=== PATIENT | male | born 1935 | race Caucasian/White ===

== ENCOUNTER 2018-04-08 07:33 | Observation (INO) ==
[2018-04-08 08:18] LABS: Baso % (Auto) 0.3 % (0.0-2.0); Eos # (Auto) 0.1 th/mm3 (0.0-0.4); Eos % (Auto) 0.7 % (0.0-4.0); Hematocrit 44.4 % (39.0-51.0); Hemoglobin 14.9 gm/dL (13.0-17.0); Lymph # (Auto) 1.3 th/mm3 (1.0-4.8); Lymph % (Auto) 8.3 % (9.0-44.0); Mean Corpuscular HGB Conc 33.5 % (32.0-36.0); Mean Corpuscular Hemoglobin 31.7 pg (27.0-34.0); Mean Corpuscular Volume 94.6 fL (80.0-100.0); Mean Platelet Volume 10.4 fL (7.0-11.0); Mono # (Auto) 0.8 th/mm3 (0.0-0.9); Mono % (Auto) 5.3 % (0.0-8.0); Neut # (Auto) 13.5 th/mm3 (1.8-7.7); Neut % (Auto) 85.4 % (16.0-70.0); Platelet Count 218 th/mm3 (150-450); Red Blood Count 4.69 mil/mm3 (4.50-5.90); Red Cell Distribution Width 14.3 % (11.6-17.2); White Blood Count 15.8 th/mm3 (4.0-11.0)
--- NOTE | 2018-04-08 08:34 | ED ---
HPI General Chief complaint: Nausea/Vomiting/Diarrhea Stated complaint: Medical Time Seen by Provider: 04/08/18 07:36 History of Present Illness HPI narrative: 82 male history of hyperlipidemia, hypertension, Alzheimer's disease, depression, BPH was brought via [facility] from SNF for evaluation of shaking of both arms. Symptoms started yesterday, according to the correction note it says it happens "every month". He has no complaints and denies any chest pain or shortness of breath. During the interview patient keeps saying that the blankets covering him makes him uncomfortable and that people keeps "walking by"and not doing anything for him. Called daughter (DEJAH) ) who says that pt was SOB at the NH. Pt didn't have SOB with [facility] or here at the ER. She also mentions that shakings are normal for him and they sometimes get worse randomly. Side Note: My interview with the patient may be affected by the patient clinical condition. Patient has baseline Alzheimer dementia and cannot give consistent history. I do not know if there is concern for altered mental status and I cannot determine the patient's baseline cognitive functions due to lack of documents from the SNF. Related Data Home Medications Medication Instructions Recorded Confirmed atorvastatin 20 mg PO DAILY 04/08/18 04/08/18 donepezil 10 mg PO BID 04/08/18 04/08/18 loperamide [Anti-Diarrheal 2 mg PO TID 04/08/18 04/08/18 (loperamide)] lorazepam 0.5 mg PO BID 04/08/18 04/08/18 montelukast 10 mg PO QPM 04/08/18 04/08/18 polyethylene glycol 3350 17 g PO DAILY PRN 04/08/18 04/08/18 potassium chloride 20 meq PO DAILY 04/08/18 04/08/18 quetiapine 25 mg PO BID 04/08/18 04/08/18 quinapril 20 mg PO BID 04/08/18 04/08/18 sertraline 100 mg PO DAILY 04/08/18 04/08/18 tamsulosin 0.4 mg PO DAILY 04/08/18 04/08/18 Previous Rx's Medication Instructions Recorded amlodipine [Norvasc] 10 mg PO DAILY #30 tab 04/13/18 furosemide 20 mg PO DAILY #30 tab 04/13/18 Allergies Allergy/AdvReac Type Severity Reaction Status Date / Time No Known Allergies Allergy Verified 04/08/18 07:43 Review of Systems ROS: all other systems reviewed are negative [facility] Social History Social History Smoking Status: Unknown if ever smoked How Often Do You Have a Drink Containing Alcohol: Unable to Obtain Recent Travel in [facility] within the Last 8 Weeks: No Recent Out of Country Travel within the Last 8 Weeks: No Immunization History Tetanus Immunization: Unsure Exam Narrative Exam Narrative: GENERAL: Alert but not oriented to time or place. SKIN: Focused skin assessment warm/dry. HEAD: Atraumatic. Normocephalic. EYES: Pupils equal and round. No scleral icterus. No injection or drainage. ENT: No nasal bleeding or discharge. Mucous membranes pink and moist. NECK: Trachea midline. No JVD. CARDIOVASCULAR: Regular rate and rhythm. No murmur appreciated. RESPIRATORY: No accessory muscle use. Clear to auscultation. Breath sounds equal bilaterally. GASTROINTESTINAL: large scrotal mass, tender, erythematous, non reducible, Abdomen soft, non-tender, nondistended. Hepatic and splenic margins not palpable. MUSCULOSKELETAL: No obvious deformities. No clubbing. No cyanosis. No edema. NEUROLOGICAL: Awake and alert. No obvious cranial nerve deficits. Motor grossly within normal limits. Normal speech. PSYCHIATRIC: Appropriate mood and affect; insight and judgment normal. Course Initial Documented Vital Signs Temperature 97.8 F 04/08/18 07:36 Pulse Rate 66 04/08/18 07:36 Respiratory Rate 18 04/08/18 07:36 Blood Pressure 189/90 H 04/08/18 07:36 Pulse Oximetry 100 04/08/18 07:36 Last Documented Vital Signs Temperature 98.1 F 04/13/18 16:00 Pulse Rate 65 04/13/18 16:00 Respiratory Rate 17 04/13/18 16:00 Blood Pressure 130/70 04/13/18 16:00 Pulse Oximetry 95 04/13/18 16:00 Medical Decision Making [facility] Narrative Medical decision making narrative: 82 male here from group home facility for evaluation of shaking, questionable shortness of breath, poor history due to clinical condition, history of hypertension. Physical exam remarkable for scrotal mass that is erythematous tender. Labs concerning for leukocytosis with left shift, hypokalemia, TAMMY, head CT shows possible tiny SAH which is unclear new vs old ( daughter doesn't know anything about it), chest CT shows Left lower lobe 1.3 cm focal irregular nodular density, abdomen CT shows inguinal hernia. I spoke with daughter and she says it's been there for >5 years, I don't anticipate that patient is surgical candidate. EKG shows sinus bradycardia with a heart rate of 56 right bundle branch block with questionable nonconducted P waves randomly and irregularly irregular rhythm concerning for possible second-degree heart block, Medical Screen Exam Complete: Yes Emergency Medical Condition: Yes Lab Data Result diagrams: 04/12/18 07:53 04/12/18 07:53 Lab Results 04/08/18 04/08/18 04/08/18 Range/Units 07:41 08:00 08:00 WBC 15.8 H (4.0-11.0) th/mm3 RBC 4.69 (4.50-5.90) mil/mm3 Hgb 14.9 (13.0-17.0) gm/dL Hct 44.4 (39.0-51.0) % MCV 94.6 (80.0-100.0) fL MCH 31.7 (27.0-34.0) pg MCHC 33.5 (32.0-36.0) % RDW 14.3 (11.6-17.2) % Plt Count 218 (150-450) th/mm3 MPV 10.4 (7.0-11.0) fL Neut % (Auto) 85.4 H (16.0-70.0) % Lymph % (Auto) 8.3 L (9.0-44.0) % Banner % (Auto) 5.3 (0.0-8.0) % Eos % (Auto) 0.7 (0.0-4.0) % Baso % (Auto) 0.3 (0.0-2.0) % Neut # (Auto) 13.5 H (1.8-7.7) th/mm3 Lymph # (Auto) 1.3 (1.0-4.8) th/mm3 Banner # (Auto) 0.8 (0.0-0.9) th/mm3 Eos # (Auto) 0.1 (0.0-0.4) th/mm3 Baso # (Auto) 0.0 (0.0-0.2) th/mm3 WBC Differential . Differential Comment Auto diff final PT (9.8-11.6) sec INR Ratio APTT (24.3-30.1) sec Sodium 138 (136-145) meq/L Potassium 2.9 L* (3.5-5.1) meq/L Chloride 99 (98-107) meq/L Carbon Dioxide 22.4 (21.0-32.0) meq/L Anion Gap 17 H (5-15) meq/L BUN 30 H (7-18) mg/dL Creatinine 1.53 H (0.60-1.30) mg/dL Estimated GFR 44 L (>89) mL/min POC Glucose 217 H (68-110) mg/dl Random Glucose 217 H (74-106) mg/dL Hemoglobin A1c (4.3-6.0) % Calcium 9.7 (8.5-10.1) mg/dL Magnesium 1.9 (1.5-2.5) mg/dL Total Bilirubin 0.5 (0.2-1.0) mg/dL AST 18 (15-37) U/L ALT 24 (12-78) U/L Alkaline Phosphatase 125 H (45-117) U/L Ammonia (11-32) mcmol/L B-Natriuretic Peptide (0-100) pg/mL Total Protein 7.9 (6.4-8.2) g/dL Albumin 3.9 (3.4-5.0) g/dL TSH 1.590 (0.358-3.740) uIU/mL Urine Color (Yellw/Straw) Urine Clarity (Clear) Urine pH (5.0-8.5) Ur Specific Ovid (1.002-1.035) Urine Protein (Neg-Trace) mg/dL Urine Glucose (UA) (Negative) mg/dL Urine Ketones (Negative) mg/dL Urine Occult Blood (Negative) Urine Nitrate (Negative) Urine Bilirubin (Negative) Urine Urobilinogen (Less than 2) mg/dL Ur Leukocyte Esterase (Negative) Urine RBC (0-3) /hpf Urine WBC (0-5) /hpf Urine Bacteria (None) /hpf Hyaline Casts (0-3) /lpf Micro UA Comment Ur Microscopic Review Urine Culture Comments 04/08/18 04/08/18 04/08/18 Range/Units 08:00 10:03 10:05 WBC (4.0-11.0) th/mm3 RBC (4.50-5.90) mil/mm3 Hgb (13.0-17.0) gm/dL Hct (39.0-51.0) % MCV (80.0-100.0) fL MCH (27.0-34.0) pg MCHC (32.0-36.0) % RDW (11.6-17.2) % Plt Count (150-450) th/mm3 MPV (7.0-11.0) fL Neut % (Auto) (16.0-70.0) % Lymph % (Auto) (9.0-44.0) % Banner % (Auto) (0.0-8.0) % Eos % (Auto) (0.0-4.0) % Baso % (Auto) (0.0-2.0) % Neut # (Auto) (1.8-7.7) th/mm3 Lymph # (Auto) (1.0-4.8) th/mm3 Banner # (Auto) (0.0-0.9) th/mm3 Eos # (Auto) (0.0-0.4) th/mm3 Baso # (Auto) (0.0-0.2) th/mm3 WBC Differential Differential Comment PT (9.8-11.6) sec INR Ratio APTT (24.3-30.1) sec Sodium (136-145) meq/L Potassium (3.5-5.1) meq/L Chloride (98-107) meq/L Carbon Dioxide (21.0-32.0) meq/L Anion Gap (5-15) meq/L BUN (7-18) mg/dL Creatinine (0.60-1.30) mg/dL Estimated GFR (>89) mL/min POC Glucose (68-110) mg/dl Random Glucose (74-106) mg/dL Hemoglobin A1c (4.3-6.0) % Calcium (8.5-10.1) mg/dL Magnesium (1.5-2.5) mg/dL Total Bilirubin (0.2-1.0) mg/dL AST (15-37) U/L ALT (12-78) U/L Alkaline Phosphatase (45-117) U/L Ammonia 13 (11-32) mcmol/L B-Natriuretic Peptide 48 (0-100) pg/mL Total Protein (6.4-8.2) g/dL Albumin (3.4-5.0) g/dL TSH (0.358-3.740) uIU/mL Urine Color Yellow (Yellw/Straw) Urine Clarity Clear (Clear) Urine pH 7.0 (5.0-8.5) Ur Specific Ovid 1.014 (1.002-1.035) Urine Protein Negative (Neg-Trace) mg/dL Urine Glucose (UA) 50 (Negative) mg/dL Urine Ketones Trace H (Negative) mg/dL Urine Occult Blood Negative (Negative) Urine Nitrate Negative (Negative) Urine Bilirubin Negative (Negative) Urine Urobilinogen Less than 2 (Less than 2) mg/dL Ur Leukocyte Esterase Negative (Negative) Urine RBC 3 (0-3) /hpf Urine WBC 2 (0-5) /hpf Urine Bacteria Rare H (None) /hpf Hyaline Casts 1 (0-3) /lpf Micro UA Comment Culture not ind Ur Microscopic Review Not Reportable Urine Culture Comments Culture not ind 04/09/18 04/09/18 04/09/18 Range/Units 08:31 08:31 08:31 WBC 19.0 H (4.0-11.0) th/mm3 RBC 4.19 L (4.50-5.90) mil/mm3 Hgb 13.6 (13.0-17.0) gm/dL Hct 38.9 L (39.0-51.0) % MCV 92.8 (80.0-100.0) fL MCH 32.6 (27.0-34.0) pg MCHC 35.1 (32.0-36.0) % RDW 14.2 (11.6-17.2) % Plt Count 189 (150-450) th/mm3 MPV 10.3 (7.0-11.0) fL Neut % (Auto) (16.0-70.0) % Lymph % (Auto) (9.0-44.0) % Banner % (Auto) (0.0-8.0) % Eos % (Auto) (0.0-4.0) % Baso % (Auto) (0.0-2.0) % Neut # (Auto) (1.8-7.7) th/mm3 Lymph # (Auto) (1.0-4.8) th/mm3 Banner # (Auto) (0.0-0.9) th/mm3 Eos # (Auto) (0.0-0.4) th/mm3 Baso # (Auto) (0.0-0.2) th/mm3 WBC Differential Differential Comment PT (9.8-11.6) sec INR Ratio APTT (24.3-30.1) sec Sodium 145 (136-145) meq/L Potassium 3.7 D (3.5-5.1) meq/L Chloride 111 H D (98-107) meq/L Carbon Dioxide 25.6 (21.0-32.0) meq/L Anion Gap 8 (5-15) meq/L BUN 26 H (7-18) mg/dL Creatinine 1.09 (0.60-1.30) mg/dL Estimated GFR 65 L (>89) mL/min POC Glucose (68-110) mg/dl Random Glucose 102 D (74-106) mg/dL Hemoglobin A1c 5.4 (4.3-6.0) % Calcium 8.8 D (8.5-10.1) mg/dL Magnesium (1.5-2.5) mg/dL Total Bilirubin (0.2-1.0) mg/dL AST (15-37) U/L ALT (12-78) U/L Alkaline Phosphatase (45-117) U/L Ammonia (11-32) mcmol/L B-Natriuretic Peptide (0-100) pg/mL Total Protein (6.4-8.2) g/dL Albumin (3.4-5.0) g/dL TSH (0.358-3.740) uIU/mL Urine Color (Yellw/Straw) Urine Clarity (Clear) Urine pH (5.0-8.5) Ur Specific Ovid (1.002-1.035) Urine Protein (Neg-Trace) mg/dL Urine Glucose (UA) (Negative) mg/dL Urine Ketones (Negative) mg/dL Urine Occult Blood (Negative) Urine Nitrate (Negative) Urine Bilirubin (Negative) Urine Urobilinogen (Less than 2) mg/dL Ur Leukocyte Esterase (Negative) Urine RBC (0-3) /hpf Urine WBC (0-5) /hpf Urine Bacteria (None) /hpf Hyaline Casts (0-3) /lpf Micro UA Comment Ur Microscopic Review Urine Culture Comments 04/09/18 04/09/18 04/09/18 Range/Units 12:05 16:59 20:09 WBC (4.0-11.0) th/mm3 RBC (4.50-5.90) mil/mm3 Hgb (13.0-17.0) gm/dL Hct (39.0-51.0) % MCV (80.0-100.0) fL MCH (27.0-34.0) pg MCHC (32.0-36.0) % RDW (11.6-17.2) % Plt Count (150-450) th/mm3 MPV (7.0-11.0) fL Neut % (Auto) (16.0-70.0) % Lymph % (Auto) (9.0-44.0) % Banner % (Auto) (0.0-8.0) % Eos % (Auto) (0.0-4.0) % Baso % (Auto) (0.0-2.0) % Neut # (Auto) (1.8-7.7) th/mm3 Lymph # (Auto) (1.0-4.8) th/mm3 Banner # (Auto) (0.0-0.9) th/mm3 Eos # (Auto) (0.0-0.4) th/mm3 Baso # (Auto) (0.0-0.2) th/mm3 WBC Differential Differential Comment PT (9.8-11.6) sec INR Ratio APTT (24.3-30.1) sec Sodium (136-145) meq/L Potassium (3.5-5.1) meq/L Chloride (98-107) meq/L Carbon Dioxide (21.0-32.0) meq/L Anion Gap (5-15) meq/L BUN (7-18) mg/dL Creatinine (0.60-1.30) mg/dL Estimated GFR (>89) mL/min POC Glucose 145 H 118 H 120 H (68-110) mg/dl Random Glucose (74-106) mg/dL Hemoglobin A1c (4.3-6.0) % Calcium (8.5-10.1) mg/dL Magnesium (1.5-2.5) mg/dL Total Bilirubin (0.2-1.0) mg/dL AST (15-37) U/L ALT (12-78) U/L Alkaline Phosphatase (45-117) U/L Ammonia (11-32) mcmol/L B-Natriuretic Peptide (0-100) pg/mL Total Protein (6.4-8.2) g/dL Albumin (3.4-5.0) g/dL TSH (0.358-3.740) uIU/mL Urine Color (Yellw/Straw) Urine Clarity (Clear) Urine pH (5.0-8.5) Ur Specific Ovid (1.002-1.035) Urine Protein (Neg-Trace) mg/dL Urine Glucose (UA) (Negative) mg/dL Urine Ketones (Negative) mg/dL Urine Occult Blood (Negative) Urine Nitrate (Negative) Urine Bilirubin (Negative) Urine Urobilinogen (Less than 2) mg/dL Ur Leukocyte Esterase (Negative) Urine RBC (0-3) /hpf Urine WBC (0-5) /hpf Urine Bacteria (None) /hpf Hyaline Casts (0-3) /lpf Micro UA Comment Ur Microscopic Review Urine Culture Comments 04/10/18 04/10/18 04/10/18 Range/Units 02:37 07:26 10:13 WBC 21.1 H (4.0-11.0) th/mm3 RBC 3.79 L (4.50-5.90) mil/mm3 Hgb 12.1 L (13.0-17.0) gm/dL Hct 35.9 L (39.0-51.0) % MCV 94.7 (80.0-100.0) fL MCH 31.8 (27.0-34.0) pg MCHC 33.6 (32.0-36.0) % RDW 14.3 (11.6-17.2) % Plt Count 167 (150-450) th/mm3 MPV 10.3 (7.0-11.0) fL Neut % (Auto) 84.8 H (16.0-70.0) % Lymph % (Auto) 5.6 L (9.0-44.0) % Banner % (Auto) 8.7 H (0.0-8.0) % Eos % (Auto) 0.8 (0.0-4.0) % Baso % (Auto) 0.1 (0.0-2.0) % Neut # (Auto) 17.9 H (1.8-7.7) th/mm3 Lymph # (Auto) 1.2 (1.0-4.8) th/mm3 Banner # (Auto) 1.8 H (0.0-0.9) th/mm3 Eos # (Auto) 0.2 (0.0-0.4) th/mm3 Baso # (Auto) 0.0 (0.0-0.2) th/mm3 WBC Differential . Differential Comment Auto diff final PT (9.8-11.6) sec INR Ratio APTT (24.3-30.1) sec Sodium (136-145) meq/L Potassium (3.5-5.1) meq/L Chloride (98-107) meq/L Carbon Dioxide (21.0-32.0) meq/L Anion Gap (5-15) meq/L BUN (7-18) mg/dL Creatinine (0.60-1.30) mg/dL Estimated GFR (>89) mL/min POC Glucose 113 H 113 H (68-110) mg/dl Random Glucose (74-106) mg/dL Hemoglobin A1c (4.3-6.0) % Calcium (8.5-10.1) mg/dL Magnesium (1.5-2.5) mg/dL Total Bilirubin (0.2-1.0) mg/dL AST (15-37) U/L ALT (12-78) U/L Alkaline Phosphatase (45-117) U/L Ammonia (11-32) mcmol/L B-Natriuretic Peptide (0-100) pg/mL Total Protein (6.4-8.2) g/dL Albumin (3.4-5.0) g/dL TSH (0.358-3.740) uIU/mL Urine Color (Yellw/Straw) Urine Clarity (Clear) Urine pH (5.0-8.5) Ur Specific Ovid (1.002-1.035) Urine Protein (Neg-Trace) mg/dL Urine Glucose (UA) (Negative) mg/dL Urine Ketones (Negative) mg/dL Urine Occult Blood (Negative) Urine Nitrate (Negative) Urine Bilirubin (Negative) Urine Urobilinogen (Less than 2) mg/dL Ur Leukocyte Esterase (Negative) Urine RBC (0-3) /hpf Urine WBC (0-5) /hpf Urine Bacteria (None) /hpf Hyaline Casts (0-3) /lpf Micro UA Comment Ur Microscopic Review Urine Culture Comments 04/10/18 04/10/18 04/10/18 Range/Units 10:13 12:25 18:19 WBC (4.0-11.0) th/mm3 RBC (4.50-5.90) mil/mm3 Hgb (13.0-17.0) gm/dL Hct (39.0-51.0) % MCV (80.0-100.0) fL MCH (27.0-34.0) pg MCHC (32.0-36.0) % RDW (11.6-17.2) % Plt Count (150-450) th/mm3 MPV (7.0-11.0) fL Neut % (Auto) (16.0-70.0) % Lymph % (Auto) (9.0-44.0) % Banner % (Auto) (0.0-8.0) % Eos % (Auto) (0.0-4.0) % Baso % (Auto) (0.0-2.0) % Neut # (Auto) (1.8-7.7) th/mm3 Lymph # (Auto) (1.0-4.8) th/mm3 Banner # (Auto) (0.0-0.9) th/mm3 Eos # (Auto) (0.0-0.4) th/mm3 Baso # (Auto) (0.0-0.2) th/mm3 WBC Differential Differential Comment PT (9.8-11.6) sec INR Ratio APTT (24.3-30.1) sec Sodium 144 (136-145) meq/L Potassium 3.9 (3.5-5.1) meq/L Chloride 112 H (98-107) meq/L Carbon Dioxide 26.1 (21.0-32.0) meq/L Anion Gap 6 (5-15) meq/L BUN 15 (7-18) mg/dL Creatinine 0.88 (0.60-1.30) mg/dL Estimated GFR 83 L (>89) mL/min POC Glucose 111 H 95 (68-110) mg/dl Random Glucose 98 (74-106) mg/dL Hemoglobin A1c (4.3-6.0) % Calcium 9.0 (8.5-10.1) mg/dL Magnesium (1.5-2.5) mg/dL Total Bilirubin (0.2-1.0) mg/dL AST (15-37) U/L ALT (12-78) U/L Alkaline Phosphatase (45-117) U/L Ammonia (11-32) mcmol/L B-Natriuretic Peptide (0-100) pg/mL Total Protein (6.4-8.2) g/dL Albumin (3.4-5.0) g/dL TSH (0.358-3.740) uIU/mL Urine Color (Yellw/Straw) Urine Clarity (Clear) Urine pH (5.0-8.5) Ur Specific Ovid (1.002-1.035) Urine Protein (Neg-Trace) mg/dL Urine Glucose (UA) (Negative) mg/dL Urine Ketones (Negative) mg/dL Urine Occult Blood (Negative) Urine Nitrate (Negative) Urine Bilirubin (Negative) Urine Urobilinogen (Less than 2) mg/dL Ur Leukocyte Esterase (Negative) Urine RBC (0-3) /hpf Urine WBC (0-5) /hpf Urine Bacteria (None) /hpf Hyaline Casts (0-3) /lpf Micro UA Comment Ur Microscopic Review Urine Culture Comments 04/10/18 04/11/18 04/11/18 Range/Units 22:31 03:30 07:55 WBC (4.0-11.0) th/mm3 RBC (4.50-5.90) mil/mm3 Hgb (13.0-17.0) gm/dL Hct (39.0-51.0) % MCV (80.0-100.0) fL MCH (27.0-34.0) pg MCHC (32.0-36.0) % RDW (11.6-17.2) % Plt Count (150-450) th/mm3 MPV (7.0-11.0) fL Neut % (Auto) (16.0-70.0) % Lymph % (Auto) (9.0-44.0) % Banner % (Auto) (0.0-8.0) % Eos % (Auto) (0.0-4.0) % Baso % (Auto) (0.0-2.0) % Neut # (Auto) (1.8-7.7) th/mm3 Lymph # (Auto) (1.0-4.8) th/mm3 Banner # (Auto) (0.0-0.9) th/mm3 Eos # (Auto) (0.0-0.4) th/mm3 Baso # (Auto) (0.0-0.2) th/mm3 WBC Differential Differential Comment PT (9.8-11.6) sec INR Ratio APTT (24.3-30.1) sec Sodium (136-145) meq/L Potassium (3.5-5.1) meq/L Chloride (98-107) meq/L Carbon Dioxide (21.0-32.0) meq/L Anion Gap (5-15) meq/L BUN (7-18) mg/dL Creatinine (0.60-1.30) mg/dL Estimated GFR (>89) mL/min POC Glucose 81 81 111 H (68-110) mg/dl Random Glucose (74-106) mg/dL Hemoglobin A1c (4.3-6.0) % Calcium (8.5-10.1) mg/dL Magnesium (1.5-2.5) mg/dL Total Bilirubin (0.2-1.0) mg/dL AST (15-37) U/L ALT (12-78) U/L Alkaline Phosphatase (45-117) U/L Ammonia (11-32) mcmol/L B-Natriuretic Peptide (0-100) pg/mL Total Protein (6.4-8.2) g/dL Albumin (3.4-5.0) g/dL TSH (0.358-3.740) uIU/mL Urine Color (Yellw/Straw) Urine Clarity (Clear) Urine pH (5.0-8.5) Ur Specific Ovid (1.002-1.035) Urine Protein (Neg-Trace) mg/dL Urine Glucose (UA) (Negative) mg/dL Urine Ketones (Negative) mg/dL Urine Occult Blood (Negative) Urine Nitrate (Negative) Urine Bilirubin (Negative) Urine Urobilinogen (Less than 2) mg/dL Ur Leukocyte Esterase (Negative) Urine RBC (0-3) /hpf Urine WBC (0-5) /hpf Urine Bacteria (None) /hpf Hyaline Casts (0-3) /lpf Micro UA Comment Ur Microscopic Review Urine Culture Comments 04/11/18 04/11/18 04/11/18 Range/Units 12:05 12:56 12:56 WBC 16.0 H (4.0-11.0) th/mm3 RBC 3.58 L (4.50-5.90) mil/mm3 Hgb 11.2 L (13.0-17.0) gm/dL Hct 34.4 L (39.0-51.0) % MCV 96.1 (80.0-100.0) fL MCH 31.4 (27.0-34.0) pg MCHC 32.7 (32.0-36.0) % RDW 14.3 (11.6-17.2) % Plt Count 146 L (150-450) th/mm3 MPV 10.4 (7.0-11.0) fL Neut % (Auto) 77.0 H (16.0-70.0) % Lymph % (Auto) 9.0 (9.0-44.0) % Banner % (Auto) 8.7 H (0.0-8.0) % Eos % (Auto) 5.1 H (0.0-4.0) % Baso % (Auto) 0.2 (0.0-2.0) % Neut # (Auto) 12.3 H (1.8-7.7) th/mm3 Lymph # (Auto) 1.4 (1.0-4.8) th/mm3 Banner # (Auto) 1.4 H (0.0-0.9) th/mm3 Eos # (Auto) 0.8 H (0.0-0.4) th/mm3 Baso # (Auto) 0.0 (0.0-0.2) th/mm3 WBC Differential . Differential Comment Auto diff final PT (9.8-11.6) sec INR Ratio APTT (24.3-30.1) sec Sodium 141 (136-145) meq/L Potassium 4.2 (3.5-5.1) meq/L Chloride 111 H (98-107) meq/L Carbon Dioxide 24.4 (21.0-32.0) meq/L Anion Gap 6 (5-15) meq/L BUN 15 (7-18) mg/dL Creatinine 0.75 (0.60-1.30) mg/dL Estimated GFR Greater than 89 (>89) mL/min POC Glucose 107 (68-110) mg/dl Random Glucose 88 (74-106) mg/dL Hemoglobin A1c (4.3-6.0) % Calcium 8.6 (8.5-10.1) mg/dL Magnesium (1.5-2.5) mg/dL Total Bilirubin (0.2-1.0) mg/dL AST (15-37) U/L ALT (12-78) U/L Alkaline Phosphatase (45-117) U/L Ammonia (11-32) mcmol/L B-Natriuretic Peptide (0-100) pg/mL Total Protein (6.4-8.2) g/dL Albumin (3.4-5.0) g/dL TSH (0.358-3.740) uIU/mL Urine Color (Yellw/Straw) Urine Clarity (Clear) Urine pH (5.0-8.5) Ur Specific Ovid (1.002-1.035) Urine Protein (Neg-Trace) mg/dL Urine Glucose (UA) (Negative) mg/dL Urine Ketones (Negative) mg/dL Urine Occult Blood (Negative) Urine Nitrate (Negative) Urine Bilirubin (Negative) Urine Urobilinogen (Less than 2) mg/dL Ur Leukocyte Esterase (Negative) Urine RBC (0-3) /hpf Urine WBC (0-5) /hpf Urine Bacteria (None) /hpf Hyaline Casts (0-3) /lpf Micro UA Comment Ur Microscopic Review Urine Culture Comments 04/11/18 04/11/18 04/11/18 Range/Units 17:24 17:50 21:47 WBC (4.0-11.0) th/mm3 RBC (4.50-5.90) mil/mm3 Hgb (13.0-17.0) gm/dL Hct (39.0-51.0) % MCV (80.0-100.0) fL MCH (27.0-34.0) pg MCHC (32.0-36.0) % RDW (11.6-17.2) % Plt Count (150-450) th/mm3 MPV (7.0-11.0) fL Neut % (Auto) (16.0-70.0) % Lymph % (Auto) (9.0-44.0) % Banner % (Auto) (0.0-8.0) % Eos % (Auto) (0.0-4.0) % Baso % (Auto) (0.0-2.0) % Neut # (Auto) (1.8-7.7) th/mm3 Lymph # (Auto) (1.0-4.8) th/mm3 Banner # (Auto) (0.0-0.9) th/mm3 Eos # (Auto) (0.0-0.4) th/mm3 Baso # (Auto) (0.0-0.2) th/mm3 WBC Differential Differential Comment PT 10.7 (9.8-11.6) sec INR 1.1 Ratio APTT 26.1 (24.3-30.1) sec Sodium (136-145) meq/L Potassium (3.5-5.1) meq/L Chloride (98-107) meq/L Carbon Dioxide (21.0-32.0) meq/L Anion Gap (5-15) meq/L BUN (7-18) mg/dL Creatinine (0.60-1.30) mg/dL Estimated GFR (>89) mL/min POC Glucose 103 83 (68-110) mg/dl Random Glucose (74-106) mg/dL Hemoglobin A1c (4.3-6.0) % Calcium (8.5-10.1) mg/dL Magnesium (1.5-2.5) mg/dL Total Bilirubin (0.2-1.0) mg/dL AST (15-37) U/L ALT (12-78) U/L Alkaline Phosphatase (45-117) U/L Ammonia (11-32) mcmol/L B-Natriuretic Peptide (0-100) pg/mL Total Protein (6.4-8.2) g/dL Albumin (3.4-5.0) g/dL TSH (0.358-3.740) uIU/mL Urine Color (Yellw/Straw) Urine Clarity (Clear) Urine pH (5.0-8.5) Ur Specific Ovid (1.002-1.035) Urine Protein (Neg-Trace) mg/dL Urine Glucose (UA) (Negative) mg/dL Urine Ketones (Negative) mg/dL Urine Occult Blood (Negative) Urine Nitrate (Negative) Urine Bilirubin (Negative) Urine Urobilinogen (Less than 2) mg/dL Ur Leukocyte Esterase (Negative) Urine RBC (0-3) /hpf Urine WBC (0-5) /hpf Urine Bacteria (None) /hpf Hyaline Casts (0-3) /lpf Micro UA Comment Ur Microscopic Review Urine Culture Comments 04/12/18 04/12/18 04/12/18 Range/Units 04:19 07:45 07:53 WBC 12.5 H (4.0-11.0) th/mm3 RBC 3.62 L (4.50-5.90) mil/mm3 Hgb 11.5 L (13.0-17.0) gm/dL Hct 33.5 L (39.0-51.0) % MCV 92.5 D (80.0-100.0) fL MCH 31.8 (27.0-34.0) pg MCHC 34.4 (32.0-36.0) % RDW 14.0 (11.6-17.2) % Plt Count 180 (150-450) th/mm3 MPV 10.6 (7.0-11.0) fL Neut % (Auto) 72.5 H (16.0-70.0) % Lymph % (Auto) 11.3 (9.0-44.0) % Banner % (Auto) 9.4 H (0.0-8.0) % Eos % (Auto) 6.5 H (0.0-4.0) % Baso % (Auto) 0.3 (0.0-2.0) % Neut # (Auto) 9.0 H (1.8-7.7) th/mm3 Lymph # (Auto) 1.4 (1.0-4.8) th/mm3 Banner # (Auto) 1.2 H (0.0-0.9) th/mm3 Eos # (Auto) 0.8 H (0.0-0.4) th/mm3 Baso # (Auto) 0.0 (0.0-0.2) th/mm3 WBC Differential . Differential Comment Auto diff final PT (9.8-11.6) sec INR Ratio APTT (24.3-30.1) sec Sodium (136-145) meq/L Potassium (3.5-5.1) meq/L Chloride (98-107) meq/L Carbon Dioxide (21.0-32.0) meq/L Anion Gap (5-15) meq/L BUN (7-18) mg/dL Creatinine (0.60-1.30) mg/dL Estimated GFR (>89) mL/min POC Glucose 83 103 (68-110) mg/dl Random Glucose (74-106) mg/dL Hemoglobin A1c (4.3-6.0) % Calcium (8.5-10.1) mg/dL Magnesium (1.5-2.5) mg/dL Total Bilirubin (0.2-1.0) mg/dL AST (15-37) U/L ALT (12-78) U/L Alkaline Phosphatase (45-117) U/L Ammonia (11-32) mcmol/L B-Natriuretic Peptide (0-100) pg/mL Total Protein (6.4-8.2) g/dL Albumin (3.4-5.0) g/dL TSH (0.358-3.740) uIU/mL Urine Color (Yellw/Straw) Urine Clarity (Clear) Urine pH (5.0-8.5) Ur Specific Ovid (1.002-1.035) Urine Protein (Neg-Trace) mg/dL Urine Glucose (UA) (Negative) mg/dL Urine Ketones (Negative) mg/dL Urine Occult Blood (Negative) Urine Nitrate (Negative) Urine Bilirubin (Negative) Urine Urobilinogen (Less than 2) mg/dL Ur Leukocyte Esterase (Negative) Urine RBC (0-3) /hpf Urine WBC (0-5) /hpf Urine Bacteria (None) /hpf Hyaline Casts (0-3) /lpf Micro UA Comment Ur Microscopic Review Urine Culture Comments 04/12/18 04/12/18 04/13/18 Range/Units 07:53 20:23 02:54 WBC (4.0-11.0) th/mm3 RBC (4.50-5.90) mil/mm3 Hgb (13.0-17.0) gm/dL Hct (39.0-51.0) % MCV (80.0-100.0) fL MCH (27.0-34.0) pg MCHC (32.0-36.0) % RDW (11.6-17.2) % Plt Count (150-450) th/mm3 MPV (7.0-11.0) fL Neut % (Auto) (16.0-70.0) % Lymph % (Auto) (9.0-44.0) % Banner % (Auto) (0.0-8.0) % Eos % (Auto) (0.0-4.0) % Baso % (Auto) (0.0-2.0) % Neut # (Auto) (1.8-7.7) th/mm3 Lymph # (Auto) (1.0-4.8) th/mm3 Banner # (Auto) (0.0-0.9) th/mm3 Eos # (Auto) (0.0-0.4) th/mm3 Baso # (Auto) (0.0-0.2) th/mm3 WBC Differential Differential Comment PT (9.8-11.6) sec INR Ratio APTT (24.3-30.1) sec Sodium 141 (136-145) meq/L Potassium 3.9 (3.5-5.1) meq/L Chloride 110 H (98-107) meq/L Carbon Dioxide 23.8 (21.0-32.0) meq/L Anion Gap 7 (5-15) meq/L BUN 16 (7-18) mg/dL Creatinine 0.83 (0.60-1.30) mg/dL Estimated GFR 89 (>89) mL/min POC Glucose 102 90 (68-110) mg/dl Random Glucose 80 (74-106) mg/dL Hemoglobin A1c (4.3-6.0) % Calcium 8.6 (8.5-10.1) mg/dL Magnesium 1.7 (1.5-2.5) mg/dL Total Bilirubin (0.2-1.0) mg/dL AST (15-37) U/L ALT (12-78) U/L Alkaline Phosphatase (45-117) U/L Ammonia (11-32) mcmol/L B-Natriuretic Peptide (0-100) pg/mL Total Protein (6.4-8.2) g/dL Albumin (3.4-5.0) g/dL TSH (0.358-3.740) uIU/mL Urine Color (Yellw/Straw) Urine Clarity (Clear) Urine pH (5.0-8.5) Ur Specific Ovid (1.002-1.035) Urine Protein (Neg-Trace) mg/dL Urine Glucose (UA) (Negative) mg/dL Urine Ketones (Negative) mg/dL Urine Occult Blood (Negative) Urine Nitrate (Negative) Urine Bilirubin (Negative) Urine Urobilinogen (Less than 2) mg/dL Ur Leukocyte Esterase (Negative) Urine RBC (0-3) /hpf Urine WBC (0-5) /hpf Urine Bacteria (None) /hpf Hyaline Casts (0-3) /lpf Micro UA Comment Ur Microscopic Review Urine Culture Comments 04/13/18 Range/Units 07:44 WBC (4.0-11.0) th/mm3 RBC (4.50-5.90) mil/mm3 Hgb (13.0-17.0) gm/dL Hct (39.0-51.0) % MCV (80.0-100.0) fL MCH (27.0-34.0) pg MCHC (32.0-36.0) % RDW (11.6-17.2) % Plt Count (150-450) th/mm3 MPV (7.0-11.0) fL Neut % (Auto) (16.0-70.0) % Lymph % (Auto) (9.0-44.0) % Banner % (Auto) (0.0-8.0) % Eos % (Auto) (0.0-4.0) % Baso % (Auto) (0.0-2.0) % Neut # (Auto) (1.8-7.7) th/mm3 Lymph # (Auto) (1.0-4.8) th/mm3 Banner # (Auto) (0.0-0.9) th/mm3 Eos # (Auto) (0.0-0.4) th/mm3 Baso # (Auto) (0.0-0.2) th/mm3 WBC Differential Differential Comment PT (9.8-11.6) sec INR Ratio APTT (24.3-30.1) sec Sodium (136-145) meq/L Potassium (3.5-5.1) meq/L Chloride (98-107) meq/L Carbon Dioxide (21.0-32.0) meq/L Anion Gap (5-15) meq/L BUN (7-18) mg/dL Creatinine (0.60-1.30) mg/dL Estimated GFR (>89) mL/min POC Glucose 93 (68-110) mg/dl Random Glucose (74-106) mg/dL Hemoglobin A1c (4.3-6.0) % Calcium (8.5-10.1) mg/dL Magnesium (1.5-2.5) mg/dL Total Bilirubin (0.2-1.0) mg/dL AST (15-37) U/L ALT (12-78) U/L Alkaline Phosphatase (45-117) U/L Ammonia (11-32) mcmol/L B-Natriuretic Peptide (0-100) pg/mL Total Protein (6.4-8.2) g/dL Albumin (3.4-5.0) g/dL TSH (0.358-3.740) uIU/mL Urine Color (Yellw/Straw) Urine Clarity (Clear) Urine pH (5.0-8.5) Ur Specific Ovid (1.002-1.035) Urine Protein (Neg-Trace) mg/dL Urine Glucose (UA) (Negative) mg/dL Urine Ketones (Negative) mg/dL Urine Occult Blood (Negative) Urine Nitrate (Negative) Urine Bilirubin (Negative) Urine Urobilinogen (Less than 2) mg/dL Ur Leukocyte Esterase (Negative) Urine RBC (0-3) /hpf Urine WBC (0-5) /hpf Urine Bacteria (None) /hpf Hyaline Casts (0-3) /lpf Micro UA Comment Ur Microscopic Review Urine Culture Comments Imaging Data Radiologist's impression: Chest X-Ray 04/08/18 07:52 CONCLUSION: Patchy interstitial prominence of undetermined chronicity. Head CT 04/08/18 07:52 CONCLUSION: Possible tiny focus of subarachnoid blood in the high convexity left frontal region near the vertex (image 24). . Chest CT 04/08/18 09:03 CONCLUSION: 1. Moderate emphysema and atherosclerosis. 2. No evidence for pneumonia. 3. Left lower lobe 1.3 cm focal irregular nodular density. A primary bronchogenic neoplasm should be excluded. PET/CT would be helpful for further evaluation. Abdomen/Pelvis CT 04/08/18 10:04 CONCLUSION: 1. Of concern is a large right inguinal hernia containing mesenteric fat, multiple mildly distended small bowel loops which demonstrate wall thickening and moderate peritoneal fluid and a small bowel feces sign. The possibility of bowel compromise at this level should be entertained given these findings. 2. Small fat-containing left inguinal hernia. 3. Reticulosis without diverticulitis. 4. Atherosclerosis. 5. Irregular left lower lobe noncalcified pulmonary nodule. Chest X-Ray 04/10/18 00:00 CONCLUSION: 1. Senescent changes without acute abnormality or significant interval change. Discharge Plan Discharge Disposition Patient Disposition: 03 Discharge to SNF Discharge Condition Condition: Stable Discharge Order Discharge Orders: Discharge Order (Routine); Ordered 04/13/18 Ordered By: Whit Kent Discharge Details Anticipated Discharge Date: 04/13/18 Discharge Comment: D/c to [facility] with [facility]. Physicians Team ED Provider: Ole Nieves Primary Care Provider: Darling Hastings Attending Provider: Antonia Devries Other Providers: Karthikeyan Forbes ; Amador Jensen ; [facility] ; Darling Hastings ; [facility],[place] ; [facility] Status ED Status: Left Department Discharge Information Discharge Date/Time: 04/08/18 19:19
--- NOTE | 2018-04-08 08:40 | CT ---
EXAM DATE: 04/08/2018 8:04 AM EDT AGE/SEX: 82 years / Male INDICATIONS: Altered mental status. CLINICAL DATA: This is the patient's initial encounter. Patient reports that signs and symptoms have been present for 1 day and indicates a pain score of 0/10. MEDICAL/SURGICAL HISTORY: Hypertension. Alzheimer's disease. None. RADIATION DOSE: 37.61 CTDI (mGy) COMPARISON: . TECHNIQUE: CT of the head without contrast. Using automated exposure control and adjustment of the mA and/or kV according to patient size, radiation dose was kept as low as reasonably achievable to ob tain optimal diagnostic quality images. DICOM format image data is available electronically for revi ew and comparison. FINDINGS: There is a tiny focus of spontaneous density in the high convexity left frontal region near the verte x which may be minimal subarachnoid blood in this location. There is mild encephalomalacia in the rig ht temporal region and slight ex vacuo expansion of the right lateral ventricle. Mild patchy diminish ed attenuation in periventricular white matter appears chronic. There is no evidence of intracranial mass. There is nothing to otherwise suggest acute infarction. The extracranial structures are grossly benign in intact. CONCLUSION: Possible tiny focus of subarachnoid blood in the high convexity left frontal region near the vertex ( image 24). . Electronically signed by: Larry Bowie MD 04/08/2018 8:39 AM EDT
[2018-04-08 08:44] LABS: Alanine Aminotransferase 24 U/L (12-78); Albumin 3.9 g/dL (3.4-5.0); Alkaline Phosphatase 125 U/L (45-117); Anion Gap 17 meq/L (5-15); Aspartate Aminotransferase 18 U/L (15-37); Blood Urea Nitrogen 30 mg/dL (7-18); Calcium 9.7 mg/dL (8.5-10.1); Carbon Dioxide 22.4 meq/L (21.0-32.0); Chloride 99 meq/L (98-107); Glomerular Filtration Rate 44 mL/min (>89); Glucose,Random 217 mg/dL (74-106); Magnesium 1.9 mg/dL (1.5-2.5); Sodium 138 meq/L (136-145); Total Protein 7.9 g/dL (6.4-8.2)
[2018-04-08 08:48] LABS: Potassium 2.9 meq/L (3.5-5.1)
[2018-04-08] MEDS ORDERED: Potassium Chlor 20 mEq Premix 20 MEQ/100 ML PIGGYBACK IV.SIG STA (08:53)
--- NOTE | 2018-04-08 09:01 | XR ---
EXAM DATE: 04/08/2018 7:52 AM EDT AGE/SEX: 82 years / Male INDICATIONS: Chest pain and shortness of breath. CLINICAL DATA: This is the patient's initial encounter. Patient reports that signs and symptoms have been present for 1 day and indicates a pain score of 4/10. MEDICAL/SURGICAL HISTORY: Hypertension. None. COMPARISON: No prior exams available for comparison. FINDINGS: There is mild patchy interstitial infiltrate of undetermined chronicity. Slight asymmetric elevation of the right diaphragm. No significant effusion suspected. Cardiac contours are probably satisfactory for degree of rotation. CONCLUSION: Patchy interstitial prominence of undetermined chronicity. Electronically signed by: Larry Bowie MD 04/08/2018 8:59 AM EDT
--- NOTE | 2018-04-08 09:39 | CT ---
EXAM DATE: 04/08/2018 9:08 AM EDT AGE/SEX: 82 years / Male INDICATIONS: Nausea. Shaking. Chest pain for one month. CLINICAL DATA: This is the patient's initial encounter. Patient reports that signs and symptoms have been present for 1 month and indicates a pain score of 1/10. MEDICAL/SURGICAL HISTORY: Alzheimer's disease. Hypertension. None. RADIATION DOSE: 7.55 CTDI (mGy) COMPARISON: [facility] [place], CHEST 1V SINGLE AP, 04/08/2018. . TECHNIQUE: Multiple contiguous axial images were obtained through the chest without contrast. Image s were obtained in suspended respiration using multiple row detector helical technique. Using automa eboni exposure control and adjustment of the mA and/or kV according to patient size, radiation dose was kept as low as reasonably achievable to obtain optimal diagnostic quality images. DICOM format imag e data is available electronically for review and comparison. FINDINGS: There are moderate emphysematous changes identified. Mild subpleural interstitial fibrosis at the rig ht lung base. There is no evidence of pneumonia. Atherosclerotic calcification of the aorta and coron sandra arteries are identified. Trace pericardial fluid. There is gynecomastia identified. There is no a denopathy. There are degenerative changes of the spine seen. In the left lower lobe a 1.3 cm irregula r nodular focus is identified seen on axial image 43, and coronal image 59. CONCLUSION: 1. Moderate emphysema and atherosclerosis. 2. No evidence for pneumonia. 3. Left lower lobe 1.3 cm focal irregular nodular density. A primary bronchogenic neoplasm should be excluded. PET/CT would be helpful for further evaluation. Electronically signed by: Ignacio Godoy MD 04/08/2018 9:38 AM EDT
[2018-04-08 10:41] LABS: Bacteria,Urine Rare /hpf; Bilirubin,Urine Negative (Negative); Clarity,Urine Clear (Clear); Color,Urine Yellow (Yellw/Straw); Glucose,Urine (UA) 50 mg/dL (Negative); Hyaline Casts,Urine 1 /lpf (0-3); Leukocyte Esterase,Urine Negative (Negative); Nitrite,Urine Negative (Negative); Specific Gravity,Urine 1.014 (1.002-1.035)
--- NOTE | 2018-04-08 11:45 | CT ---
EXAM DATE: 04/08/2018 10:14 AM EDT AGE/SEX: 82 years / Male INDICATIONS: Nausea. Shaking. Chest pain for one month. CLINICAL DATA: This is the patient's initial encounter. Patient reports that signs and symptoms have been present for 1 month and indicates a pain score of 5/10. MEDICAL/SURGICAL HISTORY: Hypertension. Alzheimer's disease. None. RADIATION DOSE: 6.57 CTDI (mGy) [place]PAR[place] [facility] [place]08/[place]. . TECHNIQUE: Multiple contiguous axial images were obtained through the abdomen. Images were obtained using multiple row detector helical technique. Using automated exposure control and adjustment of the mA and/or kV according to patient size, radiation dose was kept as low as reasonably achievable to o btain optimal diagnostic quality images. DICOM format image data is available electronically for rev iew and comparison. FINDINGS: Emphysematous changes are noted. In the left lower lobe a noncalcified nodule measuring 5.2 mm on marilyn ge 12. There is an irregular focus measuring 1.3 cm and the left lower lobe on image 14. Coronary art carmen calcification and atherosclerotic calcification of the aorta is noted. Kidneys, adrenals, spleen, pancreas, liver and gallbladder are unremarkable. There is mild gaseous distention of the stomach. T he prostate is enlarged measuring 7.1 x 5.5 cm in transverse and AP dimension. A Ramos catheter is no eboni within the urinary bladder which is decompressed. There is moderate diverticulosis of the sigmoid colon without evidence of diverticulitis. There is a large right inguinal hernia containing fluid, s mall bowel loops which are moderately distended and demonstrates wall thickening and surrounding mese nteric edema. The hernia sac measures 12.4 x 11 cm on axial image 102. There is also a small fat-cont aining left inguinal hernia. There are degenerative changes of the spine seen and levoscoliosis. CONCLUSION: 1. Of concern is a large right inguinal hernia containing mesenteric fat, multiple mildly distended small bowel loops which demonstrate wall thickening and moderate peritoneal fluid and a small bowel f eces sign. The possibility of bowel compromise at this level should be entertained given these findin gs. 2. Small fat-containing left inguinal hernia. 3. Reticulosis without diverticulitis. 4. Atherosclerosis. 5. Irregular left lower lobe noncalcified pulmonary nodule. Electronically signed by: Ignacio Godoy MD 04/08/2018 11:44 AM EDT
[2018-04-08] MEDS ORDERED: Sod Chloride 0.9% Inj 1,000 ML IV.SIG ONE (13:21)
--- NOTE | 2018-04-08 15:29 | P.CONNS ---
History of Present Illness Primary Care Provider: Darling Hastings MD Chief Complaint: incidental finding History of Present Illness: 82yoM halfway resident with Alzheimers who was brought in today. He was noted to have an incidental small amount of tiny subarachnoid hemorrhage vs. artifact. No complaint of a fall or any headache. He is pleasant but disoriented. PMF - History History Provided By: Patient, Medical Record - Medical History Medical History: Medical History (Last Updated 04/08/18 @ 08:51 by Miriam Winchester) Alzheimers disease Enlarged prostate HTN (hypertension) Surgical history unknown - Tobacco History Smoking Status: Unknown if ever smoked - Alcohol History How Often Do You Have a Drink Containing Alcohol: Unable to Obtain - Travel History Recent Travel in the [place] Within the Last 8 Weeks: No Recent Travel Out of the Country Within the Last 8 Weeks: No - Immunization History Tetanus Immunization: Unsure Medications and Allergies Active Medications: Active Medications Potassium Chloride 30 meq/ (Sodium Chloride) 1,015 mls @ 84 mls/hr IV.CONT .Q12H5M MILY Allergies Allergy/AdvReac Type Severity Reaction Status Date / Time No Known Allergies Allergy Verified 04/08/18 07:43 Home Medications Medication Instructions Recorded Confirmed Type atorvastatin 20 mg PO DAILY 04/08/18 04/08/18 History donepezil 10 mg PO BID 04/08/18 04/08/18 History furosemide 40 mg PO DAILY 04/08/18 04/08/18 History hydrochlorothiazide 12.5 mg PO DAILY 04/08/18 04/08/18 History levocetirizine 5 mg PO BID 04/08/18 04/08/18 History loperamide [Anti-Diarrheal 2 mg PO TID 04/08/18 04/08/18 History (loperamide)] lorazepam 0.5 mg PO BID 04/08/18 04/08/18 History metoprolol succinate 50 mg PO DAILY 04/08/18 04/08/18 History montelukast 10 mg PO QPM 04/08/18 04/08/18 History polyethylene glycol 3350 17 g PO DAILY PRN 04/08/18 04/08/18 History potassium chloride 20 meq PO DAILY 04/08/18 04/08/18 History quetiapine 25 mg PO BID 04/08/18 04/08/18 History quinapril 20 mg PO BID 04/08/18 04/08/18 History sertraline 100 mg PO DAILY 04/08/18 04/08/18 History tamsulosin 0.4 mg PO DAILY 04/08/18 04/08/18 History Exam Vital signs: Vital Signs 04/08/18 07:36 04/08/18 10:08 04/08/18 11:10 Temperature 97.8 F 98.4 F Pulse Rate 66 69 76 Respiratory Rate 18 28 H 18 Blood Pressure 189/90 H 200/88 H 189/92 H Pulse Oximetry 100 100 100 04/08/18 12:44 04/08/18 14:17 Temperature 98.3 F Pulse Rate 76 91 H Respiratory Rate 17 16 Blood Pressure 191/86 H 191/93 H Pulse Oximetry 98 Intake & Output 04/07/18 04/08/18 04/08/18 18:59 06:59 18:59 Intake Total 200 / 200 Output Total 300 / 300 Balance -100 / -100 Weight 77.111 kg Intake: IV 200 / 200 KCl 20 mEq Premix Inj 20 meq In 100 / 100 100 ml @ 50 mls/hr IV.SIG ONCE STA Rx#:[id number] Rocephin Inj 1,000 MG In NS Inj 100 / 100 100 ML @ 200 mls/hr IV.SIG ONCE ONE Rx#:[id number] Output: Urine Amount (Catheter) 300 / 300 Indwelling Urethral Catheter 300 / 300 Narrative: A&O to name, hospital, not year CN II-XII intact Motor 5/5 UE/LE Results - Laboratory Findings CBC and BMP: 04/08/18 08:00 04/08/18 08:00 Abnormal lab findings: Abnormal Labs 04/08/18 04/08/18 04/08/18 07:41 08:00 08:00 WBC 15.8 H Neut % (Auto) 85.4 H Lymph % (Auto) 8.3 L Neut # (Auto) 13.5 H Potassium 2.9 L* Anion Gap 17 H BUN 30 H Creatinine 1.53 H Estimated GFR 44 L POC Glucose 217 H Random Glucose 217 H Alkaline Phosphatase 125 H Urine Ketones Urine Bacteria 04/08/18 10:03 WBC Neut % (Auto) Lymph % (Auto) Neut # (Auto) Potassium Anion Gap BUN Creatinine Estimated GFR POC Glucose Random Glucose Alkaline Phosphatase Urine Ketones Trace H Urine Bacteria Rare H Assessment and Plan - Plan 82yoM with incidentally discovered mild convexity SAH vs. artefact on hCT Plan: No further workup of this is necessary. He has no history of trauma and it is more likely this is artifact. If his mental status were to worsen, one could consider an MRI/MRV but at present this is all the workup necessary as this is likely artifact.
--- NOTE | 2018-04-08 16:21 | P.HP ---
History of Present Illness Service: [facility] Primary Care Physician: Darling Hastings MD Chief Complaint: Reported shaking History of Present Illness: Patient is an 82-year-old male based on notes that accompanied patient from the custodial likely with history of hypertension, hyperlipidemia, hypertension , dementia who was sent over here reportedly with shaking per transfer notes. At bedside patient is awake alert slightly irritable but cooperative. Per patient he is baseline up ambulating with a walker - More for "safety and mobility". He is aware that he is taking some water pills and he is actually irritated because it just flush all water out of me". ER report that he was noted to be shaking but this per custodial note happens "every month". Patient denies any fever chest pain shortness of breath nausea or vomiting. Patient denies any recent falls. NS stated he absent ambulate with a walker Per power of attorney law clerk -he was given furosemide because of the "swelling of the scrotum" - that on eval here turned out to be a large inguinal hernia AT ER- a johnson was placed On further discussion later when power of attorney law clerk Caroline -she states that one point that patient placed on MiraLAX Colace for bowel movement and he was having frequent bowel movements at that time and this was discontinued-and I very verify with her that now she is on antidiarrheal pills on his transfer notes medication list and patient Ms. Delarosa that this was all discontinued. ER physician called Called daughter (DEJAH) ) who says that pt was SOB at the [place]. Pt didn't have SOB with [facility] or here at the ER. She also mentions that shakings are normal for him and they sometimes get worse randomly. On review medications consist of furosemide 40 mg daily hydrochlorothiazide 12.5 mg Cetirizine 2.5 mg daily, lorazepam 0.5 mg twice a day, metoprolol 50 mg daily, montelukast 10 mg daily, potassium chloride 20 mEq daily, Seroquel 25 mg twice a day, omeprazole 20 mg twice a day,'s sertraline 100 mg daily, Flomax 0.4 mg twice a day, antidiarrheal pills 2 mg 3 times a day, atorvastatin 20 mg at bedtime, Caltrate plus vitamin D milligrams daily Donepezil 10 mg twice a day, Inpatient Certification: I certify that the inpatient services were ordered in accordance with Medicare regulations governing the order. This includes certification that hospital inpatient services are reasonable and necessary and in the case of services not specified as inpatient-only under 42 CFR 419.22(n), that they are appropriately provided as inpatient services in accordance to with the 2-midnight benchmark under 43 CFR 412.3(e) Estimated Total Length of Stay (Days): 2 Plans for Post Hospital Care: Not yet determined PMF - History History Provided By: Patient, Medical Record - Medical History Medical History: Medical History (Last Updated 04/08/18 @ 08:51 by Miriam Winchester) Alzheimers disease Enlarged prostate HTN (hypertension) Surgical history unknown - Tobacco History Smoking Status: Unknown if ever smoked - Alcohol History How Often Do You Have a Drink Containing Alcohol: Unable to Obtain - Travel History Recent Travel in the [place] Within the Last 8 Weeks: No Recent Travel Out of the Country Within the Last 8 Weeks: No - Immunization History Tetanus Immunization: Unsure Medications and Allergies Active Medications: Active Medications Potassium Chloride 30 meq/ (Sodium Chloride) 1,015 mls @ 84 mls/hr IV.CONT .Q12H5M MILY Allergies Allergy/AdvReac Type Severity Reaction Status Date / Time No Known Allergies Allergy Verified 04/08/18 07:43 Home Medications Medication Instructions Recorded Confirmed Type atorvastatin 20 mg PO DAILY 04/08/18 04/08/18 History donepezil 10 mg PO BID 04/08/18 04/08/18 History furosemide 40 mg PO DAILY 04/08/18 04/08/18 History hydrochlorothiazide 12.5 mg PO DAILY 04/08/18 04/08/18 History levocetirizine 5 mg PO BID 04/08/18 04/08/18 History loperamide [Anti-Diarrheal 2 mg PO TID 04/08/18 04/08/18 History (loperamide)] lorazepam 0.5 mg PO BID 04/08/18 04/08/18 History metoprolol succinate 50 mg PO DAILY 04/08/18 04/08/18 History montelukast 10 mg PO QPM 04/08/18 04/08/18 History polyethylene glycol 3350 17 g PO DAILY PRN 04/08/18 04/08/18 History potassium chloride 20 meq PO DAILY 04/08/18 04/08/18 History quetiapine 25 mg PO BID 04/08/18 04/08/18 History quinapril 20 mg PO BID 04/08/18 04/08/18 History sertraline 100 mg PO DAILY 04/08/18 04/08/18 History tamsulosin 0.4 mg PO DAILY 04/08/18 04/08/18 History Exam Vital signs: Vital Signs 04/08/18 07:36 04/08/18 10:08 04/08/18 11:10 Temperature 97.8 F 98.4 F Pulse Rate 66 69 76 Respiratory Rate 18 28 H 18 Blood Pressure 189/90 H 200/88 H 189/92 H Pulse Oximetry 100 100 100 04/08/18 12:44 04/08/18 14:17 Temperature 98.3 F Pulse Rate 76 91 H Respiratory Rate 17 16 Blood Pressure 191/86 H 191/93 H Pulse Oximetry 98 Intake & Output 04/07/18 04/08/18 04/08/18 18:59 06:59 18:59 Intake Total 200 / 200 Output Total 300 / 300 Balance -100 / -100 Weight 77.111 kg Intake: IV 200 / 200 KCl 20 mEq Premix Inj 20 meq In 100 / 100 100 ml @ 50 mls/hr IV.SIG ONCE STA Rx#:[id number] Rocephin Inj 1,000 MG In NS Inj 100 / 100 100 ML @ 200 mls/hr IV.SIG ONCE ONE Rx#:[id number] Output: Urine Amount (Catheter) 300 / 300 Indwelling Urethral Catheter 300 / 300 Narrative: Awake alert oriented to person and place speech clear and coherent patient cooperative but irritable states that she is he is being asked the same questions HEENT exam anicteric sclerae pink palpebral conjunctivae neck was supple no bruit no nuchal rigidity Chest lungs bilateral breath sounds equal no rales no wheezes Heart regular rhythm no murmur Abdomen is soft good bowel sounds no guarding no rigidity positive right inguinal hernia about pumpkin size nontender circumcised penis Extremities no edema good peripheral pulses Neurologic exam patient is awake alert speech clear oriented to person and place Cranial nerves intact Motor moves all extremities equally with no difficulty Gait testing deferred Grossly no sensory deficits Results - Labs CBC & Chem 7: 04/08/18 08:00 04/08/18 08:00 Labs: Laboratory Results - last 24 hr 04/08/18 04/08/1818 07:41 08:00 08:00 WBC 15.8 H RBC 4.69 Hgb 14.9 Hct 44.4 MCV 94.6 MCH 31.7 MCHC 33.5 RDW 14.3 Plt Count 218 MPV 10.4 Neut % (Auto) 85.4 H Lymph % (Auto) 8.3 L [place] % (Auto) 5.3 Eos % (Auto) 0.7 Baso % (Auto) 0.3 Neut # (Auto) 13.5 H Lymph # (Auto) 1.3 [place] # (Auto) 0.8 Eos # (Auto) 0.1 Baso # (Auto) 0.0 WBC Differential . Differential Comment Auto diff final Sodium 138 Potassium 2.9 L* Chloride 99 Carbon Dioxide 22.4 Anion Gap 17 H BUN 30 H Creatinine 1.53 H Estimated GFR 44 L POC Glucose 217 H Random Glucose 217 H Calcium 9.7 Magnesium 1.9 Total Bilirubin 0.5 AST 18 ALT 24 Alkaline Phosphatase 125 H Ammonia B-Natriuretic Peptide Total Protein 7.9 Albumin 3.9 TSH 1.590 Urine Color Urine Clarity Urine pH Ur Specific [place] Urine Protein Urine Glucose (UA) Urine Ketones Urine Occult Blood Urine Nitrate Urine Bilirubin Urine Urobilinogen Ur Leukocyte Esterase Urine RBC Urine WBC Urine Bacteria Hyaline Casts Micro UA Comment Ur Microscopic Review Urine Culture Comments 04/08/18 04/08/18 04/08/18 08:00 10:03 10:05 WBC RBC Hgb Hct MCV MCH MCHC RDW Plt Count MPV Neut % (Auto) Lymph % (Auto) [place] % (Auto) Eos % (Auto) Baso % (Auto) Neut # (Auto) Lymph # (Auto) [place] # (Auto) Eos # (Auto) Baso # (Auto) WBC Differential Differential Comment Sodium Potassium Chloride Carbon Dioxide Anion Gap BUN Creatinine Estimated GFR POC Glucose Random Glucose Calcium Magnesium Total Bilirubin AST ALT Alkaline Phosphatase Ammonia 13 B-Natriuretic Peptide 48 Total Protein Albumin TSH Urine Color Yellow Urine Clarity Clear Urine pH 7.0 Ur Specific [place] 1.014 Urine Protein Negative Urine Glucose (UA) 50 Urine Ketones Trace H Urine Occult Blood Negative Urine Nitrate Negative Urine Bilirubin Negative Urine Urobilinogen Less than 2 Ur Leukocyte Esterase Negative Urine RBC 3 Urine WBC 2 Urine Bacteria Rare H Hyaline Casts 1 Micro UA Comment Culture not ind Ur Microscopic Review Not Reportable Urine Culture Comments Culture not ind - Imaging Impressions Chest X-Ray 10/19/18 07:52 CONCLUSION: Patchy interstitial prominence of undetermined chronicity. Head CT 04/08/18 07:52 CONCLUSION: Possible tiny focus of subarachnoid blood in the high convexity left frontal region near the vertex (image 24). . Chest CT 04/08/18 09:03 CONCLUSION: 1. Moderate emphysema and atherosclerosis. 2. No evidence for pneumonia. 3. Left lower lobe 1.3 cm focal irregular nodular density. A primary bronchogenic neoplasm should be excluded. PET/CT would be helpful for further evaluation. Abdomen/Pelvis CT 04/08/18 10:04 CONCLUSION: 1. Of concern is a large right inguinal hernia containing mesenteric fat, multiple mildly distended small bowel loops which demonstrate wall thickening and moderate peritoneal fluid and a small bowel feces sign. The possibility of bowel compromise at this level should be entertained given these findings. 2. Small fat-containing left inguinal hernia. 3. Reticulosis without diverticulitis. 4. Atherosclerosis. 5. Irregular left lower lobe noncalcified pulmonary nodule. Caprini VTE Risk Assessment Caprini VTE Risk Assessment: Moderate/High Risk (score >= 2) VTE Pharmacological Exception Reason: Hemorrhage (There is a small subarachnoid bleed noted on head CT) Caprini Risk Assessment Model: Point Value = 1 Point Value = 2 Point Value = 3 Point Value = 5 Age 41-60 Minor surgery BMI > 25 kg/m2 Swollen legs Varicose veins or History of unexplained or recurrent spontaneous Oral contraceptives or hormone replacement Sepsis (< 1 month) Serious lung disease, including pneumonia (< 1 month) Abnormal pulmonary function Acute myocardial infarction Congestive heart failure (< 1 month) History of inflammatory bowel disease Medical patient at bed rest Age 61-74 Arthroscopic surgery Major open surgery (> 45 min) Laparoscopic surgery (> 45 min) Malignancy Confined to bed (> 72 hours) Immobilizing plaster cast Central venous access Age >= 75 History of VTE Family history of VTE Factor V Leiden Prothrombin [id number] Lupus anticoagulant Anticardiolipin antibodies Elevated serum homocysteine Heparin-induced thrombocytopenia Other congenital or acquired thrombophilia Stroke (< 1 month) Elective arthroplasty Hip, pelvis, or leg fracture Acute spinal cord injury (< 1 month) Prophylaxis Regimen: Total Risk Factor Score Risk Level Prophylaxis Regimen 0-1 Low Early ambulation 2 Moderate Order ONE of the following: *Sequential Compression Device (SCD) *Heparin 5000 units SQ BID 3-4 Higher Order ONE of the following medications: *Heparin 5000 units SQ TID *Enoxaparin/Lovenox 40 mg SQ daily (WT < 150 kg, CrCl > 30 mL/min) *Enoxaparin/Lovenox 30 mg SQ daily (WT < 150 kg, CrCl > 10-29 mL/min) *Enoxaparin/Lovenox 30 mg SQ BID (WT < 150 kg, CrCl > 30 mL/min) AND/OR *Sequential Compression Device (SCD) 5 or more Highest Order ONE of the following medications: *Heparin 5000 units SQ TID (Preferred with Epidurals) *Enoxaparin/Lovenox 40 mg SQ daily (WT < 150 kg, CrCl > 30 mL/min) *Enoxaparin/Lovenox 30 mg SQ daily (WT < 150 kg, CrCl > 10-29 mL/min) *Enoxaparin/Lovenox 30 mg SQ BID (WT < 150 kg, CrCl > 30 mL/min) AND *Sequential Compression Device (SCD) Assessment and Plan - Plan 82-year-old male presenting with questionable shaking shortness of breath however patient at bedside denies all of this Power of attorney law clerk states that he gets this occasionally but no changes in mental status. Questionable tremors Doubt seizures - We will monitor- may be from generalized weakness due to hypokalemia Hypokalemia. -Patient received 20 meqIV +40 meq p.o. -Recheck BMP in a.m. on review of medications patient is on furosemide 40 mg daily. we will DC (was prescribed this per POA for the scrotal swelling) Also on review of medications he is on antidiarrheal 2 mg 3 times a day- Will monitor bowel movements and see if this is contributing to hypokalemia. Acute kidney injury -will start patient on normal saline IV fluid hydration -As stated we will discontinue his furosemide and HCTZ. HOld his Quinapril for now - johnson was placed by ER- monitor - LUNA johnson in am- - will continue his flomax at home but it to once daily hs ? History of diarrhea- - on maintenance antidiarrheal 2 mg tid- discontinued - MOnitor for BMs Hypertension elevated systolic BP readings - restart Toprol 50 mg xl daily -No signs of heart failure. BNP normal. -In sinus rhythm. -Clonidine as needed for systolic blood pressure greater than 170. - DC home Lasix/HCTZ - Hold his home quinapril for now - restart if needed eventually - Right inguinal hernia on exam-no signs of obstruction. -Patient was seen by general surgery for evaluation. - start diet Subarachnoid hemorrhage small one on CT. -Patient was seen by neurosurgery this is deemed to be possible artifact. Patient denies any headache nausea vomiting. Will check neuro vital signs every shift. No neurologic deficits on exam Incidental lung nodule r/o malignancy - history of smoking in the apst - dr. Hastings consulted HYprglycemia- on labs - POA denies any history of DM- but states he has been doubling up on his sugar -with coffee - get A1C in am Teds and SCDs for DVT prophylaxis for now. Hold chemical prophylaxis due to ? small SAH on CT PT eval and treat in a.m.
[2018-04-08] MEDS: Potassium Chloride Inj 30 MEQ in Sod Chloride 0.9% Inj 1,000 ML IV.CONT SCH (16:40)
[2018-04-08] MEDS ORDERED: amLODIPine 5 MG Tablet PO SCH (17:15)
--- NOTE | 2018-04-08 18:38 | MB ---
cc: Karthikeyan Forbes MD DATE: 04/08/2018 REASON FOR CONSULTATION: Right inguinal hernia. FOOD TECHNICIAN: Dr. Ole Nieves. HISTORY OF PRESENT ILLNESS: The patient is an 82-year-old male who presents with a history of coming from a group home. The patient has multiple medical issues, pleasant dementia, and was reportedly shaking and irritable. The patient denies any history of trauma and no external signs of falling, but was noted to have shaking, which happens on a monthly basis. The patient was having some shortness of breath as well. The patient has a history of Alzheimer's dementia and is a poor historian. Some records we see via the patient and some through clinical documentation. The patient is noted to have a hernia and on further questioning, the patient notes he has had this hernia for over 5 years. He does state he has occasional nausea, denies any vomiting and does have intermittent constipation as well. The patient denies any scrotal pain, does complain of some urinary incontinence, and is currently not complaining of any groin pain at the moment. The patient had further workup including CT head with questionable subarachnoid hemorrhage. He had a CT abdomen and pelvis showing loops of small bowel containing in right inguinal hernia along with some fluid. PAST MEDICAL HISTORY: Alzheimer's disease, enlarged prostate, hypertension. PAST SURGICAL HISTORY: The patient is denying any previous surgical history. SOCIAL HISTORY: The patient denies smoking, ETOH or IVDA. ALLERGIES: NO KNOWN DRUG ALLERGIES. MEDICATIONS: See EMR. FAMILY HISTORY: Unable to obtain at this time. REVIEW OF SYSTEMS: GENERAL: No fevers or chills. HEENT: Denies eye pain, ear pain. NECK: No swelling or pain. LUNGS: Denies cough or wheeze. HEART: Denies palpitations or chest pain. ABDOMEN: Complains of nausea. Denies vomiting. GENITOURINARY: Hernia. Denies dysuria. ENDOCRINE: Denies polyuria or polydipsia. INTEGUMENT: Dry skin. Denies any rashes or lesions. PHYSICAL EXAMINATION: GENERAL: The patient is in no acute distress. VITAL SIGNS: Temperature 97.8, pulse 66, respiration 18, blood pressure 189/90, saturation 100%. HEENT: Pupils equal, round and reactive. NECK: Supple. Trachea midline. LUNGS: Bilateral expansion, clear. HEART: S1, S2. ABDOMEN: Soft, nontender, nondistended. Right groin: Large palpable inguinal hernia, reducible, nontender. EXTREMITIES: Warm and well perfused. NEUROLOGIC: Dementia, awake, alert. BACK: Nontender. PSYCHIATRIC: Dementia. No change in mood. LABORATORY AND DIAGNOSTIC DATA: WBC 15.8, hemoglobin 14.9, hematocrit 44.4, platelets 218. Sodium 138, potassium 2.9, chloride 99, CO2 of 22, BUN 30, creatinine 1.5, platelets 271. CT reviewed by myself. CT head: Questionable subarachnoid hemorrhage. CT abdomen and pelvis: Large inguinal hernia, mild fluid, questionable obstruction, does not appear to be obstruction on my exam. Fecalization of bowel, diverticulosis, irregular pulmonary nodule. ASSESSMENT AND PLAN: The patient is an 82-year-old male in consultation for right inguinal hernia. PLAN: After a full workup, the patient with the above-noted issues. At this point, the hernia was reduced at bedside. It is currently nontender. The patient with a very large palpable hernia defect. No evidence of abdominal pain or concern for obstruction at this time. Discussed with the patient that he could consider having a hernia repair as an outpatient electively. The patient can follow up in my office for further evaluation and recommendation. Discussed with the patient I would be available if the hernia did become obstructive. However, again I do not think this warrants immediate surgical intervention at this time. The patient can continue workup and medical treatment per current situation. MD ENZO Lockhart/vinh , 04:46 PM , 04:57 PM
--- NOTE | 2018-04-08 19:18 | MB ---
cc: Darling Hastings MD DATE: 04/08/2018 REASON FOR CONSULTATION: Left lower lobe lung mass. HISTORY OF PRESENT ILLNESS: Mr. Christie is an 82-year-old male with a history of dementia, hypertension, hyperlipidemia, congestive heart failure, admitted with persistent shaking. The patient is awake and alert; however, he does not relate an adequate history and is extremely forgetful, not recalling what he wishes to say. At the bedside is his [id number], who is his power of corporate attorney. PAST MEDICAL HISTORY: Alzheimer disease, hypertension, congestive heart failure, BPH. SOCIAL HISTORY: According to his [id number], he did smoke heavily in the past; however, has not smoked for several years now. He does not drink any alcohol. No TB. No industrial exposure. FAMILY HISTORY: Noncontributory. REVIEW OF SYSTEMS: A 12-point review of systems is as per HPI and past history, otherwise negative. PHYSICAL EXAMINATION: GENERAL: The patient is alert and appears in no acute distress. VITAL SIGNS: Temperature 98, pulse 76, respirations 18, blood pressure 150/70. HEENT: Unremarkable. Eyes without icterus. NECK: Without adenopathy or thyroid enlargement. Central trachea. CHEST: Without dullness to percussion. Clear to auscultation. HEART: PMI not appreciated. S1, S2 audible. No murmur. No rub. ABDOMEN: Lax. Audible bowel sounds. EXTREMITIES: No clubbing, cyanosis or edema. LABORATORY DATA: White count 15,000, hemoglobin 14, hematocrit 44, platelets 218,000. Sodium 138, potassium 2.9, BUN 30, creatinine 0.5. A CT scan of the chest done on 04/08/2018 with emphysematous change, no acute infiltrates and a 1.3 cm mass in the left lower lung, underlying malignancy suspected. IMPRESSION: 1. Left lower lobe lung mass, malignancy suspected. 2. Compensated congestive heart failure. 3. Hypertension. 4. Hyperlipidemia. 5. Alzheimer dementia. PLAN: The patient's lung mass is indeed suspect for underlying malignancy. The patient's overall condition and the fact that he has dementia makes it a difficult decision whether to pursue the mass and the question is if it is indeed proven malignancy, is the patient going to pursue further treatment. This has been discussed with him as best as I could as well as his power of corporate attorney. They will give it a day or so to think about it and get back with me if they wish to pursue a diagnosis further. I could not do a pulmonary function. The patient would not be able to do so. I do thank you for asking me to partake in Mr. Christie's care. MD JIMBO Guevara/marito , 05:25 PM , 05:34 PM
--- NOTE | 2018-04-08 20:55 | ECG ---
Date Performed: 04/08/2018 Time Performed: 09:13:08 PTAGE: 82 years EKG: SINUS BRADYCARDIA WITH SINUS ARRHYTHMIA MARKED LEFT AXIS DEVIATION RIGHT BUNDLE BRANCH BLOC K ABNORMAL ECG NO PREVIOUS TRACING DOCTOR: Bear Ballard Interpretating Date/Time 04/08/2018 20:54:14
[2018-04-08] MEDS: LORazepam 0.5 MG Tablet PO SCH (21:16)
[2018-04-09] MEDS: Potassium Chloride Inj 30 MEQ in Sod Chloride 0.9% Inj 1,000 ML IV.CONT SCH ×2 (03:00→15:00)
[2018-04-09] MEDS: LORazepam 0.5 MG Tablet PO SCH ×2 (08:48→20:12)
[2018-04-09 09:37] LABS: Hematocrit 38.9 % (39.0-51.0); Hemoglobin 13.6 gm/dL (13.0-17.0); Mean Corpuscular HGB Conc 35.1 % (32.0-36.0); Mean Corpuscular Hemoglobin 32.6 pg (27.0-34.0); Mean Corpuscular Volume 92.8 fL (80.0-100.0); Mean Platelet Volume 10.3 fL (7.0-11.0); Platelet Count 189 th/mm3 (150-450); Red Blood Count 4.19 mil/mm3 (4.50-5.90); Red Cell Distribution Width 14.2 % (11.6-17.2)
--- NOTE | 2018-04-09 09:37 | P.PNIM ---
Subjective Interval history: Follow-up generalized weakness, AK I, hypokalemia, hypertension, dementia, subarachnoid hemorrhage, right inguinal hernia, and incidental lung nodule. Patient seen and examined laying in bed, irritable when asked questions however answers appropriately. Patient AO x2. Patient denies any pain, chest pain, or shortness of breath, denies any headache or dizziness, denies any abdominal pain , nausea, vomiting. Patient stated he usually have diarrhea however no diarrhea today. Patient denies any incident of falling, or hitting her his head. Patient denies any fever or chills. Physical Exam Vital signs: Vital Signs 04/08/18 10:08 04/08/18 11:10 04/08/18 12:44 Temperature 98.4 F Pulse Rate 69 76 76 Respiratory Rate 28 H 18 17 Blood Pressure 200/88 H 189/92 H 191/86 H Pulse Oximetry 100 100 98 04/08/18 14:17 04/08/18 16:40 04/08/18 20:00 Temperature 98.3 F 98.8 F Pulse Rate 91 H 80 83 Respiratory Rate 16 15 18 Blood Pressure 191/93 H 148/70 H 124/72 Pulse Oximetry 98 95 04/08/18 21:15 04/09/18 00:00 04/09/18 04:00 Temperature 98.5 F 99.2 F Pulse Rate 85 71 93 H Respiratory Rate 19 16 Blood Pressure 138/68 124/65 Pulse Oximetry 95 94 L 04/09/18 08:00 04/09/18 08:41 Temperature 99.4 F Pulse Rate 89 Respiratory Rate 18 18 Blood Pressure 102/57 L Pulse Oximetry 95 Intake & Output 04/08/18 04/09/18 04/09/18 18:59 06:59 18:59 Intake Total 1200 / 1200 1300 / 1300 Output Total 550 / 550 500 / 500 Balance 650 / 650 800 / 800 Weight 77.111 kg 70.4 kg Intake: IV 1200 / 1200 1000 / 1000 KCl Inj 30 MEQ In NS Inj 1,000 1000 / 1000 ML @ 84 mls/hr IV.CONT .Q12H5M [facility] Rx#:[id number] KCl 20 mEq Premix Inj 20 meq In 100 / 100 100 ml @ 50 mls/hr IV.SIG ONCE STA Rx#:[id number] NS Inj 1,000 ML @ Wide Open IV. 1000 / 1000 SIG BOLUS ONE Rx#:[id number] Rocephin Inj 1,000 MG In NS Inj 100 / 100 100 ML @ 200 mls/hr IV.SIG ONCE ONE Rx#:[id number] Oral 300 / 300 Output: Urine Amount (Catheter) 550 / 550 500 / 500 Indwelling Urethral Catheter 550 / 550 500 / 500 Other: Date of Last Bowel Movement 04/08/18 # Incontinent Bowel Movements 1 Narrative: GENERAL: Well-developed, thin appearing elderly male, in no apparent distress SKIN: Warm and dry. HEAD: Atraumatic. Normocephalic. EYES: Pupils equal and round. No scleral icterus. No injection or drainage. ENT: No nasal bleeding or discharge. Mucous membranes pink and moist. NECK: Trachea midline. No JVD. CARDIOVASCULAR: Regular rate and rhythm. RESPIRATORY: No accessory muscle use. Clear to auscultation. Breath sounds equal bilaterally. GASTROINTESTINAL: Abdomen flat, soft, non-tender, nondistended. Hepatic and splenic margins not palpable. MUSCULOSKELETAL: Extremities without clubbing, cyanosis, or edema. No obvious deformities. NEUROLOGICAL: Awake and alert x2. No obvious cranial nerve deficits. generalized weakness, moving all 4 extremities. Normal speech. PSYCHIATRIC: Irritable mood and affect; insight and judgment unreliable. - Urinary Catheter Management Indwelling Urethral Catheter Cath placed during this visit: yes Reason for continuing: Hourly intake/output Insertion date: 04/08/18 Insertion time: 10:09 Results - Labs CBC & Chem 7: 04/08/18 08:00 04/08/18 08:00 Laboratory Results - last 24 hr 04/08/18 04/08/18 10:03 10:05 B-Natriuretic Peptide 48 Urine Color Yellow Urine Clarity Clear Urine pH 7.0 Ur Specific [place] 1.014 Urine Protein Negative Urine Glucose (UA) 50 Urine Ketones Trace H Urine Occult Blood Negative Urine Nitrate Negative Urine Bilirubin Negative Urine Urobilinogen Less than 2 Ur Leukocyte Esterase Negative Urine RBC 3 Urine WBC 2 Urine Bacteria Rare H Hyaline Casts 1 Micro UA Comment Culture not ind Ur Microscopic Review Not Reportable Urine Culture Comments Culture not ind - Imaging Impressions Chest X-Ray 04/08/18 07:52 CONCLUSION: Patchy interstitial prominence of undetermined chronicity. Chest CT 04/08/18 09:03 CONCLUSION: 1. Moderate emphysema and atherosclerosis. 2. No evidence for pneumonia. 3. Left lower lobe 1.3 cm focal irregular nodular density. A primary bronchogenic neoplasm should be excluded. PET/CT would be helpful for further evaluation. Abdomen/Pelvis CT 04/08/18 10:04 CONCLUSION: 1. Of concern is a large right inguinal hernia containing mesenteric fat, multiple mildly distended small bowel loops which demonstrate wall thickening and moderate peritoneal fluid and a small bowel feces sign. The possibility of bowel compromise at this level should be entertained given these findings. 2. Small fat-containing left inguinal hernia. 3. Reticulosis without diverticulitis. 4. Atherosclerosis. 5. Irregular left lower lobe noncalcified pulmonary nodule. Assessment and Plan - Assessment (1) Acute kidney injury Code(s): N17.9 - Acute kidney failure, unspecified Status: Acute (2) Hypokalemia Code(s): E87.6 - Hypokalemia Status: Acute (3) Hypertension Code(s): I10 - Essential (primary) hypertension Status: Acute (4) Right inguinal hernia Code(s): K40.90 - Unilateral inguinal hernia, without obstruction or gangrene, not specified as recurrent Status: Acute (5) Subarachnoid hemorrhage Code(s): I60.9 - Nontraumatic subarachnoid hemorrhage, unspecified Status: Acute (6) Lung nodule Code(s): R91.1 - Solitary pulmonary nodule Status: Acute - Plan 82-year-old male presenting with questionable shaking shortness of breath however patient at bedside denies all of this Power of associate attorney states that he gets this occasionally but no changes in mental status. Generalized weakness, acute on chronic /questionable tremors : Unlikely seizures -More likely from from generalized weakness due to hypokalemia -PT OT rehab per protocol -Monitor and replace electrolytes, BMP Acute kidney injury/hypokalemia/history of diarrhea Hypokalemia likely related to patient's history of diarrhea, no diarrhea today -will start patient on normal saline IV fluid hydration with normal saline with KCl 40 M EQ - discontinued furosemide and HCTZ. HOld his Quinapril for now - johnson in place, - DC johnson in am - continue flomax once daily hs -Replaced potassium -Monitor renal function Hypertension elevated BP on admission, improving -No signs of heart failure. BNP normal. -ECG: sinus rhythm. -continue Clonidine as needed for systolic blood pressure greater than 170. -Continue Toprol 50 mg xl daily - DC home Lasix/HCTZ - Hold his home quinapril for now - restart if needed eventually - Right inguinal hernia on exam-no signs of obstruction. -General surgery seen for evaluation: No evidence of abdominal pain or concern for obstruction at this time. Consider having a hernia repair as an outpatient electively. Follow up as an outpatient further evaluation and recommendation.Available if the hernia did become obstructive. -Reduced at bedside - start diet Subarachnoid hemorrhage small one on CT. -Patient was seen by neurosurgery this is deemed to be possible artifact. Patient denies any headache nausea vomiting. Patient denies any falling, or trauma on his Will check neuro vital signs every shift. No neurologic deficits on exam Incidental lung nodule r/o malignancy - history of smoking in the Past - Pulmonology consulted/Dr. Hastings: Noted patient's lung mass is indeed suspect for underlying malignancy. However given patient's condition and Dementia, it is difficult decision whether to pursue the mass and the question is if it is indeed proven malignancy, is the patient going to pursue further treatment. Awaiting decision from Pt and Power of associate attorney if they wish to pursue a diagnosis further. Patient unable to do pulmonary function. -Monitor respiratory status Hyperglycemia: on labs - POA denies any history of DM- but states he has been doubling up on his sugar -with coffee - check Hgb A1C -Check blood sugar before meals and at bedtime, - cover with insulin sliding scale if needed, DC if no coverage needed in 3 days DVT prophylaxis :teds and SCDs Hold chemical prophylaxis due to ? small SAH on CT Code Status: Full code Discussed Condition With: Patient and nurse Discharge Planning: Plan to discharge to nursing facility in 2-3 days when stable
[2018-04-09 10:10] LABS: Calcium 8.8 mg/dL (8.5-10.1); Carbon Dioxide 25.6 meq/L (21.0-32.0); Potassium 3.7 meq/L (3.5-5.1)
[2018-04-09] MEDS: Insulin NovoLOG Aspart Correctional Sugar Inj SQ SCH ×3 (12:45→20:12)
--- NOTE | 2018-04-09 13:39 | P.PN ---
Subjective Interval history: ALERT NAD APPETITE GOOD Physical Exam Vital signs: Vital Signs 04/08/18 14:17 04/08/18 16:40 04/08/18 20:00 Temperature 98.3 F 98.8 F Pulse Rate 91 H 80 83 Respiratory Rate 16 15 18 Blood Pressure 191/93 H 148/70 H 124/72 Pulse Oximetry 98 95 04/08/18 21:15 04/09/18 00:00 04/09/18 04:00 Temperature 98.5 F 99.2 F Pulse Rate 85 71 93 H Respiratory Rate 19 16 Blood Pressure 138/68 124/65 Pulse Oximetry 95 94 L 04/09/18 08:00 04/09/18 08:41 04/09/18 09:00 Temperature 99.4 F Pulse Rate 89 99 H Respiratory Rate 18 18 Blood Pressure 102/57 L Pulse Oximetry 95 04/09/18 12:00 Temperature 98.7 F Pulse Rate 76 Respiratory Rate 18 Blood Pressure 150/77 H Pulse Oximetry 94 L Intake & Output 04/08/18 04/09/18 04/09/18 18:59 06:59 18:59 Intake Total 1200 / 1200 1300 / 1300 Output Total 550 / 550 500 / 500 425 / 425 Balance 650 / 650 800 / 800 -425 / -425 Weight 77.111 kg 70.4 kg Intake: IV 1200 / 1200 1000 / 1000 KCl Inj 30 MEQ In NS Inj 1,000 1000 / 1000 ML @ 84 mls/hr IV.CONT .Q12H5M [facility] Rx#:[id number] KCl 20 mEq Premix Inj 20 meq In 100 / 100 100 ml @ 50 mls/hr IV.SIG ONCE STA Rx#:[id number] NS Inj 1,000 ML @ Wide Open IV. 1000 / 1000 SIG BOLUS ONE Rx#:[id number] Rocephin Inj 1,000 MG In NS Inj 100 / 100 100 ML @ 200 mls/hr IV.SIG ONCE ONE Rx#:[id number] Oral 300 / 300 Output: Urine 425 / 425 Urine Amount (Catheter) 550 / 550 500 / 500 Indwelling Urethral Catheter 550 / 550 500 / 500 Other: Date of Last Bowel Movement 04/08/18 # Incontinent Bowel Movements 1 Narrative: GENERAL: Well-developed, thin appearing elderly male, in no apparent distress SKIN: Warm and dry. HEAD: Atraumatic. Normocephalic. EYES: Pupils equal and round. No scleral icterus. No injection or drainage. ENT: No nasal bleeding or discharge. Mucous membranes pink and moist. NECK: Trachea midline. No JVD. CARDIOVASCULAR: Regular rate and rhythm. RESPIRATORY: No accessory muscle use. Clear to auscultation. Breath sounds equal bilaterally. GASTROINTESTINAL: Abdomen flat, soft, non-tender, nondistended. Hepatic and splenic margins not palpable. MUSCULOSKELETAL: Extremities without clubbing, cyanosis, or edema. No obvious deformities. NEUROLOGICAL: Awake and alert x2. No obvious cranial nerve deficits. generalized weakness, moving all 4 extremities. Normal speech. PSYCHIATRIC: Irritable mood and affect; insight and judgment unreliable. - Urinary Catheter Management Indwelling Urethral Catheter Cath placed during this visit: yes Reason for continuing: Hourly intake/output Insertion date: 04/08/18 Insertion time: 10:09 Results - Labs CBC & Chem 7: 04/09/18 08:31 04/09/18 08:31 Laboratory Results - last 24 hr 04/09/18 04/09/18 04/09/18 08:31 08:31 12:05 WBC 19.0 H RBC 4.19 L Hgb 13.6 Hct 38.9 L MCV 92.8 MCH 32.6 MCHC 35.1 RDW 14.2 Plt Count 189 MPV 10.3 Sodium 145 Potassium 3.7 D Chloride 111 H D Carbon Dioxide 25.6 Anion Gap 8 BUN 26 H Creatinine 1.09 Estimated GFR 65 L POC Glucose 145 H Random Glucose 102 D Calcium 8.8 D Assessment and Plan - Plan LLL LUNG MASS 1.3 CM MALIGNANCY SUSPECT HTN DEMENTIA PLAN NEEDLE LUNG 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
[2018-04-09 13:40] LABS: Hemoglobin A1c 5.4 % (4.3-6.0)
[2018-04-10] MEDS: Potassium Chloride Inj 30 MEQ in Sod Chloride 0.9% Inj 1,000 ML IV.CONT SCH ×2 (02:35→14:38)
[2018-04-10] MEDS: Insulin NovoLOG Aspart Correctional Sugar Inj SQ SCH ×5 (02:37→23:18)
[2018-04-10] MEDS: LORazepam 0.5 MG Tablet PO SCH ×2 (09:30→23:17)
--- NOTE | 2018-04-10 09:53 | P.PNIM ---
Subjective Interval history: Follow-up generalized weakness, AK I, hypokalemia, hypertension, dementia, subarachnoid hemorrhage, right inguinal hernia, and incidental lung nodule. Patient seen and examined, laying in bed, looks comfortable. Patient denies any headache, pain, chest pain or shortness of breath. Patient denies abdominal pain, nausea, vomiting, diarrhea or constipation. Patient was irritable when asked for questions however answers appropriately. Patient alert and oriented x2 with confusions. Patient denies any fever or chills. Physical Exam Vital signs: Vital Signs 04/09/18 12:00 04/09/18 16:00 04/09/18 16:31 Temperature 98.7 F 98.9 F Pulse Rate 78 73 73 Respiratory Rate 18 18 Blood Pressure 150/77 H 174/75 H Pulse Oximetry 94 L 95 04/09/18 20:00 04/10/18 00:00 04/10/18 04:00 Temperature 98.6 F 98 F 99.3 F Pulse Rate 77 76 77 Respiratory Rate 18 18 18 Blood Pressure 177/80 H 135/63 169/78 H Pulse Oximetry 93 L 94 L 93 L 04/10/18 08:00 Temperature 99.3 F Pulse Rate 66 Respiratory Rate 18 Blood Pressure 135/68 Pulse Oximetry 93 L Intake & Output 04/09/18 04/10/18 04/10/18 18:59 06:59 18:59 Intake Total 1515 / 1515 1015 / 1015 Output Total 850 / 850 900 / 900 300 / 300 Balance 665 / 665 115 / 115 -300 / -300 Weight 70.4 kg Intake: IV 1015 / 1015 1015 / 1015 KCl Inj 30 MEQ In NS Inj 1,000 1015 / 1015 1015 / 1015 ML @ 84 mls/hr IV.CONT .Q12H5M [facility] Rx#:[id number] Oral 500 / 500 Output: Urine 850 / 850 900 / 900 300 / 300 Other: Date of Last Bowel Movement 04/09/18 Narrative: GENERAL: Well-developed, thin appearing elderly male, in no apparent distress SKIN: Warm and dry. HEAD: Atraumatic. Normocephalic. EYES: Pupils equal and round. No scleral icterus. No injection or drainage. ENT: No nasal bleeding or discharge. Mucous membranes pink and moist. NECK: Trachea midline. No JVD. CARDIOVASCULAR: Regular rate and rhythm. RESPIRATORY: No accessory muscle use. Clear to auscultation. Breath sounds equal bilaterally. GASTROINTESTINAL: Abdomen flat, soft, non-tender, nondistended. Hepatic and splenic margins not palpable. MUSCULOSKELETAL: Extremities without clubbing, cyanosis, or edema. No obvious deformities. NEUROLOGICAL: Awake and alert x2. With some confusion. No obvious cranial nerve deficits. Generalized weakness, moving all 4 extremities. Normal speech. PSYCHIATRIC: Irritable mood and affect; insight and judgment unreliable. - Urinary Catheter Management Indwelling Urethral Catheter Cath placed during this visit: yes Reason for continuing: Hourly intake/output Insertion date: 04/08/18 Insertion time: 10:09 Results - Labs CBC & Chem 7: 04/10/18 10:13 04/10/18 10:13 Laboratory Results - last 24 hr 04/09/18 04/09/18 04/09/18 08:31 08:31 12:05 Sodium 145 Potassium 3.7 D Chloride 111 H D Carbon Dioxide 25.6 Anion Gap 8 BUN 26 H Creatinine 1.09 Estimated GFR 65 L POC Glucose 145 H Random Glucose 102 D Hemoglobin A1c 5.4 Calcium 8.8 D 04/09/18 04/09/18 04/10/18 16:59 20:09 02:37 Sodium Potassium Chloride Carbon Dioxide Anion Gap BUN Creatinine Estimated GFR POC Glucose 118 H 120 H 113 H Random Glucose Hemoglobin A1c Calcium 04/10/18 07:26 Sodium Potassium Chloride Carbon Dioxide Anion Gap BUN Creatinine Estimated GFR POC Glucose 113 H Random Glucose Hemoglobin A1c Calcium Assessment and Plan - Assessment (1) Acute kidney injury Code(s): N17.9 - Acute kidney failure, unspecified Status: Acute (2) Hypokalemia Code(s): E87.6 - Hypokalemia Status: Acute (3) Hypertension Code(s): I10 - Essential (primary) hypertension Status: Acute (4) Right inguinal hernia Code(s): K40.90 - Unilateral inguinal hernia, without obstruction or gangrene, not specified as recurrent Status: Acute (5) Subarachnoid hemorrhage Code(s): I60.9 - Nontraumatic subarachnoid hemorrhage, unspecified Status: Acute (6) Lung nodule Code(s): R91.1 - Solitary pulmonary nodule Status: Acute - Plan 82-year-old male presenting with questionable shaking shortness of breath however patient at bedside denies all of this Power of employee benefits attorney states that he gets this occasionally but no changes in mental status. Generalized weakness, acute on chronic /questionable tremors : Unlikely seizures -More likely from from generalized weakness due to hypokalemia -PT OT rehab per protocol -Monitor and replace electrolytes, BMP Acute kidney injury/hypokalemia/history of diarrhea Hypokalemia likely related to patient's history of diarrhea, no diarrhea today -will start patient on normal saline IV fluid hydration with normal saline with KCl 40 M EQ -discontinued furosemide and HCTZ. HOld his Quinapril for now -johnson in place, - DC johnson today, discussed with nursing, may reinsert in 6 hours if do not avoid -continue flomax once daily hs -Replaced potassium -Monitor renal function Hypertension elevated BP on admission, improving -No signs of heart failure. BNP normal. -ECG: sinus rhythm. -continue Clonidine as needed for systolic blood pressure greater than 170. -Continue Toprol 50 mg xl daily - DC home Lasix/HCTZ - Hold his home quinapril for now - restart if needed eventually -Continue metoprolol, monitor blood pressure Right inguinal hernia on exam-no signs of obstruction. -General surgery seen for evaluation: No evidence of abdominal pain or concern for obstruction at this time. Consider having a hernia repair as an outpatient electively. Follow up as an outpatient further evaluation and recommendation.Available if the hernia did become obstructive., Reduced at bedside - start diet Subarachnoid hemorrhage small one on CT. -Patient was seen by neurosurgery this is deemed to be possible artifact. Patient denies any headache nausea vomiting. Patient denies any falling, or trauma on his head -Neuro checks and vital signs every shift. No neurologic deficits on exam Incidental lung nodule r/o malignancy - history of smoking in the Past - Pulmonology consulted/Dr. Hastings: Noted patient's lung mass is indeed suspect for underlying malignancy. However given patient's condition and Dementia, it is difficult decision whether to pursue the mass and the question is if it is indeed proven malignancy, is the patient going to pursue further treatment. Awaiting decision from Pt and Power of employee benefits attorney if they wish to pursue a diagnosis further. Patient unable to do pulmonary function. -Monitor respiratory status Leukocytosis No fever, no chills -repeat cxray -check blood cultures x 2 -monitor VS Hyperglycemia: on labs - POA denies any history of DM- but states he has been doubling up on his sugar -with coffee - Hgb A1C 5.4% -Check blood sugar before meals and at bedtime, - cover with insulin sliding scale if needed, DC if no coverage needed in 3 days -Blood sugar improving, fairly stable. DVT prophylaxis:teds and SCDs Hold chemical prophylaxis due to ? small SAH on CT vs artifact Code Status: Full code Discussed Condition With: Patient, and nurse Discharge Planning: Plan to discharge to nursing facility in 2-3 days when stable
[2018-04-10 11:17] LABS: Baso % (Auto) 0.1 % (0.0-2.0); Eos # (Auto) 0.2 th/mm3 (0.0-0.4); Eos % (Auto) 0.8 % (0.0-4.0); Hematocrit 35.9 % (39.0-51.0); Hemoglobin 12.1 gm/dL (13.0-17.0); Lymph # (Auto) 1.2 th/mm3 (1.0-4.8); Lymph % (Auto) 5.6 % (9.0-44.0); Mean Corpuscular HGB Conc 33.6 % (32.0-36.0); Mean Corpuscular Hemoglobin 31.8 pg (27.0-34.0); Mean Corpuscular Volume 94.7 fL (80.0-100.0); Mean Platelet Volume 10.3 fL (7.0-11.0); Mono # (Auto) 1.8 th/mm3 (0.0-0.9); Mono % (Auto) 8.7 % (0.0-8.0); Neut # (Auto) 17.9 th/mm3 (1.8-7.7); Neut % (Auto) 84.8 % (16.0-70.0); Platelet Count 167 th/mm3 (150-450); Red Blood Count 3.79 mil/mm3 (4.50-5.90); Red Cell Distribution Width 14.3 % (11.6-17.2); White Blood Count 21.1 th/mm3 (4.0-11.0)
[2018-04-10 11:42] LABS: Carbon Dioxide 26.1 meq/L (21.0-32.0); Potassium 3.9 meq/L (3.5-5.1)
--- NOTE | 2018-04-10 16:08 | XR ---
EXAM DATE: 04/10/2018 12:00 AM EDT AGE/SEX: 82 years / Male INDICATIONS: Short of breath CLINICAL DATA: This is the patient's subsequent encounter. Patient reports that signs and symptoms h ave been present for 3 days and indicates a pain score of 0/10. MEDICAL/SURGICAL HISTORY: Hypertension. None. COMPARISON: [facility] – [place], CT CHEST W/O CONTRAST, 04/08/2018. . FINDINGS: Stable interstitial prominence. No significant new focal parenchymal abnormality. Left lung base nodu le is not well demonstrated. Cardiomegaly mediastinal contours are stable with tortuous thoracic aort a. Osseous structures are grossly intact. CONCLUSION: 1. Senescent changes without acute abnormality or significant interval change. Electronically signed by: Deon Murcia MD 04/10/2018 4:07 PM EDT
--- NOTE | 2018-04-10 16:14 | P.PN ---
Subjective Interval history: ALERT [employer] NSD Physical Exam Vital signs: Vital Signs 04/09/18 16:31 04/09/18 20:00 04/10/18 00:00 Temperature 98.6 F 98 F Pulse Rate 73 77 76 Respiratory Rate 18 18 Blood Pressure 177/80 H 135/63 Pulse Oximetry 93 L 94 L 04/10/18 04:00 04/10/18 08:00 04/10/18 09:00 Temperature 99.3 F 99.3 F Pulse Rate 77 66 66 Respiratory Rate 18 18 Blood Pressure 169/78 H 135/68 Pulse Oximetry 93 L 93 L 04/10/18 12:00 Temperature 98.2 F Pulse Rate 63 Respiratory Rate 20 Blood Pressure 150/67 H Pulse Oximetry 93 L Intake & Output 04/09/18 04/10/18 04/10/18 18:59 06:59 18:59 Intake Total 1515 / 1515 1015 / 1015 1015 / 1015 Output Total 850 / 850 900 / 900 300 / 300 Balance 665 / 665 115 / 115 715 / 715 Weight 70.4 kg Intake: IV 1015 / 1015 1015 / 1015 1015 / 1015 KCl Inj 30 MEQ In NS Inj 1,000 1015 / 1015 1015 / 1015 1015 / 1015 ML @ 84 mls/hr IV.CONT .Q12H5M [facility] Rx#:[id number] Oral 500 / 500 Output: Urine 850 / 850 900 / 900 300 / 300 Other: Date of Last Bowel Movement 04/09/18 Narrative: GENERAL: Well-developed, thin appearing elderly male, in no apparent distress SKIN: Warm and dry. HEAD: Atraumatic. Normocephalic. EYES: Pupils equal and round. No scleral icterus. No injection or drainage. ENT: No nasal bleeding or discharge. Mucous membranes pink and moist. NECK: Trachea midline. No JVD. CARDIOVASCULAR: Regular rate and rhythm. RESPIRATORY: No accessory muscle use. Clear to auscultation. Breath sounds equal bilaterally. GASTROINTESTINAL: Abdomen flat, soft, non-tender, nondistended. Hepatic and splenic margins not palpable. MUSCULOSKELETAL: Extremities without clubbing, cyanosis, or edema. No obvious deformities. NEUROLOGICAL: Awake and alert x2. With some confusion. No obvious cranial nerve deficits. Generalized weakness, moving all 4 extremities. Normal speech. PSYCHIATRIC: Irritable mood and affect; insight and judgment unreliable. - Urinary Catheter Management Indwelling Urethral Catheter Cath placed during this visit: yes Reason for continuing: Hourly intake/output Insertion date: 04/08/18 Insertion time: 10:09 Results - Labs CBC & Chem 7: 04/10/18 10:13 04/10/18 10:13 Laboratory Results - last 24 hr 04/09/18 04/09/18 04/10/18 16:59 20:09 02:37 WBC RBC Hgb Hct MCV MCH MCHC RDW Plt Count MPV Neut % (Auto) Lymph % (Auto) Ransom % (Auto) Eos % (Auto) Baso % (Auto) Neut # (Auto) Lymph # (Auto) Ransom # (Auto) Eos # (Auto) Baso # (Auto) WBC Differential Differential Comment Sodium Potassium Chloride Carbon Dioxide Anion Gap BUN Creatinine Estimated GFR POC Glucose 118 H 120 H 113 H Random Glucose Calcium 04/10/18 04/10/18 04/10/18 07:26 10:13 10:13 WBC 21.1 H RBC 3.79 L Hgb 12.1 L Hct 35.9 L MCV 94.7 MCH 31.8 MCHC 33.6 RDW 14.3 Plt Count 167 MPV 10.3 Neut % (Auto) 84.8 H Lymph % (Auto) 5.6 L Ransom % (Auto) 8.7 H Eos % (Auto) 0.8 Baso % (Auto) 0.1 Neut # (Auto) 17.9 H Lymph # (Auto) 1.2 Ransom # (Auto) 1.8 H Eos # (Auto) 0.2 Baso # (Auto) 0.0 WBC Differential . Differential Comment Auto diff final Sodium 144 Potassium 3.9 Chloride 112 H Carbon Dioxide 26.1 Anion Gap 6 BUN 15 Creatinine 0.88 Estimated GFR 83 L POC Glucose 113 H Random Glucose 98 Calcium 9.0 04/10/18 12:25 WBC RBC Hgb Hct MCV MCH MCHC RDW Plt Count MPV Neut % (Auto) Lymph % (Auto) Ransom % (Auto) Eos % (Auto) Baso % (Auto) Neut # (Auto) Lymph # (Auto) Ransom # (Auto) Eos # (Auto) Baso # (Auto) WBC Differential Differential Comment Sodium Potassium Chloride Carbon Dioxide Anion Gap BUN Creatinine Estimated GFR POC Glucose 111 H Random Glucose Calcium - Imaging Impressions Chest X-Ray 04/10/18 00:00 CONCLUSION: 1. Senescent changes without acute abnormality or significant interval change. Assessment and Plan - Plan LLL LUNG MASS 1.3 CM MALIGNANCY SUSPECT HTN DEMENTIA PLAN NEEDLE LUNG BX
[2018-04-11] MEDS ORDERED: Sodium Chloride 0.9% 2 ML Flush PRN IV.FLUSH (03:21)
[2018-04-11] MEDS: Potassium Chloride Inj 30 MEQ in Sod Chloride 0.9% Inj 1,000 ML IV.CONT SCH ×2 (03:32→15:13)
[2018-04-11] MEDS: Insulin NovoLOG Aspart Correctional Sugar Inj SQ SCH ×5 (03:32→21:49)
[2018-04-11] MEDS: Sodium Chloride 0.9% 2 ML Flush BID IV.FLUSH SCH ×2 (09:00→21:49)
[2018-04-11] MEDS: LORazepam 0.5 MG Tablet PO SCH ×2 (09:00→21:48)
--- NOTE | 2018-04-11 10:51 | P.PNIM ---
Subjective Interval history: Follow-up generalized weakness, AK I, hypokalemia, hypertension, dementia, subarachnoid hemorrhage, right inguinal hernia, and incidental lung nodule. Nurse reported patient had episode of bradycardia on telemetry, and atrial fibrillation with no history of atrial fibrillation. Nurse reported patient asymptomatic denies any palpitation, denies any chest pain, shortness of breath headache or dizziness with vital signs stable.. Patient seen and examined sitting in the bed, eating breakfast, without any complaints of pain, chest pain , or shortness of breath. Patient denies any headache or dizziness, abdominal pain, nausea, vomiting, diarrhea or constipation. Patient stated he is eating well, and slept good last night. Patient is alert and oriented x2, pleasant at this time, answers questions appropriately. Physical Exam Vital signs: Vital Signs 04/10/18 12:00 04/10/18 16:00 04/10/18 20:00 Temperature 98.2 F 98.4 F 99.0 F Pulse Rate 63 60 69 Respiratory Rate 20 20 18 Blood Pressure 150/67 H 156/73 H 159/83 H Pulse Oximetry 93 L 93 L 94 L 04/11/18 00:00 04/11/18 04:00 04/11/18 07:21 Temperature 98.7 F 98.3 F Pulse Rate 60 52 L Respiratory Rate 18 18 18 Blood Pressure 152/78 H 158/74 H Pulse Oximetry 95 94 L 04/11/18 09:00 Temperature Pulse Rate 58 L Respiratory Rate Blood Pressure Pulse Oximetry Intake & Output 04/10/18 04/11/18 04/11/18 18:59 06:59 18:59 Intake Total 1135 / 1135 1015 / 1015 Output Total 500 / 500 900 / 900 Balance 635 / 635 115 / 115 Intake: IV 1015 / 1015 1015 / 1015 KCl Inj 30 MEQ In NS Inj 1,000 1015 / 1015 1015 / 1015 ML @ 84 mls/hr IV.CONT .Q12H5M MILY Rx#:[id number] Oral 120 / 120 Output: Urine 500 / 500 900 / 900 Other: # Voids 1 Date of Last Bowel Movement 04/11/18 # Bowel Movements 0 2 Narrative: GENERAL: Well-developed, thin appearing elderly male, in no apparent distress SKIN: Warm and dry. HEAD: Atraumatic. Normocephalic. EYES: Pupils equal and round. No scleral icterus. No injection or drainage. ENT: No nasal bleeding or discharge. Mucous membranes pink and moist. NECK: Trachea midline. No JVD. CARDIOVASCULAR: Regular rate and rhythm. RESPIRATORY: No accessory muscle use. Clear to auscultation. Breath sounds equal bilaterally. GASTROINTESTINAL: Abdomen flat, soft, non-tender, nondistended. Hepatic and splenic margins not palpable. MUSCULOSKELETAL: Extremities without clubbing, cyanosis, or edema. No obvious deformities. NEUROLOGICAL: Awake and alert x2. With some confusion. No obvious cranial nerve deficits. Generalized weakness, moving all 4 extremities. Normal speech. PSYCHIATRIC: Irritable mood and affect; insight and judgment unreliable. - Urinary Catheter Management Indwelling Urethral Catheter Cath placed during this visit: yes Reason for continuing: Hourly intake/output Insertion date: 04/08/18 Insertion time: 10:09 Results - Labs CBC & Chem 7: 04/10/18 10:13 04/10/18 10:13 Laboratory Results - last 24 hr 04/10/18 04/10/18 04/10/18 10:13 10:13 12:25 WBC 21.1 H RBC 3.79 L Hgb 12.1 L Hct 35.9 L MCV 94.7 MCH 31.8 MCHC 33.6 RDW 14.3 Plt Count 167 MPV 10.3 Neut % (Auto) 84.8 H Lymph % (Auto) 5.6 L [place] % (Auto) 8.7 H Eos % (Auto) 0.8 Baso % (Auto) 0.1 Neut # (Auto) 17.9 H Lymph # (Auto) 1.2 [place] # (Auto) 1.8 H Eos # (Auto) 0.2 Baso # (Auto) 0.0 WBC Differential . Differential Comment Auto diff final Sodium 144 Potassium 3.9 Chloride 112 H Carbon Dioxide 26.1 Anion Gap 6 BUN 15 Creatinine 0.88 Estimated GFR 83 L POC Glucose 111 H Random Glucose 98 Calcium 9.0 04/10/18 04/10/18 04/11/18 18:19 22:31 03:30 WBC RBC Hgb Hct MCV MCH MCHC RDW Plt Count MPV Neut % (Auto) Lymph % (Auto) [place] % (Auto) Eos % (Auto) Baso % (Auto) Neut # (Auto) Lymph # (Auto) [place] # (Auto) Eos # (Auto) Baso # (Auto) WBC Differential Differential Comment Sodium Potassium Chloride Carbon Dioxide Anion Gap BUN Creatinine Estimated GFR POC Glucose 95 81 81 Random Glucose Calcium 04/11/18 07:55 WBC RBC Hgb Hct MCV MCH MCHC RDW Plt Count MPV Neut % (Auto) Lymph % (Auto) [place] % (Auto) Eos % (Auto) Baso % (Auto) Neut # (Auto) Lymph # (Auto) [place] # (Auto) Eos # (Auto) Baso # (Auto) WBC Differential Differential Comment Sodium Potassium Chloride Carbon Dioxide Anion Gap BUN Creatinine Estimated GFR POC Glucose 111 H Random Glucose Calcium - Imaging Impressions Chest X-Ray 04/10/18 00:00 CONCLUSION: 1. Senescent changes without acute abnormality or significant interval change. Assessment and Plan - Assessment (1) Acute kidney injury Code(s): N17.9 - Acute kidney failure, unspecified Status: Acute (2) Hypokalemia Code(s): E87.6 - Hypokalemia Status: Acute (3) Hypertension Code(s): I10 - Essential (primary) hypertension Status: Acute (4) Right inguinal hernia Code(s): K40.90 - Unilateral inguinal hernia, without obstruction or gangrene, not specified as recurrent Status: Acute (5) Subarachnoid hemorrhage Code(s): I60.9 - Nontraumatic subarachnoid hemorrhage, unspecified Status: Acute (6) Lung nodule Code(s): R91.1 - Solitary pulmonary nodule Status: Acute - Plan 82-year-old male presenting with questionable shaking shortness of breath however patient at bedside denies all of this Power of sports attorney states that he gets this occasionally but no changes in mental status. Generalized weakness, acute on chronic /questionable tremors : Unlikely seizures -More likely from from generalized weakness due to hypokalemia -PT OT rehab per protocol -Monitor and replace electrolytes, BMP Acute kidney injury/hypokalemia/history of diarrhea Hypokalemia likely related to patient's history of diarrhea, no diarrhea today -will start patient on normal saline IV fluid hydration with normal saline with KCl 40 M EQ -discontinued furosemide and HCTZ. HOld his Quinapril for now -johnson in place, - DC johnson today, discussed with nursing, may reinsert in 6 hours if do not avoid -continue flomax once daily hs -Replaced potassium -Monitor renal function Hypertension/bradycardia/irregular heartbeat elevated BP on admission, improving -No signs of heart failure. BNP normal. -ECG: sinus rhythm. -continue Clonidine as needed for systolic blood pressure greater than 170. -Discontinue Toprol 50 mg xl daily due to bradycardia episode, asymptomatic - DC home Lasix/HCTZ - Hold his home quinapril for now - restart if needed eventually -Continue metoprolol, monitor blood pressure -Start on Norvasc avoid RADHA due to AK I -Recheck 12-lead EKG to rule out atrial fibrillation Right inguinal hernia on exam-no signs of obstruction. -General surgery seen for evaluation: No evidence of abdominal pain or concern for obstruction at this time. Consider having a hernia repair as an outpatient electively. Follow up as an outpatient further evaluation and recommendation.Available if the hernia did become obstructive., Reduced at bedside - start diet Subarachnoid hemorrhage small one on CT. -Patient was seen by neurosurgery this is deemed to be possible artifact. Patient denies any headache nausea vomiting. Patient denies any falling, or trauma on his head -Neuro checks and vital signs every shift. No neurologic deficits on exam Incidental lung nodule r/o malignancy - history of smoking in the Past - Pulmonology consulted/Dr. Hastings: Noted patient's lung mass is indeed suspect for underlying malignancy. However given patient's condition and Dementia, it is difficult decision whether to pursue the mass and the question is if it is indeed proven malignancy, is the patient going to pursue further treatment. Awaiting decision from Pt and Power of sports attorney if they wish to pursue a diagnosis further. Patient unable to do pulmonary function. -Monitor respiratory status Leukocytosis Afebrile, no fever, no chills -Cxray: No significant interval change -Blood cultures no growth in 1 day -monitor VS, heart rate ranging from 52-99 Hyperglycemia: on labs - POA denies any history of DM- but states he has been doubling up on his sugar -with coffee - Hgb A1C 5.4% -Check blood sugar before meals and at bedtime, - cover with insulin sliding scale if needed, DC if no coverage needed in 3 days -Blood sugar improving, fairly stable. DVT prophylaxis:teds and SCDs Hold chemical prophylaxis due to ? small SAH on CT vs artifact Code status: Nurse discuss concern and patient's CODE STATUS, that the POA have specific request for no DNR but can do a CPR. Tried to call the person to Notify : ahsan Bertrand [phone] but no answer and the mailbox is full Code Status: Full code Discussed Condition With: Patient, nurse Discharge Planning: Plan to discharge to nursing facility in 2-3 days when stable
[2018-04-11 13:26] LABS: Baso % (Auto) 0.2 % (0.0-2.0); Eos # (Auto) 0.8 th/mm3 (0.0-0.4); Eos % (Auto) 5.1 % (0.0-4.0); Hematocrit 34.4 % (39.0-51.0); Hemoglobin 11.2 gm/dL (13.0-17.0); Lymph # (Auto) 1.4 th/mm3 (1.0-4.8); Mean Corpuscular HGB Conc 32.7 % (32.0-36.0); Mean Corpuscular Hemoglobin 31.4 pg (27.0-34.0); Mean Corpuscular Volume 96.1 fL (80.0-100.0); Mean Platelet Volume 10.4 fL (7.0-11.0); Mono # (Auto) 1.4 th/mm3 (0.0-0.9); Mono % (Auto) 8.7 % (0.0-8.0); Neut # (Auto) 12.3 th/mm3 (1.8-7.7); Platelet Count 146 th/mm3 (150-450); Red Blood Count 3.58 mil/mm3 (4.50-5.90); Red Cell Distribution Width 14.3 % (11.6-17.2)
[2018-04-11 13:42] LABS: Anion Gap 6 meq/L (5-15); Blood Urea Nitrogen 15 mg/dL (7-18); Calcium 8.6 mg/dL (8.5-10.1); Carbon Dioxide 24.4 meq/L (21.0-32.0); Chloride 111 meq/L (98-107); Glomerular Filtration Rate Greater Than 89 mL/min (>89); Glucose,Random 88 mg/dL (74-106); Potassium 4.2 meq/L (3.5-5.1); Sodium 141 meq/L (136-145)
--- NOTE | 2018-04-11 17:08 | P.PNNS ---
Subjective Interval history: sleeping, but arousable, confused. Physical Exam Vital signs: Vital Signs 04/10/18 20:00 04/11/18 00:00 04/11/18 04:00 Temperature 99.0 F 98.7 F 98.3 F Pulse Rate 69 60 52 L Respiratory Rate 18 18 18 Blood Pressure 159/83 H 152/78 H 158/74 H Pulse Oximetry 94 L 95 94 L 04/11/18 07:21 04/11/18 08:00 04/11/18 09:00 Temperature 98.7 F Pulse Rate 61 58 L Respiratory Rate 18 18 Blood Pressure 159/88 H Pulse Oximetry 93 L 04/11/18 12:00 04/11/18 13:23 04/11/18 16:00 Temperature 98.6 F 98.2 F Pulse Rate 52 L 48 L 57 L Respiratory Rate 20 18 Blood Pressure 155/70 H 167/72 H Pulse Oximetry 94 L 95 Intake & Output 04/10/18 04/11/18 04/11/18 18:59 06:59 18:59 Intake Total 1135 / 1135 1015 / 1015 1015 / 1015 Output Total 500 / 500 900 / 900 Balance 635 / 635 115 / 115 1015 / 1015 Intake: IV 1015 / 1015 1015 / 1015 1015 / 1015 KCl Inj 30 MEQ In NS Inj 1,000 1015 / 1015 1015 / 1015 1015 / 1015 ML @ 84 mls/hr IV.CONT .Q12H5M MILY Rx#:[id number] Oral 120 / 120 Output: Urine 500 / 500 900 / 900 Other: # Voids 1 Date of Last Bowel Movement 04/11/18 # Bowel Movements 0 2 Narrative: sleeping, opens eyes when awaken confused NAD pupils equal - Urinary Catheter Management Indwelling Urethral Catheter Cath placed during this visit: yes Reason for continuing: Hourly intake/output Insertion date: 04/08/18 Insertion time: 10:09 Assessment and Plan - Plan 82yoM with incidentally discovered mild convexity SAH vs. artifact on hCT Plan: No further workup of this is necessary. He has no history of trauma and it is more likely this is artifact. If his mental status were to worsen, one could consider an MRI/MRV but at present this is all the workup necessary as this is likely artifact.
--- NOTE | 2018-04-11 17:12 | P.PN ---
Subjective Interval history: LERT NAD Physical Exam Vital signs: Vital Signs 04/10/18 20:00 04/11/18 00:00 04/11/18 04:00 Temperature 99.0 F 98.7 F 98.3 F Pulse Rate 69 60 52 L Respiratory Rate 18 18 18 Blood Pressure 159/83 H 152/78 H 158/74 H Pulse Oximetry 94 L 95 94 L 04/11/18 07:21 04/11/18 08:00 04/11/18 09:00 Temperature 98.7 F Pulse Rate 61 58 L Respiratory Rate 18 18 Blood Pressure 159/88 H Pulse Oximetry 93 L 04/11/18 12:00 04/11/18 13:23 04/11/18 16:00 Temperature 98.6 F 98.2 F Pulse Rate 52 L 48 L 57 L Respiratory Rate 20 18 Blood Pressure 155/70 H 167/72 H Pulse Oximetry 94 L 95 Intake & Output 04/10/18 04/11/18 04/11/18 18:59 06:59 18:59 Intake Total 1135 / 1135 1015 / 1015 1015 / 1015 Output Total 500 / 500 900 / 900 Balance 635 / 635 115 / 115 1015 / 1015 Intake: IV 1015 / 1015 1015 / 1015 1015 / 1015 KCl Inj 30 MEQ In NS Inj 1,000 1015 / 1015 1015 / 1015 1015 / 1015 ML @ 84 mls/hr IV.CONT .Q12H5M MILY Rx#:[id number] Oral 120 / 120 Output: Urine 500 / 500 900 / 900 Other: # Voids 1 Date of Last Bowel Movement 04/11/18 # Bowel Movements 0 2 Narrative: sleeping, opens eyes when awaken confused NAD pupils equal - Urinary Catheter Management Indwelling Urethral Catheter Cath placed during this visit: yes Reason for continuing: Hourly intake/output Insertion date: 04/08/18 Insertion time: 10:09 Results - Labs CBC & Chem 7: 04/11/18 12:56 04/11/18 12:56 Laboratory Results - last 24 hr 04/10/18 04/10/18 04/11/18 18:19 22:31 03:30 WBC RBC Hgb Hct MCV MCH MCHC RDW Plt Count MPV Neut % (Auto) Lymph % (Auto) [place] % (Auto) Eos % (Auto) Baso % (Auto) Neut # (Auto) Lymph # (Auto) [place] # (Auto) Eos # (Auto) Baso # (Auto) WBC Differential Differential Comment Sodium Potassium Chloride Carbon Dioxide Anion Gap BUN Creatinine Estimated GFR POC Glucose 95 81 81 Random Glucose Calcium 04/11/18 04/11/18 04/11/18 07:55 12:05 12:56 WBC 16.0 H RBC 3.58 L Hgb 11.2 L Hct 34.4 L MCV 96.1 MCH 31.4 MCHC 32.7 RDW 14.3 Plt Count 146 L MPV 10.4 Neut % (Auto) 77.0 H Lymph % (Auto) 9.0 [place] % (Auto) 8.7 H Eos % (Auto) 5.1 H Baso % (Auto) 0.2 Neut # (Auto) 12.3 H Lymph # (Auto) 1.4 [place] # (Auto) 1.4 H Eos # (Auto) 0.8 H Baso # (Auto) 0.0 WBC Differential . Differential Comment Auto diff final Sodium Potassium Chloride Carbon Dioxide Anion Gap BUN Creatinine Estimated GFR POC Glucose 111 H 107 Random Glucose Calcium 04/11/18 12:56 WBC RBC Hgb Hct MCV MCH MCHC RDW Plt Count MPV Neut % (Auto) Lymph % (Auto) [place] % (Auto) Eos % (Auto) Baso % (Auto) Neut # (Auto) Lymph # (Auto) [place] # (Auto) Eos # (Auto) Baso # (Auto) WBC Differential Differential Comment Sodium 141 Potassium 4.2 Chloride 111 H Carbon Dioxide 24.4 Anion Gap 6 BUN 15 Creatinine 0.75 Estimated GFR Greater than 89 POC Glucose Random Glucose 88 Calcium 8.6 Microbiology 04/10/18 17:48 Blood - Peripheral Aerobic Blood Culture - Preliminary No growth in 1 day 04/10/18 17:48 Blood - Peripheral Anaerobic Blood Culture - Preliminary No growth in 1 day 04/10/18 17:43 Blood - Peripheral Aerobic Blood Culture - Preliminary No growth in 1 day 04/10/18 17:43 Blood - Peripheral Anaerobic Blood Culture - Preliminary No growth in 1 day Assessment and Plan - Plan LLL LUNG MASS 1.3 CM MALIGNANCY SUSPECT HTN DEMENTIA PLAN NEEDLE LUNG BX
--- NOTE | 2018-04-11 17:27 | P.CODE44 ---
Code 44 - Inpatient to Obs - Code 44 - Inpatient to Obs Statement: A clinical review of the case has been conducted by a member of the Utilization Review Committee. The findings indicate the patient meets criteria for observation status. The information and decision has been discussed with the attending physician Antonia Devries MD and physician provider Sedrick Hernandez MD.
[2018-04-11 19:13] LABS: Activated Partial Thrombo Time 26.1 sec (24.3-30.1); INR 1.1 Ratio; Prothrombin Time 10.7 sec (9.8-11.6)
[2018-04-12] MEDS: Potassium Chloride Inj 30 MEQ in Sod Chloride 0.9% Inj 1,000 ML IV.CONT SCH (04:17)
[2018-04-12] MEDS: Insulin NovoLOG Aspart Correctional Sugar Inj SQ SCH ×5 (04:20→20:23)
--- NOTE | 2018-04-12 08:13 | P.DCO ---
- Diagnosis (1) Generalized weakness Status: Acute (2) Acute kidney injury Status: Acute (3) Hypertension Status: Acute (4) Lung nodule Status: Acute (5) Right inguinal hernia Status: Acute (6) Subarachnoid hemorrhage Status: Acute - Physical Therapy Order: Evaluate and treat, Improve ambulation, Strength and gait training - Home Health Nursing Order: Medical education, Nursing assessment with vital signs - Case Management Consult Yes - Certification I have seen patient Chad Christie on 04/12/18. My clinical findings support the need for the requested home health care services because: Limited mobility due to disease progression, Deconditioned with increased weakness, Medication compliance is questionable, Limited ability to care for self I certify that my clinical findings support that this patient is homebound because: Unsteady gait/balance, Unsafe to leave home unassisted, Unable to use public transportation
[2018-04-12] MEDS: amLODIPine 10 MG Tablet PO SCH (08:25)
[2018-04-12] MEDS: Sodium Chloride 0.9% 2 ML Flush BID IV.FLUSH SCH ×2 (08:25→20:21)
[2018-04-12] MEDS: LORazepam 0.5 MG Tablet PO SCH ×2 (08:25→20:21)
[2018-04-12 08:31] LABS: Baso % (Auto) 0.3 % (0.0-2.0); Eos # (Auto) 0.8 th/mm3 (0.0-0.4); Eos % (Auto) 6.5 % (0.0-4.0); Hematocrit 33.5 % (39.0-51.0); Hemoglobin 11.5 gm/dL (13.0-17.0); Lymph # (Auto) 1.4 th/mm3 (1.0-4.8); Lymph % (Auto) 11.3 % (9.0-44.0); Mean Corpuscular HGB Conc 34.4 % (32.0-36.0); Mean Corpuscular Hemoglobin 31.8 pg (27.0-34.0); Mean Corpuscular Volume 92.5 fL (80.0-100.0); Mean Platelet Volume 10.6 fL (7.0-11.0); Mono # (Auto) 1.2 th/mm3 (0.0-0.9); Mono % (Auto) 9.4 % (0.0-8.0); Neut % (Auto) 72.5 % (16.0-70.0); Platelet Count 180 th/mm3 (150-450); Red Blood Count 3.62 mil/mm3 (4.50-5.90); White Blood Count 12.5 th/mm3 (4.0-11.0)
[2018-04-12 08:53] LABS: Calcium 8.6 mg/dL (8.5-10.1); Carbon Dioxide 23.8 meq/L (21.0-32.0); Magnesium 1.7 mg/dL (1.5-2.5); Potassium 3.9 meq/L (3.5-5.1)
--- NOTE | 2018-04-12 10:27 | P.PN ---
Subjective Interval history: Follow-up for generalized weakness, AK I, dementia, HTN, incisional finding of lung nodule. Patient is awoken from his sleep. Oriented to self and [place], but not the month/year. He denies any specific medical complaints, just tired from not getting much sleep last night. Discussed recommendations from pulmonology for lung biopsy, however patient again declines this. He has no new medical complaints at this time. Denies fevers or chills. Physical Exam Vital signs: Vital Signs 04/11/18 12:00 04/11/18 13:23 04/11/18 16:00 Temperature 98.6 F 98.2 F Pulse Rate 52 L 48 L 48 L Respiratory Rate 20 18 Blood Pressure 155/70 H 167/72 H Pulse Oximetry 94 L 95 04/11/18 20:00 04/12/18 00:00 04/12/18 04:00 Temperature 99.3 F 99.5 F 99.0 F Pulse Rate 51 L 60 51 L Respiratory Rate 18 18 18 Blood Pressure 149/69 H 163/70 H 153/69 H Pulse Oximetry 96 95 95 04/12/18 08:00 Temperature 98.8 F Pulse Rate 53 L Respiratory Rate 20 Blood Pressure 170/74 H Pulse Oximetry 94 L Intake & Output 04/11/18 04/12/18 04/12/18 18:59 06:59 18:59 Intake Total 1495 / 1495 1015 / 1015 Output Total 500 / 500 900 / 900 Balance 995 / 995 115 / 115 Weight 70.6 kg Intake: IV 1015 / 1015 1015 / 1015 KCl Inj 30 MEQ In NS Inj 1,000 1015 / 1015 1015 / 1015 ML @ 84 mls/hr IV.CONT .Q12H5M [facility] Rx#:[id number] Oral 480 / 480 Output: Urine 500 / 500 900 / 900 Other: Date of Last Bowel Movement 04/09/18 04/12/18 # Bowel Movements 2 Narrative: GENERAL: Well-nourished, well-developed pleasant elderly male patient in NAD. Drowsy. SKIN: Warm and dry. No rash. HEENT: Normocephalic. Atraumatic. Pupils equal and round. Mucous membranes pink and moist. CARDIOVASCULAR: Bradycardic, regular rhythm. No murmur appreciated. RESPIRATORY: No accessory muscle use. Clear to auscultation. Breath sounds equal bilaterally. GASTROINTESTINAL: Abdomen soft, non-tender, nondistended. Normoactive bowel sounds x4. MUSCULOSKELETAL: No obvious deformities. Extremities without clubbing, cyanosis , or edema. NEUROLOGICAL: Oriented to self/place, not month/year. No obvious cranial nerve deficits. Moving all extremities spontaneously. Normal speech. PSYCHIATRIC: Appropriate mood and affect; insight and judgment limited. - Urinary Catheter Management Indwelling Urethral Catheter Cath placed during this visit: yes Reason for continuing: Hourly intake/output Insertion date: 04/08/18 Insertion time: 10: Results - Labs CBC & Chem 7: 04/12/18 07:53 04/12/18 07:53 Laboratory Results - last 24 hr 04/11/18 04/11/18 04/11/18 12:05 12:56 12:56 WBC 16.0 H RBC 3.58 L Hgb 11.2 L Hct 34.4 L MCV 96.1 MCH 31.4 MCHC 32.7 RDW 14.3 Plt Count 146 L MPV 10.4 Neut % (Auto) 77.0 H Lymph % (Auto) 9.0 [place] % (Auto) 8.7 H Eos % (Auto) 5.1 H Baso % (Auto) 0.2 Neut # (Auto) 12.3 H Lymph # (Auto) 1.4 [place] # (Auto) 1.4 H Eos # (Auto) 0.8 H Baso # (Auto) 0.0 WBC Differential . Differential Comment Auto diff final PT INR APTT Sodium 141 Potassium 4.2 Chloride 111 H Carbon Dioxide 24.4 Anion Gap 6 BUN 15 Creatinine 0.75 Estimated GFR Greater than 89 POC Glucose 107 Random Glucose 88 Calcium 8.6 Magnesium 04/11/18 04/11/18 04/11/18 17:24 17:50 21:47 WBC RBC Hgb Hct MCV MCH MCHC RDW Plt Count MPV Neut % (Auto) Lymph % (Auto) [place] % (Auto) Eos % (Auto) Baso % (Auto) Neut # (Auto) Lymph # (Auto) [place] # (Auto) Eos # (Auto) Baso # (Auto) WBC Differential Differential Comment PT 10.7 INR 1.1 APTT 26.1 Sodium Potassium Chloride Carbon Dioxide Anion Gap BUN Creatinine Estimated GFR POC Glucose 103 83 Random Glucose Calcium Magnesium 10/04/12/18 04/12/18 04:19 07:45 07:53 WBC 12.5 H RBC 3.62 L Hgb 11.5 L Hct 33.5 L MCV 92.5 D MCH 31.8 MCHC 34.4 RDW 14.0 Plt Count 180 MPV 10.6 Neut % (Auto) 72.5 H Lymph % (Auto) 11.3 [place] % (Auto) 9.4 H Eos % (Auto) 6.5 H Baso % (Auto) 0.3 Neut # (Auto) 9.0 H Lymph # (Auto) 1.4 [place] # (Auto) 1.2 H Eos # (Auto) 0.8 H Baso # (Auto) 0.0 WBC Differential . Differential Comment Auto diff final PT INR APTT Sodium Potassium Chloride Carbon Dioxide Anion Gap BUN Creatinine Estimated GFR POC Glucose 83 103 Random Glucose Calcium Magnesium 04/12/18 07:53 WBC RBC Hgb Hct MCV MCH MCHC RDW Plt Count MPV Neut % (Auto) Lymph % (Auto) [place] % (Auto) Eos % (Auto) Baso % (Auto) Neut # (Auto) Lymph # (Auto) [place] # (Auto) Eos # (Auto) Baso # (Auto) WBC Differential Differential Comment PT INR APTT Sodium 141 Potassium 3.9 Chloride 110 H Carbon Dioxide 23.8 Anion Gap 7 BUN 16 Creatinine 0.83 Estimated GFR 89 POC Glucose Random Glucose 80 Calcium 8.6 Magnesium 1.7 Microbiology 04/10/18 17:48 Blood - Peripheral Aerobic Blood Culture - Preliminary No growth in 1 day 04/10/18 17:48 Blood - Peripheral Anaerobic Blood Culture - Preliminary No growth in 1 day 04/10/18 17:43 Blood - Peripheral Aerobic Blood Culture - Preliminary No growth in 1 day 04/10/18 17:43 Blood - Peripheral Anaerobic Blood Culture - Preliminary No growth in 1 day - Imaging Chest X-Ray 04/08/18 07:52 CONCLUSION: Patchy interstitial prominence of undetermined chronicity. Head CT 04/08/18 07:52 CONCLUSION: Possible tiny focus of subarachnoid blood in the high convexity left frontal region near the vertex (image 24). . Chest CT 04/08/18 09:03 CONCLUSION: 1. Moderate emphysema and atherosclerosis. 2. No evidence for pneumonia. 3. Left lower lobe 1.3 cm focal irregular nodular density. A primary bronchogenic neoplasm should be excluded. PET/CT would be helpful for further evaluation. Abdomen/Pelvis CT 04/08/18 10:04 CONCLUSION: 1. Of concern is a large right inguinal hernia containing mesenteric fat, multiple mildly distended small bowel loops which demonstrate wall thickening and moderate peritoneal fluid and a small bowel feces sign. The possibility of bowel compromise at this level should be entertained given these findings. 2. Small fat-containing left inguinal hernia. 3. Reticulosis without diverticulitis. 4. Atherosclerosis. 5. Irregular left lower lobe noncalcified pulmonary nodule. Chest X-Ray 04/10/18 00:00 CONCLUSION: 1. Senescent changes without acute abnormality or significant interval change. Assessment and Plan - Assessment (1) Generalized weakness Code(s): R53.1 - Weakness Status: Acute (2) Acute kidney injury Code(s): N17.9 - Acute kidney failure, unspecified Status: Acute (3) Hypertension Code(s): I10 - Essential (primary) hypertension Status: Acute (4) Lung nodule Code(s): R91.1 - Solitary pulmonary nodule Status: Acute (5) Right inguinal hernia Code(s): K40.90 - Unilateral inguinal hernia, without obstruction or gangrene, not specified as recurrent Status: Acute (6) Subarachnoid hemorrhage Code(s): I60.9 - Nontraumatic subarachnoid hemorrhage, unspecified Status: Acute - Plan 82-year-old male presenting with questionable shaking shortness of breath however patient at bedside denies all of this 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 Generalized weakness, acute on chronic /questionable tremors: Unlikely seizures -More likely from from generalized weakness due to hypokalemia -PT OT rehab per protocol -Monitor and replace electrolytes, BMP Acute kidney injury/hypokalemia/recent diarrhea Hypokalemia likely related to patient's history of diarrhea, no diarrhea today -will start patient on normal saline IV fluid hydration with normal saline with KCl 40 M EQ -discontinued furosemide and HCTZ. -johnson in place, - DC johnson, voiding spontaneously -continue flomax once daily hs -Replaced potassium -Monitor renal function, Cr 0.82, resolved Hypertension/bradycardia/irregular heartbeat elevated BP on admission, improving -No signs of heart failure. BNP normal. -ECG: sinus rhythm. -continue Clonidine as needed for systolic blood pressure greater than 170. -Discontinue Toprol 50 mg xl daily due to bradycardia episode, asymptomatic -DC home Lasix/HCTZ -Restart RADHA with resolution of TAMMY -Start on Norvasc -04/12 Patient still with bradycardia, will discontinue clonidine as likely contributing, continue only Norvasc and Lisinopril for BP control Right inguinal hernia on exam-no signs of obstruction. -General surgery seen for evaluation: No evidence of abdominal pain or concern for obstruction at this time. Consider having a hernia repair as an outpatient electively. Follow up as an outpatient further evaluation and recommendation.Available if the hernia did become obstructive. Reduced at bedside -Tolerating oral intake, stable Subarachnoid hemorrhage small one on CT. -Patient was seen by neurosurgery this is deemed to be likely artifact. -Patient denies any headache nausea vomiting. Patient denies any falling, or trauma on his head -Neuro checks and vital signs every shift. No neurologic deficits on exam Incidental lung nodule r/o malignancy - history of smoking in the Past - Pulmonology consulted/Dr. Hastings: Noted patient's lung mass is indeed suspect for underlying malignancy. However given patient's condition and Dementia, it is difficult decision whether to pursue the mass and the question is if it is indeed proven malignancy, is the patient going to pursue further treatment. -POA/patient have decided to no proceed with any biopsy/procedure at this time -Monitor respiratory status Leukocytosis: Afebrile, no fever, no chills -CXR: No significant interval change -Blood cultures with NGTD -monitor VS -Leukocytosis improving, decreased from 21K to 12.5K today Hyperglycemia: on labs - POA denies any history of DM- but states he has been doubling up on his sugar -with coffee - Hgb A1C 5.4% DVT prophylaxis:teds and SCDs Code status: POA has specific request, alternative code, no intubation, but can do chest compressions/defibrillation. Discharge Planning: The patient is still very weak/fatigue/drowsy with bradycardia and uncontrolled blood pressures. Adjusting medications today. Reconsult physical therapy. Possible discharge back to [facility] tomorrow 04/13 if improving.
--- NOTE | 2018-04-12 11:17 | P.PN ---
Subjective Interval history: ALERT NAD Physical Exam Vital signs: Vital Signs 04/11/18 12:00 04/11/18 13:23 04/11/18 16:00 Temperature 98.6 F 98.2 F Pulse Rate 52 L 48 L 48 L Respiratory Rate 20 18 Blood Pressure 155/70 H 167/72 H Pulse Oximetry 94 L 95 04/11/18 20:00 04/12/18 00:00 04/12/18 04:00 Temperature 99.3 F 99.5 F 99.0 F Pulse Rate 51 L 60 51 L Respiratory Rate 18 18 18 Blood Pressure 149/69 H 163/70 H 153/69 H Pulse Oximetry 96 95 95 04/12/18 08:00 04/12/18 09:00 Temperature 98.8 F Pulse Rate 53 L 51 L Respiratory Rate 20 Blood Pressure 170/74 H Pulse Oximetry 94 L Intake & Output 04/11/18 04/12/18 04/12/18 18:59 06:59 18:59 Intake Total 1495 / 1495 1015 / 1015 Output Total 500 / 500 900 / 900 Balance 995 / 995 115 / 115 Weight 70.6 kg Intake: IV 1015 / 1015 1015 / 1015 KCl Inj 30 MEQ In NS Inj 1,000 1015 / 1015 1015 / 1015 ML @ 84 mls/hr IV.CONT .Q12H5M [facility] Rx#:[id number] Oral 480 / 480 Output: Urine 500 / 500 900 / 900 Other: Date of Last Bowel Movement 04/09/18 04/12/18 # Bowel Movements 2 Narrative: sleeping, opens eyes when awaken confused NAD pupils equal - Constitutional no acute distress - Routine HEENT Exam Head: Present: normocephalic Eye: Present: EOMI, PERRL ENT: Present: mucous membranes moist - Routine Neck Exam Present: supple - Routine Cardiovascular Exam Present: RRR, S1, S2 - Routine Abdominal Exam Present: soft - Urinary Catheter Management Indwelling Urethral Catheter Cath placed during this visit: yes Reason for continuing: Hourly intake/output Insertion date: 04/08/18 Insertion time: 10:09 Results - Labs CBC & Chem 7: 04/12/18 07:53 04/12/18 07:53 Laboratory Results - last 24 hr 04/11/18 04/11/18 04/11/18 12:05 12:56 12:56 WBC 16.0 H RBC 3.58 L Hgb 11.2 L Hct 34.4 L MCV 96.1 MCH 31.4 MCHC 32.7 RDW 14.3 Plt Count 146 L MPV 10.4 Neut % (Auto) 77.0 H Lymph % (Auto) 9.0 [place] % (Auto) 8.7 H Eos % (Auto) 5.1 H Baso % (Auto) 0.2 Neut # (Auto) 12.3 H Lymph # (Auto) 1.4 [place] # (Auto) 1.4 H Eos # (Auto) 0.8 H Baso # (Auto) 0.0 WBC Differential . Differential Comment Auto diff final PT INR APTT Sodium 141 Potassium 4.2 Chloride 111 H Carbon Dioxide 24.4 Anion Gap 6 BUN 15 Creatinine 0.75 Estimated GFR Greater than 89 POC Glucose 107 Random Glucose 88 Calcium 8.6 Magnesium 04/11/18 04/11/18 04/11/18 17:24 17:50 21:47 WBC RBC Hgb Hct MCV MCH MCHC RDW Plt Count MPV Neut % (Auto) Lymph % (Auto) [place] % (Auto) Eos % (Auto) Baso % (Auto) Neut # (Auto) Lymph # (Auto) [place] # (Auto) Eos # (Auto) Baso # (Auto) WBC Differential Differential Comment PT 10.7 INR 1.1 APTT 26.1 Sodium Potassium Chloride Carbon Dioxide Anion Gap BUN Creatinine Estimated GFR POC Glucose 103 83 Random Glucose Calcium Magnesium 04/12/18 04/12/18 04/12/18 04:19 07:45 07:53 WBC 12.5 H RBC 3.62 L Hgb 11.5 L Hct 33.5 L MCV 92.5 D MCH 31.8 MCHC 34.4 RDW 14.0 Plt Count 180 MPV 10.6 Neut % (Auto) 72.5 H Lymph % (Auto) 11.3 [place] % (Auto) 9.4 H Eos % (Auto) 6.5 H Baso % (Auto) 0.3 Neut # (Auto) 9.0 H Lymph # (Auto) 1.4 [place] # (Auto) 1.2 H Eos # (Auto) 0.8 H Baso # (Auto) 0.0 WBC Differential . Differential Comment Auto diff final PT INR APTT Sodium Potassium Chloride Carbon Dioxide Anion Gap BUN Creatinine Estimated GFR POC Glucose 83 103 Random Glucose Calcium Magnesium 04/12/18 07:53 WBC RBC Hgb Hct MCV MCH MCHC RDW Plt Count MPV Neut % (Auto) Lymph % (Auto) [place] % (Auto) Eos % (Auto) Baso % (Auto) Neut # (Auto) Lymph # (Auto) [place] # (Auto) Eos # (Auto) Baso # (Auto) WBC Differential Differential Comment PT INR APTT Sodium 141 Potassium 3.9 Chloride 110 H Carbon Dioxide 23.8 Anion Gap 7 BUN 16 Creatinine 0.83 Estimated GFR 89 POC Glucose Random Glucose 80 Calcium 8.6 Magnesium 1.7 Microbiology 04/10/18 17:48 Blood - Peripheral Aerobic Blood Culture - Preliminary No growth in 2 days 04/10/18 17:48 Blood - Peripheral Anaerobic Blood Culture - Preliminary No growth in 2 days 04/10/18 17:43 Blood - Peripheral Aerobic Blood Culture - Preliminary No growth in 2 days 04/10/18 17:43 Blood - Peripheral Anaerobic Blood Culture - Preliminary No growth in 2 days Assessment and Plan - Plan LLL LUNG MASS 1.3 CM MALIGNANCY SUSPECT HTN DEMENTIA PLAN FOR NEEDLE LUNG BX
[2018-04-12] MEDS: Lisinopril 10 MG Tablet PO SCH (13:11)
[2018-04-12] MEDS: Mag Sulf 1 gm/100 ml Premix 100 ML IV.SIG SCH ×2 (13:11→16:26)
[2018-04-13] MEDS: Potassium Chloride Inj 30 MEQ in Sod Chloride 0.9% Inj 1,000 ML IV.CONT SCH ×3 (00:06→14:01)
[2018-04-13] MEDS: Insulin NovoLOG Aspart Correctional Sugar Inj SQ SCH ×3 (02:54→12:25)
[2018-04-13] MEDS: Lisinopril 10 MG Tablet PO SCH (08:29)
[2018-04-13] MEDS: LORazepam 0.5 MG Tablet PO SCH (08:29)
[2018-04-13] MEDS: amLODIPine 10 MG Tablet PO SCH (08:29)
[2018-04-13] MEDS: Sodium Chloride 0.9% 2 ML Flush BID IV.FLUSH SCH (08:31)
--- NOTE | 2018-04-13 08:32 | P.DS ---
Date of admission: 04/08/18 13:28 Primary care physician: Darling Hastings MD Anticipated date of discharge: 04/13/18 Brief History from admission: Patient is an 82-year-old male based on notes that accompanied patient from the detention likely with history of hypertension, hyperlipidemia, hypertension , dementia who was sent over here reportedly with shaking per transfer notes. At bedside patient is awake alert slightly irritable but cooperative. Per patient he is baseline up ambulating with a walker - More for "safety and mobility". He is aware that he is taking some water pills and he is actually irritated because it just flush all water out of me". ER report that he was noted to be shaking but this per detention note happens "every month". Patient denies any fever chest pain shortness of breath nausea or vomiting. Patient denies any recent falls. NS stated he absent ambulate with a walker Per power of senior attorney -he was given furosemide because of the "swelling of the scrotum" - that on eval here turned out to be a large inguinal hernia AT ER- a johnson was placed On further discussion later when power of senior attorney Caroline -she states that one point that patient placed on MiraLAX Colace for bowel movement and he was having frequent bowel movements at that time and this was discontinued-and I very verify with her that now she is on antidiarrheal pills on his transfer notes medication list and patient Ms. Delarosa that this was all discontinued. ER physician called Called daughter (DEJAH) ) who [facility] that [facility] Pt didn't have SOB with [facility] or here at the ER. She also mentions that shakings are normal for him and they sometimes get worse randomly. On review medications consist of furosemide 40 mg daily hydrochlorothiazide 12.5 mg Cetirizine 2.5 mg daily, lorazepam 0.5 mg twice a day, metoprolol 50 mg daily, montelukast 10 mg daily, potassium chloride 20 mEq daily, Seroquel 25 mg twice a day, omeprazole 20 mg twice a day,'s sertraline 100 mg daily, Flomax 0.4 mg twice a day, antidiarrheal pills 2 mg 3 times a day, atorvastatin 20 mg at bedtime, Caltrate plus vitamin D milligrams daily Donepezil 10 mg twice a day, Patient update on day of discharge: Patient reports overall feeling well today. He wants to go home, back to his [facility]. Bradycardia has improved. Patient denies any lightheadedness, dizziness , chest pain, palpitations, shortness of breath. He continues to decline lung biopsy. DS: Diagnosis - Discharge Diagnosis (1) Generalized weakness Status: Acute (2) Acute kidney injury Status: Acute (3) Hypertension Status: Acute (4) Lung nodule Status: Acute (5) Right inguinal hernia Status: Acute (6) Subarachnoid hemorrhage Status: Acute DS: Medications - Discharge Medications Prescriptions: amlodipine [Norvasc] 10 mg PO DAILY #30 tab furosemide 20 mg PO DAILY #30 tab DS: Summary Hospital Course: 82-year-old male presenting with questionable shaking shortness of breath however patient at bedside denies all of this Power of senior attorney states that he gets this occasionally but no changes in mental status. Generalized weakness, acute on chronic /questionable tremors: Unlikely seizures , more likely from from generalized weakness due to dehydration/hypokalemia. Improved with resolution of TAMMY/dehydration. PT recommending home health care at his [facility]; however [facility] did not accept the patient back to the facility, patient was discharge to SNF. Acute kidney injury/hypokalemia/recent diarrhea. Hypokalemia likely related to patient's recent diarrhea, no diarrhea since arrival to collect stool studies. Given IV fluid hydration with normal saline with KCl 40 M EQ. Discontinued furosemide and HCTZ. Continue flomax hs. Replaced potassium. Monitored renal function, Cr 0.82, resolved Hypertension/bradycardia: elevated BP on admission, improved. No signs of heart failure. BNP normal. ECG: sinus rhythm. Discontinued Toprol 50 mg xl daily due to bradycardia. DC home Lasix/HCTZ for now. Restarted RADHA with resolution of TAMMY. Started on Norvasc 10mg daily. 04/12 Patient still with bradycardia, discontinued clonidine as likely contributing, continue only Norvasc and Lisinopril for BP control. 04/13 HR improved to the 50s-60s, stable, increased lisinopril dosing to 10mg bid for better BP control. BP much improved, 130/70 with HR in the 60s-70s upon discharge. Right inguinal hernia on exam-no signs of obstruction. General surgery seen for evaluation: No evidence of abdominal pain or concern for obstruction at this time. Consider having a hernia repair as an outpatient electively. Follow up as an outpatient further evaluation and recommendation.Available if the hernia did become obstructive. Reduced at bedside. Tolerating oral intake, stable for outpatient f/up. Subarachnoid hemorrhage small one on CT. Patient was seen by neurosurgery this is deemed to be likely artifact. Patient denies any headache nausea vomiting. Patient denies any falling, or trauma on his head. Neuro checks and vital signs every shift. No neurologic deficits on exam. Stable. Incidental lung nodule r/o malignancy. History of tobacco use. Pulmonology consulted/Dr. Hastings: Noted patient's lung mass is indeed suspect for underlying malignancy. However given patient's condition and Dementia, it is difficult decision whether to pursue the mass and the question is if it is indeed proven malignancy, is the patient going to pursue further treatment. POA/patient have decided to no proceed with any biopsy/procedure at this time. Monitor respiratory status, stable for discharge. Leukocytosis: Afebrile, no fever, no chills. CXR: No significant interval change. Blood cultures with NGTD. Leukocytosis improved, decreased from 21K to 12.5K. Patient remained afebrile throughout admission. Hyperglycemia: on labs. POA denies any history of DM- but states he has been doubling up on his sugar -with coffee. Hgb A1C 5.4% Code status: POA has specific request, alternative code, no intubation, but can do chest compressions/defibrillation. - Time Spent with Patient Total time spent providing and/or coordinating discharge services: Greater than 30 minutes Exam Vital signs: Vital Signs 04/12/18 09:00 04/12/18 12:00 04/12/18 16:00 Temperature 98.2 F 98.5 F Pulse Rate 51 L 59 L 56 L Respiratory Rate 18 18 Blood Pressure 168/72 H 146/65 H Pulse Oximetry 96 96 04/12/18 20:00 04/13/18 00:00 04/13/18 04:00 Temperature 98.4 F 98.0 F 97.9 F Pulse Rate 57 L 56 L 49 L Respiratory Rate 18 18 18 Blood Pressure 143/67 H 143/67 H 154/77 H Pulse Oximetry 98 96 95 Intake & Output 04/12/18 04/13/18 04/13/18 18:59 06:59 18:59 Intake Total 1095 / 1095 Output Total 1000 / 1000 Balance 1095 / 1095 -1000 / -1000 Weight 71.7 kg Intake: IV 1095 / 1095 KCl Inj 30 MEQ In NS Inj 1,000 895 / 895 ML @ 84 mls/hr IV.CONT .Q12H5M MILY Rx#:[id number] Magnesium Sulfate 1 gm/D5W 100 200 / 200 ml Premix 100 ML @ 100 mls/hr IV.SIG Q1H MILY Rx#:[id number] Output: Urine 1000 / 1000 Other: # Voids 5 # Incontinent Voids 1 Date of Last Bowel Movement 04/12/18 04/12/18 04/13/18 # Incontinent Bowel Movements 1 Narrative: GENERAL: Well-nourished, well-developed pleasant elderly male patient in [facility]. SKIN: Warm and dry. No rash. HEENT: Normocephalic. Atraumatic. Pupils equal and round. Mucous membranes pink and moist. CARDIOVASCULAR: Mildly Bradycardic, regular rhythm. No murmur appreciated. RESPIRATORY: No accessory muscle use. Clear to auscultation. Breath sounds equal bilaterally. GASTROINTESTINAL: Abdomen soft, non-tender, nondistended. Normoactive bowel sounds x4. MUSCULOSKELETAL: No obvious deformities. Extremities without clubbing, cyanosis , or edema. NEUROLOGICAL: Oriented to self/place, not month/year. No obvious cranial nerve deficits. Moving all extremities spontaneously. Normal speech. PSYCHIATRIC: Appropriate mood and affect; insight and judgment limited. Results Procedures completed during hospitalization: None. Labs on day of discharge: Labs from last 24 hours 04/13/18 04/13/18 04/12/18 07:44 02:54 20:23 WBC RBC Hgb Hct MCV MCH MCHC RDW Plt Count MPV Neut % (Auto) Lymph % (Auto) Sheridan % (Auto) Eos % (Auto) Baso % (Auto) Neut # (Auto) Lymph # (Auto) Sheridan # (Auto) Eos # (Auto) Baso # (Auto) WBC Differential Differential Comment Sodium Potassium Chloride Carbon Dioxide Anion Gap BUN Creatinine Estimated GFR POC Glucose 93 90 102 Random Glucose Calcium Magnesium 04/12/18 04/12/18 07:53 07:53 WBC 12.5 H RBC 3.62 L Hgb 11.5 L Hct 33.5 L MCV 92.5 D MCH 31.8 MCHC 34.4 RDW 14.0 Plt Count 180 MPV 10.6 Neut % (Auto) 72.5 H Lymph % (Auto) 11.3 Sheridan % (Auto) 9.4 H Eos % (Auto) 6.5 H Baso % (Auto) 0.3 Neut # (Auto) 9.0 H Lymph # (Auto) 1.4 Sheridan # (Auto) 1.2 H Eos # (Auto) 0.8 H Baso # (Auto) 0.0 WBC Differential . Differential Comment Auto diff final Sodium 141 Potassium 3.9 Chloride 110 H Carbon Dioxide 23.8 Anion Gap 7 BUN 16 Creatinine 0.83 Estimated GFR 89 POC Glucose Random Glucose 80 Calcium 8.6 Magnesium 1.7 Preliminary micro results at discharge 04/10/18 17:48 Aerobic Blood Culture - Preliminary Blood - Peripheral No growth in 2 days Anaerobic Blood Culture - Preliminary No growth in 2 days 04/10/18 17:43 Aerobic Blood Culture - Preliminary Blood - Peripheral No growth in 2 days Anaerobic Blood Culture - Preliminary No growth in 2 days - Impressions ITS Impressions Head CT 04/08/18 07:52 CONCLUSION: Possible tiny focus of subarachnoid blood in the high convexity left frontal region near the vertex (image 24). . Chest CT 04/08/18 09:03 CONCLUSION: 1. Moderate emphysema and atherosclerosis. 2. No evidence for pneumonia. 3. Left lower lobe 1.3 cm focal irregular nodular density. A primary bronchogenic neoplasm should be excluded. PET/CT would be helpful for further evaluation. Abdomen/Pelvis CT 04/08/18 10:04 CONCLUSION: 1. Of concern is a large right inguinal hernia containing mesenteric fat, multiple mildly distended small bowel loops which demonstrate wall thickening and moderate peritoneal fluid and a small bowel feces sign. The possibility of bowel compromise at this level should be entertained given these findings. 2. Small fat-containing left inguinal hernia. 3. Reticulosis without diverticulitis. 4. Atherosclerosis. 5. Irregular left lower lobe noncalcified pulmonary nodule. Chest X-Ray 04/10/18 00:00 CONCLUSION: 1. Senescent changes without acute abnormality or significant interval change. Discharge Plan - Discharge Disposition Patient Disposition: 03 Discharge to SNF - Discharge Condition Condition: Stable - Discharge Order Discharge Orders: Discharge Order (Routine); Ordered 04/13/18 Ordered By: Whit Kent - Discharge Details Anticipated Discharge Date: 04/13/18 Discharge Comment: D/c to [facility]. - Physicians Team Primary Care Provider: Darling Hastings Attending Provider: Antonia Devries Other Providers: Karthikeyan Forbes MD ; Amador Jensen MD ; [facility] ; Darling Hastings MD ; [facility] ; [facility]
--- NOTE | 2018-04-13 15:56 | P.PN ---
Subjective Interval history: ALERT NAD Physical Exam Vital signs: Vital Signs 04/12/18 16:00 04/12/18 20:00 04/13/18 00:00 Temperature 98.5 F 98.4 F 98.0 F Pulse Rate 56 L 57 L 56 L Respiratory Rate 18 18 18 Blood Pressure 146/65 H 143/67 H 143/67 H Pulse Oximetry 96 98 96 04/13/18 04:00 04/13/18 08:00 04/13/18 09:00 Temperature 97.9 F 98.1 F Pulse Rate 49 L 53 L 53 L Respiratory Rate 18 17 Blood Pressure 154/77 H 188/81 H Pulse Oximetry 95 95 04/13/18 12:00 Temperature 98 F Pulse Rate 73 Respiratory Rate 17 Blood Pressure 127/60 Pulse Oximetry 97 Intake & Output 04/12/18 04/13/18 04/13/18 18:59 06:59 18:59 Intake Total 1095 / 1095 1015 / 1015 Output Total 1000 / 1000 Balance 1095 / 1095 -1000 / -1000 1015 / 1015 Weight 71.7 kg Intake: IV 1095 / 1095 1015 / 1015 KCl Inj 30 MEQ In NS Inj 1,000 895 / 895 1015 / 1015 ML @ 84 mls/hr IV.CONT .Q12H5M MILY Rx#:[id number] Magnesium Sulfate 1 gm/D5W 100 200 / 200 ml Premix 100 ML @ 100 mls/hr IV.SIG Q1H MILY Rx#:[id number] Output: Urine 1000 / 1000 Other: # Voids 5 # Incontinent Voids 1 Date of Last Bowel Movement 04/12/18 04/12/18 04/13/18 # Incontinent Bowel Movements 1 Narrative: GENERAL: Well-nourished, well-developed pleasant elderly male patient in [facility]. Drowsy. SKIN: Warm and dry. No rash. HEENT: Normocephalic. Atraumatic. Pupils equal and round. Mucous membranes pink and moist. CARDIOVASCULAR: Mildly Bradycardic, regular rhythm. No murmur appreciated. RESPIRATORY: No accessory muscle use. Clear to auscultation. Breath sounds equal bilaterally. GASTROINTESTINAL: Abdomen soft, non-tender, nondistended. Normoactive bowel sounds x4. MUSCULOSKELETAL: No obvious deformities. Extremities without clubbing, cyanosis , or edema. NEUROLOGICAL: Oriented to self/place, not month/year. No obvious cranial nerve deficits. Moving all extremities spontaneously. Normal speech. PSYCHIATRIC: Appropriate mood and affect; insight and judgment limited. - Urinary Catheter Management Indwelling Urethral Catheter Cath placed during this visit: yes Reason for continuing: Hourly intake/output Insertion date: 04/08/18 Insertion time: 10:09 Results - Labs CBC & Chem 7: 04/12/18 07:53 04/12/18 07:53 Laboratory Results - last 24 hr 04/12/18 04/13/18 04/13/18 20:23 02:54 07:44 POC Glucose 102 90 93 Microbiology 04/10/18 17:48 Blood - Peripheral Aerobic Blood Culture - Preliminary No growth in 3 days 04/10/18 17:48 Blood - Peripheral Anaerobic Blood Culture - Preliminary No growth in 3 days 04/10/18 17:43 Blood - Peripheral Aerobic Blood Culture - Preliminary No growth in 3 days 04/10/18 17:43 Blood - Peripheral Anaerobic Blood Culture - Preliminary No growth in 3 days - Procedures None. Assessment and Plan - Plan LLL LUNG MASS 1.3 CM MALIGNANCY SUSPECT HTN DEMENTIA PLAN POA WITH PATIENT NOW DECLINE NEEDLE LUNG BX WILL SIGN OFF PLEASE CALL PRN
[2018-04-13 17:14] VITALS: O2SAT 95
[2018-04-13 17:15] VITALS: BP 130/70; PULSE 65; RESP 17; TEMP 98.1
[2018-04-13] MEDS ORDERED: Lisinopril 10 MG Tablet PO SCH (21:00)
--- NOTE | 2018-04-14 02:00 | ECG ---
Date Performed: 04/11/2018 Time Performed: 14:28:00 PTAGE: 82 years EKG: SINUS BRADYCARDIA WITH FIRST DEGREE AV BLOCK WITH OCCASIONAL SUPRAVENTRICULAR PREMATURE COM PLEXES MARKED LEFT AXIS DEVIATION INCOMPLETE RIGHT BUNDLE BRANCH BLOCK MINIMAL VOLTAGE CRITERIA FOR L VH, CONSIDER NORMAL VARIANT ABNORMAL ECG PREVIOUS TRACING : 04/08/2018 09.13 Since the previous tracing, no significant change noted DOCTOR: Walter Nelson Interpretating Date/Time 04/14/2018 01:59:08
== END 2018-04-13 17:59 ==
LOC: NEPC 07:33 → NEDA 13:28 → INTOOBSV 13:28 → N05 19:19
PROVIDERS: ADMIT Family Medicine; ATTEND Family Medicine

== ENCOUNTER 2018-05-08 19:59 | Inpatient (IN) ==
[2018-05-08] MEDS ORDERED: Vancomycin Inj 1,000 MG in Sodium Chlor 0.9% Inj 250 ML IV.SIG ONE (20:25)
[2018-05-08] MEDS ORDERED: Piperacil/Tazo 4.5 GM Premix 4.5 GM/100 ML BAG IV.SIG ONE (20:25)
[2018-05-08] MEDS ORDERED: Acetaminophen 325 MG Tablet PO ONE (20:25)
[2018-05-08] MEDS: Sod Chloride 0.9% Inj 1,000 ML IV.SIG SCH ×3 (20:25→23:16)
[2018-05-08 20:59] LABS: Baso # (Auto) 0.1 th/mm3 (0.0-0.2); Baso % (Auto) 0.2 % (0.0-2.0); Eos % (Auto) 0.1 % (0.0-4.0); Hematocrit 32.7 % (39.0-51.0); Hemoglobin 10.6 gm/dL (13.0-17.0); Lymph # (Auto) 0.7 th/mm3 (1.0-4.8); Lymph % (Auto) 2.5 % (9.0-44.0); Mean Corpuscular HGB Conc 32.5 % (32.0-36.0); Mean Corpuscular Hemoglobin 29.8 pg (27.0-34.0); Mean Corpuscular Volume 91.7 fL (80.0-100.0); Mean Platelet Volume 9.6 fL (7.0-11.0); Mono % (Auto) 7.1 % (0.0-8.0); Neut # (Auto) 25.5 th/mm3 (1.8-7.7); Neut % (Auto) 90.1 % (16.0-70.0); Platelet Count 363 th/mm3 (150-450); Red Blood Count 3.56 mil/mm3 (4.50-5.90); White Blood Count 28.2 th/mm3 (4.0-11.0)
[2018-05-08 21:03] LABS: Bacteria,Urine Few /hpf; Bilirubin,Urine Negative (Negative); Clarity,Urine Cloudy (Clear); Color,Urine Amber (Yellw/Straw); Glucose,Urine (UA) Negative (Negative); Leukocyte Esterase,Urine Moderate (Negative); Mucus,Urine Few /lpf (Occasional); Nitrite,Urine Negative (Negative); Specific Gravity,Urine 1.015 (1.002-1.035)
[2018-05-08 21:06] LABS: Alanine Aminotransferase 68 U/L (12-78); Albumin 1.8 g/dL (3.4-5.0); Anion Gap 6 meq/L (5-15); Aspartate Aminotransferase 43 U/L (15-37); Blood Urea Nitrogen 21 mg/dL (7-18); Calcium 9.4 mg/dL (8.5-10.1); Carbon Dioxide 27.6 meq/L (21.0-32.0); Chloride 105 meq/L (98-107); Glomerular Filtration Rate 72 mL/min (>89); Glucose,Random 131 mg/dL (74-106); Magnesium 1.5 mg/dL (1.5-2.5); Potassium 3.6 meq/L (3.5-5.1); Sodium 139 meq/L (136-145)
[2018-05-08 21:09] LABS: Alkaline Phosphatase 115 U/L (45-117); Total Protein 6.6 g/dL (6.4-8.2)
--- NOTE | 2018-05-08 21:20 | ED ---
HPI General Chief Complaint: Recheck/Abnormal Lab/Rx Stated Complaint: weakness/evac Time Seen by Provider: 05/08/18 20:20 Source: EMS Mode of arrival: EMS Limitations: altered mental status History of Present Illness HPI narrative: 82-year-old male came to the emergency room brought by EMS from long term after he was found to be getting progressively weak over past couple days. Today blood test was done and white blood cell count was 32,000. The doctor at the long term recommended that patient should come to the emergency room to be evaluated. Patient is unable to give any meaningful history. He has history of dementia with a baseline GCS of 14. Currently he is awake and appears to be too weak to talk. As per EMS when they arrived his blood pressure was in the 90s systolic. 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 No intubation and ACLS meds. Patient had a blood glucose of 118 upon arrival and a rectal temperature of 100.7. Blood pressure was 100/50. Related Data Home Medications Medication Instructions Recorded Confirmed atorvastatin 20 mg PO DAILY 04/08/18 05/08/18 donepezil 10 mg PO BID 04/08/18 05/08/18 loperamide [Anti-Diarrheal 2 mg PO TID 04/08/18 05/08/18 (loperamide)] lorazepam 0.5 mg PO BID 04/08/18 05/08/18 montelukast 10 mg PO QPM 04/08/18 05/08/18 polyethylene glycol 3350 17 g PO DAILY PRN 04/08/18 05/08/18 potassium chloride 20 meq PO DAILY 04/08/18 05/08/18 quetiapine 25 mg PO BID 04/08/18 05/08/18 quinapril 20 mg PO BID 04/08/18 05/08/18 sertraline 100 mg PO DAILY 04/08/18 05/08/18 tamsulosin 0.4 mg PO DAILY 04/08/18 05/08/18 Previous Rx's Medication Instructions Recorded amlodipine [Norvasc] 10 mg PO DAILY #30 tab 04/13/18 furosemide 20 mg PO DAILY #30 tab 04/13/18 Allergies Allergy/AdvReac Type Severity Reaction Status Date / Time No Known Allergies Allergy Verified 05/08/18 20:16 Review of Systems ROS Unobtainable ROS Unobtainable: unobtainable due to mental condition ROS: all other systems reviewed are negative PMFSH History History Provided By: Groundskeeper Porter / EMT Medical History Medical History Alzheimers disease (Acute) Enlarged prostate (Acute) HTN (hypertension) (Acute) Surgical history unknown (Acute) Family History Family History Other Family history unobtainable due to patient's condition Social History Social History Substance History: No History of Abuse Smoking Status: Cognitive impairment How Often Do You Have a Drink Containing Alcohol: Unable to Obtain Exam Narrative Exam Narrative: GENERAL: Awake, elderly, frail, confused and too weak to talk SKIN: Focused skin assessment warm/dry. HEAD: Atraumatic. Normocephalic. EYES: Pupils equal and round. No scleral icterus. No injection or drainage. ENT: No nasal bleeding or discharge. Dry mucous membrane. NECK: Trachea midline. No JVD. CARDIOVASCULAR: Regular rate and rhythm. No murmur appreciated. RESPIRATORY: No accessory muscle use. Clear to auscultation. Breath sounds equal bilaterally. GASTROINTESTINAL: Abdomen soft, non-tender, nondistended. Hepatic and splenic margins not palpable. Large right inguinal hernia MUSCULOSKELETAL: No obvious deformities. No clubbing. No cyanosis. No edema. NEUROLOGICAL: GCS of 13. No obvious cranial nerve deficits. Motor grossly within normal limits. Week speech. PSYCHIATRIC: Appropriate mood and affect; insight and judgment normal. Course Initial Documented Vital Signs Temperature 101 F H 05/08/18 20:20 Pulse Rate 81 05/08/18 20:20 Respiratory Rate 19 05/08/18 20:20 Blood Pressure 100/57 L 05/08/18 20:20 Pulse Oximetry 94 L 05/08/18 20:20 Last Documented Vital Signs Temperature 97.9 F 05/13/18 12:00 Pulse Rate 88 05/13/18 12:00 Respiratory Rate 17 05/13/18 12:00 Blood Pressure 122/79 05/13/18 12:00 Pulse Oximetry 94 L 05/13/18 12:00 Critical Care Time Critical Care Time: Yes Total Critical Care Time: 45 Attestation: Aggregate critical care time was 45 minutes. Time to perform other separately billable procedures was not included in the critical care time. My time did not include minutes spent treating any other patients simultaneously or on activities that did not directly contribute to the patient's treatment. The services I provided to this patient were to treat and/or prevent clinically significant deterioration that could result in: Sepsis, sepsis protocol I provided critical care services requiring my management, as noted below: Chart data review, documentation time, medication orders and management, vital sign assessments/reviewing monitor data, ordering and reviewing lab tests, ordering and interpreting/reviewing x-rays and diagnostic studies, care of the patient and discussion of the patient with the admitting physicians. Medical Decision Making MDM Narrative Medical decision making narrative: 9:17 PM blood test results are back and patient has significant leukocytosis with a left shift. Lactic acid is within normal limit. UA is positive for UTI. Chest x-ray shows right-sided small pleural effusion with possible pneumonia in the right lower lobe. Awaiting for the radiologist read. Awaiting for the CT scan of the brain to be done and resulted. Patient was given IV Zosyn and IV vancomycin along with 2 L of IV fluid bolus. He will require admission. Tylenol was given for fever. The large hernia was manually reduced by me with pressure. All the intestinal contents could be felt going back into the intra-abdominal cavity. The inguinal ring was felt. Patient tolerated the procedure well. This was done without any sedations. Medical Screen Exam Complete: Yes Emergency Medical Condition: Yes Lab Data Result diagrams: 05/13/18 01:38 05/13/18 01:38 Lab Results 05/08/18 05/08/18 05/08/18 Range/Units 19:00 20:23 20:25 WBC 28.2 H (4.0-11.0) th/mm3 RBC 3.56 L (4.50-5.90) mil/mm3 Hgb 10.6 L (13.0-17.0) gm/dL Hct 32.7 L (39.0-51.0) % MCV 91.7 (80.0-100.0) fL MCH 29.8 (27.0-34.0) pg MCHC 32.5 (32.0-36.0) % RDW 14.0 (11.6-17.2) % Plt Count 363 D (150-450) th/mm3 MPV 9.6 (7.0-11.0) fL Prelim Diff (Auto) Neut % (Auto) 90.1 H (16.0-70.0) % Lymph % (Auto) 2.5 L (9.0-44.0) % [place] % (Auto) 7.1 (0.0-8.0) % Eos % (Auto) 0.1 (0.0-4.0) % Baso % (Auto) 0.2 (0.0-2.0) % Neut # (Auto) 25.5 H (1.8-7.7) th/mm3 Lymph # (Auto) 0.7 L (1.0-4.8) th/mm3 [place] # (Auto) 2.0 H (0.0-0.9) th/mm3 Eos # (Auto) 0.0 (0.0-0.4) th/mm3 Baso # (Auto) 0.1 (0.0-0.2) th/mm3 WBC Differential . Seg Neuts % (Manual) (16-70) % Band Neuts % (Manual) (0-6) % Lymphocytes % (Manual) (9-44) % Monocytes % (Manual) (0-8) % Eosinophils % (Manual) (0-4) % Abs Neuts (Manual) (1.8-7.7) th/mm3 Differential Comment Auto diff final Toxic Granulation (None) Dohle Bodies (None) Platelet Estimate (Normal) Platelet Morphology (Normal) Hematology Comments PT (9.8-11.6) sec INR Ratio APTT (23.4-31.7) sec Puncture Site Patient Temperature O2 Saturation (90-100) % ABG pH (7.380-7.420) ABG pCO2 (38-42) mmHg ABG pO2 (61-120) mmHg ABG HCO3 (22-26) mmol/L ABG O2 Content (12.0-20.0) Vol % ABG Base Excess (-2-2) mmol/L ABG Methemoglobin (0-2) % Tony Test Hemoglobin (12.0-16.0) G/DL Carboxyhemoglobin (0-4) % O2 Delivery Device Liter Flow L/M Critical Value Sodium (136-145) meq/L Potassium (3.5-5.1) meq/L Chloride (98-107) meq/L Carbon Dioxide (21.0-32.0) meq/L Anion Gap (5-15) meq/L BUN (7-18) mg/dL Creatinine (0.60-1.30) mg/dL Estimated GFR (>89) mL/min POC Glucose 118 H (68-110) mg/dl Random Glucose (74-106) mg/dL Lactic Acid (0.4-2.0) mmol/L Calcium (8.5-10.1) mg/dL Magnesium (1.5-2.5) mg/dL Total Bilirubin (0.2-1.0) mg/dL AST (15-37) U/L ALT (12-78) U/L Alkaline Phosphatase (45-117) U/L Troponin I (0.02-0.05) ng/mL Total Protein (6.4-8.2) g/dL Albumin (3.4-5.0) g/dL Prealbumin (20-40) mg/dL Urine Color Sona (Yellw/Straw) Urine Clarity Cloudy H (Clear) Urine pH 5.0 (5.0-8.5) Ur Specific [place] 1.015 (1.002-1.035) Urine Protein 30 H (Neg-Trace) mg/dL Urine Glucose (UA) Negative (Negative) mg/dL Urine Ketones Negative (Negative) mg/dL Urine Occult Blood Large H (Negative) Urine Nitrate Negative (Negative) Urine Bilirubin Negative (Negative) Urine Urobilinogen 2.0 H (Less than 2) mg/dL Ur Leukocyte Esterase Moderate H (Negative) Urine RBC 81 H (0-3) /hpf Urine WBC 44 H (0-5) /hpf Urine WBC Clumps Many H (None) Urine Bacteria Few H (None) /hpf Urine Mucus Few H (Occasional) /lpf Micro UA Comment Cath-culture ind Ur Microscopic Review Not Reportable Urine Culture Comments Cath-cult indicated Stl C.difficile DNA Amp (Negative) St C. diff Tox Epid 027 (Negative) 05/08/18 05/08/18 05/09/18 Range/Units 20:25 20:25 05:42 WBC 32.2 H (4.0-11.0) th/mm3 RBC 3.42 L (4.50-5.90) mil/mm3 Hgb 10.4 L (13.0-17.0) gm/dL Hct 32.0 L (39.0-51.0) % MCV 93.7 (80.0-100.0) fL MCH 30.4 (27.0-34.0) pg MCHC 32.5 (32.0-36.0) % RDW 14.2 (11.6-17.2) % Plt Count 342 (150-450) th/mm3 MPV 9.7 (7.0-11.0) fL Prelim Diff (Auto) Slide review pending Neut % (Auto) 92.0 H (16.0-70.0) % Lymph % (Auto) 2.4 L (9.0-44.0) % [place] % (Auto) 5.4 (0.0-8.0) % Eos % (Auto) 0.1 (0.0-4.0) % Baso % (Auto) 0.1 (0.0-2.0) % Neut # (Auto) 29.6 H (1.8-7.7) th/mm3 Lymph # (Auto) 0.8 L (1.0-4.8) th/mm3 [place] # (Auto) 1.7 H (0.0-0.9) th/mm3 Eos # (Auto) 0.0 (0.0-0.4) th/mm3 Baso # (Auto) 0.0 (0.0-0.2) th/mm3 WBC Differential Manual diff final Seg Neuts % (Manual) 84 H (16-70) % Band Neuts % (Manual) 10 H (0-6) % Lymphocytes % (Manual) 2 L (9-44) % Monocytes % (Manual) 4 (0-8) % Eosinophils % (Manual) (0-4) % Abs Neuts (Manual) 30.3 H (1.8-7.7) th/mm3 Differential Comment . Toxic Granulation 1+ H (None) Dohle Bodies Present H (None) Platelet Estimate Normal (Normal) Platelet Morphology Normal (Normal) Hematology Comments PT (9.8-11.6) sec INR Ratio APTT (23.4-31.7) sec Puncture Site Patient Temperature O2 Saturation (90-100) % ABG pH (7.380-7.420) ABG pCO2 (38-42) mmHg ABG pO2 (61-120) mmHg ABG HCO3 (22-26) mmol/L ABG O2 Content (12.0-20.0) Vol % ABG Base Excess (-2-2) mmol/L ABG Methemoglobin (0-2) % Tony Test Hemoglobin (12.0-16.0) G/DL Carboxyhemoglobin (0-4) % O2 Delivery Device Liter Flow L/M Critical Value Sodium 139 (136-145) meq/L Potassium 3.6 (3.5-5.1) meq/L Chloride 105 (98-107) meq/L Carbon Dioxide 27.6 (21.0-32.0) meq/L Anion Gap 6 (5-15) meq/L BUN 21 H (7-18) mg/dL Creatinine 1.00 (0.60-1.30) mg/dL Estimated GFR 72 L (>89) mL/min POC Glucose (68-110) mg/dl Random Glucose 131 H (74-106) mg/dL Lactic Acid 1.0 (0.4-2.0) mmol/L Calcium 9.4 (8.5-10.1) mg/dL Magnesium 1.5 (1.5-2.5) mg/dL Total Bilirubin 0.5 (0.2-1.0) mg/dL AST 43 H (15-37) U/L ALT 68 (12-78) U/L Alkaline Phosphatase 115 (45-117) U/L Troponin I (0.02-0.05) ng/mL Total Protein 6.6 (6.4-8.2) g/dL Albumin 1.8 L (3.4-5.0) g/dL Prealbumin (20-40) mg/dL Urine Color (Yellw/Straw) Urine Clarity (Clear) Urine pH (5.0-8.5) Ur Specific [place] (1.002-1.035) Urine Protein (Neg-Trace) mg/dL Urine Glucose (UA) (Negative) mg/dL Urine Ketones (Negative) mg/dL Urine Occult Blood (Negative) Urine Nitrate (Negative) Urine Bilirubin (Negative) Urine Urobilinogen (Less than 2) mg/dL Ur Leukocyte Esterase (Negative) Urine RBC (0-3) /hpf Urine WBC (0-5) /hpf Urine WBC Clumps (None) Urine Bacteria (None) /hpf Urine Mucus (Occasional) /lpf Micro UA Comment Ur Microscopic Review Urine Culture Comments Stl C.difficile DNA Amp (Negative) St C. diff Tox Epid 027 (Negative) 05/09/18 05/10/18 05/10/18 Range/Units 05:42 06:13 06:13 WBC 32.3 H (4.0-11.0) th/mm3 RBC 3.47 L (4.50-5.90) mil/mm3 Hgb 10.5 L (13.0-17.0) gm/dL Hct 31.8 L (39.0-51.0) % MCV 91.6 (80.0-100.0) fL MCH 30.3 (27.0-34.0) pg MCHC 33.1 (32.0-36.0) % RDW 13.9 (11.6-17.2) % Plt Count 389 (150-450) th/mm3 MPV 9.6 (7.0-11.0) fL Prelim Diff (Auto) Slide review pending Neut % (Auto) 90.5 H (16.0-70.0) % Lymph % (Auto) 2.8 L (9.0-44.0) % [place] % (Auto) 5.1 (0.0-8.0) % Eos % (Auto) 1.1 (0.0-4.0) % Baso % (Auto) 0.5 (0.0-2.0) % Neut # (Auto) 29.3 H (1.8-7.7) th/mm3 Lymph # (Auto) 0.9 L (1.0-4.8) th/mm3 [place] # (Auto) 1.6 H (0.0-0.9) th/mm3 Eos # (Auto) 0.3 (0.0-0.4) th/mm3 Baso # (Auto) 0.2 (0.0-0.2) th/mm3 WBC Differential Manual diff final Seg Neuts % (Manual) 81 H (16-70) % Band Neuts % (Manual) 9 H (0-6) % Lymphocytes % (Manual) 5 L (9-44) % Monocytes % (Manual) 5 (0-8) % Eosinophils % (Manual) (0-4) % Abs Neuts (Manual) 29.1 H (1.8-7.7) th/mm3 Differential Comment . Toxic Granulation 1+ H (None) Dohle Bodies Present H (None) Platelet Estimate Normal (Normal) Platelet Morphology Enlarged H (Normal) Hematology Comments PT (9.8-11.6) sec INR Ratio APTT (23.4-31.7) sec Puncture Site Patient Temperature O2 Saturation (90-100) % ABG pH (7.380-7.420) ABG pCO2 (38-42) mmHg ABG pO2 (61-120) mmHg ABG HCO3 (22-26) mmol/L ABG O2 Content (12.0-20.0) Vol % ABG Base Excess (-2-2) mmol/L ABG Methemoglobin (0-2) % Tony Test Hemoglobin (12.0-16.0) G/DL Carboxyhemoglobin (0-4) % O2 Delivery Device Liter Flow L/M Critical Value Sodium 143 143 (136-145) meq/L Potassium 3.6 3.0 L (3.5-5.1) meq/L Chloride 109 H 107 (98-107) meq/L Carbon Dioxide 24.0 27.4 (21.0-32.0) meq/L Anion Gap 10 9 (5-15) meq/L BUN 17 14 (7-18) mg/dL Creatinine 0.82 0.61 (0.60-1.30) mg/dL Estimated GFR Greater than 89 Greater than 89 (>89) mL/min POC Glucose (68-110) mg/dl Random Glucose 106 89 (74-106) mg/dL Lactic Acid (0.4-2.0) mmol/L Calcium 9.1 9.3 (8.5-10.1) mg/dL Magnesium (1.5-2.5) mg/dL Total Bilirubin 0.4 (0.2-1.0) mg/dL AST 31 (15-37) U/L ALT 57 (12-78) U/L Alkaline Phosphatase 103 (45-117) U/L Troponin I (0.02-0.05) ng/mL Total Protein 6.3 L (6.4-8.2) g/dL Albumin 1.6 L (3.4-5.0) g/dL Prealbumin (20-40) mg/dL Urine Color (Yellw/Straw) Urine Clarity (Clear) Urine pH (5.0-8.5) Ur Specific [place] (1.002-1.035) Urine Protein (Neg-Trace) mg/dL Urine Glucose (UA) (Negative) mg/dL Urine Ketones (Negative) mg/dL Urine Occult Blood (Negative) Urine Nitrate (Negative) Urine Bilirubin (Negative) Urine Urobilinogen (Less than 2) mg/dL Ur Leukocyte Esterase (Negative) Urine RBC (0-3) /hpf Urine WBC (0-5) /hpf Urine WBC Clumps (None) Urine Bacteria (None) /hpf Urine Mucus (Occasional) /lpf Micro UA Comment Ur Microscopic Review Urine Culture Comments Stl C.difficile DNA Amp (Negative) St C. diff Tox Epid 027 (Negative) 05/10/18 05/11/18 05/11/18 Range/Units 06:13 06:40 06:40 WBC 34.1 H (4.0-11.0) th/mm3 RBC 3.57 L (4.50-5.90) mil/mm3 Hgb 10.9 L (13.0-17.0) gm/dL Hct 32.1 L (39.0-51.0) % MCV 90.0 (80.0-100.0) fL MCH 30.4 (27.0-34.0) pg MCHC 33.8 (32.0-36.0) % RDW 14.0 (11.6-17.2) % Plt Count 369 (150-450) th/mm3 MPV 10.1 (7.0-11.0) fL Prelim Diff (Auto) Slide review pending Neut % (Auto) 90.0 H (16.0-70.0) % Lymph % (Auto) 2.7 L (9.0-44.0) % [place] % (Auto) 5.6 (0.0-8.0) % Eos % (Auto) 0.6 (0.0-4.0) % Baso % (Auto) 1.1 (0.0-2.0) % Neut # (Auto) 30.7 H (1.8-7.7) th/mm3 Lymph # (Auto) 0.9 L (1.0-4.8) th/mm3 [place] # (Auto) 1.9 H (0.0-0.9) th/mm3 Eos # (Auto) 0.2 (0.0-0.4) th/mm3 Baso # (Auto) 0.4 H (0.0-0.2) th/mm3 WBC Differential Manual diff final Seg Neuts % (Manual) 86 H (16-70) % Band Neuts % (Manual) 9 H (0-6) % Lymphocytes % (Manual) 3 L (9-44) % Monocytes % (Manual) 1 (0-8) % Eosinophils % (Manual) 1 (0-4) % Abs Neuts (Manual) 32.4 H (1.8-7.7) th/mm3 Differential Comment . Toxic Granulation 1+ H (None) Dohle Bodies (None) Platelet Estimate Normal (Normal) Platelet Morphology Normal (Normal) Hematology Comments PT (9.8-11.6) sec INR Ratio APTT (23.4-31.7) sec Puncture Site Patient Temperature O2 Saturation (90-100) % ABG pH (7.380-7.420) ABG pCO2 (38-42) mmHg ABG pO2 (61-120) mmHg ABG HCO3 (22-26) mmol/L ABG O2 Content (12.0-20.0) Vol % ABG Base Excess (-2-2) mmol/L ABG Methemoglobin (0-2) % Tony Test Hemoglobin (12.0-16.0) G/DL Carboxyhemoglobin (0-4) % O2 Delivery Device Liter Flow L/M Critical Value Sodium 144 (136-145) meq/L Potassium 3.1 L (3.5-5.1) meq/L Chloride 109 H (98-107) meq/L Carbon Dioxide 24.2 (21.0-32.0) meq/L Anion Gap 11 (5-15) meq/L BUN 13 (7-18) mg/dL Creatinine 0.64 (0.60-1.30) mg/dL Estimated GFR Greater than 89 (>89) mL/min POC Glucose (68-110) mg/dl Random Glucose 97 (74-106) mg/dL Lactic Acid (0.4-2.0) mmol/L Calcium 8.9 (8.5-10.1) mg/dL Magnesium 1.5 (1.5-2.5) mg/dL Total Bilirubin (0.2-1.0) mg/dL AST (15-37) U/L ALT (12-78) U/L Alkaline Phosphatase (45-117) U/L Troponin I (0.02-0.05) ng/mL Total Protein (6.4-8.2) g/dL Albumin (3.4-5.0) g/dL Prealbumin 4 L (20-40) mg/dL Urine Color (Yellw/Straw) Urine Clarity (Clear) Urine pH (5.0-8.5) Ur Specific [place] (1.002-1.035) Urine Protein (Neg-Trace) mg/dL Urine Glucose (UA) (Negative) mg/dL Urine Ketones (Negative) mg/dL Urine Occult Blood (Negative) Urine Nitrate (Negative) Urine Bilirubin (Negative) Urine Urobilinogen (Less than 2) mg/dL Ur Leukocyte Esterase (Negative) Urine RBC (0-3) /hpf Urine WBC (0-5) /hpf Urine WBC Clumps (None) Urine Bacteria (None) /hpf Urine Mucus (Occasional) /lpf Micro UA Comment Ur Microscopic Review Urine Culture Comments Stl C.difficile DNA Amp (Negative) St C. diff Tox Epid 027 (Negative) 05/12/18 05/12/18 05/12/18 Range/Units 00:15 04:54 04:54 WBC 30.7 H (4.0-11.0) th/mm3 RBC 3.48 L (4.50-5.90) mil/mm3 Hgb 10.6 L (13.0-17.0) gm/dL Hct 31.3 L (39.0-51.0) % MCV 89.9 (80.0-100.0) fL MCH 30.4 (27.0-34.0) pg MCHC 33.8 (32.0-36.0) % RDW 14.2 (11.6-17.2) % Plt Count 406 (150-450) th/mm3 MPV 9.1 (7.0-11.0) fL Prelim Diff (Auto) Slide review pending Neut % (Auto) 88.6 H (16.0-70.0) % Lymph % (Auto) 3.2 L (9.0-44.0) % [place] % (Auto) 7.1 (0.0-8.0) % Eos % (Auto) 1.0 (0.0-4.0) % Baso % (Auto) 0.1 (0.0-2.0) % Neut # (Auto) 27.2 H (1.8-7.7) th/mm3 Lymph # (Auto) 1.0 (1.0-4.8) th/mm3 [place] # (Auto) 2.2 H (0.0-0.9) th/mm3 Eos # (Auto) 0.3 (0.0-0.4) th/mm3 Baso # (Auto) 0.0 (0.0-0.2) th/mm3 WBC Differential Manual diff final Seg Neuts % (Manual) 85 H (16-70) % Band Neuts % (Manual) 4 (0-6) % Lymphocytes % (Manual) 4 L (9-44) % Monocytes % (Manual) 7 (0-8) % Eosinophils % (Manual) (0-4) % Abs Neuts (Manual) 27.3 H (1.8-7.7) th/mm3 Differential Comment . Toxic Granulation 2+ H (None) Dohle Bodies (None) Platelet Estimate Normal (Normal) Platelet Morphology Normal (Normal) Hematology Comments PT (9.8-11.6) sec INR Ratio APTT (23.4-31.7) sec Puncture Site Patient Temperature O2 Saturation (90-100) % ABG pH (7.380-7.420) ABG pCO2 (38-42) mmHg ABG pO2 (61-120) mmHg ABG HCO3 (22-26) mmol/L ABG O2 Content (12.0-20.0) Vol % ABG Base Excess (-2-2) mmol/L ABG Methemoglobin (0-2) % Tony Test Hemoglobin (12.0-16.0) G/DL Carboxyhemoglobin (0-4) % O2 Delivery Device Liter Flow L/M Critical Value Sodium 146 H (136-145) meq/L Potassium 3.3 L (3.5-5.1) meq/L Chloride 111 H (98-107) meq/L Carbon Dioxide 28.8 (21.0-32.0) meq/L Anion Gap 6 (5-15) meq/L BUN 12 (7-18) mg/dL Creatinine 0.64 (0.60-1.30) mg/dL Estimated GFR Greater than 89 (>89) mL/min POC Glucose (68-110) mg/dl Random Glucose 99 (74-106) mg/dL Lactic Acid (0.4-2.0) mmol/L Calcium 8.8 (8.5-10.1) mg/dL Magnesium 1.7 (1.5-2.5) mg/dL Total Bilirubin (0.2-1.0) mg/dL AST (15-37) U/L ALT (12-78) U/L Alkaline Phosphatase (45-117) U/L Troponin I (0.02-0.05) ng/mL Total Protein (6.4-8.2) g/dL Albumin (3.4-5.0) g/dL Prealbumin (20-40) mg/dL Urine Color (Yellw/Straw) Urine Clarity (Clear) Urine pH (5.0-8.5) Ur Specific [place] (1.002-1.035) Urine Protein (Neg-Trace) mg/dL Urine Glucose (UA) (Negative) mg/dL Urine Ketones (Negative) mg/dL Urine Occult Blood (Negative) Urine Nitrate (Negative) Urine Bilirubin (Negative) Urine Urobilinogen (Less than 2) mg/dL Ur Leukocyte Esterase (Negative) Urine RBC (0-3) /hpf Urine WBC (0-5) /hpf Urine WBC Clumps (None) Urine Bacteria (None) /hpf Urine Mucus (Occasional) /lpf Micro UA Comment Ur Microscopic Review Urine Culture Comments Stl C.difficile DNA Amp Negative (Negative) St C. diff Tox Epid 027 Negative (Negative) 05/13/18 05/13/18 05/13/18 Range/Units 01:14 01:38 01:38 WBC 35.0 H (4.0-11.0) th/mm3 RBC 3.95 L (4.50-5.90) mil/mm3 Hgb 11.8 L (13.0-17.0) gm/dL Hct 36.4 L (39.0-51.0) % MCV 92.1 (80.0-100.0) fL MCH 29.9 (27.0-34.0) pg MCHC 32.5 (32.0-36.0) % RDW 14.4 (11.6-17.2) % Plt Count 467 H (150-450) th/mm3 MPV 9.0 (7.0-11.0) fL Prelim Diff (Auto) Manual diff required Neut % (Auto) (16.0-70.0) % Lymph % (Auto) (9.0-44.0) % [place] % (Auto) (0.0-8.0) % Eos % (Auto) (0.0-4.0) % Baso % (Auto) (0.0-2.0) % Neut # (Auto) (1.8-7.7) th/mm3 Lymph # (Auto) (1.0-4.8) th/mm3 [place] # (Auto) (0.0-0.9) th/mm3 Eos # (Auto) (0.0-0.4) th/mm3 Baso # (Auto) (0.0-0.2) th/mm3 WBC Differential Manual diff final Seg Neuts % (Manual) 90 H (16-70) % Band Neuts % (Manual) 1 (0-6) % Lymphocytes % (Manual) 2 L (9-44) % Monocytes % (Manual) 5 (0-8) % Eosinophils % (Manual) 2 (0-4) % Abs Neuts (Manual) 31.9 H (1.8-7.7) th/mm3 Differential Comment . Toxic Granulation (None) Dohle Bodies (None) Platelet Estimate High H (Normal) Platelet Morphology Normal (Normal) Hematology Comments PT (9.8-11.6) sec INR Ratio APTT (23.4-31.7) sec Puncture Site Right radial Patient Temperature 98.6 O2 Saturation 91 (90-100) % ABG pH 7.47 H (7.380-7.420) ABG pCO2 38 (38-42) mmHg ABG pO2 71 (61-120) mmHg ABG HCO3 27 H (22-26) mmol/L ABG O2 Content 18.1 (12.0-20.0) Vol % ABG Base Excess 3.4 H (-2-2) mmol/L ABG Methemoglobin 1.2 (0-2) % Tony Test Present Hemoglobin 14.1 (12.0-16.0) G/DL Carboxyhemoglobin 1.2 (0-4) % O2 Delivery Device Nasal cannula Liter Flow 4.00 L/M Critical Value No Sodium 143 (136-145) meq/L Potassium 3.3 L (3.5-5.1) meq/L Chloride 109 H (98-107) meq/L Carbon Dioxide 29.4 (21.0-32.0) meq/L Anion Gap 5 (5-15) meq/L BUN 19 H (7-18) mg/dL Creatinine 0.73 (0.60-1.30) mg/dL Estimated GFR Greater than 89 (>89) mL/min POC Glucose (68-110) mg/dl Random Glucose 149 H (74-106) mg/dL Lactic Acid (0.4-2.0) mmol/L Calcium 9.1 (8.5-10.1) mg/dL Magnesium 1.7 (1.5-2.5) mg/dL Total Bilirubin (0.2-1.0) mg/dL AST (15-37) U/L ALT (12-78) U/L Alkaline Phosphatase (45-117) U/L Troponin I 0.13 H (0.02-0.05) ng/mL Total Protein (6.4-8.2) g/dL Albumin (3.4-5.0) g/dL Prealbumin (20-40) mg/dL Urine Color (Yellw/Straw) Urine Clarity (Clear) Urine pH (5.0-8.5) Ur Specific [place] (1.002-1.035) Urine Protein (Neg-Trace) mg/dL Urine Glucose (UA) (Negative) mg/dL Urine Ketones (Negative) mg/dL Urine Occult Blood (Negative) Urine Nitrate (Negative) Urine Bilirubin (Negative) Urine Urobilinogen (Less than 2) mg/dL Ur Leukocyte Esterase (Negative) Urine RBC (0-3) /hpf Urine WBC (0-5) /hpf Urine WBC Clumps (None) Urine Bacteria (None) /hpf Urine Mucus (Occasional) /lpf Micro UA Comment Ur Microscopic Review Urine Culture Comments Stl C.difficile DNA Amp (Negative) St C. diff Tox Epid 027 (Negative) 05/13/18 05/13/18 05/13/18 Range/Units 05:30 07:30 11:09 WBC (4.0-11.0) th/mm3 RBC (4.50-5.90) mil/mm3 Hgb (13.0-17.0) gm/dL Hct (39.0-51.0) % MCV (80.0-100.0) fL MCH (27.0-34.0) pg MCHC (32.0-36.0) % RDW (11.6-17.2) % Plt Count (150-450) th/mm3 MPV (7.0-11.0) fL Prelim Diff (Auto) Neut % (Auto) (16.0-70.0) % Lymph % (Auto) (9.0-44.0) % [place] % (Auto) (0.0-8.0) % Eos % (Auto) (0.0-4.0) % Baso % (Auto) (0.0-2.0) % Neut # (Auto) (1.8-7.7) th/mm3 Lymph # (Auto) (1.0-4.8) th/mm3 [place] # (Auto) (0.0-0.9) th/mm3 Eos # (Auto) (0.0-0.4) th/mm3 Baso # (Auto) (0.0-0.2) th/mm3 WBC Differential Seg Neuts % (Manual) (16-70) % Band Neuts % (Manual) (0-6) % Lymphocytes % (Manual) (9-44) % Monocytes % (Manual) (0-8) % Eosinophils % (Manual) (0-4) % Abs Neuts (Manual) (1.8-7.7) th/mm3 Differential Comment Toxic Granulation (None) Dohle Bodies (None) Platelet Estimate (Normal) Platelet Morphology (Normal) Hematology Comments PT 13.1 H (9.8-11.6) sec INR 1.3 Ratio APTT 28.2 (23.4-31.7) sec Puncture Site Patient Temperature O2 Saturation (90-100) % ABG pH (7.380-7.420) ABG pCO2 (38-42) mmHg ABG pO2 (61-120) mmHg ABG HCO3 (22-26) mmol/L ABG O2 Content (12.0-20.0) Vol % ABG Base Excess (-2-2) mmol/L ABG Methemoglobin (0-2) % Tony Test Hemoglobin (12.0-16.0) G/DL Carboxyhemoglobin (0-4) % O2 Delivery Device Liter Flow L/M Critical Value Sodium (136-145) meq/L Potassium (3.5-5.1) meq/L Chloride (98-107) meq/L Carbon Dioxide (21.0-32.0) meq/L Anion Gap (5-15) meq/L BUN (7-18) mg/dL Creatinine (0.60-1.30) mg/dL Estimated GFR (>89) mL/min POC Glucose (68-110) mg/dl Random Glucose (74-106) mg/dL Lactic Acid (0.4-2.0) mmol/L Calcium (8.5-10.1) mg/dL Magnesium (1.5-2.5) mg/dL Total Bilirubin (0.2-1.0) mg/dL AST (15-37) U/L ALT (12-78) U/L Alkaline Phosphatase (45-117) U/L Troponin I 0.22 H 0.25 H (0.02-0.05) ng/mL Total Protein (6.4-8.2) g/dL Albumin (3.4-5.0) g/dL Prealbumin (20-40) mg/dL Urine Color (Yellw/Straw) Urine Clarity (Clear) Urine pH (5.0-8.5) Ur Specific [place] (1.002-1.035) Urine Protein (Neg-Trace) mg/dL Urine Glucose (UA) (Negative) mg/dL Urine Ketones (Negative) mg/dL Urine Occult Blood (Negative) Urine Nitrate (Negative) Urine Bilirubin (Negative) Urine Urobilinogen (Less than 2) mg/dL Ur Leukocyte Esterase (Negative) Urine RBC (0-3) /hpf Urine WBC (0-5) /hpf Urine WBC Clumps (None) Urine Bacteria (None) /hpf Urine Mucus (Occasional) /lpf Micro UA Comment Ur Microscopic Review Urine Culture Comments Stl C.difficile DNA Amp (Negative) St C. diff Tox Epid 027 (Negative) 05/13/18 Range/Units 15:08 WBC (4.0-11.0) th/mm3 RBC (4.50-5.90) mil/mm3 Hgb (13.0-17.0) gm/dL Hct (39.0-51.0) % MCV (80.0-100.0) fL MCH (27.0-34.0) pg MCHC (32.0-36.0) % RDW (11.6-17.2) % Plt Count (150-450) th/mm3 MPV (7.0-11.0) fL Prelim Diff (Auto) Neut % (Auto) (16.0-70.0) % Lymph % (Auto) (9.0-44.0) % [place] % (Auto) (0.0-8.0) % Eos % (Auto) (0.0-4.0) % Baso % (Auto) (0.0-2.0) % Neut # (Auto) (1.8-7.7) th/mm3 Lymph # (Auto) (1.0-4.8) th/mm3 [place] # (Auto) (0.0-0.9) th/mm3 Eos # (Auto) (0.0-0.4) th/mm3 Baso # (Auto) (0.0-0.2) th/mm3 WBC Differential Seg Neuts % (Manual) (16-70) % Band Neuts % (Manual) (0-6) % Lymphocytes % (Manual) (9-44) % Monocytes % (Manual) (0-8) % Eosinophils % (Manual) (0-4) % Abs Neuts (Manual) (1.8-7.7) th/mm3 Differential Comment Toxic Granulation (None) Dohle Bodies (None) Platelet Estimate (Normal) Platelet Morphology (Normal) Hematology Comments PT (9.8-11.6) sec INR Ratio APTT 27.8 (23.4-31.7) sec Puncture Site Patient Temperature O2 Saturation (90-100) % ABG pH (7.380-7.420) ABG pCO2 (38-42) mmHg ABG pO2 (61-120) mmHg ABG HCO3 (22-26) mmol/L ABG O2 Content (12.0-20.0) Vol % ABG Base Excess (-2-2) mmol/L ABG Methemoglobin (0-2) % Tony Test Hemoglobin (12.0-16.0) G/DL Carboxyhemoglobin (0-4) % O2 Delivery Device Liter Flow L/M Critical Value Sodium (136-145) meq/L Potassium (3.5-5.1) meq/L Chloride (98-107) meq/L Carbon Dioxide (21.0-32.0) meq/L Anion Gap (5-15) meq/L BUN (7-18) mg/dL Creatinine (0.60-1.30) mg/dL Estimated GFR (>89) mL/min POC Glucose (68-110) mg/dl Random Glucose (74-106) mg/dL Lactic Acid (0.4-2.0) mmol/L Calcium (8.5-10.1) mg/dL Magnesium (1.5-2.5) mg/dL Total Bilirubin (0.2-1.0) mg/dL AST (15-37) U/L ALT (12-78) U/L Alkaline Phosphatase (45-117) U/L Troponin I (0.02-0.05) ng/mL Total Protein (6.4-8.2) g/dL Albumin (3.4-5.0) g/dL Prealbumin (20-40) mg/dL Urine Color (Yellw/Straw) Urine Clarity (Clear) Urine pH (5.0-8.5) Ur Specific [place] (1.002-1.035) Urine Protein (Neg-Trace) mg/dL Urine Glucose (UA) (Negative) mg/dL Urine Ketones (Negative) mg/dL Urine Occult Blood (Negative) Urine Nitrate (Negative) Urine Bilirubin (Negative) Urine Urobilinogen (Less than 2) mg/dL Ur Leukocyte Esterase (Negative) Urine RBC (0-3) /hpf Urine WBC (0-5) /hpf Urine WBC Clumps (None) Urine Bacteria (None) /hpf Urine Mucus (Occasional) /lpf Micro UA Comment Ur Microscopic Review Urine Culture Comments Stl C.difficile DNA Amp (Negative) St C. diff Tox Epid 027 (Negative) Imaging Data Radiologist's impression: Chest X-Ray 05/08/18 20:20 CONCLUSION: Infiltrates in the medial right lung and right lower lung. Head CT 05/08/18 20:25 CONCLUSION: 1. No acute findings in the brain. 2. Moderately severe central and cortical atrophy. . Abdomen/Pelvis CT 05/11/18 00:00 CONCLUSION: 1. Right lower lobe infiltrate with a couple a tiny suspected intraparenchymal abscesses and loculated right effusion. This is new from the prior study. 2. Unchanged 13 mm left lower lobe pulmonary nodule. 3. Right inguinal hernia containing small bowel. 4. Colonic diverticulosis. Chest CT 05/12/18 00:00 CONCLUSION: 1. Development of a mild to moderate right pleural effusion with some fluid seen collecting over the right upper lung and in the major and minor fissures. 2. Increased density in the right lower lobe and to a lesser grade the posterior aspect of the right upper lobe likely related to atelectasis or consolidation. 3. Development of adenopathy. The rapid development of adenopathy is likely postinflammatory. 4. Underlying emphysematous and interstitial disease. Chest X-Ray 05/13/18 00:53 CONCLUSION: Increase in bilateral airspace disease, probably edema with increase in size of bilateral effusions since May 08. ECG Data Attestation: I personally reviewed and interpreted this ECG as follows: Interpretation: Twelve-lead EKG was reviewed by me. A. fib, left axis deviation , right bundle branch block. Heart rate of 76 bpm. Discharge Plan Discharge Disposition Patient Disposition: 30 Still Patient Physicians Team ED Provider: Alessandra Avelar Primary Care Provider: Az Alfredo Attending Provider: Briana West Other Providers: [facility],Insurance ; Salud Martin ; [facility] ; Fausto Soriano Status ED Status: Left Department Discharge Information Discharge Date/Time: 05/08/18 22:45
--- NOTE | 2018-05-08 21:28 | XR ---
EXAM DATE: 05/08/2018 9:07 PM EST AGE/SEX: 82 years / Male INDICATIONS: Fever. CLINICAL DATA: This is the patient's initial encounter. Patient reports that signs and symptoms have been present for 1 day and indicates a pain score of Nonresponsive. MEDICAL/SURGICAL HISTORY: Hypertension. None. COMPARISON: [facility] [place]ST 1V SINGLE AP, 04/10/2018. . FINDINGS: There is fullness, increased density, and indistinctness of the right medial lung with loss of deline ation of the bronchopulmonary markings. There are also some patchy airspace opacities in the right lo wer lung. There is questionable blunting of the right costophrenic angle. Left lung is clear. Skin fo lds project over the left lateral chest. The left hemidiaphragm is well delineated. The heart is norm al in size. CONCLUSION: Infiltrates in the medial right lung and right lower lung. Electronically signed by: Moi Navarro MD 05/08/2018 9:27 PM EST
--- NOTE | 2018-05-08 21:48 | CT ---
EXAM DATE: 05/08/2018 9:36 PM EST AGE/SEX: 82 years / Male INDICATIONS: Altered mental status. CLINICAL DATA: This is the patient's initial encounter. Patient reports that signs and symptoms have been present for 1 day and indicates a pain score of Nonresponsive. MEDICAL/SURGICAL HISTORY: Alzheimer's disease. Hypertension. Inguinal hernia repair. RADIATION DOSE: 56.35 CTDI (mGy) COMPARISON: [facility] – [place], CT HEAD W/O CONTRAST, 04/08/2018. . TECHNIQUE: CT of the head without contrast. Using automated exposure control and adjustment of the mA and/or kV according to patient size, radiation dose was kept as low as reasonably achievable to ob tain optimal diagnostic quality images. DICOM format image data is available electronically for revi ew and comparison. FINDINGS: Cerebrum: The ventricles, sulci, and basal cisterns are prominent, characteristic of moderately rain re central and cortical atrophy. There is also decreased attenuation in the supratentorial white maksim er. No evidence of acute blood products. No extra-axial fluid or blood collections. Posterior Fossa: The cerebellum and brainstem are intact. The 4th ventricle is midline. The cerebe llopontine angle is unremarkable. Extracranial: The visualized portion of the orbits is intact. Skull: The calvaria is intact. No evidence of skull fracture. CONCLUSION: 1. No acute findings in the brain. 2. Moderately severe central and cortical atrophy. . Electronically signed by: Moi Navarro MD 05/08/2018 9:47 PM EST
[2018-05-08] MEDS ORDERED: Vancomycin Consult Pharmacy OTHER PRN (22:01)
[2018-05-08] MEDS ORDERED: Bisacodyl 10 MG Supp RECTAL PRN (22:03)
[2018-05-08] MEDS ORDERED: Acetaminophen 325 MG Tablet PO PRN (22:03)
--- NOTE | 2018-05-08 22:08 | P.HPIM ---
History of Present Illness Primary Care Physician: Az Alfredo MD History of Present Illness: This is an 82-year-old male with PMH of HTN, BPH and Dementia who was brought to the ER by EMS secondary to AMS. Pt unable to provide any history due to mental status. Granddaughter at bedside providing most of history, states pt has underlying dementia w/ confusion, however today was noted to be increasingly more confused and lethargic. On arrival, BP 100/57, HR 81, O2 sat 94% on 2L NC, Temp 101.0. WBC 28.2. Chemistry essentially unremarkable. UA positive for UTI. CXR with infiltrate medial right lung and right lower lung. CT Head with no acute findings. S/p Vanc/Zosyn in ER. Of note....pt is Alternative Code... COMPRESSIONS/SHOCK ONLY. NO INTUBATION OR ACLS. 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 - Medical History Medical History: Medical History (Last Reviewed 05/08/18 @ 21:16 by Alessandra Avelar MD) Alzheimers disease Enlarged prostate HTN (hypertension) Surgical history unknown - Tobacco History Smoking Status: Never smoker - Alcohol History How Often Do You Have a Drink Containing Alcohol: Never - Substance Use History Substance History: No History of Abuse - Immunization History Tetanus Immunization: <5 Years Medications and Allergies Active Medications: Active Medications Acetaminophen (Tylenol) 650 mg PO Q4H PRN PRN Reason: Temp > 100.4 Al Hydroxide/Mg Hydroxide (Milk Of Magnesia Liq) 30 ml PO Q12H PRN PRN Reason: Mild Constipation Bisacodyl (Dulcolax Supp) 10 mg RECTAL DAILY PRN PRN Reason: SEVERE CONSITIPATION Cefepime HCl 1,000 mg/ Sodium (Chloride) 100 mls @ 200 mls/hr IV.SIG Q12H MILY Sodium Chloride (Ns Inj) 1,000 mls @ 100 mls/hr IV.CONT .Q10H MILY Lactulose (Lactulose Liq) 30 ml PO DAILY PRN PRN Reason: SEVERE CONSITIPATION Montelukast Sodium (Singulair) 10 mg PO QPM MILY Non-Formulary Medication (Donepezil [Donepezil]) 10 mg PO BID MILY Ondansetron HCl (Zofran Inj) 4 mg IV.PUSH Q6H PRN PRN Reason: NAUSEA OR VOMITING Pharmacy Profile Note (Vancomycin Consult Pharmacy) 1 each OTHER UNSCH PRN PRN Reason: Pharmacy to dose Senna/Docusate Sodium (Sarah-Colace) 1 tab PO BID MILY Sennosides (Senokot) 17.2 mg PO Q12H PRN PRN Reason: Moderate Constipation Allergies Allergy/AdvReac Type Severity Reaction Status Date / Time No Known Allergies Allergy Verified 05/08/18 20:16 Home Medications Medication Instructions Recorded Confirmed Type atorvastatin 20 mg PO DAILY 04/08/18 05/08/18 History donepezil 10 mg PO BID 04/08/18 05/08/18 History loperamide [Anti-Diarrheal 2 mg PO TID 04/08/18 05/08/18 History (loperamide)] lorazepam 0.5 mg PO BID 04/08/18 05/08/18 History montelukast 10 mg PO QPM 04/08/18 05/08/18 History polyethylene glycol 3350 17 g PO DAILY PRN 04/08/18 05/08/18 History potassium chloride 20 meq PO DAILY 04/08/18 05/08/18 History quetiapine 25 mg PO BID 04/08/18 05/08/18 History quinapril 20 mg PO BID 04/08/18 05/08/18 History sertraline 100 mg PO DAILY 04/08/18 05/08/18 History tamsulosin 0.4 mg PO DAILY 04/08/18 05/08/18 History Exam Vital signs: Vital Signs 05/08/18 20:20 Temperature 101 F H Pulse Rate 81 Respiratory Rate 19 Blood Pressure 100/57 L Pulse Oximetry 94 L Intake & Output 05/08/18 05/08/18 05/09/18 06:59 18:59 06:59 Intake Total 1100 / 1100 Balance 1100 / 1100 Weight 68.039 kg Intake: IV 1100 / 1100 Zosyn 4.5 GM Premix 4.5 gm In 100 / 100 100 ml @ 200 mls/hr IV.SIG ONCE ONE Rx#:[id number] NS Inj 1,000 ML @ 2000 mls/hr 1000 / 1000 IV.SIG Q30M [facility] Rx#:[id number] Narrative: PE: GENERAL: Thin, chronically ill-appearing elderly white male in no acute distress , sleeping soundly. SKIN: Focused skin assessment warm and dry. HEENT: PERRLA, EOMI. No scleral icterus or conjunctival pallor. No lid lag or facial droop. CARDIOVASCULAR: Regular rate and rhythm. No obvious murmurs to auscultation. No chest tenderness to palpation. RESPIRATORY: No obvious rhonchi or wheezing. Clear to auscultation. Breath sounds equal bilaterally. GASTROINTESTINAL: Abdomen soft, non-tender, nondistended. BS normal. MUSCULOSKELETAL: Extremities without clubbing, cyanosis, or edema. No obvious deformities. NEUROLOGICAL: Sleeping, limited speech, not answering questions appropriately. No focal neurologic deficits. Moving both upper and lower extremities spontaneously. PSYCHIATRIC: Appropriate mood and affect. Insight and judgment normal. Results - Labs CBC & Chem 7: 05/08/18 20:25 05/08/18 20:25 Labs: Short CBC 05/08/18 Range/Units 20:25 WBC 28.2 H (4.0-11.0) th/mm3 Hgb 10.6 L (13.0-17.0) gm/dL Hct 32.7 L (39.0-51.0) % Plt Count 363 D (150-450) th/mm3 BMP 05/08/18 20:25 Sodium 139 Potassium 3.6 Chloride 105 Carbon Dioxide 27.6 BUN 21 H Creatinine 1.00 Calcium 9.4 Liver Function 05/08/18 Range/Units 20:25 Total Bilirubin 0.5 (0.2-1.0) mg/dL AST 43 H (15-37) U/L ALT 68 (12-78) U/L Alkaline Phosphatase 115 (45-117) U/L Albumin 1.8 L (3.4-5.0) g/dL Urine 05/08/18 Range/Units 19:00 Urine Color [place] (Yellw/Straw) Urine Clarity Cloudy H (Clear) Urine pH 5.0 (5.0-8.5) Ur Specific [place] 1.015 (1.002-1.035) Urine Protein 30 H (Neg-Trace) mg/dL Urine Glucose (UA) Negative (Negative) mg/dL - Imaging Impressions Chest X-Ray 05/08/18 20:20 CONCLUSION: Infiltrates in the medial right lung and right lower lung. Head CT 05/08/18 20:25 CONCLUSION: 1. No acute findings in the brain. 2. Moderately severe central and cortical atrophy. . Caprini VTE Risk Assessment Caprini VTE Risk Assessment: No/Low Risk (score <= 1) Caprini Risk Assessment Model: Point Value = 1 Point Value = 2 Point Value = 3 Point Value = 5 Age 41-60 Minor surgery BMI > 25 kg/m2 Swollen legs Varicose veins or History of unexplained or recurrent spontaneous Oral contraceptives or hormone replacement Sepsis (< 1 month) Serious lung disease, including pneumonia (< 1 month) Abnormal pulmonary function Acute myocardial infarction Congestive heart failure (< 1 month) History of inflammatory bowel disease Medical patient at bed rest Age 61-74 Arthroscopic surgery Major open surgery (> 45 min) Laparoscopic surgery (> 45 min) Malignancy Confined to bed (> 72 hours) Immobilizing plaster cast Central venous access Age >= 75 History of VTE Family history of VTE Factor V Leiden Prothrombin [id number] Lupus anticoagulant Anticardiolipin antibodies Elevated serum homocysteine Heparin-induced thrombocytopenia Other congenital or acquired thrombophilia Stroke (< 1 month) Elective arthroplasty Hip, pelvis, or leg fracture Acute spinal cord injury (< 1 month) Prophylaxis Regimen: Total Risk Factor Score Risk Level Prophylaxis Regimen 0-1 Low Early ambulation 2 Moderate Order ONE of the following: *Sequential Compression Device (SCD) *Heparin 5000 units SQ BID 3-4 Higher Order ONE of the following medications: *Heparin 5000 units SQ TID *Enoxaparin/Lovenox 40 mg SQ daily (WT < 150 kg, CrCl > 30 mL/min) *Enoxaparin/Lovenox 30 mg SQ daily (WT < 150 kg, CrCl > 10-29 mL/min) *Enoxaparin/Lovenox 30 mg SQ BID (WT < 150 kg, CrCl > 30 mL/min) AND/OR *Sequential Compression Device (SCD) 5 or more Highest Order ONE of the following medications: *Heparin 5000 units SQ TID (Preferred with Epidurals) *Enoxaparin/Lovenox 40 mg SQ daily (WT < 150 kg, CrCl > 30 mL/min) *Enoxaparin/Lovenox 30 mg SQ daily (WT < 150 kg, CrCl > 10-29 mL/min) *Enoxaparin/Lovenox 30 mg SQ BID (WT < 150 kg, CrCl > 30 mL/min) AND *Sequential Compression Device (SCD) Assessment and Plan - Assessment (1) Encephalopathy Code(s): G93.40 - Encephalopathy, unspecified Status: Acute (2) Sepsis Code(s): A41.9 - Sepsis, unspecified organism Status: Acute (3) UTI (urinary tract infection) Code(s): N39.0 - Urinary tract infection, site not specified Status: Acute (4) PNA (pneumonia) Code(s): J18.9 - Pneumonia, unspecified organism Status: Acute (5) Limited code status Status: Acute - Plan A/P: 1. Encephalopathy: Likely secondary to underlying Dementia and compounded by Acute Sepsis, CT Head w/ no acute findings, images reviewed. Neuro Checks. 2. Sepsis: Temp 101 rectal, HR 81, WBC 28, Source-UTI/PNA, s/p Blood cultures , Vanc/Zosyn, continue w/ IV Abx, follow up cultures, IVF 3. UTI: U/a w/ significant UTI, follow up urine cultures, monitor I/O, IVF, continue w/ IV Abx as above 4. PNA: CXR w/ RML and RLL infiltrates, images reviewed, continue IV Abx, DuoNeb prn. 5. Alternative Code: Code status discussed w/ granddaughter at length, COMPRESSIONS/SHOCK ONLY, NO INTUBATION OR ACLS. 6. DVT Prophylaxis: SCD/Teds 7. Social work for d/c planning as needed. 8. Case discussed w/ ER physician at length, labs/records/imaging reviewed by me.
[2018-05-08] MEDS ORDERED: Vancomycin Inj 750 MG in Sodium Chlor 0.9% Inj 250 ML IV.SIG ONE (23:00)
[2018-05-08] MEDS: Sod Chloride 0.9% Inj 1,000 ML IV.CONT SCH (23:17)
[2018-05-09 07:24] LABS: Baso % (Auto) 0.1 % (0.0-2.0); Eos % (Auto) 0.1 % (0.0-4.0); Hemoglobin 10.4 gm/dL (13.0-17.0); Lymph # (Auto) 0.8 th/mm3 (1.0-4.8); Lymph % (Auto) 2.4 % (9.0-44.0); Mean Corpuscular HGB Conc 32.5 % (32.0-36.0); Mean Corpuscular Hemoglobin 30.4 pg (27.0-34.0); Mean Corpuscular Volume 93.7 fL (80.0-100.0); Mean Platelet Volume 9.7 fL (7.0-11.0); Mono # (Auto) 1.7 th/mm3 (0.0-0.9); Mono % (Auto) 5.4 % (0.0-8.0); Neut # (Auto) 29.6 th/mm3 (1.8-7.7); Platelet Count 342 th/mm3 (150-450); Red Blood Count 3.42 mil/mm3 (4.50-5.90); Red Cell Distribution Width 14.2 % (11.6-17.2); White Blood Count 32.2 th/mm3 (4.0-11.0)
[2018-05-09 08:04] LABS: Alanine Aminotransferase 57 U/L (12-78); Albumin 1.6 g/dL (3.4-5.0); Anion Gap 10 meq/L (5-15); Aspartate Aminotransferase 31 U/L (15-37); Blood Urea Nitrogen 17 mg/dL (7-18); Calcium 9.1 mg/dL (8.5-10.1); Chloride 109 meq/L (98-107); Glomerular Filtration Rate Greater Than 89 mL/min (>89); Glucose,Random 106 mg/dL (74-106); Potassium 3.6 meq/L (3.5-5.1); Sodium 143 meq/L (136-145)
[2018-05-09 08:05] LABS: Alkaline Phosphatase 103 U/L (45-117); Total Protein 6.3 g/dL (6.4-8.2)
[2018-05-09 09:04] LABS: Dohle Bodies Present; Lymphocytes 2 % (9-44); Monocytes 4 % (0-8); Platelet Estimate Normal (Normal); Toxic Granulation 1+
[2018-05-09 09:05] LABS: Platelet Morphology Normal (Normal)
[2018-05-09] MEDS: Senna/Docusate Sodium 8.6/50 MG Tablet PO SCH ×2 (12:08→22:05)
[2018-05-09] MEDS: Sod Chloride 0.9% Inj 1,000 ML IV.CONT SCH ×2 (15:44→18:49)
--- NOTE | 2018-05-09 16:07 | P.PN ---
Subjective Interval history: The patient is in bed he is confused and disoriented, appears chronically ill. Patient is noting with yes or no questions. Feels weak. Denies chest pain or cough. Had fevers. Denies having diarrhea. Physical Exam Vital signs: Vital Signs 05/08/18 20:20 05/08/18 22:33 05/08/18 22:48 Temperature 101 F H 99.0 F Pulse Rate 81 82 Respiratory Rate 19 19 Blood Pressure 100/57 L 110/72 Pulse Oximetry 94 L 97 05/08/18 23:23 05/08/18 23:55 05/09/18 00:00 Temperature 97.8 F Pulse Rate 77 63 Respiratory Rate 20 14 Blood Pressure 93/53 L Pulse Oximetry 95 05/09/18 04:00 05/09/18 05:14 05/09/18 08:00 Temperature 97.7 F 97.8 F Pulse Rate 63 66 91 H Respiratory Rate 16 16 Blood Pressure 98/53 L 132/61 Pulse Oximetry 96 93 L 05/09/18 12:00 05/09/18 14:35 Temperature 97.8 F Pulse Rate 100 H Respiratory Rate 15 Blood Pressure 126/65 Pulse Oximetry 91 L 93 L Intake & Output 05/08/18 05/09/18 05/09/18 18:59 06:59 18:59 Intake Total 2607.5 / 2607.5 1100 / 1100 Output Total 650 / 650 Balance 1957.5 / 1957.5 1100 / 1100 Weight 66.5 kg Intake: IV 2607.5 / 2607.5 1100 / 1100 NS Inj 1,000 ML @ 100 mls/hr IV 1000 / 1000 .CONT .Q10H MILY Rx#:[id number] Maxipime Inj 1,000 MG In NS Inj 100 / 100 100 ML @ 200 mls/hr IV.SIG Q12H MILY Rx#:[id number] Zosyn 4.5 GM Premix 4.5 gm In 100 / 100 100 ml @ 200 mls/hr IV.SIG ONCE ONE Rx#:[id number] NS Inj 1,000 ML @ 2000 mls/hr 1999 / 1999 IV.SIG Q30M MILY Rx#:[id number] Vancomycin Inj 1,000 MG In NS 250 / 250 Inj 250 ML @ 250 mls/hr IV.SIG ONCE ONE Rx#:[id number] Vancomycin Inj 750 MG In NS Inj 257.5 / 257.5 250 ML @ 250 mls/hr IV.SIG ONCE ONE Rx#:[id number] Output: Urine 650 / 650 Other: # Bowel Movements 1 Narrative: GENERAL: Thin, chronically ill-appearing elderly white male, confused and disoriented. HEENT: PERRLA, EOMI. No scleral icterus or conjunctival pallor. No lid lag or facial droop. CARDIOVASCULAR: Regular rate and rhythm. No obvious murmurs to auscultation. No chest tenderness to palpation. RESPIRATORY: No obvious rhonchi or wheezing. Clear to auscultation. Breath sounds equal bilaterally. GASTROINTESTINAL: Abdomen soft, non-tender, nondistended. BS normal. MUSCULOSKELETAL: Extremities without clubbing, cyanosis, or edema. No obvious deformities. NEUROLOGICAL: Confused and disoriented, limited speech, not answering questions appropriately. No focal neurologic deficits. Moving both upper and lower extremities spontaneously. PSYCHIATRIC: Appropriate mood and affect. Insight and judgment very poor. - Urinary Catheter Management Indwelling Urethral Catheter Cath placed during this visit: yes Reason for continuing: Chronic Urinary Retention Insertion date: 05/08/18 Insertion time: 21:38 Results - Labs CBC & Chem 7: 05/09/18 05:42 05/09/18 05:42 Laboratory Results - last 24 hr 05/08/18 05/08/18 05/08/18 19:00 20:23 20:25 WBC 28.2 H RBC 3.56 L Hgb 10.6 L Hct 32.7 L MCV 91.7 MCH 29.8 MCHC 32.5 RDW 14.0 Plt Count 363 D MPV 9.6 Prelim Diff (Auto) Neut % (Auto) 90.1 H Lymph % (Auto) 2.5 L [place] % (Auto) 7.1 Eos % (Auto) 0.1 Baso % (Auto) 0.2 Neut # (Auto) 25.5 H Lymph # (Auto) 0.7 L [place] # (Auto) 2.0 H Eos # (Auto) 0.0 Baso # (Auto) 0.1 WBC Differential . Seg Neuts % (Manual) Band Neuts % (Manual) Lymphocytes % (Manual) Monocytes % (Manual) Abs Neuts (Manual) Differential Comment Auto diff final Toxic Granulation Dohle Bodies Platelet Estimate Platelet Morphology Sodium Potassium Chloride Carbon Dioxide Anion Gap BUN Creatinine Estimated GFR POC Glucose 118 H Random Glucose Lactic Acid Calcium Magnesium Total Bilirubin AST ALT Alkaline Phosphatase Total Protein Albumin Urine Color Sona Urine Clarity Cloudy H Urine pH 5.0 Ur Specific [place] 1.015 Urine Protein 30 H Urine Glucose (UA) Negative Urine Ketones Negative Urine Occult Blood Large H Urine Nitrate Negative Urine Bilirubin Negative Urine Urobilinogen 2.0 H Ur Leukocyte Esterase Moderate H Urine RBC 81 H Urine WBC 44 H Urine WBC Clumps Many H Urine Bacteria Few H Urine Mucus Few H Micro UA Comment Cath-culture ind Ur Microscopic Review Not Reportable Urine Culture Comments Cath-cult indicated 05/08/18 05/08/18 05/09/18 20:25 20:25 05:42 WBC 32.2 H RBC 3.42 L Hgb 10.4 L Hct 32.0 L MCV 93.7 MCH 30.4 MCHC 32.5 RDW 14.2 Plt Count 342 MPV 9.7 Prelim Diff (Auto) Slide review pending Neut % (Auto) 92.0 H Lymph % (Auto) 2.4 L [place] % (Auto) 5.4 Eos % (Auto) 0.1 Baso % (Auto) 0.1 Neut # (Auto) 29.6 H Lymph # (Auto) 0.8 L [place] # (Auto) 1.7 H Eos # (Auto) 0.0 Baso # (Auto) 0.0 WBC Differential Manual diff final Seg Neuts % (Manual) 84 H Band Neuts % (Manual) 10 H Lymphocytes % (Manual) 2 L Monocytes % (Manual) 4 Abs Neuts (Manual) 30.3 H Differential Comment . Toxic Granulation 1+ H Dohle Bodies Present H Platelet Estimate Normal Platelet Morphology Normal Sodium 139 Potassium 3.6 Chloride 105 Carbon Dioxide 27.6 Anion Gap 6 BUN 21 H Creatinine 1.00 Estimated GFR 72 L POC Glucose Random Glucose 131 H Lactic Acid 1.0 Calcium 9.4 Magnesium 1.5 Total Bilirubin 0.5 AST 43 H ALT 68 Alkaline Phosphatase 115 Total Protein 6.6 Albumin 1.8 L Urine Color Urine Clarity Urine pH Ur Specific [place] Urine Protein Urine Glucose (UA) Urine Ketones Urine Occult Blood Urine Nitrate Urine Bilirubin Urine Urobilinogen Ur Leukocyte Esterase Urine RBC Urine WBC Urine WBC Clumps Urine Bacteria Urine Mucus Micro UA Comment Ur Microscopic Review Urine Culture Comments 05/09/18 05:42 WBC RBC Hgb Hct MCV MCH MCHC RDW Plt Count MPV Prelim Diff (Auto) Neut % (Auto) Lymph % (Auto) [place] % (Auto) Eos % (Auto) Baso % (Auto) Neut # (Auto) Lymph # (Auto) [place] # (Auto) Eos # (Auto) Baso # (Auto) WBC Differential Seg Neuts % (Manual) Band Neuts % (Manual) Lymphocytes % (Manual) Monocytes % (Manual) Abs Neuts (Manual) Differential Comment Toxic Granulation Dohle Bodies Platelet Estimate Platelet Morphology Sodium 143 Potassium 3.6 Chloride 109 H Carbon Dioxide 24.0 Anion Gap 10 BUN 17 Creatinine 0.82 Estimated GFR Greater than 89 POC Glucose Random Glucose 106 Lactic Acid Calcium 9.1 Magnesium Total Bilirubin 0.4 AST 31 ALT 57 Alkaline Phosphatase 103 Total Protein 6.3 L Albumin 1.6 L Urine Color Urine Clarity Urine pH Ur Specific [place] Urine Protein Urine Glucose (UA) Urine Ketones Urine Occult Blood Urine Nitrate Urine Bilirubin Urine Urobilinogen Ur Leukocyte Esterase Urine RBC Urine WBC Urine WBC Clumps Urine Bacteria Urine Mucus Micro UA Comment Ur Microscopic Review Urine Culture Comments Microbiology 05/08/18 19:00 Catheterized Urine Urine Culture - Preliminary gram negative rods 05/08/18 20:25 Blood - Peripheral Aerobic Blood Culture - Preliminary No growth in 1 day 05/08/18 20:25 Blood - Peripheral Anaerobic Blood Culture - Preliminary No growth in 1 day 05/08/18 20:25 Blood - Peripheral Aerobic Blood Culture - Preliminary No growth in 1 day 05/08/18 20:25 Blood - Peripheral Anaerobic Blood Culture - Preliminary No growth in 1 day - Imaging Impressions Chest X-Ray 05/08/18 20:20 CONCLUSION: Infiltrates in the medial right lung and right lower lung. Head CT 05/08/18 20:25 CONCLUSION: 1. No acute findings in the brain. 2. Moderately severe central and cortical atrophy. . Assessment and Plan - Assessment (1) Encephalopathy Code(s): G93.40 - Encephalopathy, unspecified Status: Acute (2) Sepsis Code(s): A41.9 - Sepsis, unspecified organism Status: Acute (3) UTI (urinary tract infection) Code(s): N39.0 - Urinary tract infection, site not specified Status: Acute (4) PNA (pneumonia) Code(s): J18.9 - Pneumonia, unspecified organism Status: Acute (5) Limited code status Status: Acute - Plan Encephalopathy: Not improving. Likely secondary to underlying Dementia and compounded by Acute Sepsis, CT Head w/ no acute findings, images reviewed. Neuro Checks. Sepsis: On admission temp 101 rectal, HR 81, WBC 28, Source-UTI/PNA, s/p Blood cultures, Vanc/Zosyn, continue w/ IV Abx, follow up cultures, IVF Worsening leukocytosis. Patient. Will consult infectious disease for evaluation and recommendations UTI: U/a w/ significant UTI, follow up urine cultures, monitor I/O, IVF, continue w/ IV Abx as above PNA: CXR w/ RML and RLL infiltrates, images reviewed, continue IV Abx, DuoNeb prn. Alternative Code: Code status discussed w/ granddaughter at length, COMPRESSIONS/SHOCK ONLY, NO INTUBATION OR ACLS. DVT Prophylaxis: SCD/Teds Case management was consulted for d/c planning as needed. Discussed with the patient, nurse
--- NOTE | 2018-05-09 17:37 | ECG ---
Date Performed: 05/08/2018 Time Performed: 20:45:02 PTAGE: 82 years EKG: Sinus rhythm MARKED LEFT AXIS DEVIATION RIGHT BUNDLE BRANCH BLOCK ABNORMAL ECG PREVIOUS TRACING : 04/11/2018 14.28 Compared to previous tracing, rate faster DOCTOR: Felipe Olvera Interpretating Date/Time 05/09/2018 17:37:02
[2018-05-09] MEDS: Montelukast 10 MG Tablet PO SCH (17:50)
[2018-05-09] MEDS: Vancomycin Inj 1,250 MG in Sodium Chlor 0.9% Inj 250 ML IV.SIG SCH (22:05)
[2018-05-10 07:13] LABS: Baso # (Auto) 0.2 th/mm3 (0.0-0.2); Baso % (Auto) 0.5 % (0.0-2.0); Eos # (Auto) 0.3 th/mm3 (0.0-0.4); Eos % (Auto) 1.1 % (0.0-4.0); Hematocrit 31.8 % (39.0-51.0); Hemoglobin 10.5 gm/dL (13.0-17.0); Lymph # (Auto) 0.9 th/mm3 (1.0-4.8); Lymph % (Auto) 2.8 % (9.0-44.0); Mean Corpuscular HGB Conc 33.1 % (32.0-36.0); Mean Corpuscular Hemoglobin 30.3 pg (27.0-34.0); Mean Corpuscular Volume 91.6 fL (80.0-100.0); Mean Platelet Volume 9.6 fL (7.0-11.0); Mono # (Auto) 1.6 th/mm3 (0.0-0.9); Mono % (Auto) 5.1 % (0.0-8.0); Neut # (Auto) 29.3 th/mm3 (1.8-7.7); Neut % (Auto) 90.5 % (16.0-70.0); Platelet Count 389 th/mm3 (150-450); Red Blood Count 3.47 mil/mm3 (4.50-5.90); Red Cell Distribution Width 13.9 % (11.6-17.2); White Blood Count 32.3 th/mm3 (4.0-11.0)
[2018-05-10 07:43] LABS: Anion Gap 9 meq/L (5-15); Blood Urea Nitrogen 14 mg/dL (7-18); Calcium 9.3 mg/dL (8.5-10.1); Carbon Dioxide 27.4 meq/L (21.0-32.0); Chloride 107 meq/L (98-107); Glomerular Filtration Rate Greater Than 89 mL/min (>89); Glucose,Random 89 mg/dL (74-106); Sodium 143 meq/L (136-145)
[2018-05-10 08:37] LABS: Dohle Bodies Present; Lymphocytes 5 % (9-44); Monocytes 5 % (0-8); Platelet Estimate Normal (Normal)
[2018-05-10 08:38] LABS: Toxic Granulation 1+
--- NOTE | 2018-05-10 09:33 | P.PN ---
Subjective Interval history: He is more awake alert and oriented today. Has decreased appetite and not eating. Feels very weak. Some nausea however no vomiting. No diarrhea or constipation. Denies abdominal pain. Feels his chest is congested. Minimal cough nonproductive. No fever or chills overnight. Physical Exam Vital signs: Vital Signs 05/09/18 12:00 05/09/18 14:35 05/09/18 16:00 Temperature 97.8 F 98.4 F Pulse Rate 100 H 93 H Respiratory Rate 15 16 Blood Pressure 126/65 140/68 Pulse Oximetry 91 L 93 L 94 L 05/09/18 20:00 05/10/18 00:00 05/10/18 04:00 Temperature 98.0 F 98.7 F 99.3 F Pulse Rate 92 H 80 87 Respiratory Rate 16 17 16 Blood Pressure 129/60 140/76 153/81 H Pulse Oximetry 93 L 93 L 93 L 05/10/18 08:00 Temperature 98.1 F Pulse Rate 84 Respiratory Rate 18 Blood Pressure 136/84 Pulse Oximetry 91 L Intake & Output 05/09/18 05/10/18 05/10/18 18:59 06:59 18:59 Intake Total 1750 / 1750 1062.5 / 1062.5 Output Total 800 / 800 900 / 900 Balance 950 / 950 162.5 / 162.5 Weight 67.8 kg Intake: IV 1100 / 1100 362.5 / 362.5 NS Inj 1,000 ML @ 100 mls/hr IV 1000 / 1000 .CONT .Q10H MILY Rx#:[id number] Maxipime Inj 1,000 MG In NS Inj 100 / 100 100 / 100 100 ML @ 200 mls/hr IV.SIG Q12H MILY Rx#:[id number] Vancomycin Inj 1,250 MG In NS 262.5 / 262.5 Inj 250 ML @ 250 mls/hr IV.SIG Q24H MILY Rx#:[id number] Oral 650 / 650 700 / 700 Output: Urine 800 / 800 900 / 900 Other: Date of Last Bowel Movement 05/09/18 05/09/18 # Bowel Movements 0 Narrative: GENERAL: Thin, chronically ill-appearing elderly white male, more awake, alert and oriented HEENT: Bitemporal sunken CARDIOVASCULAR: Regular rate and rhythm. No obvious murmurs to auscultation. No chest tenderness to palpation. RESPIRATORY: No obvious rhonchi or wheezing. Clear to auscultation. Breath sounds equal bilaterally. GASTROINTESTINAL: Abdomen soft, non-tender, nondistended. BS normal. 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 Extremities without clubbing, cyanosis, or edema. No obvious deformities. NEUROLOGICAL: More awake, alert and oriented. No focal neurologic deficits. Moving both upper and lower extremities spontaneously. PSYCHIATRIC: Appropriate mood and affect. Insight and judgment very poor. - Urinary Catheter Management Indwelling Urethral Catheter Cath placed during this visit: yes Reason for continuing: Chronic Urinary Retention Insertion date: 05/08/18 Insertion time: 21:38 Results - Labs CBC & Chem 7: 05/10/18 06:13 05/10/18 06:13 Laboratory Results - last 24 hr 05/08/18 05/10/18 05/10/18 19:00 06:13 06:13 WBC 32.3 H RBC 3.47 L Hgb 10.5 L Hct 31.8 L MCV 91.6 MCH 30.3 MCHC 33.1 RDW 13.9 Plt Count 389 MPV 9.6 Prelim Diff (Auto) Slide review pending Neut % (Auto) 90.5 H Lymph % (Auto) 2.8 L [place] % (Auto) 5.1 Eos % (Auto) 1.1 Baso % (Auto) 0.5 Neut # (Auto) 29.3 H Lymph # (Auto) 0.9 L [place] # (Auto) 1.6 H Eos # (Auto) 0.3 Baso # (Auto) 0.2 WBC Differential Manual diff final Seg Neuts % (Manual) 81 H Band Neuts % (Manual) 9 H Lymphocytes % (Manual) 5 L Monocytes % (Manual) 5 Abs Neuts (Manual) 29.1 H Differential Comment . Toxic Granulation 1+ H Dohle Bodies Present H Platelet Estimate Normal Platelet Morphology Enlarged H Sodium 143 Potassium 3.0 L Chloride 107 Carbon Dioxide 27.4 Anion Gap 9 BUN 14 Creatinine 0.61 Estimated GFR Greater than 89 Random Glucose 89 Calcium 9.3 Urine Color Sona Urine Clarity Cloudy H Urine pH 5.0 Ur Specific [place] 1.015 Urine Protein 30 H Urine Glucose (UA) Negative Urine Ketones Negative Urine Occult Blood Large H Urine Nitrate Negative Urine Bilirubin Negative Urine Urobilinogen 2.0 H Ur Leukocyte Esterase Moderate H Urine RBC 81 H Urine WBC 44 H Urine WBC Clumps Many H Urine Bacteria Few H Urine Mucus Few H Micro UA Comment Cath-culture ind Urine Culture Comments Cath-cult indicated Microbiology 05/08/18 19:00 Catheterized Urine Urine Culture - Final Pseudomonas aeruginosa 05/08/18 20:25 Blood - Peripheral Aerobic Blood Culture - Preliminary No growth in 1 day 05/08/18 20:25 Blood - Peripheral Anaerobic Blood Culture - Preliminary No growth in 1 day 05/08/18 20:25 Blood - Peripheral Aerobic Blood Culture - Preliminary No growth in 1 day 05/08/18 20:25 Blood - Peripheral Anaerobic Blood Culture - Preliminary No growth in 1 day Assessment and Plan - Assessment (1) Encephalopathy Code(s): G93.40 - Encephalopathy, unspecified Status: Acute (2) Sepsis Code(s): A41.9 - Sepsis, unspecified organism Status: Acute (3) UTI (urinary tract infection) Code(s): N39.0 - Urinary tract infection, site not specified Status: Acute (4) PNA (pneumonia) Code(s): J18.9 - Pneumonia, unspecified organism Status: Acute (5) Limited code status Status: Acute - Plan Encephalopathy: Not improving. Likely secondary to underlying Dementia and compounded by Acute Sepsis, CT Head w/ no acute findings, images reviewed. Neuro Checks. Sepsis: On admission temp 101 rectal, HR 81, WBC 28, Source-UTI/PNA follow up Blood cultures Continue Vanc/Zosyn, follow up cultures, cont IVF Persistent leukocytosis. Consult infectious disease for evaluation and recommendations UTI: U/a w/ significant UTI, follow up urine cultures, monitor I/O, IVF, continue w/ IV Abx as above PNA: CXR w/ RML and RLL infiltrates, images reviewed, continue IV Abx, DuoNeb prn. Moderate to severe protein calorie malnutrition. Decreased appetite. Patient with bitemporal wasting, muscle wasting, weak handgrip. Will check prealbumin. Add multivitamins, add Ensure to diet. Alternative Code: Code status discussed w/ granddaughter at length, COMPRESSIONS/SHOCK ONLY, NO INTUBATION OR ACLS. DVT Prophylaxis: SCD/Teds Case management was consulted for d/c planning as needed. Discussed with the patient, nurse
[2018-05-10] MEDS: Sod Chloride 0.9% Inj 1,000 ML IV.CONT SCH ×4 (12:41→22:42)
[2018-05-10] MEDS: Senna/Docusate Sodium 8.6/50 MG Tablet PO SCH ×2 (12:42→20:37)
[2018-05-10] MEDS ORDERED: Magnesium Oxide 400 MG Tablet PO ONE (15:09)
[2018-05-10] MEDS ORDERED: Potassium Chloride 10 MEQ ER Capsule PO ONE (16:00)
--- NOTE | 2018-05-10 18:37 | P.CONID ---
History of Present Illness Service: ID Consult date: 05/10/18 Requesting Physician: Briana West Reason for Consult: severe sepsis Primary Care Provider: Az Alfredo MD History of Present Illness: 82 yo male poor historian due to dementia presented few days ago with mentalk status change and fever up to 101 W/u revealed abnormal UA, culture with ivory S Pseudomonas On cefepime, vanocmuycin Fever results but persistent leukocytossi in lower 30iesK Review of Systems unobtainable due to mental condition PMFSH - History History Provided By: Locket Maker / EMT - Medical History Medical History: Medical History (Last Reviewed 05/10/18 @ 22:55 by Salud Martin MD) Alzheimers disease Enlarged prostate HTN (hypertension) Surgical history unknown - Family History Family History: Family History (Last Updated 05/10/18 @ 22:56 by Salud Martin MD) Other Family history unobtainable due to patient's condition - Social History I have reviewed the patient's Social History: Yes - Tobacco History Smoking Status: Cognitive impairment - Alcohol History How Often Do You Have a Drink Containing Alcohol: Unable to Obtain - Substance Use History Substance History: No History of Abuse - Immunization History Tetanus Immunization: <5 Years Hx Influenza Vaccine This Season: Unable to Assess Medications and Allergies Active Medications: Active Medications Acetaminophen (Tylenol) 650 mg PO Q4H PRN PRN Reason: Temp > 100.4 Al Hydroxide/Mg Hydroxide (Milk Of Vanessa Liq) 30 ml PO Q12H PRN PRN Reason: Mild Constipation Bisacodyl (Dulcolax Supp) 10 mg RECTAL DAILY PRN PRN Reason: SEVERE CONSITIPATION Donepezil HCl (Aricept) 10 mg PO BID [facility] Last Admin: 05/10/18 08:30 Dose: 10 mg Cefepime HCl 1,000 mg/ Sodium (Chloride) 100 mls @ 200 mls/hr IV.SIG Q12H MILY Last Infusion: 05/10/18 09:30 Dose: Infused Sodium Chloride (Ns Inj) 1,000 mls @ 100 mls/hr IV.CONT .Q10H MILY Last Admin: 05/10/18 12:42 Dose: 100 mls/hr Vancomycin HCl 1,250 mg/ (Sodium Chloride) 262.5 mls @ 250 mls/hr IV.SIG Q24H MILY Last Infusion: 05/10/18 01:27 Dose: Infused Lactulose (Lactulose Liq) 30 ml PO DAILY PRN PRN Reason: SEVERE CONSITIPATION Magnesium Oxide (Mag-Ox) 400 mg PO DAILY [facility] Stop: 05/14/18 09:01 Miscellaneous Information ([facility] Ordered Lab Info) 0 each OTHER ONCE ONE Stop: 05/11/18 21:46 Montelukast Sodium (Singulair) 10 mg PO DAILY@1800 [facility] Last Admin: 05/09/18 17:50 Dose: 10 mg Multivitamins (Theragran) 1 tab PO DAILY [facility] Ondansetron HCl (Zofran Inj) 4 mg IV.PUSH Q6H PRN PRN Reason: NAUSEA OR VOMITING Pharmacy Profile Note (Vancomycin Consult Pharmacy) 1 each OTHER UNSCH PRN PRN Reason: Pharmacy to dose Senna/Docusate Sodium (Sarah-Colace) 1 tab PO BID [facility] Last Admin: 05/10/18 12:42 Dose: Not Given Sennosides (Senokot) 17.2 mg PO Q12H PRN PRN Reason: Moderate Constipation Allergies Allergy/AdvReac Type Severity Reaction Status Date / Time No Known Allergies Allergy Verified 05/08/18 20:16 Home Medications Medication Instructions Recorded Confirmed Type atorvastatin 20 mg PO DAILY 04/08/18 05/08/18 History donepezil 10 mg PO BID 04/08/18 05/08/18 History loperamide [Anti-Diarrheal 2 mg PO TID 04/08/18 05/08/18 History (loperamide)] lorazepam 0.5 mg PO BID 04/08/18 05/08/18 History montelukast 10 mg PO QPM 04/08/18 05/08/18 History polyethylene glycol 3350 17 g PO DAILY PRN 04/08/18 05/08/18 History potassium chloride 20 meq PO DAILY 04/08/18 05/08/18 History quetiapine 25 mg PO BID 04/08/18 05/08/18 History quinapril 20 mg PO BID 04/08/18 05/08/18 History sertraline 100 mg PO DAILY 04/08/18 05/08/18 History tamsulosin 0.4 mg PO DAILY 04/08/18 05/08/18 History Exam Vital signs: Vital Signs 05/09/18 20:00 05/10/18 00:00 05/10/18 04:00 Temperature 98.0 F 98.7 F 99.3 F Pulse Rate 92 H 80 87 Respiratory Rate 16 17 16 Blood Pressure 129/60 140/76 153/81 H Pulse Oximetry 93 L 93 L 93 L 05/10/18 08:00 05/10/18 11:56 05/10/18 16:00 Temperature 98.1 F 98.7 F 99.0 F Pulse Rate 84 95 H 100 H Respiratory Rate 18 18 Blood Pressure 136/84 133/72 145/79 H Pulse Oximetry 91 L 94 L 95 Intake & Output 05/09/18 05/10/18 05/10/18 18:59 06:59 18:59 Intake Total 1750 / 1750 1062.5 / 1062.5 820 / 820 Output Total 800 / 800 900 / 900 350 / 350 Balance 950 / 950 162.5 / 162.5 470 / 470 Weight 67.8 kg Intake: IV 1100 / 1100 362.5 / 362.5 100 / 100 NS Inj 1,000 ML @ 100 mls/hr IV 1000 / 1000 .CONT .Q10H MILY Rx#:[id number] Maxipime Inj 1,000 MG In NS Inj 100 / 100 100 / 100 100 / 100 100 ML @ 200 mls/hr IV.SIG Q12H MILY Rx#:[id number] Vancomycin Inj 1,250 MG In NS 262.5 / 262.5 Inj 250 ML @ 250 mls/hr IV.SIG Q24H MILY Rx#:[id number] Oral 650 / 650 700 / 700 720 / 720 Output: Urine 800 / 800 900 / 900 350 / 350 Other: Date of Last Bowel Movement 05/09/18 05/09/18 # Bowel Movements 0 1 - Constitutional no acute distress, thin - Routine HEENT Exam Head: Present: normocephalic, atraumatic Eye: Present: EOMI, PERRL ENT: Present: mucous membranes dry, oropharynx clear. Absent: dentition normal - Routine Neck Exam Present: supple. Absent: JVD - Routine Respiratory Exam Present: decreased breath sounds, CTA bilaterally - Routine Cardiovascular Exam Present: RRR, S1, S2. Absent: murmur, gallop, rubs - Routine Abdominal Exam Present: soft, tenderness (diffuse), distended. Absent: organomegaly, mass - Routine Extremities Exam Absent: cyanosis, clubbing, edema - Routine Neurological Exam Present: alert. Absent: oriented X3 (confused), sensory deficit, motor deficit - Routine Psychiatric Exam Present: unable to assess Results - Labs CBC & Chem 7: 05/10/18 06:13 05/10/18 06:13 Labs: Laboratory Results - last 24 hr 05/10/18 05/10/18 05/10/18 06:13 06:13 06:13 WBC 32.3 H RBC 3.47 L Hgb 10.5 L Hct 31.8 L MCV 91.6 MCH 30.3 MCHC 33.1 RDW 13.9 Plt Count 389 MPV 9.6 Prelim Diff (Auto) Slide review pending Neut % (Auto) 90.5 H Lymph % (Auto) 2.8 L [place] % (Auto) 5.1 Eos % (Auto) 1.1 Baso % (Auto) 0.5 Neut # (Auto) 29.3 H Lymph # (Auto) 0.9 L [place] # (Auto) 1.6 H Eos # (Auto) 0.3 Baso # (Auto) 0.2 WBC Differential Manual diff final Seg Neuts % (Manual) 81 H Band Neuts % (Manual) 9 H Lymphocytes % (Manual) 5 L Monocytes % (Manual) 5 Abs Neuts (Manual) 29.1 H Differential Comment . Toxic Granulation 1+ H Dohle Bodies Present H Platelet Estimate Normal Platelet Morphology Enlarged H Sodium 143 Potassium 3.0 L Chloride 107 Carbon Dioxide 27.4 Anion Gap 9 BUN 14 Creatinine 0.61 Estimated GFR Greater than 89 Random Glucose 89 Calcium 9.3 Prealbumin 4 L - Imaging Chest X-Ray 05/08/18 20:20 CONCLUSION: Infiltrates in the medial right lung and right lower lung. Head CT 05/08/18 20:25 CONCLUSION: 1. No acute findings in the brain. 2. Moderately severe central and cortical atrophy. . Assessment and Plan - Plan Fever, encephalopathy UTI, PSAE panS Leukocytosis, severe + abdominam;l pain - CT abd/pel cont current abx fu blood clx increase cefepime dose repeat UA, C&S
--- NOTE | 2018-05-10 18:37 | P.PNADD ---
Addendum to Inpatient Note Additional information: seen eleno heath full note to follow
[2018-05-10] MEDS: Montelukast 10 MG Tablet PO SCH (19:29)
[2018-05-10] MEDS: Vancomycin Inj 1,250 MG in Sodium Chlor 0.9% Inj 250 ML IV.SIG SCH (21:46)
[2018-05-11 07:59] LABS: Baso # (Auto) 0.4 th/mm3 (0.0-0.2); Baso % (Auto) 1.1 % (0.0-2.0); Eos # (Auto) 0.2 th/mm3 (0.0-0.4); Eos % (Auto) 0.6 % (0.0-4.0); Hematocrit 32.1 % (39.0-51.0); Hemoglobin 10.9 gm/dL (13.0-17.0); Lymph # (Auto) 0.9 th/mm3 (1.0-4.8); Lymph % (Auto) 2.7 % (9.0-44.0); Mean Corpuscular HGB Conc 33.8 % (32.0-36.0); Mean Corpuscular Hemoglobin 30.4 pg (27.0-34.0); Mean Platelet Volume 10.1 fL (7.0-11.0); Mono # (Auto) 1.9 th/mm3 (0.0-0.9); Mono % (Auto) 5.6 % (0.0-8.0); Neut # (Auto) 30.7 th/mm3 (1.8-7.7); Platelet Count 369 th/mm3 (150-450); Red Blood Count 3.57 mil/mm3 (4.50-5.90); White Blood Count 34.1 th/mm3 (4.0-11.0)
[2018-05-11 08:04] LABS: Anion Gap 11 meq/L (5-15); Blood Urea Nitrogen 13 mg/dL (7-18); Calcium 8.9 mg/dL (8.5-10.1); Carbon Dioxide 24.2 meq/L (21.0-32.0); Chloride 109 meq/L (98-107); Glomerular Filtration Rate Greater Than 89 mL/min (>89); Glucose,Random 97 mg/dL (74-106); Magnesium 1.5 mg/dL (1.5-2.5); Potassium 3.1 meq/L (3.5-5.1)
[2018-05-11 08:28] LABS: Sodium 144 meq/L (136-145)
[2018-05-11] MEDS: Senna/Docusate Sodium 8.6/50 MG Tablet PO SCH ×2 (08:52→20:52)
[2018-05-11] MEDS: Magnesium Oxide 400 MG Tablet PO SCH (08:53)
[2018-05-11 09:02] LABS: Eosinophils 1 % (0-4); Lymphocytes 3 % (9-44); Monocytes 1 % (0-8)
[2018-05-11 09:03] LABS: Platelet Estimate Normal (Normal); Platelet Morphology Normal (Normal); Toxic Granulation 1+
[2018-05-11] MEDS ORDERED: Diatrizoate Meglum/Diatrizoate Sod Liq 9 ML UDC PO ONE (10:02)
[2018-05-11] MEDS: Sod Chloride 0.9% Inj 1,000 ML IV.CONT SCH ×2 (10:05→21:22)
--- NOTE | 2018-05-11 11:12 | P.PN ---
Subjective Interval history: In bed more awake , not eating much . Family at bedside. Patient denies chest pain. No fever or chills overnight. Feels very tired. No n/v/d/c. Physical Exam Vital signs: Vital Signs 05/10/18 11:56 05/10/18 16:00 05/10/18 20:00 Temperature 98.7 F 99.0 F 98.5 F Pulse Rate 95 H 100 H 93 H Respiratory Rate 18 18 17 Blood Pressure 133/72 145/79 H 164/82 H Pulse Oximetry 94 L 95 93 L 05/11/18 00:00 05/11/18 00:01 05/11/18 04:00 Temperature 99.1 F 99.6 F Pulse Rate 99 H 98 H 90 Respiratory Rate 18 17 Blood Pressure 155/76 H 161/83 H Pulse Oximetry 93 L 93 L 05/11/18 08:00 Temperature 99.4 F Pulse Rate 81 Respiratory Rate 16 Blood Pressure 144/70 H Pulse Oximetry 92 L Intake & Output 05/10/18 05/11/18 05/11/18 18:59 06:59 18:59 Intake Total 820 / 820 2362.5 / 2362.5 2099 / 2099 Output Total 350 / 350 600 / 600 Balance 470 / 470 1762.5 / 1762.5 2099 / 2099 Weight 67.8 kg 67.5 kg Intake: IV 100 / 100 1462.5 / 1462.5 2099 / 2100 NS Inj 1,000 ML @ 100 mls/hr IV 1000 / 1000 2000 / 2000 .CONT .Q10H MILY Rx#:[id number] Maxipime Inj 2,000 MG In NS Inj 100 / 100 200 / 200 100 / 100 100 ML @ 200 mls/hr IV.SIG Q8H MILY Rx#:[id number] Vancomycin Inj 1,250 MG In NS 262.5 / 262.5 Inj 250 ML @ 250 mls/hr IV.SIG Q24H MILY Rx#:[id number] Oral 720 / 720 900 / 900 Output: Urine 350 / 350 600 / 600 Other: # Bowel Movements 1 2 Weight On Admission 67.8 kg Narrative: GENERAL: Thin, chronically ill-appearing elderly white male, more awake, alert and oriented HEENT: Bitemporal sunken CARDIOVASCULAR: Regular rate and rhythm. No obvious murmurs to auscultation. No chest tenderness to palpation. RESPIRATORY: No obvious rhonchi or wheezing. Clear to auscultation. Breath sounds equal bilaterally. GASTROINTESTINAL: Abdomen soft, non-tender, nondistended. BS normal. 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 Extremities without clubbing, cyanosis, or edema. No obvious deformities. NEUROLOGICAL: More awake, alert and oriented. No focal neurologic deficits. Moving both upper and lower extremities spontaneously. PSYCHIATRIC: Appropriate mood and affect. Insight and judgment very poor. - Urinary Catheter Management Indwelling Urethral Catheter Cath placed during this visit: yes Reason for continuing: Chronic Urinary Retention Insertion date: 05/08/18 Insertion time: 21:38 Results - Labs CBC & Chem 7: 05/11/18 06:40 05/11/18 06:40 Laboratory Results - last 24 hr 05/10/18 05/11/18 05/11/18 06:13 06:40 06:40 WBC 34.1 H RBC 3.57 L Hgb 10.9 L Hct 32.1 L MCV 90.0 MCH 30.4 MCHC 33.8 RDW 14.0 Plt Count 369 MPV 10.1 Prelim Diff (Auto) Slide review pending Neut % (Auto) 90.0 H Lymph % (Auto) 2.7 L [place] % (Auto) 5.6 Eos % (Auto) 0.6 Baso % (Auto) 1.1 Neut # (Auto) 30.7 H Lymph # (Auto) 0.9 L [place] # (Auto) 1.9 H Eos # (Auto) 0.2 Baso # (Auto) 0.4 H WBC Differential Manual diff final Seg Neuts % (Manual) 86 H Band Neuts % (Manual) 9 H Lymphocytes % (Manual) 3 L Monocytes % (Manual) 1 Eosinophils % (Manual) 1 Abs Neuts (Manual) 32.4 H Differential Comment . Toxic Granulation 1+ H Platelet Estimate Normal Platelet Morphology Normal Hematology Comments Sodium 144 Potassium 3.1 L Chloride 109 H Carbon Dioxide 24.2 Anion Gap 11 BUN 13 Creatinine 0.64 Estimated GFR Greater than 89 Random Glucose 97 Calcium 8.9 Magnesium 1.5 Prealbumin 4 L Microbiology 05/08/18 20:25 Blood - Peripheral Aerobic Blood Culture - Preliminary No growth in 3 days 05/08/18 20:25 Blood - Peripheral Anaerobic Blood Culture - Preliminary No growth in 3 days 05/08/18 20:25 Blood - Peripheral Aerobic Blood Culture - Preliminary No growth in 3 days 05/08/18 20:25 Blood - Peripheral Anaerobic Blood Culture - Preliminary No growth in 3 days 05/08/18 19:00 Catheterized Urine Urine Culture - Final Pseudomonas aeruginosa Assessment and Plan - Assessment (1) Encephalopathy Code(s): G93.40 - Encephalopathy, unspecified Status: Acute (2) Sepsis Code(s): A41.9 - Sepsis, unspecified organism Status: Acute (3) UTI (urinary tract infection) Code(s): N39.0 - Urinary tract infection, site not specified Status: Acute (4) PNA (pneumonia) Code(s): J18.9 - Pneumonia, unspecified organism Status: Acute (5) Limited code status Status: Acute - Plan Encephalopathy: Not improving. Likely secondary to underlying Dementia and compounded by Acute Sepsis, CT Head w/ no acute findings, images reviewed. Neuro Checks. Sepsis: On admission temp 101 rectal, HR 81, WBC 28, Source-UTI/PNA follow up Blood cultures Increase cefepime, continue vanco per ID recommendations, follow up cultures, cont IVF Persistent leukocytosis. Consult infectious disease for evaluation and recommendations as above UTI: U/a w/ significant UTI, follow up urine cultures, monitor I/O, IVF, continue w/ IV Abx as above PNA: CXR w/ RML and RLL infiltrates, images reviewed, continue IV Abx, DuoNeb prn. Plan for CT A/P Severe protein calorie malnutrition. Decreased appetite. Patient with bitemporal wasting, muscle wasting, weak handgrip. Low albumin and prealbumin of 4 Will check prealbumin. Add multivitamins, add Ensure to diet. Consult web methods developer. Alternative Code: Code status discussed w/ granddaughter at length, COMPRESSIONS/SHOCK ONLY, NO INTUBATION OR ACLS. DVT Prophylaxis: SCD/Teds Case management was consulted for d/c planning as needed. Discussed with the patient, nurse, ID specialist, family at bedside Family can bring food from home
--- NOTE | 2018-05-11 13:26 | P.PNID ---
Subjective Remarks: doing OK afebrile, but WBC creeping up to 34 K + pasty BMs Antibiotics: vanco cefepime Allergies/Adverse Reactions: Allergies No Known Allergies Allergy (Verified 05/08/18 20:16) Objective Vital Signs 05/10/18 16:00 05/10/18 20:00 05/11/18 00:00 Temperature 99.0 F 98.5 F 99.1 F Pulse Rate 100 H 93 H 99 H Respiratory Rate 18 17 18 Blood Pressure 145/79 H 164/82 H 155/76 H Pulse Oximetry 95 93 L 93 L 05/11/18 00:01 05/11/18 04:00 05/11/18 08:00 Temperature 99.6 F 99.4 F Pulse Rate 98 H 90 81 Respiratory Rate 17 16 Blood Pressure 161/83 H 144/70 H Pulse Oximetry 93 L 92 L Intake & Output 05/10/18 05/11/18 05/11/18 18:59 06:59 18:59 Intake Total 820 / 820 2362.5 / 2362.5 2100 / 2099 Output Total 350 / 350 600 / 600 Balance 470 / 470 1762.5 / 1762.5 2099 / 2099 Weight 67.8 kg 67.5 kg Intake: IV 100 / 100 1462.5 / 1462.5 2100 / 2100 NS Inj 1,000 ML @ 100 mls/hr IV 1000 / 1000 2000 / 2000 .CONT .Q10H MILY Rx#:[id number] Maxipime Inj 2,000 MG In NS Inj 100 / 100 200 / 200 100 / 100 100 ML @ 200 mls/hr IV.SIG Q8H MILY Rx#:[id number] Vancomycin Inj 1,250 MG In NS 262.5 / 262.5 Inj 250 ML @ 250 mls/hr IV.SIG Q24H MILY Rx#:[id number] Oral 720 / 720 900 / 900 Output: Urine 350 / 350 600 / 600 Other: # Bowel Movements 1 2 Weight On Admission 67.8 kg 05/08/18 20:25 Blood - Peripheral Aerobic Blood Culture - Preliminary No growth in 3 days 05/08/18 20:25 Blood - Peripheral Anaerobic Blood Culture - Preliminary No growth in 3 days 05/08/18 20:25 Blood - Peripheral Aerobic Blood Culture - Preliminary No growth in 3 days 05/08/18 20:25 Blood - Peripheral Anaerobic Blood Culture - Preliminary No growth in 3 days 05/08/18 19:00 Catheterized Urine Urine Culture - Final Pseudomonas aeruginosa Lab - Hematology Results 05/10/18 05/11/18 06:13 06:40 WBC 32.3 H 34.1 H RBC 3.47 L 3.57 L Hgb 10.5 L 10.9 L Hct 31.8 L 32.1 L MCV 91.6 90.0 MCH 30.3 30.4 MCHC 33.1 33.8 RDW 13.9 14.0 Plt Count 389 369 MPV 9.6 10.1 Prelim Diff (Auto) Slide review pending Slide review pending Neut % (Auto) 90.5 H 90.0 H Lymph % (Auto) 2.8 L 2.7 L [place] % (Auto) 5.1 5.6 Eos % (Auto) 1.1 0.6 Baso % (Auto) 0.5 1.1 Neut # (Auto) 29.3 H 30.7 H Lymph # (Auto) 0.9 L 0.9 L [place] # (Auto) 1.6 H 1.9 H Eos # (Auto) 0.3 0.2 Baso # (Auto) 0.2 0.4 H WBC Differential Manual diff final Manual diff final Seg Neuts % (Manual) 81 H 86 H Band Neuts % (Manual) 9 H 9 H Lymphocytes % (Manual) 5 L 3 L Monocytes % (Manual) 5 1 Eosinophils % (Manual) 1 Abs Neuts (Manual) 29.1 H 32.4 H Differential Comment . . Toxic Granulation 1+ H 1+ H Dohle Bodies Present H Platelet Estimate Normal Normal Platelet Morphology Enlarged H Normal Hematology Comments Lab - Chemistry Results 05/10/18 05/10/18 05/11/18 06:13 06:13 06:40 Sodium 143 144 Potassium 3.0 L 3.1 L Chloride 107 109 H Carbon Dioxide 27.4 24.2 Anion Gap 9 11 BUN 14 13 Creatinine 0.61 0.64 Estimated GFR Greater than 89 Greater than 89 Random Glucose 89 97 Calcium 9.3 8.9 Magnesium 1.5 Prealbumin 4 L Imaging: ITS Impressions Chest X-Ray 05/08/18 20:20 CONCLUSION: Infiltrates in the medial right lung and right lower lung. Head CT 05/08/18 20:25 CONCLUSION: 1. No acute findings in the brain. 2. Moderately severe central and cortical atrophy. . Physical Exam: GENERAL: NAD SKIN: Warm and dry. no rash EYES: Pupils equal and round. No scleral icterus. ENT: Mucous membranes pink and moist. NECK: Trachea midline. No JVD. CARDIOVASCULAR: Regular rate and rhythm. RESPIRATORY: No accessory muscle use. Clear to auscultation. Breath sounds equal bilaterally. GASTROINTESTINAL: Abdomen soft, mildly tender to palpation, nondistended. Hepatic and splenic margins not palpable. : johnson in place with clear ligh5t yellow urine MUSCULOSKELETAL: Extremities without clubbing, cyanosis, or edema. No obvious deformities. NEUROLOGICAL: Awake and alert. confused moves all 4 extremeties clear speech PSYCHIATRIC: cooperative Assessment and Plan - Plan Fever, encephalopathy UTI, PSAE panS Leukocytosis, severe and worsening + abdominam;l pain - CT abd/pel cont cefpeime for PSAE UTI fu blood clx repeat UA, C&S dc vancomycin Im off thru Mon 05/17 Other ID physcians covering
--- NOTE | 2018-05-11 13:55 | CT ---
EXAM DATE: 05/11/2018 1:37 PM EST AGE/SEX: 82 years / Male INDICATIONS: Abdominal pain, sepsis. CLINICAL DATA: This is the patient's initial encounter. Patient reports that signs and symptoms have been present for 1 day and indicates a pain score of 3/10. MEDICAL/SURGICAL HISTORY: Hypertension. None. ORAL CONTRAST: Prescribed oral contrast ingested. RADIATION DOSE: 9.96 CTDI (mGy) COMPARISON: [facility] [place] & [place]ELVIS W/O CONTRAST, 04/08/2018. . TECHNIQUE: Multiple contiguous axial images were obtained through the abdomen and pelvis following b olus infusion of 98 ml Omnipaque 350 (iohexol) nonionic water-soluble contrast as a single exam dos e. Prescribed oral contrast ingested. Using automated exposure control and adjustment of the mA and/ or kV according to patient size, radiation dose was kept as low as reasonably achievable to obtain op timal diagnostic quality images. DICOM format image data is available electronically for review and comparison. FINDINGS: Lower Lungs: There is an intra-alveolar infiltrate with loculated pleural effusion involving the righ t lung base. There are a couple areas of decreased density scattered throughout the lung parenchyma i n this area possibly relating to tiny abscess formation. The largest measures 1 cm. These findings ar e new from the prior exam. 13 mm nodule within the left lung base is unchanged. Coronary artery ather osclerotic calcifications are noted. Liver: The liver has a homogeneous density without space-occupying lesion. There is no dilation of th e biliary tree. The gallbladder is decompressed and not well evaluated.. Spleen: Homogeneous density without enlargement. Pancreas: Unremarkable without mass or calcification. Kidneys: Normal in size and shape. Tiny bilateral cortical renal cysts. No evidence of mass or hydro nephrosis. Adrenal Glands: Unremarkable. Aorta: Diffuse calcified atheromatous plaque without aneurysmal dilation. Bowel/Mesentery: Colonic diverticulosis without acute inflammation. Abdominal Wall: Intact. Retroperitoneum: No evidence of adenopathy in the retrocrural, para-aortic, or deep pelvic regions. Bladder: Contours are smooth. Reproductive Organs: No abnormal masses or calcifications seen. Inguinal: Right inguinal hernia containing loops of small bowel. No stranding to suggest incarcerati on. The inguinal region is unremarkable without evidence of adenopathy. Bony Structures: Degenerative scoliotic spine. CONCLUSION: 1. Right lower lobe infiltrate with a couple a tiny suspected intraparenchymal abscesses and loculat ed right effusion. This is new from the prior study. 2. Unchanged 13 mm left lower lobe pulmonary nodule. 3. Right inguinal hernia containing small bowel. 4. Colonic diverticulosis. Electronically signed by: Moi Agustin MD 05/11/2018 1:54 PM EST
--- NOTE | 2018-05-11 15:35 | ECG ---
Date Performed: 05/10/2018 Time Performed: 16:02:18 PTAGE: 82 years EKG: NORMAL Sinus rhythm RIGHT BUNDLE BRANCH BLOCK WITH SECONDARY ST-T WAVE CHANGES Compared to previous tracing, axis has sh ifted Possible left anterior fascicular block ABNORMAL ECG PREVIOUS TRACING : 05/08/2018 20.45 DOCTOR: Fausto Soriano Interpretating Date/Time 05/11/2018 15:33:27
[2018-05-11] MEDS: Montelukast 10 MG Tablet PO SCH (17:12)
--- NOTE | 2018-05-11 18:17 | P.DIET ---
Nutritional Evaluation Type of nutrition evaluation: initial Nutrition consult regarding: Diet Evaluation Nutrition screening: [facility] [place] Screening comments: 05/11/18 [facility] Malnutrition Subjective Oral Diet Tolerance Assessment Indicates: Dentures Subjective Comments: Pt visited at bedside. Food preferences taken. Pt drinking the Ensure. Pt receptive to receiving Ensure Pudding. Pt has full dentures and denies any problem chewing. Objective - Diagnosis AMS, Sepsis, UTI - Objective % IBW: 100 Body Weight Used for Calculations: Actual (67.5kg) Energy Needs - Lower Range (kCal/kg): 25 Energy Needs - Upper Range (kCal/kg): 30 Lower Limit kCal/kg (kCals): 1,688 Upper Limit kCal/kg (kCals): 2,025 Lower Limit Protein Factor (Grams per Kg): 1.2 Upper Limit Protein Factor (Grams per Kg): 1.5 Lower Protein Needs (Protein): 81 Upper Protein Needs (Protein): 101 Dietitian Reviewed in Medical Record: Current diet, Curent medications, Intake & Output, Labs, Medical history Diet Order: Regular Objective Comments: PMH: Alzheimers disease, enlarged prostate, HTN Prealbumin 4 Feeding - Current PO Supplement Current Supplement: Ensure Original Current Frequency of Supplement: Three times a day Current kCals Provided by Supplement: 250 Current Protein Provided by Supplement: 9 Assessment Assessment: Pt is at nutritional risk r/t diagnosis and poor po intake 50% or less for meals. Ensure TID per MD. Rec replace Ensure w/Ensure Enlive TID(= 350 kcal and 20g protein per serving. Send Ensure Pudding BID(= 170 kcal and 4g protein per serving). [place] pt's food preferences. Labs reviewed-noted concerns for low prealbumin; however, prealbumin is a negative acute-phase protein and reflects severity of the inflammatory process vs. nutritional status. Dietitian will follow. Recommendations: 1. Rec replace Ensure TID w/Ensure Enlive TID 2. Send Ensure Pudding BID 3. [place] pt's food preferences 4. Dietitian will follow Dietitian to Monitor: Lab values, Supplement acceptance, Intake & Output, Diet tolerance, Weight change, PO Intake, Medical course
[2018-05-11] MEDS ORDERED: Pharmacy Ordered Lab Info OTHER ONE (21:45)
--- NOTE | 2018-05-11 22:43 | P.PNADD ---
Addendum to Inpatient Note Additional information: Impressions Abdomen/Pelvis CT 05/11/18 00:00 CONCLUSION: 1. Right lower lobe infiltrate with a couple a tiny suspected intraparenchymal abscesses and loculated right effusion. This is new from the prior study. 2. Unchanged 13 mm left lower lobe pulmonary nodule. 3. Right inguinal hernia containing small bowel. 4. Colonic diverticulosis. Right lower lobe infiltrate intraparenchymal abscesses loculated right effusion. IR for drainage will add flagyl cont abx CT chest wo contrast
[2018-05-12 06:09] LABS: Baso % (Auto) 0.1 % (0.0-2.0); Eos # (Auto) 0.3 th/mm3 (0.0-0.4); Hematocrit 31.3 % (39.0-51.0); Hemoglobin 10.6 gm/dL (13.0-17.0); Lymph % (Auto) 3.2 % (9.0-44.0); Mean Corpuscular HGB Conc 33.8 % (32.0-36.0); Mean Corpuscular Hemoglobin 30.4 pg (27.0-34.0); Mean Corpuscular Volume 89.9 fL (80.0-100.0); Mean Platelet Volume 9.1 fL (7.0-11.0); Mono # (Auto) 2.2 th/mm3 (0.0-0.9); Mono % (Auto) 7.1 % (0.0-8.0); Neut # (Auto) 27.2 th/mm3 (1.8-7.7); Neut % (Auto) 88.6 % (16.0-70.0); Platelet Count 406 th/mm3 (150-450); Red Blood Count 3.48 mil/mm3 (4.50-5.90); Red Cell Distribution Width 14.2 % (11.6-17.2); White Blood Count 30.7 th/mm3 (4.0-11.0)
[2018-05-12 06:32] LABS: Anion Gap 6 meq/L (5-15); Blood Urea Nitrogen 12 mg/dL (7-18); Calcium 8.8 mg/dL (8.5-10.1); Carbon Dioxide 28.8 meq/L (21.0-32.0); Chloride 111 meq/L (98-107); Glomerular Filtration Rate Greater Than 89 mL/min (>89); Glucose,Random 99 mg/dL (74-106); Magnesium 1.7 mg/dL (1.5-2.5); Potassium 3.3 meq/L (3.5-5.1); Sodium 146 meq/L (136-145)
[2018-05-12 08:04] LABS: Lymphocytes 4 % (9-44); Monocytes 7 % (0-8); Platelet Estimate Normal (Normal); Platelet Morphology Normal (Normal); Toxic Granulation 2+
[2018-05-12] MEDS: Senna/Docusate Sodium 8.6/50 MG Tablet PO SCH ×2 (08:54→23:04)
[2018-05-12] MEDS: Potassium Chloride 10 MEQ ER Capsule PO SCH (08:54)
[2018-05-12] MEDS: Magnesium Oxide 400 MG Tablet PO SCH (08:54)
[2018-05-12] MEDS: Sod Chloride 0.9% Inj 1,000 ML IV.CONT SCH ×2 (08:57→17:34)
--- NOTE | 2018-05-12 10:23 | P.PN ---
Subjective Interval history: The patient is in bed he is pleasantly confused however he is more awake and alert. Still not eating much. Severely marginal nutrition. No fever or chills no nausea vomiting. Feels his chest is congested coughing however not much sputum production. Physical Exam Vital signs: Vital Signs 05/11/18 12:00 05/11/18 16:00 05/12/18 00:00 Temperature 97.9 F 98.9 F 98.8 F Pulse Rate 89 97 H 56 L Respiratory Rate 17 17 16 Blood Pressure 136/69 154/88 H 166/90 H Pulse Oximetry 93 L 90 L 93 L 05/12/18 04:00 Temperature 97.8 F Pulse Rate 60 Respiratory Rate 16 Blood Pressure 152/87 H Pulse Oximetry 93 L Intake & Output 05/11/18 05/12/18 05/12/18 18:59 06:59 18:59 Intake Total 2920 / 2920 680 / 680 1200 / 1200 Output Total 1000 / 1000 650 / 650 Balance 1920 / 1920 30 / 30 1200 / 1200 Weight 67.5 kg Intake: IV 2200 / 2200 200 / 200 1200 / 1200 NS Inj 1,000 ML @ 100 mls/hr IV 2000 / 2000 1000 / 1000 .CONT .Q10H MILY Rx#:[id number] Maxipime Inj 2,000 MG In NS Inj 200 / 200 100 / 100 100 / 100 100 ML @ 200 mls/hr IV.SIG Q8H MILY Rx#:[id number] Flagyl 500 MG Inj 100 ML @ 100 100 / 100 100 / 100 mls/hr IV.SIG Q8H MILY Rx#: [id number] Oral 720 / 720 480 / 480 Output: Urine 1000 / 1000 Urine Amount (Catheter) 650 / 650 Indwelling Urethral Catheter 650 / 650 Other: Date of Last Bowel Movement 05/11/18 05/11/18 # Bowel Movements 1 Narrative: GENERAL: Thin, chronically ill-appearing elderly white male, more awake, alert and oriented HEENT: Bitemporal sunken CARDIOVASCULAR: Regular rate and rhythm. No obvious murmurs to auscultation. No chest tenderness to palpation. RESPIRATORY: No obvious rhonchi or wheezing. Clear to auscultation. Breath sounds equal bilaterally. GASTROINTESTINAL: Abdomen soft, non-tender, nondistended. BS normal. 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 Extremities without clubbing, cyanosis, or edema. No obvious deformities. NEUROLOGICAL: More awake, alert and oriented. No focal neurologic deficits. Moving both upper and lower extremities spontaneously. PSYCHIATRIC: Appropriate mood and affect. Insight and judgment very poor. - Urinary Catheter Management Indwelling Urethral Catheter Cath placed during this visit: yes Reason for continuing: Chronic Urinary Retention Insertion date: 05/08/18 Insertion time: 21:38 Results - Labs CBC & Chem 7: 05/12/18 04:54 05/12/18 04:54 Laboratory Results - last 24 hr 05/12/18 05/12/18 05/12/18 00:15 04:54 04:54 WBC 30.7 H RBC 3.48 L Hgb 10.6 L Hct 31.3 L MCV 89.9 MCH 30.4 MCHC 33.8 RDW 14.2 Plt Count 406 MPV 9.1 Prelim Diff (Auto) Slide review pending Neut % (Auto) 88.6 H Lymph % (Auto) 3.2 L [place] % (Auto) 7.1 Eos % (Auto) 1.0 Baso % (Auto) 0.1 Neut # (Auto) 27.2 H Lymph # (Auto) 1.0 [place] # (Auto) 2.2 H Eos # (Auto) 0.3 Baso # (Auto) 0.0 WBC Differential Manual diff final Seg Neuts % (Manual) 85 H Band Neuts % (Manual) 4 Lymphocytes % (Manual) 4 L Monocytes % (Manual) 7 Abs Neuts (Manual) 27.3 H Differential Comment . Toxic Granulation 2+ H Platelet Estimate Normal Platelet Morphology Normal Sodium 146 H Potassium 3.3 L Chloride 111 H Carbon Dioxide 28.8 Anion Gap 6 BUN 12 Creatinine 0.64 Estimated GFR Greater than 89 Random Glucose 99 Calcium 8.8 Magnesium 1.7 Stl C.difficile DNA Amp Negative St C. diff Tox Epid 027 Negative Microbiology 05/08/18 20:25 Blood - Peripheral Aerobic Blood Culture - Preliminary No growth in 3 days 05/08/18 20:25 Blood - Peripheral Anaerobic Blood Culture - Preliminary No growth in 3 days 05/08/18 20:25 Blood - Peripheral Aerobic Blood Culture - Preliminary No growth in 3 days 05/08/18 20:25 Blood - Peripheral Anaerobic Blood Culture - Preliminary No growth in 3 days - Imaging Impressions Abdomen/Pelvis CT 05/11/18 00:00 CONCLUSION: 1. Right lower lobe infiltrate with a couple a tiny suspected intraparenchymal abscesses and loculated right effusion. This is new from the prior study. 2. Unchanged 13 mm left lower lobe pulmonary nodule. 3. Right inguinal hernia containing small bowel. 4. Colonic diverticulosis. Assessment and Plan - Assessment (1) Encephalopathy Code(s): G93.40 - Encephalopathy, unspecified Status: Acute (2) Sepsis Code(s): A41.9 - Sepsis, unspecified organism Status: Acute (3) UTI (urinary tract infection) Code(s): N39.0 - Urinary tract infection, site not specified Status: Acute (4) PNA (pneumonia) Code(s): J18.9 - Pneumonia, unspecified organism Status: Acute (5) Limited code status Status: Acute - Plan Encephalopathy: Not improving. Likely secondary to underlying Dementia and compounded by Acute Sepsis, CT Head w/ no acute findings, images reviewed. Neuro Checks. Sepsis: On admission temp 101 rectal, HR 81, WBC 28, Source-UTI/PNA Right lower lobe pneumonia with loculated right lung effusion and right intraparenchymal abscesses !3 mm left lower lobe pulmonary nodule, unchanged Right inguinal hernia Colonic diverticulitis follow up Blood cultures Increase cefepime, continue vanco per ID recommendations, follow up cultures, cont IVF Persistent leukocytosis. Consult infectious disease for evaluation and recommendations as above UTI: U/a w/ significant UTI, follow up urine cultures, monitor I/O, IVF, continue w/ IV Abx as above PNA: CXR w/ RML and RLL infiltrates, images reviewed, continue IV Abx, DuoNeb prn. for CT A/P on 05/11 reviewed shows Right lower lobe infiltrate with a couple a tiny suspected intraparenchymal abscesses and loculated right effusion. Unchanged 13 mm left lower lobe pulmonary nodule. Right inguinal hernia containing small bowel. Colonic diverticulosis. IR consulted for drainage Add flagyl Plan for CT chest without contrast Right lower lobe infiltrate intraparenchymal abscesses loculated right effusion. IR for drainage will add flagyl cont abx CT chest wo contrast Severe protein calorie malnutrition. Decreased appetite. Patient with bitemporal wasting, muscle wasting, weak handgrip. Low albumin and prealbumin of 4 Will check prealbumin. Add multivitamins, add Ensure to diet. Consult telecommunications facility examiner. Alternative Code: Code status discussed w/ granddaughter at length, COMPRESSIONS/SHOCK ONLY, NO INTUBATION OR ACLS. DVT Prophylaxis: SCD/Teds Case management was consulted for d/c planning as needed. Discussed with the patient, nurse, ID specialist, family at bedside Family can bring food from home
--- NOTE | 2018-05-12 10:50 | CT ---
EXAM DATE: 05/12/2018 10:37 AM EST AGE/SEX: 82 years / Male INDICATIONS: Pleural effusion. CLINICAL DATA: This is the patient's initial encounter. Patient reports that signs and symptoms have been present for 1 day and indicates a pain score of 0/10. MEDICAL/SURGICAL HISTORY: Hypertension. None. RADIATION DOSE: 14.82 CTDI (mGy) COMPARISON: [facility] – [place], CT CHEST W/O CONTRAST, 04/08/2018. . TECHNIQUE: Multiple contiguous axial images were obtained through the chest without contrast. Image s were obtained in suspended respiration using multiple row detector helical technique. Using automa eboni exposure control and adjustment of the mA and/or kV according to patient size, radiation dose was kept as low as reasonably achievable to obtain optimal diagnostic quality images. DICOM format imag e data is available electronically for review and comparison. FINDINGS: Lungs: There is emphysematous change in the upper lungs. There is underlying interstitial disease. S ruiz the prior exam there has been development of parenchymal consolidation and/or atelectasis in the right lower lung and posterior aspects of the right upper lung. Mediastinum: There is right paratracheal and right tracheobronchial adenopathy with lymph nodes agata uring up to 2.2 cm. There is prominence of the subcarinal region concerning for a some adenopathy. Pleurae: There has been development of a mild right pleural effusion. This appears to be partially l oculated superiorly. There is fluid extending into the major and minor fissures. Axillae: Unremarkable. Bony Structures: Spurs are seen in the thoracic spine. Miscellaneous: The examination was extended to include the upper abdomen, and both adrenal glands ar e normal in size and configuration. CONCLUSION: 1. Development of a mild to moderate right pleural effusion with some fluid seen collecting over the right upper lung and in the major and minor fissures. 2. Increased density in the right lower lobe and to a lesser grade the posterior aspect of the right upper lobe likely related to atelectasis or consolidation. 3. Development of adenopathy. The rapid development of adenopathy is likely postinflammatory. 4. Underlying emphysematous and interstitial disease. Electronically signed by: Larry Fuentes MD 05/12/2018 10:49 AM EST
--- NOTE | 2018-05-12 12:53 | P.PNID ---
Subjective Remarks: family @ bedside OK afebrile rad studies with PNA, aw effusion slightly improving WBC Antibiotics: flagyl vanco cefepime Allergies/Adverse Reactions: Allergies No Known Allergies Allergy (Verified 05/08/18 20:16) Objective Vital Signs 05/11/18 16:00 05/12/18 00:00 05/12/18 04:00 Temperature 98.9 F 98.8 F 97.8 F Pulse Rate 97 H 56 L 60 Respiratory Rate 17 16 16 Blood Pressure 154/88 H 166/90 H 152/87 H Pulse Oximetry 90 L 93 L 93 L Intake & Output 05/11/18 05/12/18 05/12/18 18:59 06:59 18:59 Intake Total 2920 / 2920 680 / 680 1200 / 1200 Output Total 1000 / 1000 650 / 650 Balance 1920 / 1920 30 / 30 1200 / 1200 Weight 67.5 kg Intake: IV 2200 / 2200 200 / 200 1200 / 1200 NS Inj 1,000 ML @ 100 mls/hr IV 2000 / 2000 1000 / 1000 .CONT .Q10H [facility] Rx#:[id number] Maxipime Inj 2,000 MG In NS Inj 200 / 200 100 / 100 100 / 100 100 ML @ 200 mls/hr IV.SIG Q8H [facility] Rx#:[id number] Flagyl 500 MG Inj 100 ML @ 100 100 / 100 100 / 100 mls/hr IV.SIG Q8H [facility] Rx#: [id number] Oral 720 / 720 480 / 480 Output: Urine 1000 / 1000 Urine Amount (Catheter) 650 / 650 Indwelling Urethral Catheter 650 / 650 Other: Date of Last Bowel Movement 05/11/18 05/11/18 # Bowel Movements 1 05/08/18 20:25 Blood - Peripheral Aerobic Blood Culture - Preliminary No growth in 4 days 05/08/18 20:25 Blood - Peripheral Anaerobic Blood Culture - Preliminary No growth in 4 days 05/08/18 20:25 Blood - Peripheral Aerobic Blood Culture - Preliminary No growth in 4 days 05/08/18 20:25 Blood - Peripheral Anaerobic Blood Culture - Preliminary No growth in 4 days 05/08/18 19:00 Catheterized Urine Urine Culture - Final Pseudomonas aeruginosa Lab - Hematology Results 05/11/18 05/12/18 06:40 04:54 WBC 34.1 H 30.7 H RBC 3.57 L 3.48 L Hgb 10.9 L 10.6 L Hct 32.1 L 31.3 L MCV 90.0 89.9 MCH 30.4 30.4 MCHC 33.8 33.8 RDW 14.0 14.2 Plt Count 369 406 MPV 10.1 9.1 Prelim Diff (Auto) Slide review pending Slide review pending Neut % (Auto) 90.0 H 88.6 H Lymph % (Auto) 2.7 L 3.2 L [place] % (Auto) 5.6 7.1 Eos % (Auto) 0.6 1.0 Baso % (Auto) 1.1 0.1 Neut # (Auto) 30.7 H 27.2 H Lymph # (Auto) 0.9 L 1.0 [place] # (Auto) 1.9 H 2.2 H Eos # (Auto) 0.2 0.3 Baso # (Auto) 0.4 H 0.0 WBC Differential Manual diff final Manual diff final Seg Neuts % (Manual) 86 H 85 H Band Neuts % (Manual) 9 H 4 Lymphocytes % (Manual) 3 L 4 L Monocytes % (Manual) 1 7 Eosinophils % (Manual) 1 Abs Neuts (Manual) 32.4 H 27.3 H Differential Comment . . Toxic Granulation 1+ H 2+ H Platelet Estimate Normal Normal Platelet Morphology Normal Normal Hematology Comments Lab - Chemistry Results 05/10/18 05/11/18 05/12/18 06:13 06:40 04:54 Sodium 144 146 H Potassium 3.1 L 3.3 L Chloride 109 H 111 H Carbon Dioxide 24.2 28.8 Anion Gap 11 6 BUN 13 12 Creatinine 0.64 0.64 Estimated GFR Greater than 89 Greater than 89 Random Glucose 97 99 Calcium 8.9 8.8 Magnesium 1.5 1.7 Prealbumin 4 L Imaging: ITS Impressions Chest X-Ray 05/08/18 20:20 CONCLUSION: Infiltrates in the medial right lung and right lower lung. Head CT 05/08/18 20:25 CONCLUSION: 1. No acute findings in the brain. 2. Moderately severe central and cortical atrophy. . Abdomen/Pelvis CT 05/11/18 00:00 CONCLUSION: 1. Right lower lobe infiltrate with a couple a tiny suspected intraparenchymal abscesses and loculated right effusion. This is new from the prior study. 2. Unchanged 13 mm left lower lobe pulmonary nodule. 3. Right inguinal hernia containing small bowel. 4. Colonic diverticulosis. Chest CT 05/12/18 00:00 CONCLUSION: 1. Development of a mild to moderate right pleural effusion with some fluid seen collecting over the right upper lung and in the major and minor fissures. 2. Increased density in the right lower lobe and to a lesser grade the posterior aspect of the right upper lobe likely related to atelectasis or consolidation. 3. Development of adenopathy. The rapid development of adenopathy is likely postinflammatory. 4. Underlying emphysematous and interstitial disease. Physical Exam: GENERAL: NAD SKIN: Warm and dry. no rash EYES: Pupils equal and round. No scleral icterus. ENT: Mucous membranes pink and moist. CARDIOVASCULAR: Regular rate and rhythm. RESPIRATORY: No accessory muscle use. Clear to auscultation. Breath sounds equal bilaterally. GASTROINTESTINAL: Abdomen soft, mildly tender to palpation, nondistended. Hepatic and splenic margins not palpable. : johnson in place with clear light yellow urine MUSCULOSKELETAL: Extremities without clubbing, cyanosis, or edema. No obvious deformities. NEUROLOGICAL: Awake and alert. confused moves all 4 extremeties clear speech PSYCHIATRIC: calm Assessment and Plan - Plan PNA medial right lung and right lower lung. Fever, encephalopathy UTI, PSAE panS Leukocytosis, severe - persistent + abdominal pain - probably referred from PNA cont cefpeime for PSAE UTI, PNA fu blood clx repeat UA, C&S dwD r Cosma Im off thru 05/17 Other ID physcians covering
[2018-05-12] MEDS: Montelukast 10 MG Tablet PO SCH (17:34)
[2018-05-13 01:23] LABS: ABG Base Excess 3.4 mmol/L (-2-2); ABG PCO2 38 mmHg (38-42); ABG PO2 71 mmHg (61-120)
--- NOTE | 2018-05-13 01:43 | XR ---
EXAM DATE: 05/13/2018 1:16 AM EST AGE/SEX: 82 years / Male INDICATIONS: Shortness of breath suddenly this morning. CLINICAL DATA: This is the patient's subsequent encounter. Patient reports that signs and symptoms h ave been present for 4 - 6 days and indicates a pain score of 0/10. MEDICAL/SURGICAL HISTORY: Hypertension. Alzheimer's disease. Inguinal hernia repair. COMPARISON: [facility] – [place], CHEST 1V SINGLE AP, 05/08/2018. . FINDINGS: Moderate right-sided pleural effusion slightly increased from May 08. Bilateral airspace disease , right greater than left also slightly increased. Small left effusion. No pneumothorax. Increase in bilateral airspace disease, probably edema with increase in size of bilateral effusions s ruiz May 08. CONCLUSION: Increase in bilateral airspace disease, probably edema with increase in size of bilateral effusions s ruiz May 08. Electronically signed by: Sedrick Stern MD 05/13/2018 1:42 AM EST
[2018-05-13 02:19] LABS: Hematocrit 36.4 % (39.0-51.0); Hemoglobin 11.8 gm/dL (13.0-17.0); Mean Corpuscular HGB Conc 32.5 % (32.0-36.0); Mean Corpuscular Hemoglobin 29.9 pg (27.0-34.0); Mean Corpuscular Volume 92.1 fL (80.0-100.0); Platelet Count 467 th/mm3 (150-450); Red Blood Count 3.95 mil/mm3 (4.50-5.90); Red Cell Distribution Width 14.4 % (11.6-17.2)
[2018-05-13 02:32] LABS: Anion Gap 5 meq/L (5-15); Blood Urea Nitrogen 19 mg/dL (7-18); Calcium 9.1 mg/dL (8.5-10.1); Carbon Dioxide 29.4 meq/L (21.0-32.0); Chloride 109 meq/L (98-107); Glomerular Filtration Rate Greater Than 89 mL/min (>89); Glucose,Random 149 mg/dL (74-106); Magnesium 1.7 mg/dL (1.5-2.5); Potassium 3.3 meq/L (3.5-5.1); Sodium 143 meq/L (136-145)
[2018-05-13 02:36] LABS: Troponin I 0.13 ng/mL (0.02-0.05)
[2018-05-13 02:59] LABS: Eosinophils 2 % (0-4); Lymphocytes 2 % (9-44); Monocytes 5 % (0-8)
[2018-05-13 03:03] LABS: Platelet Morphology Normal (Normal)
[2018-05-13] MEDS: Sod Chloride 0.9% Inj 1,000 ML IV.CONT SCH (03:42)
[2018-05-13] MEDS ORDERED: Heparin Drip 25,000 UNIT/250 ML BAG IV.CONT PRN (06:33)
[2018-05-13] MEDS ORDERED: Heparin 10,000 UNITS/10 ML Vial (for IV use) IV.PUSH STA (06:33)
[2018-05-13 08:01] LABS: Activated Partial Thrombo Time 28.2 sec (23.4-31.7); INR 1.3 Ratio; Prothrombin Time 13.1 sec (9.8-11.6)
[2018-05-13] MEDS: Senna/Docusate Sodium 8.6/50 MG Tablet PO SCH ×2 (08:33→22:33)
[2018-05-13] MEDS: Magnesium Oxide 400 MG Tablet PO SCH (08:33)
[2018-05-13] MEDS: Potassium Chloride 10 MEQ ER Capsule PO SCH ×3 (08:33→22:29)
--- NOTE | 2018-05-13 12:25 | MB ---
cc: Fausto Soriano MD DATE: 05/13/2018 REASON FOR CONSULTATION: Evaluation of respiratory distress and elevated troponin. HISTORY OF PRESENT ILLNESS: Chad Christie is an 82-year-old man with dementia, admitted to the hospital with Pseudomonas urinary tract infection, and an abnormal chest x-ray. He has been in the hospital since 05/09/2018. Last night, he became acutely short of breath. Chest x-ray shows marked deterioration. He was given a dose of Lasix, but saline was not stopped. He is on antibiotics. The patient's shortness of breath is improved today. I cannot get any history of any chest pain from him. PAST MEDICAL HISTORY: Includes Alzheimer disease, large prostrate, hypertension. FAMILY HISTORY: Unobtainable. SOCIAL HISTORY: He does say that he has a history of smoking, but quit a very long time ago. MEDICATIONS: List currently includes heparin and saline. He has not received any aspirin. PHYSICAL EXAMINATION: GENERAL: Reveals an elderly white male. He is alert. He has had some intermittent fevers. VITAL SIGNS: Last temperature was 97.2, blood pressure is 126/74, pulse of 88. HEENT: Unremarkable. NECK: Shows increased central venous pressure. CHEST: Shows diminished sounds and some rales at the right base. CARDIAC: Sounds very distant, best heard subxiphoid. I do not hear a S3 gallop or murmur. ABDOMEN: Soft. EXTREMITIES: Reveal no peripheral edema. Pedal pulses are diminished. LABORATORY DATA: His creatinine is 0.73. Troponin went from 0.13 to 0.25. Hematocrit 36.4, white count is severely elevated at 35,000 with 90% polys. IMPRESSION AND PLAN: Acute respiratory distress with marked deterioration on his chest x-ray. It looks most suggestive of heart failure. He does not have any chest pain. I do not think this is an acute myocardial infarction. On EKG, he has a right bundle, left anterior fascicular block, and very little else can be discerned from the EKG. I am going to get a STAT echo. I turned off the saline and heparin, and put him on Lovenox 30 subcutaneous b.i.d., added aspirin. Increase the potassium supplement because potassium is already low, and he has been started on IV Lasix. Further therapy to be determined. MD SHANNON Alexis/rh , 12:08 PM , 12:16 PM
--- NOTE | 2018-05-13 15:15 | P.PNID ---
Subjective Remarks: [employer]OVER[employer] Patient is alert. Communicative. Afebrile. Denies cough or sputum production. WBC markedly elevated. Antibiotics: flagyl vanco cefepime Allergies/Adverse Reactions: Allergies No Known Allergies Allergy (Verified 05/08/18 20:16) Objective Vital Signs 05/12/18 16:00 05/12/18 20:00 05/12/18 22:48 Temperature 97.9 F 98.7 F Pulse Rate 90 92 H 88 Respiratory Rate 15 18 Blood Pressure 147/83 H 155/84 H Pulse Oximetry 94 L 92 L 05/13/18 00:00 05/13/18 01:03 05/13/18 01:23 Temperature 97.8 F Pulse Rate 113 H 124 H Respiratory Rate 20 22 Blood Pressure 167/95 H 144/94 H Pulse Oximetry 93 L 93 L 92 L 05/13/18 01:30 05/13/18 03:36 05/13/18 04:00 Temperature 97.8 F 98.0 F Pulse Rate 98 H 94 H 88 Respiratory Rate 20 18 18 Blood Pressure 156/76 H 124/72 115/75 Pulse Oximetry 92 L 95 93 L 05/13/18 04:50 05/13/18 08:00 05/13/18 08:37 Temperature 97.2 F L Pulse Rate 88 88 Respiratory Rate 17 Blood Pressure 126/74 Pulse Oximetry 93 L 94 L 05/13/18 12:00 Temperature 97.9 F Pulse Rate 88 Respiratory Rate 17 Blood Pressure 122/79 Pulse Oximetry 94 L Intake & Output 05/12/18 05/13/18 05/13/18 18:59 06:59 18:59 Intake Total 2400 / 2400 1200 / 1200 200 / 200 Output Total 1200 / 1200 1400 / 1400 Balance 2400 / 2400 0 / 0 -1200 / -1200 Weight 71.1 kg Intake: IV 2400 / 2400 1200 / 1200 200 / 200 NS Inj 1,000 ML @ 100 mls/hr IV 2000 / 2000 1000 / 1000 .CONT .Q10H [facility] Rx#:[id number] Maxipime Inj 2,000 MG In NS Inj 200 / 200 100 / 100 100 ML @ 200 mls/hr IV.SIG Q8H [facility] Rx#:[id number] Maxipime Inj 2,000 MG In NS Inj 100 / 100 100 ML @ 200 mls/hr IV.SIG Q8HR [facility] Rx#:[id number] Flagyl 500 MG Inj 100 ML @ 100 200 / 200 100 / 100 100 / 100 mls/hr IV.SIG Q8H [facility] Rx#: [id number] Output: Urine 1200 / 1200 Urine Amount (Catheter) 1400 / 1400 Indwelling Urethral Catheter 1400 / 1400 Other: Date of Last Bowel Movement 05/13/18 05/08/18 20:25 Blood - Peripheral Aerobic Blood Culture - Final No growth in 5 days 05/08/18 20:25 Blood - Peripheral Anaerobic Blood Culture - Final No growth in 5 days 05/08/18 20:25 Blood - Peripheral Aerobic Blood Culture - Final No growth in 5 days 05/08/18 20:25 Blood - Peripheral Anaerobic Blood Culture - Final No growth in 5 days Lab - Hematology Results 05/12/18 05/13/18 04:54 01:38 WBC 30.7 H 35.0 H RBC 3.48 L 3.95 L Hgb 10.6 L 11.8 L Hct 31.3 L 36.4 L MCV 89.9 92.1 MCH 30.4 29.9 MCHC 33.8 32.5 RDW 14.2 14.4 Plt Count 406 467 H MPV 9.1 9.0 Prelim Diff (Auto) Slide review pending Manual diff required Neut % (Auto) 88.6 H Lymph % (Auto) 3.2 L [place] % (Auto) 7.1 Eos % (Auto) 1.0 Baso % (Auto) 0.1 Neut # (Auto) 27.2 H Lymph # (Auto) 1.0 [place] # (Auto) 2.2 H Eos # (Auto) 0.3 Baso # (Auto) 0.0 WBC Differential Manual diff final Manual diff final Seg Neuts % (Manual) 85 H 90 H Band Neuts % (Manual) 4 1 Lymphocytes % (Manual) 4 L 2 L Monocytes % (Manual) 7 5 Eosinophils % (Manual) 2 Abs Neuts (Manual) 27.3 H 31.9 H Differential Comment . . Toxic Granulation 2+ H Platelet Estimate Normal High H Platelet Morphology Normal Normal Lab - Chemistry Results 05/12/18 05/13/18 05/13/18 04:54 01:38 05:30 Sodium 146 H 143 Potassium 3.3 L 3.3 L Chloride 111 H 109 H Carbon Dioxide 28.8 29.4 Anion Gap 6 5 BUN 12 19 H Creatinine 0.64 0.73 Estimated GFR Greater than 89 Greater than 89 Random Glucose 99 149 H Calcium 8.8 9.1 Magnesium 1.7 1.7 Troponin I 0.13 H 0.22 H 05/13/18 11:09 Sodium Potassium Chloride Carbon Dioxide Anion Gap BUN Creatinine Estimated GFR Random Glucose Calcium Magnesium Troponin I 0.25 H Imaging: ITS Impressions Head CT 05/08/18 20:25 CONCLUSION: 1. No acute findings in the brain. 2. Moderately severe central and cortical atrophy. . Abdomen/Pelvis CT 05/11/18 00:00 CONCLUSION: 1. Right lower lobe infiltrate with a couple a tiny suspected intraparenchymal abscesses and loculated right effusion. This is new from the prior study. 2. Unchanged 13 mm left lower lobe pulmonary nodule. 3. Right inguinal hernia containing small bowel. 4. Colonic diverticulosis. Chest CT 05/12/18 00:00 CONCLUSION: 1. Development of a mild to moderate right pleural effusion with some fluid seen collecting over the right upper lung and in the major and minor fissures. 2. Increased density in the right lower lobe and to a lesser grade the posterior aspect of the right upper lobe likely related to atelectasis or consolidation. 3. Development of adenopathy. The rapid development of adenopathy is likely postinflammatory. 4. Underlying emphysematous and interstitial disease. Chest X-Ray 05/13/18 00:53 CONCLUSION: Increase in bilateral airspace disease, probably edema with increase in size of bilateral effusions since May 08. Physical Exam: GENERAL: Alert and oriented, no acute distress. HEENT: Pupils reactive to light. Extraocular movements intact. No icterus. NECK: Supple without adenopathy. No swelling. LUNGS: Coarse rhonchi at the right base. HEART: Regular S1 and S2. No audible murmurs. ABDOMEN: Bowel sounds present, diminished, soft, nontender. EXTREMITIES: No clubbing cyanosis or edema. SKIN: No rash NEUROLOGIC: Nonfocal PSYCH: Calm and cooperative. Assessment and Plan - Plan PNA medial right lung and right lower lung. Fever, encephalopathy UTI, PSAE panS Leukocytosis, severe - persistent. White blood cell count is higher today. + abdominal pain - probably referred from PNA Cont cefpeime for PSAE UTI, PNA Continue Flagyl. Monitor white blood cell count.
--- NOTE | 2018-05-13 16:30 | P.PN ---
Subjective Interval history: Patient is more awake and alert today he says he feels improved however last night he was noted with shortness of breath and he has experienced some chest pain troponin negative cardiology was consulted patient denies likely with CHF. Received 1 dose of Lasix by IV he has a very good urine output and is saturating well. IV fluids discontinued. Patient is not eating much. No fever or chills. Physical Exam Vital signs: Vital Signs 05/12/18 20:00 05/12/18 22:48 05/13/18 00:00 Temperature 98.7 F 97.8 F Pulse Rate 92 H 88 113 H Respiratory Rate 18 20 Blood Pressure 155/84 H 167/95 H Pulse Oximetry 92 L 93 L 05/13/18 01:03 05/13/18 01:23 05/13/18 01:30 Temperature Pulse Rate 124 H 98 H Respiratory Rate 22 20 Blood Pressure 144/94 H 156/76 H Pulse Oximetry 93 L 92 L 92 L 05/13/18 03:36 05/13/18 04:00 05/13/18 04:50 Temperature 97.8 F 98.0 F Pulse Rate 94 H 88 88 Respiratory Rate 18 18 Blood Pressure 124/72 115/75 Pulse Oximetry 95 93 L 05/13/18 08:00 05/13/18 08:37 05/13/18 12:00 Temperature 97.2 F L 97.9 F Pulse Rate 88 88 Respiratory Rate 17 17 Blood Pressure 126/74 122/79 Pulse Oximetry 93 L 94 L 94 L Intake & Output 05/12/18 05/13/18 05/13/18 18:59 06:59 18:59 Intake Total 2400 / 2400 1200 / 1200 200 / 200 Output Total 1200 / 1200 1400 / 1400 Balance 2400 / 2400 0 / 0 -1200 / -1200 Weight 71.1 kg Intake: IV 2400 / 2400 1200 / 1200 200 / 200 NS Inj 1,000 ML @ 100 mls/hr IV 2000 / 2000 1000 / 1000 .CONT .Q10H [facility] Rx#:[id number] Maxipime Inj 2,000 MG In NS Inj 200 / 200 100 / 100 100 ML @ 200 mls/hr IV.SIG Q8H [facility] Rx#:[id number] Maxipime Inj 2,000 MG In NS Inj 100 / 100 100 ML @ 200 mls/hr IV.SIG Q8HR [facility] Rx#:[id number] Flagyl 500 MG Inj 100 ML @ 100 200 / 200 100 / 100 100 / 100 mls/hr IV.SIG Q8H [facility] Rx#: [id number] Output: Urine 1200 / 1200 Urine Amount (Catheter) 1400 / 1400 Indwelling Urethral Catheter 1400 / 1400 Other: Date of Last Bowel Movement 05/13/18 Narrative: GENERAL: Thin, chronically ill-appearing elderly white male, more awake, alert and oriented HEENT: Bitemporal sunken CARDIOVASCULAR: Regular rate and rhythm. No obvious murmurs to auscultation. No chest tenderness to palpation. RESPIRATORY: No obvious rhonchi or wheezing. Clear to auscultation. Breath sounds equal bilaterally. GASTROINTESTINAL: Abdomen soft, non-tender, nondistended. BS normal. 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 Extremities without clubbing, cyanosis, or edema. No obvious deformities. NEUROLOGICAL: More awake, alert and oriented. No focal neurologic deficits. Moving both upper and lower extremities spontaneously. PSYCHIATRIC: Appropriate mood and affect. Insight and judgment very poor. - Urinary Catheter Management Indwelling Urethral Catheter Cath placed during this visit: yes Reason for continuing: Acute urinary retention Insertion date: 05/08/18 Insertion time: 21:38 Results - Labs CBC & Chem 7: 05/13/18 01:38 05/13/18 01:38 Laboratory Results - last 24 hr 05/13/18 05/13/18 05/13/18 01:14 01:38 01:38 WBC 35.0 H RBC 3.95 L Hgb 11.8 L Hct 36.4 L MCV 92.1 MCH 29.9 MCHC 32.5 RDW 14.4 Plt Count 467 H MPV 9.0 Prelim Diff (Auto) Manual diff required WBC Differential Manual diff final Seg Neuts % (Manual) 90 H Band Neuts % (Manual) 1 Lymphocytes % (Manual) 2 L Monocytes % (Manual) 5 Eosinophils % (Manual) 2 Abs Neuts (Manual) 31.9 H Differential Comment . Platelet Estimate High H Platelet Morphology Normal PT INR APTT Puncture Site Right radial Patient Temperature 98.6 O2 Saturation 91 ABG pH 7.47 H ABG pCO2 38 ABG pO2 71 ABG HCO3 27 H ABG O2 Content 18.1 ABG Base Excess 3.4 H ABG Methemoglobin 1.2 Tony Test Present Hemoglobin 14.1 Carboxyhemoglobin 1.2 O2 Delivery Device Nasal cannula Liter Flow 4.00 Critical Value No Sodium 143 Potassium 3.3 L Chloride 109 H Carbon Dioxide 29.4 Anion Gap 5 BUN 19 H Creatinine 0.73 Estimated GFR Greater than 89 Random Glucose 149 H Calcium 9.1 Magnesium 1.7 Troponin I 0.13 H 05/13/18 05/13/18 05/13/18 05:30 07:30 11:09 WBC RBC Hgb Hct MCV MCH MCHC RDW Plt Count MPV Prelim Diff (Auto) WBC Differential Seg Neuts % (Manual) Band Neuts % (Manual) Lymphocytes % (Manual) Monocytes % (Manual) Eosinophils % (Manual) Abs Neuts (Manual) Differential Comment Platelet Estimate Platelet Morphology PT 13.1 H INR 1.3 APTT 28.2 Puncture Site Patient Temperature O2 Saturation ABG pH ABG pCO2 ABG pO2 ABG HCO3 ABG O2 Content ABG Base Excess ABG Methemoglobin Tony Test Hemoglobin Carboxyhemoglobin O2 Delivery Device Liter Flow Critical Value Sodium Potassium Chloride Carbon Dioxide Anion Gap BUN Creatinine Estimated GFR Random Glucose Calcium Magnesium Troponin I 0.22 H 0.25 H 05/13/18 15:08 WBC RBC Hgb Hct MCV MCH MCHC RDW Plt Count MPV Prelim Diff (Auto) WBC Differential Seg Neuts % (Manual) Band Neuts % (Manual) Lymphocytes % (Manual) Monocytes % (Manual) Eosinophils % (Manual) Abs Neuts (Manual) Differential Comment Platelet Estimate Platelet Morphology PT INR APTT 27.8 Puncture Site Patient Temperature O2 Saturation ABG pH ABG pCO2 ABG pO2 ABG HCO3 ABG O2 Content ABG Base Excess ABG Methemoglobin Tony Test Hemoglobin Carboxyhemoglobin O2 Delivery Device Liter Flow Critical Value Sodium Potassium Chloride Carbon Dioxide Anion Gap BUN Creatinine Estimated GFR Random Glucose Calcium Magnesium Troponin I Microbiology 05/08/18 20:25 Blood - Peripheral Aerobic Blood Culture - Final No growth in 5 days 05/08/18 20:25 Blood - Peripheral Anaerobic Blood Culture - Final No growth in 5 days 05/08/18 20:25 Blood - Peripheral Aerobic Blood Culture - Final No growth in 5 days 05/08/18 20:25 Blood - Peripheral Anaerobic Blood Culture - Final No growth in 5 days - Imaging Impressions Chest X-Ray 05/13/18 00:53 CONCLUSION: Increase in bilateral airspace disease, probably edema with increase in size of bilateral effusions since May 08. Assessment and Plan - Assessment (1) Encephalopathy Code(s): G93.40 - Encephalopathy, unspecified Status: Acute (2) Sepsis Code(s): A41.9 - Sepsis, unspecified organism Status: Acute (3) UTI (urinary tract infection) Code(s): N39.0 - Urinary tract infection, site not specified Status: Acute (4) PNA (pneumonia) Code(s): J18.9 - Pneumonia, unspecified organism Status: Acute (5) Limited code status Status: Acute - Plan Encephalopathy: Not improving. Likely secondary to underlying Dementia and compounded by Acute Sepsis, CT Head w/ no acute findings, images reviewed. Neuro Checks. Sepsis: On admission temp 101 rectal, HR 81, WBC 28, Source-UTI/PNA Right lower lobe pneumonia with loculated right lung effusion and right intraparenchymal abscesses 13 mm left lower lobe pulmonary nodule, unchanged Right inguinal hernia Colonic diverticulitis follow up Blood cultures Increase cefepime, continue vanco per ID recommendations, follow up cultures, cont IVF Persistent leukocytosis. Consult infectious disease for evaluation and recommendations as above UTI: U/a w/ significant UTI, follow up urine cultures, monitor I/O, IVF, continue w/ IV Abx as above PNA: CXR w/ RML and RLL infiltrates, images reviewed, continue IV Abx, DuoNeb prn. for CT A/P on 05/11 reviewed shows Right lower lobe infiltrate with a couple a tiny suspected intraparenchymal abscesses and loculated right effusion. Unchanged 13 mm left lower lobe pulmonary nodule. Right inguinal hernia containing small bowel. Colonic diverticulosis. IR consulted for drainage Added flagyl Plan for CT chest without contrast Right lower lobe infiltrate intraparenchymal abscesses loculated right effusion. IR for drainage however lesions too small and not safe at thsi time. Will monitor, will poss repeat CT later to see if increasing in size. Added flagyl as above cont abx as above CT chest wo contrast Severe protein calorie malnutrition. Decreased appetite. Patient with bitemporal wasting, muscle wasting, weak handgrip. Low albumin and prealbumin of 4 Will check prealbumin. Add multivitamins, add Ensure to diet. Consult certified lactation counselor. Chest pain. Elevated troponins likely from demand ischemia from CHF. Check BNP. DC IVF . CXR repeat reviewed with more congestion. Received IV lasix, good UOP. Replace K as low Continue to monitor. Alternative Code: Code status discussed w/ granddaughter at length, COMPRESSIONS/SHOCK ONLY, NO INTUBATION OR ACLS. DVT Prophylaxis: SCD/Teds Case management was consulted for d/c planning as needed. Discussed with the patient, nurse, ID specialist Family can bring food from home
--- NOTE | 2018-05-13 17:17 | ECHRPT ---
Indication: HEART FAILURE CONCLUSIONS Normal left ventricular size. Wall thickness is normal. The left ventricular systolic function is severely reduced with an estimated ejection fraction in th e range of 25-30%. Trace mitral valve regurgitation. The estimated pulmonary arterial pressure is 43 mmHg. There is mild tricuspid valve regurgitation. BP: / HR: Rhythm: MEASUREMENTS (Male / Female) Normal Values Technical Quality:Very technically difficult study 2D ECHO LV Diastolic Diameter PLAX 3.4 cm 4.2 - 5.9 / 3.9 - 5.3 cm LV Systolic Diameter PLAX 2.9 cm IVS Diastolic Thickness 1.2 cm 0.6 - 1.0 / 0.6 - 0.9 cm LVPW Diastolic Thickness 1.1 cm 0.6 - 1.0 / 0.6 - 0.9 cm LV Relative Wall Thickness 0.7 LVOT Diameter 2.0 cm Aortic Root Diameter 2.6 cm LA Systolic Diameter LX 3.7 cm 3.0 - 4.0 / 2.7 - 3.8 cm LV Ejection Fraction MOD BP 40.0 % >= 55 % LV Ejection Fraction MOD 4C 38.4 % LV Ejection Fraction 4C AL 37.8 % LV Ejection Fraction MOD 2C 42.9 % LV Ejection Fraction 2C AL 42.2 % DOPPLER AV Peak Velocity 114.0 cm/s AV Peak Gradient 5.2 mmHg LVOT Peak Velocity 86.4 cm/s LVOT Peak Gradient 3.0 mmHg AV Area Cont Eq pk 2.4 cm Mitral E Point Velocity 29.8 cm/s Mitral A Point Velocity 71.6 cm/s Mitral E to A Ratio 0.4 LV E' Lateral Velocity 11.1 cm/s Mitral E to LV E' Lateral Ratio 2.7 LV E' Septal Velocity 5.9 cm/s Mitral E to LV E' Septal Ratio 5.0 TR Peak Velocity 286.0 cm/s TR Peak Gradient 32.7 mmHg Right Atrial Pressure 10.0 mmHg Pulmonary Artery Systolic Pressu 42.7 mmHg Right Ventricular Systolic Press 42.7 mmHg PV Peak Velocity 96.0 cm/s PV Peak Gradient 3.7 mmHg FINDINGS LEFT VENTRICLE Normal left ventricular size. Wall thickness is normal. The left ventricular systolic function is severely reduced with an estimated ejection fraction in th e range of 25-30%. RIGHT VENTRICLE Normal right ventricular size and systolic function. LEFT ATRIUM The left atrial size is normal. RIGHT ATRIUM The right atrial size is normal. ATRIAL SEPTUM Normal atrial septal thickness without atrial level shunting by limited color doppler interrogation. AORTA The aortic root and proximal ascending aorta are normal in size on limited imaging. MITRAL VALVE Trace mitral valve regurgitation. AORTIC VALVE Trileaflet aortic valve. No aortic valve stenosis or regurgitation. TRICUSPID VALVE The estimated pulmonary arterial pressure is 43 mmHg. There is mild tricuspid valve regurgitation. PULMONARY VALVE No pulmonary valve regurgitation or stenosis. VESSELS The inferior vena cava is normal in size. PERICARDIUM No pericardial effusion. Tico Martin MD, FACC, [facility] [place] (Electronically Signed) Final Date:13 May 2018 17:15
[2018-05-13] MEDS: Montelukast 10 MG Tablet PO SCH (17:48)
--- NOTE | 2018-05-13 19:59 | ECG ---
Date Performed: 05/13/2018 Time Performed: 01:13:35 PTAGE: 82 years EKG: SINUS TACHYCARDIA LEFT ANTERIOR FASCICULAR BLOCK RIGHT BUNDLE BRANCH BLOCK NONSPECIFIC ST & T-WAVE ABNORMALITY SUSPECT INCORRECT V1 LEAD PLACEMENT, NEW FROM THE PRIOR TRACING ABNORMAL ECG NO PREVIOUS TRACING DOCTOR: Fausto Soriano Interpretating Date/Time 05/13/2018 19:57:51
[2018-05-13] MEDS: Enoxaparin Inj 30 MG/0.3 ML Syringe SQ SCH (22:26)
[2018-05-14 07:47] LABS: Baso # (Auto) 0.1 th/mm3 (0.0-0.2); Baso % (Auto) 0.3 % (0.0-2.0); Eos % (Auto) 3.6 % (0.0-4.0); Hematocrit 31.9 % (39.0-51.0); Hemoglobin 10.8 gm/dL (13.0-17.0); Lymph # (Auto) 1.4 th/mm3 (1.0-4.8); Lymph % (Auto) 4.9 % (9.0-44.0); Mean Corpuscular HGB Conc 33.9 % (32.0-36.0); Mean Corpuscular Hemoglobin 30.6 pg (27.0-34.0); Mean Corpuscular Volume 90.2 fL (80.0-100.0); Mean Platelet Volume 9.3 fL (7.0-11.0); Mono % (Auto) 7.3 % (0.0-8.0); Neut # (Auto) 23.5 th/mm3 (1.8-7.7); Neut % (Auto) 83.9 % (16.0-70.0); Platelet Count 409 th/mm3 (150-450); Red Blood Count 3.53 mil/mm3 (4.50-5.90); Red Cell Distribution Width 14.8 % (11.6-17.2)
[2018-05-14 08:06] LABS: Albumin 1.5 g/dL (3.4-5.0); Anion Gap 8 meq/L (5-15); Aspartate Aminotransferase 42 U/L (15-37); Blood Urea Nitrogen 22 mg/dL (7-18); Calcium 8.8 mg/dL (8.5-10.1); Chloride 106 meq/L (98-107); Glomerular Filtration Rate Greater Than 89 mL/min (>89); Glucose,Random 100 mg/dL (74-106); Potassium 3.5 meq/L (3.5-5.1); Sodium 144 meq/L (136-145)
[2018-05-14 08:07] LABS: Alanine Aminotransferase 70 U/L (12-78)
[2018-05-14 08:10] LABS: Alkaline Phosphatase 99 U/L (45-117); Total Protein 6.2 g/dL (6.4-8.2)
[2018-05-14] MEDS: Senna/Docusate Sodium 8.6/50 MG Tablet PO SCH ×2 (09:36→21:05)
[2018-05-14] MEDS: Magnesium Oxide 400 MG Tablet PO SCH (09:36)
--- NOTE | 2018-05-14 09:36 | P.PN ---
Subjective Interval history: The patient is in bed he appears tired and chronically ill. Not eating much. No fever or chills overnight has a nonproductive cough. No urinary complaints. No abdominal pain. Feels very weak. Physical Exam Vital signs: Vital Signs 05/13/18 12:00 05/13/18 16:00 05/13/18 20:00 Temperature 97.9 F 98.2 F 98.3 F Pulse Rate 88 81 91 H Respiratory Rate 17 18 22 Blood Pressure 122/79 124/82 131/78 Pulse Oximetry 94 L 94 L 92 L 05/13/18 21:23 05/13/18 21:25 05/14/18 00:00 Temperature 97.8 F Pulse Rate 94 H Respiratory Rate 22 Blood Pressure 141/91 H Pulse Oximetry 93 L 92 L 96 05/14/18 04:00 05/14/18 08:00 Temperature 98.0 F 98.5 F Pulse Rate 88 78 Respiratory Rate 20 17 Blood Pressure 146/80 H 114/58 L Pulse Oximetry 94 L 94 L Intake & Output 05/13/18 05/14/18 05/14/18 18:59 06:59 18:59 Intake Total 1500 / 1500 300 / 300 200 / 200 Output Total 3600 / 3600 650 / 650 Balance -2100 / -2100 -350 / -350 200 / 200 Weight 68.1 kg Intake: IV 300 / 300 300 / 300 200 / 200 Maxipime Inj 2,000 MG In NS Inj 200 / 200 100 / 100 100 / 100 100 ML @ 200 mls/hr IV.SIG Q8HR [facility] Rx#:[id number] Flagyl 500 MG Inj 100 ML @ 100 100 / 100 200 / 200 100 / 100 mls/hr IV.SIG Q8H [facility] Rx#: [id number] Oral 1200 / 1200 Output: Urine 2200 / 2200 Urine Amount (Catheter) 1400 / 1400 650 / 650 Indwelling Urethral Catheter 1400 / 1400 650 / 650 Other: # Incontinent Voids 3 Date of Last Bowel Movement 05/13/18 # Bowel Movements 0 Narrative: GENERAL: Thin, chronically ill-appearing elderly white male, more awake, alert and oriented HEENT: Bitemporal sunken CARDIOVASCULAR: Regular rate and rhythm. No obvious murmurs to auscultation. No chest tenderness to palpation. RESPIRATORY: No obvious rhonchi or wheezing. Clear to auscultation. Breath sounds equal bilaterally. GASTROINTESTINAL: Abdomen soft, non-tender, nondistended. BS normal. 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 Extremities without clubbing, cyanosis, or edema. No obvious deformities. NEUROLOGICAL: More awake, alert and oriented. No focal neurologic deficits. Moving both upper and lower extremities spontaneously. PSYCHIATRIC: Appropriate mood and affect. Insight and judgment very poor. - Urinary Catheter Management Indwelling Urethral Catheter Cath placed during this visit: yes, but has since been removed by the nurse Reason for continuing: Decision to DC catheter Insertion date: 05/08/18 Insertion time: 21:38 Removal date: 05/13/18 Removal time: 17:00 Results - Labs CBC & Chem 7: 05/14/18 05:39 05/14/18 05:39 Laboratory Results - last 24 hr 05/13/18 05/13/18 05/13/18 01:38 11:09 15:08 WBC RBC Hgb Hct MCV MCH MCHC RDW Plt Count MPV Prelim Diff (Auto) Neut % (Auto) Lymph % (Auto) [place] % (Auto) Eos % (Auto) Baso % (Auto) Neut # (Auto) Lymph # (Auto) [place] # (Auto) Eos # (Auto) Baso # (Auto) Differential Comment APTT 27.8 Sodium Potassium Chloride Carbon Dioxide Anion Gap BUN Creatinine Estimated GFR Random Glucose Calcium Total Bilirubin AST ALT Alkaline Phosphatase Troponin I 0.25 H B-Natriuretic Peptide 1420 H Total Protein Albumin 05/14/18 05/14/18 05:39 05:39 WBC 28.0 H RBC 3.53 L Hgb 10.8 L Hct 31.9 L MCV 90.2 MCH 30.6 MCHC 33.9 RDW 14.8 Plt Count 409 MPV 9.3 Prelim Diff (Auto) Slide review pending Neut % (Auto) 83.9 H Lymph % (Auto) 4.9 L [place] % (Auto) 7.3 Eos % (Auto) 3.6 Baso % (Auto) 0.3 Neut # (Auto) 23.5 H Lymph # (Auto) 1.4 [place] # (Auto) 2.0 H Eos # (Auto) 1.0 H Baso # (Auto) 0.1 Differential Comment . APTT Sodium 144 Potassium 3.5 Chloride 106 Carbon Dioxide 30.0 Anion Gap 8 BUN 22 H Creatinine 0.74 Estimated GFR Greater than 89 Random Glucose 100 Calcium 8.8 Total Bilirubin 0.3 AST 42 H ALT 70 Alkaline Phosphatase 99 Troponin I B-Natriuretic Peptide Total Protein 6.2 L Albumin 1.5 L Microbiology 05/08/18 20:25 Blood - Peripheral Aerobic Blood Culture - Final No growth in 5 days 05/08/18 20:25 Blood - Peripheral Anaerobic Blood Culture - Final No growth in 5 days 05/08/18 20:25 Blood - Peripheral Aerobic Blood Culture - Final No growth in 5 days 05/08/18 20:25 Blood - Peripheral Anaerobic Blood Culture - Final No growth in 5 days Assessment and Plan - Assessment (1) Encephalopathy Code(s): G93.40 - Encephalopathy, unspecified Status: Acute (2) Sepsis Code(s): A41.9 - Sepsis, unspecified organism Status: Acute (3) UTI (urinary tract infection) Code(s): N39.0 - Urinary tract infection, site not specified Status: Acute (4) PNA (pneumonia) Code(s): J18.9 - Pneumonia, unspecified organism Status: Acute (5) Limited code status Status: Acute - Plan Encephalopathy: Not improving. Likely secondary to underlying Dementia and compounded by Acute Sepsis, CT Head w/ no acute findings, images reviewed. Neuro Checks. Sepsis: On admission temp 101 rectal, HR 81, WBC 28, Source-UTI/PNA Right lower lobe pneumonia with loculated right lung effusion and right intraparenchymal abscesses 13 mm left lower lobe pulmonary nodule, unchanged Right inguinal hernia Colonic diverticulitis follow up Blood cultures Increase cefepime, continue vanco per ID recommendations, follow up cultures, cont IVF Persistent leukocytosis. Consult infectious disease for evaluation and recommendations as above UTI: U/a w/ significant UTI, follow up urine cultures, monitor I/O, IVF, continue w/ IV Abx as above PNA: CXR w/ RML and RLL infiltrates, images reviewed, continue IV Abx, DuoNeb prn. for CT A/P on 05/11 reviewed shows Right lower lobe infiltrate with a couple a tiny suspected intraparenchymal abscesses and loculated right effusion. Unchanged 13 mm left lower lobe pulmonary nodule. Right inguinal hernia containing small bowel. Colonic diverticulosis. IR consulted for drainage Added flagyl Plan for CT chest without contrast Right lower lobe infiltrate intraparenchymal abscesses loculated right effusion. IR for drainage however lesions too small and not safe at si time. Will monitor, will poss repeat CT later to see if increasing in size. Added flagyl as above cont abx as above CT chest wo contrast Severe protein calorie malnutrition. Decreased appetite. Patient with bitemporal wasting, muscle wasting, weak handgrip. Low albumin and prealbumin of 4 Will check prealbumin. Add multivitamins, add Ensure to diet. Consult timber buyer. Chest pain. Elevated troponins likely from demand ischemia from CHF. Check BNP. DC IVF . CXR repeat reviewed with more congestion. Received IV lasix, good UOP. Replace K as low Continue to monitor. Alternative Code: Code status discussed w/ granddaughter at length, COMPRESSIONS/SHOCK ONLY, NO INTUBATION OR ACLS. DVT Prophylaxis: SCD/Teds Case management was consulted for d/c planning as needed. Discussed with the patient, nurse, ID specialist Family can bring food from home
[2018-05-14 09:39] LABS: Eosinophils 2 % (0-4); Monocytes 9 % (0-8); Platelet Morphology Normal (Normal); Promyelocyte 1 % (0-0); Toxic Granulation 1+
[2018-05-14] MEDS: Enoxaparin Inj 30 MG/0.3 ML Syringe SQ SCH ×2 (09:41→21:04)
[2018-05-14] MEDS: Potassium Chloride 10 MEQ ER Capsule PO SCH ×2 (09:50→21:07)
[2018-05-14] MEDS: Montelukast 10 MG Tablet PO SCH (17:14)
[2018-05-15 07:26] LABS: Baso # (Auto) 0.1 th/mm3 (0.0-0.2); Baso % (Auto) 0.3 % (0.0-2.0); Eos # (Auto) 1.1 th/mm3 (0.0-0.4); Eos % (Auto) 4.1 % (0.0-4.0); Hemoglobin 11.4 gm/dL (13.0-17.0); Lymph # (Auto) 1.6 th/mm3 (1.0-4.8); Lymph % (Auto) 6.2 % (9.0-44.0); Mean Corpuscular HGB Conc 33.6 % (32.0-36.0); Mean Corpuscular Hemoglobin 30.6 pg (27.0-34.0); Mean Corpuscular Volume 91.1 fL (80.0-100.0); Mean Platelet Volume 9.3 fL (7.0-11.0); Mono # (Auto) 1.9 th/mm3 (0.0-0.9); Mono % (Auto) 7.1 % (0.0-8.0); Neut # (Auto) 21.5 th/mm3 (1.8-7.7); Neut % (Auto) 82.3 % (16.0-70.0); Platelet Count 416 th/mm3 (150-450); Red Blood Count 3.73 mil/mm3 (4.50-5.90); Red Cell Distribution Width 14.8 % (11.6-17.2); White Blood Count 26.2 th/mm3 (4.0-11.0)
[2018-05-15 07:32] LABS: Calcium 8.9 mg/dL (8.5-10.1); Carbon Dioxide 32.2 meq/L (21.0-32.0); Potassium 3.9 meq/L (3.5-5.1)
[2018-05-15] MEDS: Enoxaparin Inj 30 MG/0.3 ML Syringe SQ SCH ×2 (08:46→20:28)
[2018-05-15] MEDS: Senna/Docusate Sodium 8.6/50 MG Tablet PO SCH ×2 (08:46→20:28)
[2018-05-15 08:52] LABS: Eosinophils 2 % (0-4); Lymphocytes 8 % (9-44); Metamyelocytes 1 % (0-1); Monocytes 3 % (0-8); Myelocytes 1 % (0-0); Platelet Morphology Normal (Normal); Tallied Nucleated RBC 1 (0-0); Toxic Granulation 1+
--- NOTE | 2018-05-15 13:12 | P.PN ---
Subjective Interval history: He is in bed appears in not acute distress at this time. Says he is not coughing. Some shortness of breath. No nausea vomiting no diarrhea or constipation. Appetite is improving some but still not eating much. Physical Exam Vital signs: Vital Signs 05/14/18 16:00 05/14/18 18:08 05/14/18 20:00 Temperature 97.6 F 98.6 F Pulse Rate 100 H 86 Respiratory Rate 17 21 Blood Pressure 129/79 139/80 Pulse Oximetry 96 96 97 05/15/18 00:00 05/15/18 03:39 05/15/18 04:45 Temperature 97.7 F 98.2 F Pulse Rate 68 81 83 Respiratory Rate 21 21 Blood Pressure 139/74 121/71 Pulse Oximetry 99 96 05/15/18 08:00 05/15/18 12:00 Temperature 98.3 F 98.2 F Pulse Rate 73 75 Respiratory Rate 19 20 Blood Pressure 116/61 119/63 Pulse Oximetry 96 95 Intake & Output 05/14/18 05/15/18 05/15/18 18:59 06:59 18:59 Intake Total 400 / 400 880 / 880 100 / 100 Output Total 2600 / 2600 Balance 400 / 400 -1720 / -1720 100 / 100 Weight 69 kg Intake: IV 400 / 400 300 / 300 100 / 100 Maxipime Inj 2,000 MG In NS Inj 200 / 200 200 / 200 100 ML @ 200 mls/hr IV.SIG Q8HR MILY Rx#:[id number] Flagyl 500 MG Inj 100 ML @ 100 200 / 200 100 / 100 100 / 100 mls/hr IV.SIG Q8H MILY Rx#: [id number] Oral 580 / 580 Output: Urine 2600 / 2600 Other: # Voids 1 1 Date of Last Bowel Movement 05/13/18 # Bowel Movements 1 Narrative: GENERAL: Thin, chronically ill-appearing elderly white male, more awake, alert and oriented HEENT: Bitemporal sunken CARDIOVASCULAR: Regular rate and rhythm. No obvious murmurs to auscultation. No chest tenderness to palpation. RESPIRATORY: No obvious rhonchi or wheezing. Clear to auscultation. Breath sounds equal bilaterally. GASTROINTESTINAL: Abdomen soft, non-tender, nondistended. BS normal. 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 Extremities without clubbing, cyanosis, or edema. No obvious deformities. NEUROLOGICAL: More awake, alert and oriented. No focal neurologic deficits. Moving both upper and lower extremities spontaneously. PSYCHIATRIC: Appropriate mood and affect. Insight and judgment very poor. - Urinary Catheter Management Indwelling Urethral Catheter Cath placed during this visit: yes, but has since been removed by the nurse Reason for continuing: Decision to DC catheter Insertion date: 05/08/18 Insertion time: 21:38 Removal date: 05/13/18 Removal time: 17:00 Results - Labs CBC & Chem 7: 05/15/18 06:18 05/15/18 06:18 Laboratory Results - last 24 hr 05/15/18 05/15/18 06:18 06:18 WBC 26.2 H RBC 3.73 L Hgb 11.4 L Hct 34.0 L MCV 91.1 MCH 30.6 MCHC 33.6 RDW 14.8 Plt Count 416 MPV 9.3 Prelim Diff (Auto) Slide review pending Neut % (Auto) 82.3 H Lymph % (Auto) 6.2 L Brooks % (Auto) 7.1 Eos % (Auto) 4.1 H Baso % (Auto) 0.3 Neut # (Auto) 21.5 H Lymph # (Auto) 1.6 [place] # (Auto) 1.9 H Eos # (Auto) 1.1 H Baso # (Auto) 0.1 WBC Differential Manual diff final Seg Neuts % (Manual) 85 H Lymphocytes % (Manual) 8 L Monocytes % (Manual) 3 Eosinophils % (Manual) 2 Metamyelocytes % (Man) 1 Myelocytes % (Man) 1 H Abs Neuts (Manual) 22.8 H Nucleated RBCs/100 WBC 1 H Differential Comment . Toxic Granulation 1+ H Platelet Estimate High H Platelet Morphology Normal Sodium 141 Potassium 3.9 Chloride 101 Carbon Dioxide 32.2 H Anion Gap 8 BUN 24 H Creatinine 0.89 Estimated GFR 82 L Random Glucose 104 Calcium 8.9 Assessment and Plan - Assessment (1) Encephalopathy Code(s): G93.40 - Encephalopathy, unspecified Status: Acute (2) Sepsis Code(s): A41.9 - Sepsis, unspecified organism Status: Acute (3) UTI (urinary tract infection) Code(s): N39.0 - Urinary tract infection, site not specified Status: Acute (4) PNA (pneumonia) Code(s): J18.9 - Pneumonia, unspecified organism Status: Acute (5) Limited code status Status: Acute - Plan Encephalopathy: Not improving. Likely secondary to underlying Dementia and compounded by Acute Sepsis, CT Head w/ no acute findings, images reviewed. Neuro Checks. Sepsis: On admission temp 101 rectal, HR 81, WBC 28, Source-UTI/PNA Right lower lobe pneumonia with loculated right lung effusion and right intraparenchymal abscesses 13 mm left lower lobe pulmonary nodule, unchanged Right inguinal hernia Colonic diverticulitis follow up Blood cultures Increase cefepime, continue vanco per ID recommendations, follow up cultures, cont IVF Persistent leukocytosis. Consult infectious disease for evaluation and recommendations as above UTI: U/a w/ significant UTI, follow up urine cultures, monitor I/O, IVF, continue w/ IV Abx as above PNA: CXR w/ RML and RLL infiltrates, images reviewed, continue IV Abx, DuoNeb prn. for CT A/P on 05/11 reviewed shows Right lower lobe infiltrate with a couple a tiny suspected intraparenchymal abscesses and loculated right effusion. Unchanged 13 mm left lower lobe pulmonary nodule. Right inguinal hernia containing small bowel. Colonic diverticulosis. IR consulted for drainage Added flagyl Plan for CT chest without contrast Right lower lobe infiltrate intraparenchymal abscesses loculated right effusion. IR for drainage however lesions too small and not safe at thsi time. Will monitor, will poss repeat CT later to see if increasing in size. Added flagyl as above cont abx as above CT chest wo contrast Severe protein calorie malnutrition. Decreased appetite. Patient with bitemporal wasting, muscle wasting, weak handgrip. Low albumin and prealbumin of 4 Will check prealbumin. Add multivitamins, add Ensure to diet. Consult clinical rehabilitation liaison. Chest pain. Elevated troponins likely from demand ischemia from CHF. BNP is elevated. DC IVF . CXR repeat reviewed with more congestion. Received IV lasix , good UOP. Continue lasix. Monitor kidney function and also monitor UOP Replace K as low Continue to monitor. Alternative Code: Code status discussed w/ granddaughter at length, COMPRESSIONS/SHOCK ONLY, NO INTUBATION OR ACLS. DVT Prophylaxis: SCD/Teds Case management was consulted for d/c planning as needed. Discussed with the patient, nurse, ID specialist Family can bring food from home
[2018-05-15] MEDS ORDERED: Furosemide 20 MG Tablet PO ONE (17:48)
[2018-05-15] MEDS: Montelukast 10 MG Tablet PO SCH (18:10)
[2018-05-16 07:24] LABS: Baso # (Auto) 0.1 th/mm3 (0.0-0.2); Baso % (Auto) 0.3 % (0.0-2.0); Eos # (Auto) 1.4 th/mm3 (0.0-0.4); Hematocrit 32.7 % (39.0-51.0); Hemoglobin 10.8 gm/dL (13.0-17.0); Lymph # (Auto) 1.5 th/mm3 (1.0-4.8); Lymph % (Auto) 6.4 % (9.0-44.0); Mean Corpuscular HGB Conc 33.1 % (32.0-36.0); Mean Corpuscular Hemoglobin 29.9 pg (27.0-34.0); Mean Corpuscular Volume 90.5 fL (80.0-100.0); Mean Platelet Volume 8.7 fL (7.0-11.0); Mono # (Auto) 1.4 th/mm3 (0.0-0.9); Neut # (Auto) 19.1 th/mm3 (1.8-7.7); Neut % (Auto) 81.3 % (16.0-70.0); Platelet Count 429 th/mm3 (150-450); Red Blood Count 3.61 mil/mm3 (4.50-5.90); Red Cell Distribution Width 14.7 % (11.6-17.2); White Blood Count 23.5 th/mm3 (4.0-11.0)
[2018-05-16 07:42] LABS: Anion Gap 4 meq/L (5-15); Blood Urea Nitrogen 21 mg/dL (7-18); Carbon Dioxide 32.3 meq/L (21.0-32.0); Chloride 103 meq/L (98-107); Glomerular Filtration Rate Greater Than 89 mL/min (>89); Glucose,Random 110 mg/dL (74-106); Potassium 3.6 meq/L (3.5-5.1); Sodium 139 meq/L (136-145)
--- NOTE | 2018-05-16 08:52 | P.PN ---
Subjective Interval history: He is pleasantly confused. Still not eating much we will add Megace. No nausea or vomiting. No chest pain or abdominal pain. Has been afebrile overnight. Physical Exam Vital signs: Vital Signs 05/15/18 12:00 05/15/18 16:00 05/15/18 18:07 Temperature 98.2 F 98.0 F Pulse Rate 75 78 Respiratory Rate 20 19 Blood Pressure 119/63 114/60 Pulse Oximetry 95 97 93 L 05/15/18 20:00 05/16/18 00:00 05/16/18 04:00 Temperature 98.3 F 98.4 F 98.9 F Pulse Rate 69 86 69 Respiratory Rate 18 21 18 Blood Pressure 141/73 H 139/72 109/55 L Pulse Oximetry 94 L 97 97 Intake & Output 05/15/18 05/16/18 05/16/18 18:59 06:59 18:59 Intake Total 1100 / 1100 880 / 880 100 / 100 Output Total 850 / 850 1700 / 1700 Balance 250 / 250 -820 / -820 100 / 100 Weight 60 kg Intake: IV 200 / 200 400 / 400 100 / 100 Maxipime Inj 2,000 MG In NS Inj 100 / 100 200 / 200 100 ML @ 200 mls/hr IV.SIG Q8HR MILY Rx#:[id number] Flagyl 500 MG Inj 100 ML @ 100 100 / 100 200 / 200 100 / 100 mls/hr IV.SIG Q8H MILY Rx#: [id number] Oral 900 / 900 480 / 480 Output: Urine 850 / 850 1700 / 1700 Other: Date of Last Bowel Movement 05/15/18 # Bowel Movements 0 3 Narrative: GENERAL: Thin, chronically ill-appearing elderly white male, pleasantly confused. HEENT: Bitemporal sunken CARDIOVASCULAR: Regular rate and rhythm. No obvious murmurs to auscultation. No chest tenderness to palpation. RESPIRATORY: No obvious rhonchi or wheezing. Clear to auscultation. Breath sounds equal bilaterally. GASTROINTESTINAL: Abdomen soft, non-tender, nondistended. BS normal. 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 Extremities without clubbing, cyanosis, or edema. No obvious deformities. NEUROLOGICAL: More awake, alert and oriented. No focal neurologic deficits. Moving both upper and lower extremities spontaneously. PSYCHIATRIC: Appropriate mood and affect. Insight and judgment very poor. - Urinary Catheter Management Indwelling Urethral Catheter Cath placed during this visit: yes, but has since been removed by the nurse Reason for continuing: Decision to DC catheter Insertion date: 05/08/18 Insertion time: 21:38 Removal date: 05/13/18 Removal time: 17:00 Results - Labs CBC & Chem 7: 05/16/18 06:48 05/16/18 06:48 Laboratory Results - last 24 hr 05/15/18 05/16/18 05/16/18 06:18 06:48 06:48 WBC 23.5 H RBC 3.61 L Hgb 10.8 L Hct 32.7 L MCV 90.5 MCH 29.9 MCHC 33.1 RDW 14.7 Plt Count 429 MPV 8.7 Neut % (Auto) 81.3 H Lymph % (Auto) 6.4 L [place] % (Auto) 6.0 Eos % (Auto) 6.0 H Baso % (Auto) 0.3 Neut # (Auto) 19.1 H Lymph # (Auto) 1.5 [place] # (Auto) 1.4 H Eos # (Auto) 1.4 H Baso # (Auto) 0.1 WBC Differential Manual diff final . Seg Neuts % (Manual) 85 H Lymphocytes % (Manual) 8 L Monocytes % (Manual) 3 Eosinophils % (Manual) 2 Metamyelocytes % (Man) 1 Myelocytes % (Man) 1 H Abs Neuts (Manual) 22.8 H Nucleated RBCs/100 WBC 1 H Differential Comment Auto diff final Toxic Granulation 1+ H Platelet Estimate High H Platelet Morphology Normal Sodium 139 Potassium 3.6 Chloride 103 Carbon Dioxide 32.3 H Anion Gap 4 L BUN 21 H Creatinine 0.81 Estimated GFR Greater than 89 Random Glucose 110 H Calcium 9.0 Assessment and Plan - Assessment (1) Encephalopathy Code(s): G93.40 - Encephalopathy, unspecified Status: Acute (2) Sepsis Code(s): A41.9 - Sepsis, unspecified organism Status: Acute (3) UTI (urinary tract infection) Code(s): N39.0 - Urinary tract infection, site not specified Status: Acute (4) PNA (pneumonia) Code(s): J18.9 - Pneumonia, unspecified organism Status: Acute (5) Limited code status Status: Acute - Plan Encephalopathy: Not improving. Likely secondary to underlying Dementia and compounded by Acute Sepsis, CT Head w/ no acute findings, images reviewed. Neuro Checks. Sepsis: On admission temp 101 rectal, HR 81, WBC 28, Source-UTI/PNA. PSAE UTI, PNA Right lower lobe pneumonia with loculated right lung effusion and right intraparenchymal abscesses 13 mm left lower lobe pulmonary nodule, unchanged Right inguinal hernia Colonic diverticulitis follow up Blood cultures Increase cefepime, continue Flagyl per ID recommendations, follow up cultures , cont IVF Persistent leukocytosis. Consult infectious disease for evaluation and recommendations as above UTI: U/a w/ significant UTI, follow up urine cultures, monitor I/O, IVF, continue w/ IV Abx as above PNA: CXR w/ RML and RLL infiltrates, images reviewed, continue IV Abx, DuoNeb prn. for CT A/P on 05/11 reviewed shows Right lower lobe infiltrate with a couple a tiny suspected intraparenchymal abscesses and loculated right effusion. Unchanged 13 mm left lower lobe pulmonary nodule. Right inguinal hernia containing small bowel. Colonic diverticulosis. IR consulted for drainage Added flagyl Plan for repeat CT chest next week Cont cefepime and Flagyl per ID recommendation . Monitor white blood cell count. Slightly improved Right lower lobe infiltrate intraparenchymal abscesses loculated right effusion. IR for drainage however lesions too small and not safe at thsi time. Will monitor, will poss repeat CT later to see if increasing in size. Added flagyl as above cont abx as above CT chest wo contrast Severe protein calorie malnutrition. Decreased appetite. Patient with bitemporal wasting, muscle wasting, weak handgrip. Low albumin and prealbumin of 4 Will check prealbumin. Add multivitamins, add Ensure to diet. 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 Chest pain. Elevated troponins likely from demand ischemia from CHF. BNP is elevated. DC IVF . CXR repeat reviewed with more congestion. Received IV lasix , good UOP. Continue lasix. Monitor kidney function and also monitor UOP Replace K as low Continue to monitor. Alternative Code: Code status discussed w/ granddaughter at length, COMPRESSIONS/SHOCK ONLY, NO INTUBATION OR ACLS. DVT Prophylaxis: SCD/Teds Case management was consulted for d/c planning as needed. Discussed with the patient, nurse, ID specialist Family can bring food from home
[2018-05-16] MEDS: Enoxaparin Inj 30 MG/0.3 ML Syringe SQ SCH ×2 (10:51→22:21)
[2018-05-16] MEDS: Senna/Docusate Sodium 8.6/50 MG Tablet PO SCH ×2 (10:52→22:21)
--- NOTE | 2018-05-16 13:17 | P.PNID ---
Subjective Remarks: Idoing OK afebrile no new problems WBC going down to23 K CXR with icreasing opaciities Antibiotics: flagyl cefepime Allergies/Adverse Reactions: Allergies No Known Allergies Allergy (Verified 05/08/18 20:16) Objective Vital Signs 05/15/18 16:00 05/15/18 18:07 05/15/18 20:00 Temperature 98.0 F 98.3 F Pulse Rate 78 69 Respiratory Rate 19 18 Blood Pressure 114/60 141/73 H Pulse Oximetry 97 93 L 94 L 05/16/18 00:00 05/16/18 04:00 05/16/18 08:00 Temperature 98.4 F 98.9 F 98.1 F Pulse Rate 86 69 61 Respiratory Rate 21 18 17 Blood Pressure 139/72 109/55 L 135/68 Pulse Oximetry 97 97 98 05/16/18 11:09 05/16/18 12:00 Temperature 98.3 F Pulse Rate 76 Respiratory Rate 17 Blood Pressure 116/68 Pulse Oximetry 98 98 Intake & Output 05/15/18 05/16/18 05/16/18 18:59 06:59 18:59 Intake Total 1100 / 1100 880 / 880 100 / 100 Output Total 850 / 850 1700 / 1700 Balance 250 / 250 -820 / -820 100 / 100 Weight 60 kg Intake: IV 200 / 200 400 / 400 100 / 100 Maxipime Inj 2,000 MG In NS Inj 100 / 100 200 / 200 100 ML @ 200 mls/hr IV.SIG Q8HR MILY Rx#:[id number] Flagyl 500 MG Inj 100 ML @ 100 100 / 100 200 / 200 100 / 100 mls/hr IV.SIG Q8H MILY Rx#: [id number] Oral 900 / 900 480 / 480 Output: Urine 850 / 850 1700 / 1700 Other: Date of Last Bowel Movement 05/15/18 # Bowel Movements 0 3 05/08/18 20:25 Blood - Peripheral Aerobic Blood Culture - Final No growth in 5 days 05/08/18 20:25 Blood - Peripheral Anaerobic Blood Culture - Final No growth in 5 days 05/08/18 20:25 Blood - Peripheral Aerobic Blood Culture - Final No growth in 5 days 05/08/18 20:25 Blood - Peripheral Anaerobic Blood Culture - Final No growth in 5 days Lab - Hematology Results 05/15/18 05/16/18 06:18 06:48 WBC 26.2 H 23.5 H RBC 3.73 L 3.61 L Hgb 11.4 L 10.8 L Hct 34.0 L 32.7 L MCV 91.1 90.5 MCH 30.6 29.9 MCHC 33.6 33.1 RDW 14.8 14.7 Plt Count 416 429 MPV 9.3 8.7 Prelim Diff (Auto) Slide review pending Neut % (Auto) 82.3 H 81.3 H Lymph % (Auto) 6.2 L 6.4 L [place] % (Auto) 7.1 6.0 Eos % (Auto) 4.1 H 6.0 H Baso % (Auto) 0.3 0.3 Neut # (Auto) 21.5 H 19.1 H Lymph # (Auto) 1.6 1.5 [place] # (Auto) 1.9 H 1.4 H Eos # (Auto) 1.1 H 1.4 H Baso # (Auto) 0.1 0.1 WBC Differential Manual diff final . Seg Neuts % (Manual) 85 H Lymphocytes % (Manual) 8 L Monocytes % (Manual) 3 Eosinophils % (Manual) 2 Metamyelocytes % (Man) 1 Myelocytes % (Man) 1 H Abs Neuts (Manual) 22.8 H Nucleated RBCs/100 WBC 1 H Differential Comment . Auto diff final Toxic Granulation 1+ H Platelet Estimate High H Platelet Morphology Normal Lab - Chemistry Results 05/15/18 05/16/18 06:18 06:48 Sodium 141 139 Potassium 3.9 3.6 Chloride 101 103 Carbon Dioxide 32.2 H 32.3 H Anion Gap 8 4 L BUN 24 H 21 H Creatinine 0.89 0.81 Estimated GFR 82 L Greater than 89 Random Glucose 104 110 H Calcium 8.9 9.0 Imaging: ITS Impressions Head CT 05/08/18 20:25 CONCLUSION: 1. No acute findings in the brain. 2. Moderately severe central and cortical atrophy. . Abdomen/Pelvis CT 05/11/18 00:00 CONCLUSION: 1. Right lower lobe infiltrate with a couple a tiny suspected intraparenchymal abscesses and loculated right effusion. This is new from the prior study. 2. Unchanged 13 mm left lower lobe pulmonary nodule. 3. Right inguinal hernia containing small bowel. 4. Colonic diverticulosis. Chest CT 05/12/18 00:00 CONCLUSION: 1. Development of a mild to moderate right pleural effusion with some fluid seen collecting over the right upper lung and in the major and minor fissures. 2. Increased density in the right lower lobe and to a lesser grade the posterior aspect of the right upper lobe likely related to atelectasis or consolidation. 3. Development of adenopathy. The rapid development of adenopathy is likely postinflammatory. 4. Underlying emphysematous and interstitial disease. Chest X-Ray 05/13/18 00:53 CONCLUSION: Increase in bilateral airspace disease, probably edema with increase in size of bilateral effusions since May 08. Physical Exam: GENERAL: Alert and oriented, no acute distress. HEENT: Pupils reactive to light. Extraocular movements intact. No icterus. NECK: Supple without adenopathy. No swelling. LUNGS: Coarse BS at the right base. por effort HEART: Regular S1 and S2. No audible murmurs. ABDOMEN: Bowel sounds present, diminished, soft, nontender. EXTREMITIES: No clubbing cyanosis or edema. SKIN: No rash NEUROLOGIC: Nonfocal PSYCH: Calm and cooperative. Assessment and Plan - Plan PNA medial right lung and right lower lung. clinically improving on empiric abx Fever, encephalopathy UTI, PSAE panS Leukocytosis, severe - persistent. White blood cell count is higher today. + abdominal pain - probably referred from PNA Cont cefpeime for PSAE UTI, PNA Continue Flagyl. Monitor white blood cell count. CT chest nxt wk
[2018-05-16] MEDS: Montelukast 10 MG Tablet PO SCH (18:22)
[2018-05-16] MEDS: Megestrol Acetate Liq 400 MG/10 ML UDC PO SCH (18:22)
[2018-05-17 07:14] LABS: Baso # (Auto) 0.1 th/mm3 (0.0-0.2); Baso % (Auto) 0.5 % (0.0-2.0); Eos # (Auto) 1.3 th/mm3 (0.0-0.4); Eos % (Auto) 5.2 % (0.0-4.0); Hematocrit 31.3 % (39.0-51.0); Hemoglobin 10.3 gm/dL (13.0-17.0); Lymph # (Auto) 2.1 th/mm3 (1.0-4.8); Lymph % (Auto) 8.5 % (9.0-44.0); Mean Corpuscular Hemoglobin 30.2 pg (27.0-34.0); Mean Corpuscular Volume 91.5 fL (80.0-100.0); Mean Platelet Volume 8.8 fL (7.0-11.0); Mono # (Auto) 1.3 th/mm3 (0.0-0.9); Mono % (Auto) 5.4 % (0.0-8.0); Neut # (Auto) 19.4 th/mm3 (1.8-7.7); Neut % (Auto) 80.4 % (16.0-70.0); Platelet Count 428 th/mm3 (150-450); Red Blood Count 3.42 mil/mm3 (4.50-5.90); Red Cell Distribution Width 14.7 % (11.6-17.2); White Blood Count 24.2 th/mm3 (4.0-11.0)
[2018-05-17 07:38] LABS: Anion Gap 6 meq/L (5-15); Blood Urea Nitrogen 21 mg/dL (7-18); Calcium 8.8 mg/dL (8.5-10.1); Carbon Dioxide 30.4 meq/L (21.0-32.0); Chloride 101 meq/L (98-107); Glomerular Filtration Rate Greater Than 89 mL/min (>89); Glucose,Random 87 mg/dL (74-106); Potassium 3.7 meq/L (3.5-5.1); Sodium 137 meq/L (136-145)
[2018-05-17 08:47] LABS: Eosinophils 3 % (0-4); Lymphocytes 3 % (9-44); Metamyelocytes 2 % (0-1); Monocytes 3 % (0-8); Myelocytes 1 % (0-0); Platelet Morphology Normal (Normal); Promyelocyte 1 % (0-0); Toxic Granulation 1+
[2018-05-17] MEDS: Enoxaparin Inj 30 MG/0.3 ML Syringe SQ SCH ×2 (10:02→21:28)
[2018-05-17] MEDS: Senna/Docusate Sodium 8.6/50 MG Tablet PO SCH ×2 (10:03→21:28)
[2018-05-17] MEDS: Megestrol Acetate Liq 400 MG/10 ML UDC PO SCH (10:03)
--- NOTE | 2018-05-17 17:33 | P.PNID ---
Subjective Remarks: WBC going up again afebrile no new problems CXR with icreasing opaciities Antibiotics: flagyl cefepime Allergies/Adverse Reactions: Allergies No Known Allergies Allergy (Verified 05/08/18 20:16) Objective Vital Signs 05/16/18 20:00 05/17/18 08:00 05/17/18 10:19 Temperature 98.1 F 98.7 F Pulse Rate 63 71 Respiratory Rate 18 16 Blood Pressure 135/65 117/56 L Pulse Oximetry 97 94 L 95 05/17/18 12:00 05/17/18 16:00 Temperature 98.5 F 98.6 F Pulse Rate 82 90 Respiratory Rate 16 16 Blood Pressure 92/53 L 122/59 L Pulse Oximetry 95 96 Intake & Output 05/16/18 05/17/18 05/17/18 18:59 06:59 18:59 Intake Total 1200 / 1200 500 / 500 Output Total 550 / 550 1200 / 1200 Balance 650 / 650 -700 / -700 Weight 69 kg Intake: IV 200 / 200 500 / 500 Maxipime Inj 2,000 MG In NS Inj 100 / 100 200 / 200 100 ML @ 200 mls/hr IV.SIG Q8HR MILY Rx#:[id number] Flagyl 500 MG Inj 100 ML @ 100 100 / 100 300 / 300 mls/hr IV.SIG Q8H MILY Rx#: [id number] Oral 1000 / 1000 Output: Urine 550 / 550 1200 / 1200 Other: Date of Last Bowel Movement 05/17/18 # Bowel Movements 0 1 Lab - Hematology Results 05/16/18 05/17/18 06:48 06:20 WBC 23.5 H 24.2 H RBC 3.61 L 3.42 L Hgb 10.8 L 10.3 L Hct 32.7 L 31.3 L MCV 90.5 91.5 MCH 29.9 30.2 MCHC 33.1 33.0 RDW 14.7 14.7 Plt Count 429 428 MPV 8.7 8.8 Prelim Diff (Auto) Slide review pending Neut % (Auto) 81.3 H 80.4 H Lymph % (Auto) 6.4 L 8.5 L [place] % (Auto) 6.0 5.4 Eos % (Auto) 6.0 H 5.2 H Baso % (Auto) 0.3 0.5 Neut # (Auto) 19.1 H 19.4 H Lymph # (Auto) 1.5 2.1 [place] # (Auto) 1.4 H 1.3 H Eos # (Auto) 1.4 H 1.3 H Baso # (Auto) 0.1 0.1 WBC Differential . Manual diff final Seg Neuts % (Manual) 86 H Band Neuts % (Manual) 1 Lymphocytes % (Manual) 3 L Monocytes % (Manual) 3 Eosinophils % (Manual) 3 Metamyelocytes % (Man) 2 H Myelocytes % (Man) 1 H Promyelocytes % (Man) 1 H Abs Neuts (Manual) 22.0 H Differential Comment Auto diff final . Toxic Granulation 1+ H Platelet Estimate High H Platelet Morphology Normal Lab - Chemistry Results 05/16/18 05/17/18 06:48 06:20 Sodium 139 137 Potassium 3.6 3.7 Chloride 103 101 Carbon Dioxide 32.3 H 30.4 Anion Gap 4 L 6 BUN 21 H 21 H Creatinine 0.81 0.77 Estimated GFR Greater than 89 Greater than 89 Random Glucose 110 H 87 Calcium 9.0 8.8 Imaging: ITS Impressions Head CT 05/08/18 20:25 CONCLUSION: 1. No acute findings in the brain. 2. Moderately severe central and cortical atrophy. . Abdomen/Pelvis CT 05/11/18 00:00 CONCLUSION: 1. Right lower lobe infiltrate with a couple a tiny suspected intraparenchymal abscesses and loculated right effusion. This is new from the prior study. 2. Unchanged 13 mm left lower lobe pulmonary nodule. 3. Right inguinal hernia containing small bowel. 4. Colonic diverticulosis. Chest CT 05/12/18 00:00 CONCLUSION: 1. Development of a mild to moderate right pleural effusion with some fluid seen collecting over the right upper lung and in the major and minor fissures. 2. Increased density in the right lower lobe and to a lesser grade the posterior aspect of the right upper lobe likely related to atelectasis or consolidation. 3. Development of adenopathy. The rapid development of adenopathy is likely postinflammatory. 4. Underlying emphysematous and interstitial disease. Chest X-Ray 05/13/18 00:53 CONCLUSION: Increase in bilateral airspace disease, probably edema with increase in size of bilateral effusions since May 08. Physical Exam: GENERAL: Alert and oriented, no acute distress. HEENT: Pupils reactive to light. Extraocular movements intact. No icterus. NECK: Supple without adenopathy. No swelling. LUNGS: Coarse BS at the right base. por effort HEART: Regular S1 and S2. No audible murmurs. ABDOMEN: Bowel sounds present, diminished, soft, nontender. some tenderness to palpation in LUQ EXTREMITIES: No clubbing cyanosis or edema. SKIN: No rash NEUROLOGIC: Nonfocal PSYCH: Calm and cooperative. Assessment and Plan - Plan PNA medial right lung and right lower lung. clinically improving on empiric abx Fever, encephalopathy UTI, PSAE panS Leukocytosis, severe - persistent. White blood cell count is higher today. + abdominal pain - probably referred from PNA Cont cefpeime for PSAE UTI, PNA Continue Flagyl. Monitor white blood cell count. repeat CT chest dw Dr [place]
[2018-05-17] MEDS: Montelukast 10 MG Tablet PO SCH (18:30)
--- NOTE | 2018-05-17 19:33 | P.PN ---
Subjective Interval history: The patient was seen earlier today. He is feeling weak. Not much cough. Eating a little bit better still confused but pleasant. Plan to repeat CT chest discussed with infectious disease Dr. Martin. Physical Exam Vital signs: Vital Signs 05/16/18 20:00 05/17/18 08:00 05/17/18 10:19 Temperature 98.1 F 98.7 F Pulse Rate 63 71 Respiratory Rate 18 16 Blood Pressure 135/65 117/56 L Pulse Oximetry 97 94 L 95 05/17/18 12:00 05/17/18 16:00 05/17/18 18:02 Temperature 98.5 F 98.6 F Pulse Rate 82 90 Respiratory Rate 16 16 Blood Pressure 92/53 L 122/59 L Pulse Oximetry 95 96 96 Intake & Output 05/17/18 05/17/18 05/18/18 06:59 18:59 06:59 Intake Total 500 / 500 900 / 900 Output Total 1200 / 1200 900 / 900 Balance -700 / -700 0 / 0 Weight 69 kg Intake: IV 500 / 500 Maxipime Inj 2,000 MG In NS Inj 200 / 200 100 ML @ 200 mls/hr IV.SIG Q8HR MILY Rx#:[id number] Flagyl 500 MG Inj 100 ML @ 100 300 / 300 mls/hr IV.SIG Q8H MILY Rx#: [id number] Oral 900 / 900 Output: Urine 1200 / 1200 900 / 900 Other: Date of Last Bowel Movement 05/17/18 # Bowel Movements 1 0 Narrative: GENERAL: Thin, chronically ill-appearing elderly white male, pleasantly confused. HEENT: Bitemporal sunken CARDIOVASCULAR: Regular rate and rhythm. No obvious murmurs to auscultation. No chest tenderness to palpation. RESPIRATORY: No obvious rhonchi or wheezing. Clear to auscultation. Breath sounds equal bilaterally. GASTROINTESTINAL: Abdomen soft, non-tender, nondistended. BS normal. MUSCULOSKELETAL: Weak hand signal wirer, muscle wasting. Extremities without clubbing, cyanosis, or edema. No obvious deformities. NEUROLOGICAL: More awake, alert and oriented. No focal neurologic deficits. Moving both upper and lower extremities spontaneously. PSYCHIATRIC: Appropriate mood and affect. Insight and judgment very poor. - Urinary Catheter Management Indwelling Urethral Catheter Cath placed during this visit: yes, but has since been removed by the nurse Reason for continuing: Decision to DC catheter Insertion date: 05/08/18 Insertion time: 21:38 Removal date: 05/13/18 Removal time: 17:00 Results - Labs CBC & Chem 7: 05/17/18 06:20 05/17/18 06:20 Laboratory Results - last 24 hr 05/17/18 05/17/18 06:20 06:20 WBC 24.2 H RBC 3.42 L Hgb 10.3 L Hct 31.3 L MCV 91.5 MCH 30.2 MCHC 33.0 RDW 14.7 Plt Count 428 MPV 8.8 Prelim Diff (Auto) Slide review pending Neut % (Auto) 80.4 H Lymph % (Auto) 8.5 L [place] % (Auto) 5.4 Eos % (Auto) 5.2 H Baso % (Auto) 0.5 Neut # (Auto) 19.4 H Lymph # (Auto) 2.1 [place] # (Auto) 1.3 H Eos # (Auto) 1.3 H Baso # (Auto) 0.1 WBC Differential Manual diff final Seg Neuts % (Manual) 86 H Band Neuts % (Manual) 1 Lymphocytes % (Manual) 3 L Monocytes % (Manual) 3 Eosinophils % (Manual) 3 Metamyelocytes % (Man) 2 H Myelocytes % (Man) 1 H Promyelocytes % (Man) 1 H Abs Neuts (Manual) 22.0 H Differential Comment . Toxic Granulation 1+ H Platelet Estimate High H Platelet Morphology Normal Sodium 137 Potassium 3.7 Chloride 101 Carbon Dioxide 30.4 Anion Gap 6 BUN 21 H Creatinine 0.77 Estimated GFR Greater than 89 Random Glucose 87 Calcium 8.8 Assessment and Plan - Assessment (1) Encephalopathy Code(s): G93.40 - Encephalopathy, unspecified Status: Acute (2) Sepsis Code(s): A41.9 - Sepsis, unspecified organism Status: Acute (3) UTI (urinary tract infection) Code(s): N39.0 - Urinary tract infection, site not specified Status: Acute (4) PNA (pneumonia) Code(s): J18.9 - Pneumonia, unspecified organism Status: Acute (5) Limited code status Status: Acute - Plan Encephalopathy: Not improving. Likely secondary to underlying Dementia and compounded by Acute Sepsis, CT Head w/ no acute findings, images reviewed. Neuro Checks. Sepsis: On admission temp 101 rectal, HR 81, WBC 28, Source-UTI/PNA. PSAE UTI, PNA Right lower lobe pneumonia with loculated right lung effusion and right intraparenchymal abscesses 13 mm left lower lobe pulmonary nodule, unchanged Right inguinal hernia Colonic diverticulitis follow up Blood cultures Increase cefepime, continue Flagyl per ID recommendations, follow up cultures , cont IVF Persistent leukocytosis. Consult infectious disease for evaluation and recommendations as above UTI: U/a w/ significant UTI, follow up urine cultures, monitor I/O, IVF, continue w/ IV Abx as above PNA: CXR w/ RML and RLL infiltrates, images reviewed, continue IV Abx, DuoNeb prn. for CT A/P on 05/11 reviewed shows Right lower lobe infiltrate with a couple a tiny suspected intraparenchymal abscesses and loculated right effusion. Unchanged 13 mm left lower lobe pulmonary nodule. Right inguinal hernia containing small bowel. Colonic diverticulosis. IR consulted for drainage Added flagyl Plan for repeat CT chest next week Cont cefepime and Flagyl per ID recommendation . Monitor white blood cell count. Slightly improved Right lower lobe infiltrate intraparenchymal abscesses loculated right effusion. IR for drainage however lesions too small and not safe at thsi time. Will monitor, will poss repeat CT later to see if increasing in size. Added flagyl as above cont abx as above Plan for repeat CT chest wo contrast Severe protein calorie malnutrition. Decreased appetite. Patient with bitemporal wasting, muscle wasting, weak handgrip. Low albumin and prealbumin of 4 Will check prealbumin. Add multivitamins, add Ensure to diet. Consult operating room scheduler. Add Megace Chest pain. Elevated troponins likely from demand ischemia from CHF. BNP is elevated. DC IVF . CXR repeat reviewed with more congestion. Received IV lasix , good UOP. Continue lasix. Monitor kidney function and also monitor UOP Replace K as low Continue to monitor. Alternative Code: Code status discussed w/ granddaughter at length, COMPRESSIONS/SHOCK ONLY, NO INTUBATION OR ACLS. DVT Prophylaxis: SCD/Teds Case management was consulted for d/c planning as needed. Discussed with the patient, nurse, ID specialist Family can bring food from home Discharge plan pending improvement Patient with sepsis, lower lobe pneumonia and loculated right lung effusion, right intraparenchymal abscesses, plan to repeat CT chest as abscess for reevaluation of possible drainages of abscesses if are grown in size Discharge when improved and cleared by specialists. Likely will need [facility] facility.
[2018-05-18 07:40] LABS: Baso # (Auto) 0.1 th/mm3 (0.0-0.2); Baso % (Auto) 0.3 % (0.0-2.0); Eos # (Auto) 0.8 th/mm3 (0.0-0.4); Eos % (Auto) 3.2 % (0.0-4.0); Hemoglobin 10.5 gm/dL (13.0-17.0); Lymph # (Auto) 1.8 th/mm3 (1.0-4.8); Lymph % (Auto) 7.3 % (9.0-44.0); Mean Corpuscular HGB Conc 32.6 % (32.0-36.0); Mean Corpuscular Hemoglobin 29.9 pg (27.0-34.0); Mean Corpuscular Volume 91.5 fL (80.0-100.0); Mean Platelet Volume 8.8 fL (7.0-11.0); Mono # (Auto) 1.5 th/mm3 (0.0-0.9); Neut % (Auto) 83.2 % (16.0-70.0); Platelet Count 469 th/mm3 (150-450); White Blood Count 25.2 th/mm3 (4.0-11.0)
[2018-05-18 08:17] LABS: Anion Gap 5 meq/L (5-15); Blood Urea Nitrogen 21 mg/dL (7-18); Calcium 9.2 mg/dL (8.5-10.1); Carbon Dioxide 30.6 meq/L (21.0-32.0); Chloride 103 meq/L (98-107); Glomerular Filtration Rate Greater Than 89 mL/min (>89); Glucose,Random 80 mg/dL (74-106); Potassium 3.6 meq/L (3.5-5.1); Sodium 139 meq/L (136-145)
[2018-05-18] MEDS: Megestrol Acetate Liq 400 MG/10 ML UDC PO SCH (08:55)
[2018-05-18] MEDS: Senna/Docusate Sodium 8.6/50 MG Tablet PO SCH ×2 (08:55→22:42)
[2018-05-18] MEDS: Enoxaparin Inj 30 MG/0.3 ML Syringe SQ SCH ×2 (08:55→22:42)
[2018-05-18 09:01] LABS: Eosinophils 2 % (0-4); Lymphocytes 8 % (9-44); Metamyelocytes 2 % (0-1); Monocytes 7 % (0-8); Myelocytes 1 % (0-0); Platelet Morphology Normal (Normal)
[2018-05-18 09:02] LABS: Toxic Granulation 1+
--- NOTE | 2018-05-18 13:04 | CT ---
EXAM DATE: 05/18/2018 12:51 PM EST AGE/SEX: 82 years / Male INDICATIONS: Pleural effusion CLINICAL DATA: This is the patient's initial encounter. Patient reports that signs and symptoms have been present for 1 day and indicates a pain score of 0/10. MEDICAL/SURGICAL HISTORY: Hypertension. Alzheimer's disease. . Unable to obtain RADIATION DOSE: 8.36 CTDI (mGy) COMPARISON: [facility] [place], CT CHEST W/O CONTRAST, 05/12/2018. . TECHNIQUE: Multiple contiguous axial images were obtained through the chest without contrast. Image s were obtained in suspended respiration using multiple row detector helical technique. Using automa eboni exposure control and adjustment of the mA and/or kV according to patient size, radiation dose was kept as low as reasonably achievable to obtain optimal diagnostic quality images. DICOM format imag e data is available electronically for review and comparison. FINDINGS: Slight interval improvement in consolidative change and loculated effusion in the right chest, mainly the posterior right lung base. Stable nodule in the central left lung base. No evidence of mediastinal mass. Adenopathy slightly improved. Dense coronary calcifications. CONCLUSION: Slight interval improvement in the appearance of the chest. Electronically signed by: Larry Bowie MD 05/18/2018 1:03 PM EST
--- NOTE | 2018-05-18 15:29 | P.DIET ---
Nutritional Evaluation Type of nutrition evaluation: follow-up Nutrition consult regarding: Diet Evaluation Nutrition [place]: [facility] [place] 05[place]/18 [facility] [place] Malnutrition Subjective Subjective Comments: Only eating 25% today. From previous note dated 05/11: Pt visited at bedside. Food preferences taken. Pt drinking the Ensure. Pt receptive to receiving Ensure Pudding. Pt has full dentures and denies any problem chewing. Objective - Diagnosis AMS, Sepsis, UTI - Objective % IBW: 100 Body Weight Used for Calculations: Actual (67.5kg) Energy Needs - Lower Range (kCal/kg): 25 Energy Needs - Upper Range (kCal/kg): 30 Lower Limit kCal/kg (kCals): 1,688 Upper Limit kCal/kg (kCals): 2,025 Lower Limit Protein Factor (Grams per Kg): 1.2 Upper Limit Protein Factor (Grams per Kg): 1.5 Lower Protein Needs (Protein): 81 Upper Protein Needs (Protein): 101 Dietitian Reviewed in Medical Record: Current diet, Curent medications, Intake & Output, Labs, Medical history Diet Order: Regular Objective Comments: PMH: Alzheimers disease, enlarged prostate, HTN Meds include Megace Assessment Assessment: Pt remains at nutritional risk r/t diagnosis and poor po intake. Pt is receiving Ensure Enlive TID (= 350 kcal and 20g protein per serving) and Ensure Pudding BID (= 170 kcal and 4g protein per serving). [place] pt's food preferences. Labs reviewed-noted concerns for low prealbumin; however, prealbumin is a negative acute-phase protein and reflects severity of the inflammatory process vs. nutritional status. It will not respond to nutritional interventions. Wts reviewed: wt loss since admission noted. BMI now 22.6. Megace has been started and will hopefully help with appetite. Recommendations: Continue Ensure Enlive and Ensure Pudding [place] pt's preferences RD following Dietitian to Monitor: Lab values, Supplement acceptance, Intake & Output, Diet tolerance, Weight change, PO Intake, Medical course
--- NOTE | 2018-05-18 15:41 | P.PNIM ---
Subjective Interval history: Patient says that he wants to get out of this hospital. He does not have any other complaints. Physical Exam Vital signs: Vital Signs 05/17/18 16:00 05/17/18 18:02 05/17/18 20:00 Temperature 98.6 F 98.4 F Pulse Rate 90 89 Respiratory Rate 16 16 Blood Pressure 122/59 L 120/59 L Pulse Oximetry 96 96 94 L 05/18/18 00:00 05/18/18 04:00 05/18/18 08:23 Temperature 98.8 F 99.2 F 98.2 F Pulse Rate 76 75 75 Respiratory Rate 17 17 20 Blood Pressure 113/56 L 134/63 111/15 L Pulse Oximetry 95 97 92 L 05/18/18 11:25 Temperature Pulse Rate Respiratory Rate Blood Pressure Pulse Oximetry 94 L Intake & Output 05/17/18 05/18/18 05/18/18 18:59 06:59 18:59 Intake Total 900 / 900 640 / 640 300 / 300 Output Total 900 / 900 1150 / 1150 Balance 0 / 0 -510 / -510 300 / 300 Weight 65.4 kg Intake: IV 400 / 400 300 / 300 Maxipime Inj 2,000 MG In NS Inj 200 / 200 200 / 200 100 ML @ 200 mls/hr IV.SIG Q8HR MILY Rx#:[id number] Flagyl 500 MG Inj 100 ML @ 100 200 / 200 100 / 100 mls/hr IV.SIG Q8H MILY Rx#: [id number] Oral 900 / 900 240 / 240 Output: Urine 900 / 900 1150 / 1150 Other: Date of Last Bowel Movement 05/17/18 05/17/18 05/18/18 # Bowel Movements 0 1 Narrative: General patient in no acute distress HEENT extraocular movements are intact, clear oropharyngeal mucosa, no JVD Cardiovascular S1-S2 audible, RRR, no murmurs rubs or gallops Respiratory bibasilar crackles Abdomen soft, nontender, nondistended, normal bowel sounds Extremities no edema 2+ distal pulses in bilateral upper and lower extremities Neuro patient can move all 4 extremities, sensation is intact bilaterally. - Urinary Catheter Management Indwelling Urethral Catheter Cath placed during this visit: yes, but has since been removed by the nurse Reason for continuing: Decision to DC catheter Insertion date: 05/08/18 Insertion time: 21:38 Removal date: 05/13/18 Removal time: 17:00 Results - Labs CBC & Chem 7: 05/18/18 06:23 05/18/18 06:23 Laboratory Results - last 24 hr 05/18/18 05/18/18 06:23 06:23 WBC 25.2 H RBC 3.50 L Hgb 10.5 L Hct 32.0 L MCV 91.5 MCH 29.9 MCHC 32.6 RDW 15.0 Plt Count 469 H MPV 8.8 Prelim Diff (Auto) Slide review pending Neut % (Auto) 83.2 H Lymph % (Auto) 7.3 L [place] % (Auto) 6.0 Eos % (Auto) 3.2 Baso % (Auto) 0.3 Neut # (Auto) 21.0 H Lymph # (Auto) 1.8 [place] # (Auto) 1.5 H Eos # (Auto) 0.8 H Baso # (Auto) 0.1 WBC Differential Manual diff final Seg Neuts % (Manual) 72 H Band Neuts % (Manual) 8 H Lymphocytes % (Manual) 8 L Monocytes % (Manual) 7 Eosinophils % (Manual) 2 Metamyelocytes % (Man) 2 H Myelocytes % (Man) 1 H Abs Neuts (Manual) 20.9 H Differential Comment . Toxic Granulation 1+ H Platelet Estimate High H Platelet Morphology Normal Sodium 139 Potassium 3.6 Chloride 103 Carbon Dioxide 30.6 Anion Gap 5 BUN 21 H Creatinine 0.71 Estimated GFR Greater than 89 Random Glucose 80 Calcium 9.2 - Imaging Impressions Chest CT 05/18/18 00:00 CONCLUSION: Slight interval improvement in the appearance of the chest. Assessment and Plan - Assessment (1) Encephalopathy Code(s): G93.40 - Encephalopathy, unspecified Status: Acute (2) Sepsis Code(s): A41.9 - Sepsis, unspecified organism Status: Acute (3) UTI (urinary tract infection) Code(s): N39.0 - Urinary tract infection, site not specified Status: Acute (4) PNA (pneumonia) Code(s): J18.9 - Pneumonia, unspecified organism Status: Acute (5) Limited code status Status: Acute - Plan 82-year-old male who was admitted with acute encephalopathy and found to have a right lower lobe infiltrate with abscess. 1. Acute encephalopathy likely secondary to underlying dementia and sepsis 2. Severe sepsis secondary to right lower lobe pneumonia with loculated right lung effusion and possible abscess. 3. Left lower lobe 13 mm pulmonary nodule 4. Urinary tract infection Patient is remained afebrile overnight. WBC count is elevated at 25,000. Patient is currently on IV antibiotics. Continue cefepime and Flagyl. Infectious disease following. IR was consulted for possible drainage however the abscess was too small for drainage at that time. Recommend Nations were to repeat the CT scan of the chest. Repeat CT scan of the chest shows improvement in the right lower lobe infiltrate. Continue breathing treatments and supplemental oxygen as needed. Blood cultures are negative. Urine culture was positive for Pseudomonas. Patient has been on cefepime. We will follow-up with infectious disease for their recommendations. Patient will need outpatient follow-up for his pulmonary nodules after discharge. Patient is currently alert and oriented x2. He is not oriented to the year. Patient does have documented dementia however his current mentation could possibly be due to sepsis and urinary tract infection Ammonia level ordered. Lovenox for DVT prophylaxis.
--- NOTE | 2018-05-18 17:26 | P.PNADD ---
Addendum to Inpatient Note Additional information: CT showed loculated effusion on the R again rising WBC, [address] Bowie: improved CT findings, but + loculation will order CT guided aspiraton
[2018-05-18] MEDS: Montelukast 10 MG Tablet PO SCH (19:02)
[2018-05-19 06:09] LABS: Baso # (Auto) 0.1 th/mm3 (0.0-0.2); Baso % (Auto) 0.3 % (0.0-2.0); Eos # (Auto) 0.8 th/mm3 (0.0-0.4); Eos % (Auto) 3.5 % (0.0-4.0); Hematocrit 32.3 % (39.0-51.0); Hemoglobin 10.7 gm/dL (13.0-17.0); Lymph # (Auto) 1.9 th/mm3 (1.0-4.8); Lymph % (Auto) 8.1 % (9.0-44.0); Mean Corpuscular HGB Conc 33.2 % (32.0-36.0); Mean Corpuscular Hemoglobin 30.1 pg (27.0-34.0); Mean Corpuscular Volume 90.8 fL (80.0-100.0); Mean Platelet Volume 8.7 fL (7.0-11.0); Mono # (Auto) 1.5 th/mm3 (0.0-0.9); Mono % (Auto) 6.6 % (0.0-8.0); Neut # (Auto) 18.9 th/mm3 (1.8-7.7); Neut % (Auto) 81.5 % (16.0-70.0); Platelet Count 493 th/mm3 (150-450); Red Blood Count 3.56 mil/mm3 (4.50-5.90); Red Cell Distribution Width 14.8 % (11.6-17.2); White Blood Count 23.2 th/mm3 (4.0-11.0)
[2018-05-19 06:34] LABS: Anion Gap 6 meq/L (5-15); Blood Urea Nitrogen 18 mg/dL (7-18); Calcium 9.4 mg/dL (8.5-10.1); Carbon Dioxide 25.9 meq/L (21.0-32.0); Chloride 105 meq/L (98-107); Glomerular Filtration Rate Greater Than 89 mL/min (>89); Glucose,Random 76 mg/dL (74-106); Potassium 3.8 meq/L (3.5-5.1); Sodium 137 meq/L (136-145)
--- NOTE | 2018-05-19 09:35 | P.PNIM ---
Subjective Interval history: Patient complains of feeling weak. He says he wants to leave the hospital. He does not have any other complaints. Physical Exam Vital signs: Vital Signs 05/18/18 11:25 05/18/18 16:00 05/18/18 20:00 Temperature 98.7 F 97.8 F Pulse Rate 72 79 Respiratory Rate 16 22 Blood Pressure 119/57 L 121/58 L Pulse Oximetry 94 L 94 L 96 05/19/18 00:00 05/19/18 08:00 Temperature 98.2 F 98.6 F Pulse Rate 76 73 Respiratory Rate 20 16 Blood Pressure 120/57 L 118/56 L Pulse Oximetry 95 94 L Intake & Output 05/18/18 05/19/18 05/19/18 18:59 06:59 18:59 Intake Total 1300 / 1300 400 / 400 Balance 1300 / 1300 400 / 400 Weight 65.1 kg Intake: IV 400 / 400 400 / 400 Maxipime Inj 2,000 MG In NS Inj 200 / 200 200 / 200 100 ML @ 200 mls/hr IV.SIG Q8HR MILY Rx#:[id number] Flagyl 500 MG Inj 100 ML @ 100 200 / 200 200 / 200 mls/hr IV.SIG Q8H MILY Rx#: [id number] Oral 900 / 900 Other: # Voids 5 2 Date of Last Bowel Movement 05/18/18 05/18/18 # Bowel Movements 1 # Incontinent Bowel Movements 1 Narrative: General patient in no acute distress HEENT extraocular movements are intact, clear oropharyngeal mucosa, no JVD Cardiovascular S1-S2 audible, RRR, no murmurs rubs or gallops Respiratory bibasilar crackles Abdomen soft, nontender, nondistended, normal bowel sounds Extremities no edema 2+ distal pulses in bilateral upper and lower extremities Neuro patient can move all 4 extremities, sensation is intact bilaterally. - Urinary Catheter Management Indwelling Urethral Catheter Cath placed during this visit: yes, but has since been removed by the nurse Reason for continuing: Decision to DC catheter Insertion date: 05/08/18 Insertion time: 21:38 Removal date: 05/13/18 Removal time: 17:00 Results - Labs CBC & Chem 7: 05/19/18 04:53 05/19/18 04:53 Laboratory Results - last 24 hr 05/18/18 05/19/18 05/19/18 18:53 04:53 04:53 WBC 23.2 H RBC 3.56 L Hgb 10.7 L Hct 32.3 L MCV 90.8 MCH 30.1 MCHC 33.2 RDW 14.8 Plt Count 493 H MPV 8.7 Neut % (Auto) 81.5 H Lymph % (Auto) 8.1 L [place] % (Auto) 6.6 Eos % (Auto) 3.5 Baso % (Auto) 0.3 Neut # (Auto) 18.9 H Lymph # (Auto) 1.9 [place] # (Auto) 1.5 H Eos # (Auto) 0.8 H Baso # (Auto) 0.1 WBC Differential . Differential Comment Auto diff final Sodium 137 Potassium 3.8 Chloride 105 Carbon Dioxide 25.9 Anion Gap 6 BUN 18 Creatinine 0.80 Estimated GFR Greater than 89 Random Glucose 76 Calcium 9.4 Ammonia 14 - Imaging Impressions Chest CT 05/18/18 00:00 CONCLUSION: Slight interval improvement in the appearance of the chest. Assessment and Plan - Assessment (1) Encephalopathy Code(s): G93.40 - Encephalopathy, unspecified Status: Acute (2) Sepsis Code(s): A41.9 - Sepsis, unspecified organism Status: Acute (3) UTI (urinary tract infection) Code(s): N39.0 - Urinary tract infection, site not specified Status: Acute (4) PNA (pneumonia) Code(s): J18.9 - Pneumonia, unspecified organism Status: Acute (5) Limited code status Status: Acute - Plan 82-year-old male who was admitted with acute encephalopathy and found to have a right lower lobe infiltrate with abscess. 1. Acute encephalopathy likely secondary to underlying dementia and sepsis 2. Severe sepsis secondary to right lower lobe pneumonia with loculated right lung effusion and possible abscess. 3. Left lower lobe 13 mm pulmonary nodule 4. Urinary tract infection, Pseudomonas Patient is remained afebrile overnight. WBC count is elevated at 23,000 slightly lower than yesterday. Patient is currently on IV antibiotics. Continue cefepime and Flagyl as per infectious disease recommendations. Infectious disease following. IR was consulted for possible drainage however the abscess was too small for drainage at that time. Recommend Nations were to repeat the CT scan of the chest. Repeat CT scan of the chest shows improvement in the right lower lobe infiltrate. Continue breathing treatments, patient is currently on room air. Blood cultures are negative. Urine culture was positive for Pseudomonas. Patient has been on cefepime. We will follow-up with infectious disease for their recommendations. Patient will need outpatient follow-up for his pulmonary nodules after discharge. Patient is currently alert and oriented x2. He is not oriented to the year. Patient does have documented dementia however his current mentation could possibly be due to sepsis and urinary tract infection Ammonia level is within normal limits. Lovenox for DVT prophylaxis. Discharge planning, this will be discussed with case management and infectious disease today. Patient will likely need placement at a rehab facility, patient is unable to ambulate.
[2018-05-19] MEDS: Enoxaparin Inj 30 MG/0.3 ML Syringe SQ SCH ×2 (09:48→22:11)
[2018-05-19] MEDS: Megestrol Acetate Liq 400 MG/10 ML UDC PO SCH (09:49)
[2018-05-19] MEDS: Senna/Docusate Sodium 8.6/50 MG Tablet PO SCH ×2 (09:49→22:12)
[2018-05-19] MEDS ORDERED: fentaNYL Citrate Inj 250 MCG/5 ML Ampul ONE (15:27)
[2018-05-19] MEDS: Montelukast 10 MG Tablet PO SCH (19:20)
[2018-05-20 07:09] LABS: Baso # (Auto) 0.1 th/mm3 (0.0-0.2); Baso % (Auto) 0.6 % (0.0-2.0); Eos # (Auto) 0.5 th/mm3 (0.0-0.4); Eos % (Auto) 2.1 % (0.0-4.0); Hematocrit 30.2 % (39.0-51.0); Hemoglobin 10.4 gm/dL (13.0-17.0); Lymph # (Auto) 1.8 th/mm3 (1.0-4.8); Lymph % (Auto) 7.4 % (9.0-44.0); Mean Corpuscular HGB Conc 34.3 % (32.0-36.0); Mean Corpuscular Hemoglobin 30.5 pg (27.0-34.0); Mean Corpuscular Volume 88.7 fL (80.0-100.0); Mean Platelet Volume 8.9 fL (7.0-11.0); Mono # (Auto) 1.8 th/mm3 (0.0-0.9); Mono % (Auto) 7.2 % (0.0-8.0); Neut # (Auto) 20.5 th/mm3 (1.8-7.7); Neut % (Auto) 82.7 % (16.0-70.0); Platelet Count 517 th/mm3 (150-450); Red Blood Count 3.41 mil/mm3 (4.50-5.90); Red Cell Distribution Width 14.4 % (11.6-17.2); White Blood Count 24.7 th/mm3 (4.0-11.0)
[2018-05-20 07:19] LABS: Calcium 8.8 mg/dL (8.5-10.1); Potassium 3.9 meq/L (3.5-5.1)
[2018-05-20] MEDS: Enoxaparin Inj 30 MG/0.3 ML Syringe SQ SCH ×2 (09:51→23:32)
[2018-05-20] MEDS: Megestrol Acetate Liq 400 MG/10 ML UDC PO SCH (09:51)
[2018-05-20] MEDS: Senna/Docusate Sodium 8.6/50 MG Tablet PO SCH ×2 (09:52→23:33)
--- NOTE | 2018-05-20 10:46 | P.PNIM ---
Subjective Interval history: Patient says he wants to leave the hospital. He appears weak. No other specific complaints from the patient. Physical Exam Vital signs: Vital Signs 05/19/18 12:00 05/19/18 13:45 05/19/18 16:00 Temperature 97.9 F 97.9 F Pulse Rate 70 71 Respiratory Rate 17 17 Blood Pressure 116/67 143/60 H Pulse Oximetry 95 95 96 05/19/18 19:54 05/19/18 20:00 05/20/18 00:00 Temperature 98.1 F 98.2 F Pulse Rate 90 90 Respiratory Rate 21 18 Blood Pressure 133/63 116/68 Pulse Oximetry 95 94 L 93 L 05/20/18 08:00 Temperature 98.7 F Pulse Rate 82 Respiratory Rate 18 Blood Pressure 142/74 H Pulse Oximetry 95 Intake & Output 05/19/18 05/20/18 05/20/18 18:59 06:59 18:59 Intake Total 0 / 0 780 / 780 100 / 100 Output Total 1200 / 1200 Balance 0 / 0 -420 / -420 100 / 100 Weight 62 kg Intake: IV 300 / 300 100 / 100 Maxipime Inj 2,000 MG In NS Inj 200 / 200 100 ML @ 200 mls/hr IV.SIG Q8HR MILY Rx#:[id number] Flagyl 500 MG Inj 100 ML @ 100 100 / 100 100 / 100 mls/hr IV.SIG Q8H MILY Rx#: [id number] Oral 0 / 0 480 / 480 Output: Urine 1200 / 1200 Other: # Voids 8 Date of Last Bowel Movement 05/19/18 # Bowel Movements 1 Narrative: General patient in no acute distress, appears weak. HEENT extraocular movements are intact, clear oropharyngeal mucosa, no JVD Cardiovascular S1-S2 audible, RRR, no murmurs rubs or gallops Respiratory decreased breath sounds at right lung base. Abdomen soft, nontender, nondistended, normal bowel sounds Extremities no edema 2+ distal pulses in bilateral upper and lower extremities Neuro patient can move all 4 extremities, sensation is intact bilaterally. - Urinary Catheter Management Indwelling Urethral Catheter Cath placed during this visit: yes, but has since been removed by the nurse Reason for continuing: Decision to DC catheter Insertion date: 05/08/18 Insertion time: 21:38 Removal date: 05/13/18 Removal time: 17:00 Results - Labs CBC & Chem 7: 05/20/18 06:17 05/20/18 06:17 Laboratory Results - last 24 hr 05/20/18 05/20/18 06:17 06:17 WBC 24.7 H RBC 3.41 L Hgb 10.4 L Hct 30.2 L MCV 88.7 MCH 30.5 MCHC 34.3 RDW 14.4 Plt Count 517 H MPV 8.9 Neut % (Auto) 82.7 H Lymph % (Auto) 7.4 L [place] % (Auto) 7.2 Eos % (Auto) 2.1 Baso % (Auto) 0.6 Neut # (Auto) 20.5 H Lymph # (Auto) 1.8 [place] # (Auto) 1.8 H Eos # (Auto) 0.5 H Baso # (Auto) 0.1 WBC Differential . Differential Comment Auto diff final Sodium 141 Potassium 3.9 Chloride 107 Carbon Dioxide 29.0 Anion Gap 5 BUN 24 H Creatinine 0.88 Estimated GFR 83 L Random Glucose 100 Calcium 8.8 Assessment and Plan - Assessment (1) Encephalopathy Code(s): G93.40 - Encephalopathy, unspecified Status: Acute (2) Sepsis Code(s): A41.9 - Sepsis, unspecified organism Status: Acute (3) UTI (urinary tract infection) Code(s): N39.0 - Urinary tract infection, site not specified Status: Acute (4) PNA (pneumonia) Code(s): J18.9 - Pneumonia, unspecified organism Status: Acute (5) Limited code status Status: Acute - Plan 82-year-old male who was admitted with acute encephalopathy and found to have a right lower lobe infiltrate with abscess. 1. Acute encephalopathy likely secondary to underlying dementia and sepsis 2. Severe sepsis secondary to right lower lobe pneumonia with loculated right lung effusion and possible abscess. 3. Left lower lobe 13 mm pulmonary nodule 4. Urinary tract infection, Pseudomonas Patient is remained afebrile overnight. WBC count is elevated at 23,000 slightly lower than yesterday. Patient is currently on IV antibiotics. Continue cefepime and Flagyl as per infectious disease recommendations. Infectious disease following. Plan yesterday was for patient to undergo ct guided drainage of the loculation seen on ct imaging. Will discuss with IR and ID. Repeat CT scan of the chest shows improvement in the right lower lobe infiltrate. Continue breathing treatments, patient is currently on room air to 2 L of oxygen. Blood cultures are negative. Urine culture was positive for Pseudomonas. Patient has been on cefepime. We will follow-up with infectious disease for their recommendations. Patient will need outpatient follow-up for his pulmonary nodules after discharge. Patient is currently alert and oriented x2. He is not oriented to the year. Patient does have documented dementia however his current mentation could possibly be due to sepsis and urinary tract infection Ammonia level is within normal limits. Lovenox for DVT prophylaxis. Discharge planning, this will be discussed with case management and infectious disease today. Patient will likely need placement at a rehab facility once he is medically clear for discharge. Patient is unable to ambulate.
[2018-05-20] MEDS: Montelukast 10 MG Tablet PO SCH (17:18)
[2018-05-21 07:46] LABS: Baso # (Auto) 0.1 th/mm3 (0.0-0.2); Baso % (Auto) 0.5 % (0.0-2.0); Eos # (Auto) 0.6 th/mm3 (0.0-0.4); Eos % (Auto) 2.7 % (0.0-4.0); Hematocrit 32.3 % (39.0-51.0); Hemoglobin 10.8 gm/dL (13.0-17.0); Lymph # (Auto) 1.6 th/mm3 (1.0-4.8); Mean Corpuscular HGB Conc 33.5 % (32.0-36.0); Mean Corpuscular Hemoglobin 30.3 pg (27.0-34.0); Mean Corpuscular Volume 90.5 fL (80.0-100.0); Mean Platelet Volume 8.7 fL (7.0-11.0); Mono # (Auto) 1.8 th/mm3 (0.0-0.9); Mono % (Auto) 7.9 % (0.0-8.0); Neut # (Auto) 18.6 th/mm3 (1.8-7.7); Neut % (Auto) 81.9 % (16.0-70.0); Platelet Count 532 th/mm3 (150-450); Red Blood Count 3.57 mil/mm3 (4.50-5.90); White Blood Count 22.8 th/mm3 (4.0-11.0)
[2018-05-21] MEDS: Megestrol Acetate Liq 400 MG/10 ML UDC PO SCH (10:28)
[2018-05-21] MEDS: Enoxaparin Inj 30 MG/0.3 ML Syringe SQ SCH (10:28)
[2018-05-21] MEDS: Senna/Docusate Sodium 8.6/50 MG Tablet PO SCH ×2 (10:29→21:17)
--- NOTE | 2018-05-21 12:02 | P.PNIM ---
Subjective Interval history: Patient laying down in bed. He does not appear to be in any acute distress. The patient is quiet and does respond to my questions appropriately. Physical Exam Vital signs: Vital Signs 05/20/18 11:59 05/20/18 16:00 05/20/18 20:00 Temperature 97.8 F 98.8 F Pulse Rate 76 84 81 Respiratory Rate 20 17 Blood Pressure 138/64 116/67 Pulse Oximetry 96 97 05/20/18 20:23 05/21/18 00:00 05/21/18 03:49 Temperature 98.9 F 98.6 F 98.9 F Pulse Rate 91 H 67 73 Respiratory Rate 18 18 18 Blood Pressure 131/60 136/62 134/64 Pulse Oximetry 95 95 95 05/21/18 04:00 Temperature Pulse Rate 78 Respiratory Rate Blood Pressure Pulse Oximetry Intake & Output 05/20/18 05/21/18 05/21/18 18:59 06:59 18:59 Intake Total 725 / 725 540 / 540 100 / 100 Output Total 625 / 625 Balance 100 / 100 540 / 540 100 / 100 Weight 61.2 kg Intake: IV 300 / 300 300 / 300 100 / 100 Maxipime Inj 2,000 MG In NS Inj 100 / 100 200 / 200 100 ML @ 200 mls/hr IV.SIG Q8HR MILY Rx#:[id number] Flagyl 500 MG Inj 100 ML @ 100 200 / 200 100 / 100 100 / 100 mls/hr IV.SIG Q8H MILY Rx#: [id number] Oral 425 / 425 240 / 240 Output: Urine 625 / 625 Other: # Incontinent Voids 4 Date of Last Bowel Movement 05/20/18 05/20/18 # Bowel Movements 0 Narrative: General patient in no acute distress, appears weak. HEENT extraocular movements are intact, clear oropharyngeal mucosa, no JVD Cardiovascular S1-S2 audible, RRR, no murmurs rubs or gallops Respiratory decreased breath sounds at right lung base. Abdomen soft, nontender, nondistended, normal bowel sounds Extremities no edema 2+ distal pulses in bilateral upper and lower extremities Neuro patient can move all 4 extremities, sensation is intact bilaterally. - Urinary Catheter Management Indwelling Urethral Catheter Cath placed during this visit: yes, but has since been removed by the nurse Reason for continuing: Decision to DC catheter Insertion date: 11/18/18 Insertion time: 21:38 Removal date: 05/13/18 Removal time: 17:00 Results - Labs CBC & Chem 7: 05/21/18 06:57 05/20/18 06:17 Laboratory Results - last 24 hr 05/21/18 06:57 WBC 22.8 H RBC 3.57 L Hgb 10.8 L Hct 32.3 L MCV 90.5 MCH 30.3 MCHC 33.5 RDW 15.0 Plt Count 532 H MPV 8.7 Neut % (Auto) 81.9 H Lymph % (Auto) 7.0 L [place] % (Auto) 7.9 Eos % (Auto) 2.7 Baso % (Auto) 0.5 Neut # (Auto) 18.6 H Lymph # (Auto) 1.6 [place] # (Auto) 1.8 H Eos # (Auto) 0.6 H Baso # (Auto) 0.1 WBC Differential . Differential Comment Auto diff final Assessment and Plan - Assessment (1) Encephalopathy Code(s): G93.40 - Encephalopathy, unspecified Status: Acute (2) Sepsis Code(s): A41.9 - Sepsis, unspecified organism Status: Acute (3) UTI (urinary tract infection) Code(s): N39.0 - Urinary tract infection, site not specified Status: Acute (4) PNA (pneumonia) Code(s): J18.9 - Pneumonia, unspecified organism Status: Acute (5) Limited code status Status: Acute - Plan 82-year-old male who was admitted with acute encephalopathy and found to have a right lower lobe infiltrate with abscess. 1. Acute encephalopathy likely secondary to underlying dementia and sepsis 2. Severe sepsis secondary to right lower lobe pneumonia with loculated right lung effusion and possible abscess. 3. Left lower lobe 13 mm pulmonary nodule 4. Urinary tract infection, Pseudomonas Patient is remained afebrile overnight. WBC count is elevated at 22,000 slightly lower than yesterday. Patient is currently on IV antibiotics. Continue cefepime and Flagyl as per infectious disease recommendations. Infectious disease following. CT scan chest showing loculated effusion. CT-guided drainage by IR ordered. As per the patient's nurse the family has now agreed to move forward with the procedure. This is likely the cause of the patient's leukocytosis. Continue breathing treatments, patient is currently on room air to 2 L of oxygen. Blood cultures are negative. Urine culture was positive for Pseudomonas. Patient has been on cefepime. Patient will need outpatient follow-up for his pulmonary nodules after discharge. Patient is currently alert and oriented x2. He is not oriented to the year. Patient does have documented dementia however his current mentation could possibly be due to sepsis and urinary tract infection Ammonia level is within normal limits. 5. Dementia 6. Anxiety Patient takes sertraline and quetiapine at his facility. These medications will be restarted today. As per the nursing staff the patient gets agitated at night. Will be started back on lorazepam 0.5 mg qHS as nursing staff report patient gets agitated at night. Lovenox will be held as the patient may undergo CT-guided drainage today. Discharge planning, this will be discussed with case management and infectious disease today. Patient will likely need placement at a rehab facility once he is medically clear for discharge. Patient is unable to ambulate.
[2018-05-21] MEDS: QUEtiapine 25 MG Tablet PO SCH ×2 (13:51→21:17)
[2018-05-21] MEDS: Sertraline 100 MG Tablet PO SCH (13:51)
[2018-05-21] MEDS: Montelukast 10 MG Tablet PO SCH ×2 (18:31→18:35)
[2018-05-21] MEDS ORDERED: LORazepam 1 MG Tablet PO SCH (21:00)
[2018-05-21] MEDS ORDERED: LORazepam 0.5 MG Tablet PO SCH (21:00)
[2018-05-22 09:25] LABS: Baso # (Auto) 0.1 th/mm3 (0.0-0.2); Baso % (Auto) 0.6 % (0.0-2.0); Eos # (Auto) 0.6 th/mm3 (0.0-0.4); Hematocrit 29.2 % (39.0-51.0); Hemoglobin 10.1 gm/dL (13.0-17.0); Lymph # (Auto) 1.5 th/mm3 (1.0-4.8); Lymph % (Auto) 7.4 % (9.0-44.0); Mean Corpuscular HGB Conc 34.5 % (32.0-36.0); Mean Corpuscular Hemoglobin 30.9 pg (27.0-34.0); Mean Corpuscular Volume 89.6 fL (80.0-100.0); Mean Platelet Volume 8.5 fL (7.0-11.0); Mono # (Auto) 1.9 th/mm3 (0.0-0.9); Mono % (Auto) 9.5 % (0.0-8.0); Neut % (Auto) 79.5 % (16.0-70.0); Platelet Count 499 th/mm3 (150-450); Red Blood Count 3.26 mil/mm3 (4.50-5.90); Red Cell Distribution Width 15.1 % (11.6-17.2); White Blood Count 20.1 th/mm3 (4.0-11.0)
[2018-05-22] MEDS: QUEtiapine 25 MG Tablet PO SCH (10:15)
[2018-05-22] MEDS: Senna/Docusate Sodium 8.6/50 MG Tablet PO SCH ×2 (10:15→21:06)
[2018-05-22] MEDS: Megestrol Acetate Liq 400 MG/10 ML UDC PO SCH (10:15)
[2018-05-22] MEDS: Sertraline 100 MG Tablet PO SCH (10:15)
--- NOTE | 2018-05-22 14:15 | P.PNIM ---
Subjective Interval history: 12- Patient laying down in bed. He does not appear to be in any acute distress. The patient is quiet and does respond to my questions appropriately. 05-22 PATIENT REMAINS VERY LETHARGIC TODAY NOT AWAKE ENOUGH TO SWALLOW TODAY VERY LETHARGIC WILL ADJUST MEDS DW RN THORACENTESIS HAS BEEN ORDERED BY ID AM LABS ST AND PT AND OT TO EVAL AND TREAT WILL GET CHEST XRAY TODAY START FLUIDS Physical Exam Vital signs: Vital Signs 05/21/18 16:00 05/21/18 20:00 05/22/18 00:00 Temperature 98.8 F 98.8 F 99.7 F H Pulse Rate 82 87 95 H Respiratory Rate 20 18 17 Blood Pressure 145/67 H 126/58 L 122/67 Pulse Oximetry 98 94 L 95 05/22/18 01:00 05/22/18 04:10 05/22/18 08:00 Temperature 98.4 F Pulse Rate 87 77 70 Respiratory Rate 20 Blood Pressure 143/66 H Pulse Oximetry 97 05/22/18 12:00 Temperature 98.5 F Pulse Rate 73 Respiratory Rate 22 Blood Pressure 128/59 L Pulse Oximetry 96 Intake & Output 05/21/18 05/22/18 05/22/18 18:59 06:59 18:59 Intake Total 300 / 300 350 / 350 100 / 100 Output Total 500 / 500 Balance 300 / 300 -150 / -150 100 / 100 Weight 63.5 kg Intake: IV 300 / 300 300 / 300 100 / 100 Maxipime Inj 2,000 MG In NS Inj 100 / 100 200 / 200 100 ML @ 200 mls/hr IV.SIG Q8HR MILY Rx#:[id number] Flagyl 500 MG Inj 100 ML @ 100 200 / 200 100 / 100 100 / 100 mls/hr IV.SIG Q8H MILY Rx#: [id number] Oral 50 / 50 Output: Urine 500 / 500 Other: # Incontinent Voids 2 # Urine Diapers 2 # Bowel Movements 1 2 Narrative: General patient in no acute distress, appears weak. VERY LETHARGIC NOT VERY INTERACTIVE TODAY- LESS SO THAN YESTERDAY PER RN HEENT extraocular movements are intact, clear oropharyngeal mucosa, no JVD Cardiovascular S1-S2 audible, RRR, no murmurs rubs or gallops Respiratory decreased breath sounds at right lung base. Abdomen soft, nontender, nondistended, normal bowel sounds Extremities no edema 2+ distal pulses in bilateral upper and lower extremities Neuro patient can move all 4 extremities, sensation is intact bilaterally. VERY LETHARGIC TODAY Unable to assess insight or judgment Unable to assess mood and behavior - Urinary Catheter Management Indwelling Urethral Catheter Cath placed during this visit: yes, but has since been removed by the nurse Reason for continuing: Decision to DC catheter Insertion date: 05/08/18 Insertion time: 21:38 Removal date: 05/13/18 Removal time: 17:00 Results - Labs CBC & Chem 7: 05/22/18 08:09 05/20/18 06:17 Laboratory Results - last 24 hr 05/22/18 05/22/18 08:09 08:09 WBC 20.1 H RBC 3.26 L Hgb 10.1 L Hct 29.2 L MCV 89.6 MCH 30.9 MCHC 34.5 RDW 15.1 Plt Count 499 H MPV 8.5 Neut % (Auto) 79.5 H Lymph % (Auto) 7.4 L [place] % (Auto) 9.5 H Eos % (Auto) 3.0 Baso % (Auto) 0.6 Neut # (Auto) 16.0 H Lymph # (Auto) 1.5 [place] # (Auto) 1.9 H Eos # (Auto) 0.6 H Baso # (Auto) 0.1 WBC Differential . Differential Comment Auto diff final Magnesium 2.1 - Imaging ITS Impressions Head CT 05/08/18 20:25 CONCLUSION: 1. No acute findings in the brain. 2. Moderately severe central and cortical atrophy. . Abdomen/Pelvis CT 05/11/18 00:00 CONCLUSION: 1. Right lower lobe infiltrate with a couple a tiny suspected intraparenchymal abscesses and loculated right effusion. This is new from the prior study. 2. Unchanged 13 mm left lower lobe pulmonary nodule. 3. Right inguinal hernia containing small bowel. 4. Colonic diverticulosis. Chest X-Ray 05/13/18 00:53 CONCLUSION: Increase in bilateral airspace disease, probably edema with increase in size of bilateral effusions since May 08. Chest CT 05/18/18 00:00 CONCLUSION: Slight interval improvement in the appearance of the chest. Assessment and Plan - Assessment (1) Encephalopathy Code(s): G93.40 - Encephalopathy, unspecified Status: Acute (2) Sepsis Code(s): A41.9 - Sepsis, unspecified organism Status: Acute (3) UTI (urinary tract infection) Code(s): N39.0 - Urinary tract infection, site not specified Status: Acute (4) PNA (pneumonia) Code(s): J18.9 - Pneumonia, unspecified organism Status: Acute (5) Limited code status Status: Acute - Plan 82-year-old male who was admitted with acute encephalopathy and found to have a right lower lobe infiltrate with abscess. 1. Acute encephalopathy likely secondary to underlying dementia and sepsis- appears worse today per nursing 2. Severe sepsis secondary to right lower lobe pneumonia with loculated right lung effusion and possible abscess.-We will need a thoracentesis in the future 3. Left lower lobe 13 mm pulmonary nodule 4. Urinary tract infection, Pseudomonas Patient is remained afebrile overnight. WBC count is elevated at 22,000 slightly lower than yesterday. Patient is currently on IV antibiotics. Continue cefepime and Flagyl as per infectious disease recommendations. Infectious disease following. CT scan chest showing loculated effusion. CT-guided drainage by IR ordered. As per the patient's nurse the family has now agreed to move forward with the procedure. This is likely the cause of the patient's leukocytosis. Continue breathing treatments, patient is currently on room air to 2 L of oxygen. Blood cultures are negative. Urine culture was positive for Pseudomonas. Patient has been on cefepime. Patient will need outpatient follow-up for his pulmonary nodules after discharge. Patient is currently not alert and oriented x2. He is not oriented to the year. Patient does have documented dementia however his current mentation could possibly be due to sepsis and urinary tract infection Ammonia level is within normal limits. 5. Dementia 6. Anxiety Patient takes sertraline and quetiapine at his facility. These medications will be restarted today. As per the nursing staff the patient gets agitated at night. Will be started back on lorazepam 0.5 mg qHS as nursing staff report patient gets agitated at night. We will adjust his lorazepam and QUETIAPINE Lovenox will be held as the patient may undergo CT-guided drainage today. Discharge planning, this will be discussed with case management and infectious disease today. Patient will likely need placement at a rehab facility once he is medically clear for discharge. Patient is unable to ambulate. Code Status: Alternative code Discussed Condition With: RN and patient and case management patient is very lethargic . Discharge Planning: Pending improvement will need thoracentesis and/or chest tube
--- NOTE | 2018-05-22 14:34 | XR ---
EXAM DATE: 05/22/2018 2:29 PM EST AGE/SEX: 82 years / Male INDICATIONS: Evaluate infiltrate CLINICAL DATA: This is the patient's subsequent encounter. Patient reports that signs and symptoms h ave been present for 1 week and indicates a pain score of Nonresponsive. MEDICAL/SURGICAL HISTORY: . Hypertension. Alzheimer's disease Non-responsive. [place] [facility] [place]. . FINDINGS: Right basilar patchiness is noted consistent with probable pneumonia. Small right pleural effusion is noted. Scattered stable increased interstitial markings are noted bilaterally. The heart is stable. Degenerative changes and scoliosis of the thoracolumbar spine are noted. CONCLUSION: 1. Right basilar patchiness consistent with probable pneumonia. 2. Small right pleural effusion. 3. Stable scattered interstitial markings bilaterally. 4. Degenerative changes and scoliosis of the thoracolumbar spine. Electronically signed by: Miguel Saunders MD 05/22/2018 2:33 PM EST
[2018-05-22] MEDS: Dextrose 5%/NaCl 0.9% Inj 1,000 ML IV.CONT SCH (14:51)
[2018-05-22] MEDS: Montelukast 10 MG Tablet PO SCH (19:02)
[2018-05-23] MEDS: Dextrose 5%/NaCl 0.9% Inj 1,000 ML IV.CONT SCH ×2 (04:15→07:15)
[2018-05-23 06:58] LABS: INR 1.4 Ratio; Prothrombin Time 13.7 sec (9.8-11.6)
[2018-05-23 07:21] LABS: Baso # (Auto) 0.1 th/mm3 (0.0-0.2); Baso % (Auto) 0.7 % (0.0-2.0); Eos # (Auto) 0.5 th/mm3 (0.0-0.4); Eos % (Auto) 2.5 % (0.0-4.0); Hematocrit 29.8 % (39.0-51.0); Hemoglobin 9.8 gm/dL (13.0-17.0); Lymph # (Auto) 1.5 th/mm3 (1.0-4.8); Lymph % (Auto) 7.6 % (9.0-44.0); Mean Corpuscular Hemoglobin 29.8 pg (27.0-34.0); Mean Corpuscular Volume 90.4 fL (80.0-100.0); Mean Platelet Volume 8.6 fL (7.0-11.0); Mono # (Auto) 1.6 th/mm3 (0.0-0.9); Mono % (Auto) 8.2 % (0.0-8.0); Neut # (Auto) 15.4 th/mm3 (1.8-7.7); Platelet Count 507 th/mm3 (150-450); Red Cell Distribution Width 15.1 % (11.6-17.2); White Blood Count 19.1 th/mm3 (4.0-11.0)
[2018-05-23 07:40] LABS: Alanine Aminotransferase 28 U/L (12-78); Albumin 1.7 g/dL (3.4-5.0); Amylase 82 U/L (25-115); Anion Gap 3 meq/L (5-15); Aspartate Aminotransferase 18 U/L (15-37); Blood Urea Nitrogen 19 mg/dL (7-18); Calcium 9.1 mg/dL (8.5-10.1); Carbon Dioxide 26.6 meq/L (21.0-32.0); Chloride 113 meq/L (98-107); Glomerular Filtration Rate 80 mL/min (>89); Glucose,Random 98 mg/dL (74-106); Lipase 332 U/L (73-393); Magnesium 2.1 mg/dL (1.5-2.5); Potassium 3.6 meq/L (3.5-5.1); Sodium 143 meq/L (136-145)
[2018-05-23 07:49] LABS: Alkaline Phosphatase 71 U/L (45-117); Free T4 (Free Thyroxine) 1.02 ng/dL (0.76-1.46); Phosphorus 2.3 mg/dL (2.5-4.9); Thyroid Stimulating Hormone 0.806 uIU/mL (0.358-3.740); Total Protein 7.2 g/dL (6.4-8.2)
[2018-05-23] MEDS: Megestrol Acetate Liq 400 MG/10 ML UDC PO SCH (10:16)
[2018-05-23] MEDS: Senna/Docusate Sodium 8.6/50 MG Tablet PO SCH ×2 (10:18→20:39)
[2018-05-23] MEDS: Sertraline 100 MG Tablet PO SCH (10:18)
--- NOTE | 2018-05-23 12:21 | P.PNIM ---
Subjective Interval history: 12-1 Patient laying down in bed. He does not appear to be in any acute distress. The patient is quiet and does respond to my questions appropriately. 12-2 PATIENT REMAINS VERY LETHARGIC TODAY NOT AWAKE ENOUGH TO SWALLOW TODAY VERY LETHARGIC WILL ADJUST MEDS MAX RN THORACENTESIS HAS BEEN ORDERED BY ID AM LABS ST AND PT AND OT TO EVAL AND TREAT WILL GET CHEST XRAY TODAY START FLUIDS 12-3 MORE ALERT MORE INTERACTIVE TODAY DW RN AND PT AM LABS IR FOR THORACENTESIS DW RN AND PT AND CM Physical Exam Vital signs: Vital Signs 05/22/18 16:00 05/22/18 20:00 05/23/18 00:00 Temperature 98.5 F 98.2 F 98.7 F Pulse Rate 76 77 80 Respiratory Rate 20 20 14 Blood Pressure 147/67 H 157/67 H 144/71 H Pulse Oximetry 99 95 98 05/23/18 04:00 05/23/18 08:00 05/23/18 12:00 Temperature 99.2 F 98.4 F 98.5 F Pulse Rate 80 64 79 Respiratory Rate 16 18 16 Blood Pressure 162/81 H 161/79 H 163/85 H Pulse Oximetry 97 94 L 98 Intake & Output 05/22/18 05/23/18 05/23/18 18:59 06:59 18:59 Intake Total 600 / 600 1200 / 1200 200 / 200 Output Total 700 / 700 750 / 750 Balance -100 / -100 450 / 450 200 / 200 Weight 62.8 kg Intake: IV 300 / 300 1200 / 1200 200 / 200 D5W/Normal Saline Inj 1,000 ML 1000 / 1000 @ 84 mls/hr IV.CONT .[id number] MILY Rx#:[id number] Maxipime Inj 2,000 MG In NS Inj 100 / 100 100 / 100 100 / 100 100 ML @ 200 mls/hr IV.SIG Q8HR MILY Rx#:[id number] Flagyl 500 MG Inj 100 ML @ 100 200 / 200 100 / 100 100 / 100 mls/hr IV.SIG Q8H MILY Rx#: [id number] Oral 300 / 300 Output: Urine 700 / 700 750 / 750 Other: Date of Last Bowel Movement 05/20/18 # Bowel Movements 0 Narrative: General patient in no acute distress, appears weak. LESS LETHARGIC TODAY- HEENT extraocular movements are intact, clear oropharyngeal mucosa, no JVD Cardiovascular S1-S2 audible, RRR, no murmurs rubs or gallops Respiratory decreased breath sounds at right lung base. Abdomen soft, nontender, nondistended, normal bowel sounds Extremities no edema 2+ distal pulses in bilateral upper and lower extremities Neuro patient can move all 4 extremities, sensation is intact bilaterally. LESS LETHARGIC TODAY Unable to assess insight or judgment Unable to assess mood and behavior - Urinary Catheter Management Indwelling Urethral Catheter Cath placed during this visit: yes, but has since been removed by the nurse Reason for continuing: Decision to DC catheter Insertion date: 05/08/18 Insertion time: 21:38 Removal date: 05/13/18 Removal time: 17:00 Results - Labs CBC & Chem 7: 05/23/18 06:20 05/23/18 06:20 Laboratory Results - last 24 hr 05/23/18 05/23/18 05/23/18 06:20 06:20 06:20 WBC 19.1 H RBC 3.30 L Hgb 9.8 L Hct 29.8 L MCV 90.4 MCH 29.8 MCHC 33.0 RDW 15.1 Plt Count 507 H MPV 8.6 Neut % (Auto) 81.0 H Lymph % (Auto) 7.6 L [place] % (Auto) 8.2 H Eos % (Auto) 2.5 Baso % (Auto) 0.7 Neut # (Auto) 15.4 H Lymph # (Auto) 1.5 [place] # (Auto) 1.6 H Eos # (Auto) 0.5 H Baso # (Auto) 0.1 WBC Differential . Differential Comment Auto diff final PT 13.7 H INR 1.4 Sodium 143 Potassium 3.6 Chloride 113 H Carbon Dioxide 26.6 Anion Gap 3 L BUN 19 H Creatinine 0.91 Estimated GFR 80 L Random Glucose 98 Calcium 9.1 Phosphorus 2.3 L Magnesium 2.1 Total Bilirubin 0.3 AST 18 ALT 28 Alkaline Phosphatase 71 Ammonia Total Protein 7.2 Albumin 1.7 L Amylase 82 Lipase 332 TSH 0.806 Free T4 1.02 05/23/18 06:20 WBC RBC Hgb Hct MCV MCH MCHC RDW Plt Count MPV Neut % (Auto) Lymph % (Auto) [place] % (Auto) Eos % (Auto) Baso % (Auto) Neut # (Auto) Lymph # (Auto) [place] # (Auto) Eos # (Auto) Baso # (Auto) WBC Differential Differential Comment PT INR Sodium Potassium Chloride Carbon Dioxide Anion Gap BUN Creatinine Estimated GFR Random Glucose Calcium Phosphorus Magnesium Total Bilirubin AST ALT Alkaline Phosphatase Ammonia 21 Total Protein Albumin Amylase Lipase TSH Free T4 - Imaging Impressions Chest X-Ray 05/22/18 00:00 CONCLUSION: 1. Right basilar patchiness consistent with probable pneumonia. 2. Small right pleural effusion. 3. Stable scattered interstitial markings bilaterally. 4. Degenerative changes and scoliosis of the thoracolumbar spine. Assessment and Plan - Assessment (1) Encephalopathy Code(s): G93.40 - Encephalopathy, unspecified Status: Acute (2) Sepsis Code(s): A41.9 - Sepsis, unspecified organism Status: Acute (3) UTI (urinary tract infection) Code(s): N39.0 - Urinary tract infection, site not specified Status: Acute (4) PNA (pneumonia) Code(s): J18.9 - Pneumonia, unspecified organism Status: Acute (5) Limited code status Status: Acute - Plan 82-year-old male who was admitted with acute encephalopathy and found to have a right lower lobe infiltrate with abscess. 1. Acute encephalopathy likely secondary to underlying dementia and sepsis- appears worse today per nursing 2. Severe sepsis secondary to right lower lobe pneumonia with loculated right lung effusion and possible abscess.-We will need a thoracentesis in the future 3. Left lower lobe 13 mm pulmonary nodule 4. Urinary tract infection, Pseudomonas Patient is remained afebrile overnight. WBC count is elevated at 22,000 slightly lower than yesterday. Patient is currently on IV antibiotics. Continue cefepime and Flagyl as per infectious disease recommendations. Infectious disease following. CT scan chest showing loculated effusion. CT-guided drainage by IR ordered. As per the patient's nurse the family has now agreed to move forward with the procedure. This is likely the cause of the patient's leukocytosis. Continue breathing treatments, patient is currently on room air to 2 L of oxygen. Blood cultures are negative. Urine culture was positive for Pseudomonas. Patient has been on cefepime. Patient will need outpatient follow-up for his pulmonary nodules after discharge. Patient is currently alert and oriented x2. He is not oriented to the year. Patient does have documented dementia however his current mentation could possibly be due to sepsis and urinary tract infection Ammonia level is within normal limits. 5. Dementia 6. Anxiety Patient takes sertraline and quetiapine at his facility. These medications will be restarted today. As per the nursing staff the patient gets agitated at night. Will be started back on lorazepam 0.5 mg qHS as nursing staff report patient gets agitated at night. We will adjust his lorazepam and QUETIAPINE Lovenox will be held as the patient may undergo CT-guided drainage today. Discharge planning, this will be discussed with case management and infectious disease today. Patient will likely need placement at a rehab facility once he is medically clear for discharge. Patient is unable to ambulate. Code Status: LIMITED DNR Discussed Condition With: RN AND PT AND CM Discharge Planning: Pending improvement will need thoracentesis and/or chest tube
[2018-05-23] MEDS ORDERED: Lidocaine 1%/Epinephrine 1:100,000 Inj 20 ML Vial ONE (13:57)
--- NOTE | 2018-05-23 14:38 | P.RAD ---
Post CT Procedure Prog Note - Procedure Information Procedure Date: 05/23/18 Supervising Radiologist: Deon Murcia MD Estimated blood loss (mL): 0 Anesthesia: Conscious Sedation - Plan of Activity Patient to Unit: [facility] Patient condition: Good See PACS Report for procedural detail/treatment.
[2018-05-23 16:15] LABS: RBC,Pleural Fluid 27250 /mm3 (0-0)
--- NOTE | 2018-05-23 16:25 | CT ---
EXAM DATE: 05/23/2018 3:23 PM EST AGE/SEX: 82 years / Male INDICATIONS: Loculated small right pleural effusion. CLINICAL DATA: This is the patient's initial encounter. Patient reports that signs and symptoms have been present for 1 week and indicates a pain score of 0/10. MEDICAL/SURGICAL HISTORY: Hypertension. Alzheimer's disease. None. RADIATION DOSE: CTDI (mGy) COMPARISON: No prior exams available for comparison. DEVICE(S): 8 Fr [place] 6 Fr Dilator 17 gauge Introducer FLUID: Total volume of 20 of clear, red fluid was removed. Fluid was sent to lab for ordered studies.. . . PROCEDURE: CT guided right thoracentesis with chest tube placement. The site was prepped in sterile fashion. Full sterile technique was used, including cap, mask, steri le gloves and gown and a large sterile sheet. Hand hygiene and 2% chlorhexidine and/or betadine/alco hol prep was utilized per protocol for cutaneous antisepsis. The skin and subcutaneous tissues were infiltrated with local anesthetic solution. Using automated exposure control and adjustment of the m A and/or kV according to patient size, radiation dose was kept as low as reasonably achievable to obt ain optimal diagnostic quality images. DICOM format image data is available electronically for revie w and comparison. Under CT guidance a 8 Fr [place] catheter was placed in the right pleural space, and clear, red fluid were gently aspirated out of the chest. Chest tube was inserted. Post procedural scan show reductio n in the amount of fluid with no evidence of pneumothorax. The patient tolerated the procedure well and there were no complications. The patient was sent to [facility] in stable condition. CONCLUSION: 1. Uncomplicated CT-guided placement of 8 [place] right-sided chest tube in small loculated right ple ural effusion. Electronically signed by: Deon Murcia MD 05/23/2018 4:24 PM EST
[2018-05-23] MEDS: Montelukast 10 MG Tablet PO SCH (16:59)
[2018-05-23] MEDS: Enoxaparin Inj 30 MG/0.3 ML Syringe SQ SCH (20:39)
[2018-05-24] MEDS: Dextrose 5%/NaCl 0.9% Inj 1,000 ML IV.CONT SCH ×3 (01:00→17:03)
[2018-05-24 05:55] LABS: Baso # (Auto) 0.2 th/mm3 (0.0-0.2); Baso % (Auto) 1.1 % (0.0-2.0); Eos # (Auto) 0.4 th/mm3 (0.0-0.4); Eos % (Auto) 2.8 % (0.0-4.0); Hematocrit 27.7 % (39.0-51.0); Hemoglobin 9.2 gm/dL (13.0-17.0); Lymph # (Auto) 1.5 th/mm3 (1.0-4.8); Lymph % (Auto) 9.9 % (9.0-44.0); Mean Corpuscular HGB Conc 33.1 % (32.0-36.0); Mean Corpuscular Hemoglobin 29.8 pg (27.0-34.0); Mean Platelet Volume 8.4 fL (7.0-11.0); Mono # (Auto) 1.3 th/mm3 (0.0-0.9); Mono % (Auto) 8.2 % (0.0-8.0); Neut # (Auto) 11.9 th/mm3 (1.8-7.7); Platelet Count 446 th/mm3 (150-450); Red Blood Count 3.08 mil/mm3 (4.50-5.90); Red Cell Distribution Width 15.3 % (11.6-17.2); White Blood Count 15.3 th/mm3 (4.0-11.0)
[2018-05-24 06:23] LABS: Albumin 1.7 g/dL (3.4-5.0); Anion Gap 4 meq/L (5-15); Aspartate Aminotransferase 15 U/L (15-37); Blood Urea Nitrogen 17 mg/dL (7-18); Calcium 8.9 mg/dL (8.5-10.1); Carbon Dioxide 27.1 meq/L (21.0-32.0); Chloride 111 meq/L (98-107); Glomerular Filtration Rate Greater Than 89 mL/min (>89); Glucose,Random 94 mg/dL (74-106); Magnesium 1.9 mg/dL (1.5-2.5); Potassium 3.4 meq/L (3.5-5.1); Sodium 142 meq/L (136-145)
[2018-05-24 06:27] LABS: Alanine Aminotransferase 24 U/L (12-78); Alkaline Phosphatase 69 U/L (45-117)
[2018-05-24] MEDS: Megestrol Acetate Liq 400 MG/10 ML UDC PO SCH (08:25)
[2018-05-24] MEDS: Sertraline 100 MG Tablet PO SCH (08:25)
[2018-05-24] MEDS: Enoxaparin Inj 30 MG/0.3 ML Syringe SQ SCH ×2 (08:25→20:24)
[2018-05-24] MEDS: Senna/Docusate Sodium 8.6/50 MG Tablet PO SCH ×2 (08:25→20:24)
[2018-05-24] MEDS: Potassium Chlor 10 mEq Premix 10 MEQ/100 ML PIGGYBACK IV.SIG SCH ×6 (10:40→20:24)
--- NOTE | 2018-05-24 12:26 | P.PNIM ---
Subjective Interval history: 05-21 Patient laying down in bed. He does not appear to be in any acute distress. The patient is quiet and does respond to my questions appropriately. 05-22 PATIENT REMAINS VERY LETHARGIC TODAY NOT AWAKE ENOUGH TO SWALLOW TODAY VERY LETHARGIC WILL ADJUST MEDS DW RN THORACENTESIS HAS BEEN ORDERED BY ID AM LABS ST AND PT AND OT TO EVAL AND TREAT WILL GET CHEST XRAY TODAY START FLUIDS 05-23 MORE ALERT MORE INTERACTIVE TODAY DW RN AND PT AM LABS IR FOR THORACENTESIS DW RN AND PT AND CM 05-24 HAD CHEST TUBE PLACED BY IR ON 05-23 ON RIGHT SIDE DW RN AND PATIENT VERY GRUMPY TODAY DW RN AND PT AND CM AM LABS RESTART PT AND OT Physical Exam Vital signs: Vital Signs 05/23/18 16:00 05/23/18 17:52 05/23/18 20:00 Temperature 98.2 F 98.8 F Pulse Rate 58 L 59 L Respiratory Rate 14 16 Blood Pressure 142/66 H 135/64 Pulse Oximetry 97 98 96 05/24/18 00:00 05/24/18 04:00 05/24/18 08:00 Temperature 98.5 F 98.6 F 98.4 F Pulse Rate 61 54 L 76 Respiratory Rate 17 21 17 Blood Pressure 149/71 H 139/67 162/77 H Pulse Oximetry 97 97 96 05/24/18 11:49 Temperature Pulse Rate Respiratory Rate Blood Pressure Pulse Oximetry 95 Intake & Output 05/23/18 05/24/18 05/24/18 18:59 06:59 18:59 Intake Total 200 / 200 1880 / 1880 100 / 100 Output Total 250 / 250 1000 / 1000 Balance -50 / -50 880 / 880 100 / 100 Weight 62.8 kg Intake: IV 200 / 200 1400 / 1400 100 / 100 D5W/Normal Saline Inj 1,000 ML 1000 / 1000 @ 84 mls/hr IV.CONT .[id number] MILY Rx#:[id number] Maxipime Inj 2,000 MG In NS Inj 100 / 100 200 / 200 100 ML @ 200 mls/hr IV.SIG Q8HR MILY Rx#:[id number] Flagyl 500 MG Inj 100 ML @ 100 100 / 100 200 / 200 100 / 100 mls/hr IV.SIG Q8H MILY Rx#: [id number] Oral 480 / 480 Output: Urine 250 / 250 1000 / 1000 Chest Tube Drainage 0 / 0 Right 0 / 0 Narrative: General patient in no acute distress, appears weak. LESS LETHARGIC TODAY- HEENT extraocular movements are intact, clear oropharyngeal mucosa, no JVD Cardiovascular S1-S2 audible, RRR, no murmurs rubs or gallops Respiratory decreased breath sounds at right lung base. RIGHT SIDED CHEST TUBE HOOKED UP TO CHEST TUBE SET UP Abdomen soft, nontender, nondistended, normal bowel sounds Extremities no edema 2+ distal pulses in bilateral upper and lower extremities Neuro patient can move all 4 extremities, sensation is intact bilaterally. LESS LETHARGIC TODAY Unable to assess insight or judgment Unable to assess mood and behavior - Urinary Catheter Management Indwelling Urethral Catheter Cath placed during this visit: yes, but has since been removed by the nurse Reason for continuing: Decision to DC catheter Insertion date: 05/08/18 Insertion time: 21:38 Removal date: 05/13/18 Removal time: 17:00 Results - Labs CBC & Chem 7: 05/24/18 04:55 05/24/18 04:55 Laboratory Results - last 24 hr 05/23/18 05/23/18 05/24/18 06:20 14:30 04:55 WBC 15.3 H RBC 3.08 L Hgb 9.2 L Hct 27.7 L MCV 90.0 MCH 29.8 MCHC 33.1 RDW 15.3 Plt Count 446 MPV 8.4 Neut % (Auto) 78.0 H Lymph % (Auto) 9.9 Iron % (Auto) 8.2 H Eos % (Auto) 2.8 Baso % (Auto) 1.1 Neut # (Auto) 11.9 H Lymph # (Auto) 1.5 Iron # (Auto) 1.3 H Eos # (Auto) 0.4 Baso # (Auto) 0.2 WBC Differential . Differential Comment Auto diff final Sodium Potassium Chloride Carbon Dioxide Anion Gap BUN Creatinine Estimated GFR Random Glucose Hemoglobin A1c 6.0 Calcium Phosphorus Magnesium Total Bilirubin AST ALT Alkaline Phosphatase Total Protein Albumin Pleural RBC 53958 H Pleural Nuc Cells 140 H Pleural Neutrophils 05/24/18 04:55 WBC RBC Hgb Hct MCV MCH MCHC RDW Plt Count MPV Neut % (Auto) Lymph % (Auto) Iron % (Auto) Eos % (Auto) Baso % (Auto) Neut # (Auto) Lymph # (Auto) Iron # (Auto) Eos # (Auto) Baso # (Auto) WBC Differential Differential Comment Sodium 142 Potassium 3.4 L Chloride 111 H Carbon Dioxide 27.1 Anion Gap 4 L BUN 17 Creatinine 0.82 Estimated GFR Greater than 89 Random Glucose 94 Hemoglobin A1c Calcium 8.9 Phosphorus 2.0 L Magnesium 1.9 Total Bilirubin 0.3 AST 15 ALT 24 Alkaline Phosphatase 69 Total Protein 7.0 Albumin 1.7 L Pleural RBC Pleural Nuc Cells Pleural Neutrophils Microbiology 05/23/18 14:30 Fluid - Pleural fluid Gram Stain - Final 05/23/18 14:30 Fluid - Pleural fluid Body Fluid Culture - Preliminary No growth in 24 hours - Imaging Impressions Chest Tube Insertion 05/23/18 00:00 CONCLUSION: 1. Uncomplicated CT-guided placement of 8 Brazilian right-sided chest tube in small loculated right pleural effusion. - Procedures Chad Christie JR CT guided thora w chst tube RT Signed EXAM DATE: 05/23/2018 3:23 PM EST AGE/SEX: 82 years / Male INDICATIONS: Loculated small right pleural effusion. CLINICAL DATA: This is the patient's initial encounter. Patient reports that signs and symptoms have been present for 1 week and indicates a pain score of 0/ 10. MEDICAL/SURGICAL HISTORY: Hypertension. Alzheimer's disease. None. RADIATION DOSE: CTDI (mGy) COMPARISON: No prior exams available for comparison. DEVICE(S): 8 Fr [place] 6 Fr Dilator 17 gauge Introducer FLUID: Total volume of 20 of clear, red fluid was removed. Fluid was sent to lab for ordered studies.. . . PROCEDURE: CT guided right thoracentesis with chest tube placement. The site was prepped in sterile fashion. Full sterile technique was used, including cap, mask, sterile gloves and gown and a large sterile sheet. Hand hygiene and 2% chlorhexidine and/or betadine/alcohol prep was utilized per protocol for cutaneous antisepsis. The skin and subcutaneous tissues were infiltrated with local anesthetic solution. Using automated exposure control and adjustment of the mA and/or kV according to patient size, radiation dose was kept as low as reasonably achievable to obtain optimal diagnostic quality images. DICOM format image data is available electronically for review and comparison. Under CT guidance a 8 Fr Richmond catheter was placed in the right pleural space , and clear, red fluid were gently aspirated out of the chest. Chest tube was inserted. Post procedural scan show reduction in the amount of fluid with no evidence of pneumothorax. The patient tolerated the procedure well and there were no complications. The patient was sent to recovery in stable condition. CONCLUSION: 1. Uncomplicated CT-guided placement of 8 Brazilian right-sided chest tube in small loculated right pleural effusion. Assessment and Plan - Assessment (1) Encephalopathy Code(s): G93.40 - Encephalopathy, unspecified Status: Acute (2) Sepsis Code(s): A41.9 - Sepsis, unspecified organism Status: Acute (3) UTI (urinary tract infection) Code(s): N39.0 - Urinary tract infection, site not specified Status: Acute (4) PNA (pneumonia) Code(s): J18.9 - Pneumonia, unspecified organism Status: Acute (5) Limited code status Status: Acute - Plan 82-year-old male who was admitted with acute encephalopathy and found to have a right lower lobe infiltrate with abscess. 1. Acute encephalopathy likely secondary to underlying dementia and sepsis- appears worse today per nursing 2. Severe sepsis secondary to right lower lobe pneumonia with loculated right lung effusion and possible abscess.-We will need a thoracentesis in the future 3. Left lower lobe 13 mm pulmonary nodule 4. Urinary tract infection, Pseudomonas Patient is remained afebrile overnight. WBC count is elevated at 22,000 slightly lower than yesterday. Patient is currently on IV antibiotics. Continue cefepime and Flagyl as per infectious disease recommendations. Infectious disease following. CT scan chest showing loculated effusion. CT-guided drainage by IR ordered. As per the patient's nurse the family has now agreed to move forward with the procedure. This is likely the cause of the patient's leukocytosis. Continue breathing treatments, patient is currently on room air to 2 L of oxygen. Blood cultures are negative. Urine culture was positive for Pseudomonas. Patient has been on cefepime. Patient will need outpatient follow-up for his pulmonary nodules after discharge. Patient is currently alert and oriented x2. He is not oriented to the year. Patient does have documented dementia however his current mentation could possibly be due to sepsis and urinary tract infection Ammonia level is within normal limits. 5. Dementia 6. Anxiety Patient takes sertraline and quetiapine at his facility. These medications will be restarted today. As per the nursing staff the patient gets agitated at night. Will be started back on lorazepam 0.5 mg qHS as nursing staff report patient gets agitated at night. We will adjust his lorazepam and QUETIAPINE Lovenox will be held as the patient may undergo CT-guided drainage today. Discharge planning, this will be discussed with case management and infectious disease today. Patient will likely need placement at a rehab facility once he is medically clear for discharge. Patient is unable to ambulate. HAD RIGHT SIDED CHEST TUBE PLACED BY IR ON 05-23 CONTINUE CURRENT TREATMENTS DW RN AND PT AND CM WILL BE LONG COURSE IN HOSPITAL RESTART PT AND OT Code Status: ALTERNATIVE CODE Discussed Condition With: RN AND PT AND CM Discharge Planning: Pending improvement HAS RIGHT SIDED CHEST TUBE IN PLACE
--- NOTE | 2018-05-24 15:30 | XR ---
EXAM DATE: 05/24/2018 2:58 PM EST AGE/SEX: 83 years / Male INDICATIONS: Chest tube placement. CLINICAL DATA: This is the patient's subsequent encounter. Patient reports that signs and symptoms h ave been present for 2 days and indicates a pain score of 3/10. MEDICAL/SURGICAL HISTORY: . Hypertension. Alzheimer's disease. . COMPARISON: [facility] [place] 1[place] SING[place] AP, 05/22/2018. . FINDINGS: Interval placement of right-sided chest tube in the right mid hemithorax with interval resolution of loculated right-sided pleural effusion. Persistent patchy airspace disease in the right mid to lower lung zones. No significant pneumothorax. Cardiomediastinal contours are stable. Remainder of the exam is unchanged. CONCLUSION: 1. Near interval resolution of loculated right pleural effusion following right-sided chest tube bk cement. 2. Persistent patchy airspace disease throughout the right mid to lower lung zones. Electronically signed by: Deon Murcia MD 05/24/2018 3:29 PM EST
[2018-05-24] MEDS: Montelukast 10 MG Tablet PO SCH (17:18)
--- NOTE | 2018-05-24 18:01 | P.PNID ---
Subjective Remarks: sp US guided thoracocenthesis fluid bloody non purulent WBC going down afebrile no new problems doing OK Antibiotics: flagyl cefepime Allergies/Adverse Reactions: Allergies No Known Allergies Allergy (Verified 05/08/18 20:16) Objective Vital Signs 05/23/18 17:52 05/23/18 20:00 05/24/18 00:00 Temperature 98.8 F 98.5 F Pulse Rate 59 L 61 Respiratory Rate 16 17 Blood Pressure 135/64 149/71 H Pulse Oximetry 98 96 97 05/24/18 04:00 05/24/18 08:00 05/24/18 11:49 Temperature 98.6 F 98.4 F Pulse Rate 54 L 76 Respiratory Rate 21 17 Blood Pressure 139/67 162/77 H Pulse Oximetry 97 96 95 05/24/18 12:00 05/24/18 16:00 Temperature 98.0 F 98.1 F Pulse Rate 73 63 Respiratory Rate 17 17 Blood Pressure 148/67 H 158/74 H Pulse Oximetry 97 100 Intake & Output 05/23/18 05/24/18 05/24/18 18:59 06:59 18:59 Intake Total 200 / 200 1880 / 1880 400 / 400 Output Total 250 / 250 1000 / 1000 Balance -50 / -50 880 / 880 400 / 400 Weight 62.8 kg Intake: IV 200 / 200 1400 / 1400 400 / 400 D5W/Normal Saline Inj 1,000 ML 1000 / 1000 @ 84 mls/hr IV.CONT .[id number] MILY Rx#:[id number] Maxipime Inj 2,000 MG In NS Inj 100 / 100 200 / 200 100 ML @ 200 mls/hr IV.SIG Q8HR MILY Rx#:[id number] KCl 10 mEq Premix Inj 10 meq In 300 / 300 100 ml @ 100 mls/hr IV.SIG Q1H MILY Rx#:[id number] Flagyl 500 MG Inj 100 ML @ 100 100 / 100 200 / 200 100 / 100 mls/hr IV.SIG Q8H MILY Rx#: [id number] Oral 480 / 480 Output: Urine 250 / 250 1000 / 1000 Chest Tube Drainage 0 / 0 Right 0 / 0 05/23/18 14:30 Fluid - Pleural fluid Gram Stain - Final 05/23/18 14:30 Fluid - Pleural fluid Body Fluid Culture - Preliminary No growth in 24 hours Lab - Hematology Results 05/23/18 05/24/18 06:20 04:55 WBC 19.1 H 15.3 H RBC 3.30 L 3.08 L Hgb 9.8 L 9.2 L Hct 29.8 L 27.7 L MCV 90.4 90.0 MCH 29.8 29.8 MCHC 33.0 33.1 RDW 15.1 15.3 Plt Count 507 H 446 MPV 8.6 8.4 Neut % (Auto) 81.0 H 78.0 H Lymph % (Auto) 7.6 L 9.9 [place] % (Auto) 8.2 H 8.2 H Eos % (Auto) 2.5 2.8 Baso % (Auto) 0.7 1.1 Neut # (Auto) 15.4 H 11.9 H Lymph # (Auto) 1.5 1.5 [place] # (Auto) 1.6 H 1.3 H Eos # (Auto) 0.5 H 0.4 Baso # (Auto) 0.1 0.2 WBC Differential . . Differential Comment Auto diff final Auto diff final Lab - Chemistry Results 05/23/18 05/23/18 05/23/18 06:20 06:20 06:20 Sodium 143 Potassium 3.6 Chloride 113 H Carbon Dioxide 26.6 Anion Gap 3 L BUN 19 H Creatinine 0.91 Estimated GFR 80 L Random Glucose 98 Hemoglobin A1c 6.0 Calcium 9.1 Phosphorus 2.3 L Magnesium 2.1 Total Bilirubin 0.3 AST 18 ALT 28 Alkaline Phosphatase 71 Ammonia 21 Total Protein 7.2 Albumin 1.7 L Amylase 82 Lipase 332 TSH 0.806 Free T4 1.02 05/24/18 04:55 Sodium 142 Potassium 3.4 L Chloride 111 H Carbon Dioxide 27.1 Anion Gap 4 L BUN 17 Creatinine 0.82 Estimated GFR Greater than 89 Random Glucose 94 Hemoglobin A1c Calcium 8.9 Phosphorus 2.0 L Magnesium 1.9 Total Bilirubin 0.3 AST 15 ALT 24 Alkaline Phosphatase 69 Ammonia Total Protein 7.0 Albumin 1.7 L Amylase Lipase TSH Free T4 Imaging: ITS Impressions Head CT 05/08/18 20:25 CONCLUSION: 1. No acute findings in the brain. 2. Moderately severe central and cortical atrophy. . Abdomen/Pelvis CT 05/11/18 00:00 CONCLUSION: 1. Right lower lobe infiltrate with a couple a tiny suspected intraparenchymal abscesses and loculated right effusion. This is new from the prior study. 2. Unchanged 13 mm left lower lobe pulmonary nodule. 3. Right inguinal hernia containing small bowel. 4. Colonic diverticulosis. Chest CT 05/18/18 00:00 CONCLUSION: Slight interval improvement in the appearance of the chest. Chest Tube Insertion 05/23/18 00:00 CONCLUSION: 1. Uncomplicated CT-guided placement of 8 British right-sided chest tube in small loculated right pleural effusion. Chest X-Ray 05/24/18 14:37 CONCLUSION: 1. Near interval resolution of loculated right pleural effusion following right -sided chest tube placement. 2. Persistent patchy airspace disease throughout the right mid to lower lung zones. Physical Exam: GENERAL: Alert and oriented, no acute distress. HEENT: Pupils reactive to light. Extraocular movements intact. No icterus. NECK: Supple without adenopathy. No swelling. LUNGS: Coarse BS at the right base. por effort CT in place with serosang d/c HEART: Regular S1 and S2. No audible murmurs. ABDOMEN: Bowel sounds present, diminished, soft, nontender. EXTREMITIES: No clubbing cyanosis or edema. SKIN: No rash NEUROLOGIC: Nonfocal PSYCH: Calm and cooperative. Assessment and Plan - Plan PNA medial right lung and right lower lung. clinically improving on empiric abx Fever, encephalopathy UTI, PSAE panS Leukocytosis, severe - persistent. White blood cell count is higher today. + abdominal pain - probably referred from PNA Cont cefpeime for PSAE UTI, PNA x 2 weeks Monitor white blood cell count. If cultures remember negative will dc cefepime, Flagyl.
[2018-05-25] MEDS: Dextrose 5%/NaCl 0.9% Inj 1,000 ML IV.CONT SCH ×2 (00:20→15:53)
[2018-05-25 07:38] LABS: Baso # (Auto) 0.1 th/mm3 (0.0-0.2); Baso % (Auto) 0.8 % (0.0-2.0); Eos # (Auto) 0.6 th/mm3 (0.0-0.4); Eos % (Auto) 4.1 % (0.0-4.0); Hematocrit 27.5 % (39.0-51.0); Hemoglobin 9.1 gm/dL (13.0-17.0); Lymph # (Auto) 1.5 th/mm3 (1.0-4.8); Lymph % (Auto) 11.2 % (9.0-44.0); Mean Corpuscular Hemoglobin 30.2 pg (27.0-34.0); Mean Corpuscular Volume 91.5 fL (80.0-100.0); Mean Platelet Volume 8.7 fL (7.0-11.0); Mono # (Auto) 1.1 th/mm3 (0.0-0.9); Mono % (Auto) 8.3 % (0.0-8.0); Neut # (Auto) 10.2 th/mm3 (1.8-7.7); Neut % (Auto) 75.6 % (16.0-70.0); Platelet Count 441 th/mm3 (150-450); Red Cell Distribution Width 15.3 % (11.6-17.2); White Blood Count 13.5 th/mm3 (4.0-11.0)
[2018-05-25 08:01] LABS: Albumin 1.8 g/dL (3.4-5.0); Anion Gap 5 meq/L (5-15); Aspartate Aminotransferase 17 U/L (15-37); Blood Urea Nitrogen 19 mg/dL (7-18); Calcium 8.7 mg/dL (8.5-10.1); Carbon Dioxide 26.5 meq/L (21.0-32.0); Chloride 110 meq/L (98-107); Glomerular Filtration Rate Greater Than 89 mL/min (>89); Glucose,Random 87 mg/dL (74-106); Magnesium 1.8 mg/dL (1.5-2.5); Potassium 3.6 meq/L (3.5-5.1); Sodium 141 meq/L (136-145)
[2018-05-25 08:04] LABS: Alanine Aminotransferase 21 U/L (12-78); Alkaline Phosphatase 66 U/L (45-117); Phosphorus 1.4 mg/dL (2.5-4.9); Total Protein 7.1 g/dL (6.4-8.2)
[2018-05-25] MEDS: Senna/Docusate Sodium 8.6/50 MG Tablet PO SCH ×2 (08:43→20:00)
[2018-05-25] MEDS: Sertraline 100 MG Tablet PO SCH (08:43)
[2018-05-25] MEDS: Enoxaparin Inj 30 MG/0.3 ML Syringe SQ SCH (08:43)
[2018-05-25] MEDS: Megestrol Acetate Liq 400 MG/10 ML UDC PO SCH (08:43)
[2018-05-25] MEDS: Montelukast 10 MG Tablet PO SCH (17:40)
--- NOTE | 2018-05-25 18:36 | P.PNIM ---
Subjective Interval history: Not very interactive with my questions but did participate with a swallow evaluation which he passed. He states that he occasionally gets short of breath and denies any active chest pain at this time. Physical Exam Vital signs: Last Vital Signs Temp 97.6 F 05/25/18 16:00 Pulse 71 05/25/18 16:00 Resp 18 05/25/18 16:00 BP 150/70 H 05/25/18 16:00 Pulse Ox 97 05/25/18 16:00 Intake & Output 05/23/18 05/24/18 05/25/18 05/26/18 06:59 06:59 06:59 06:59 Intake Total 1800 / 1800 2080 / 2080 4400 / 4400 2019 / 2019 Output Total 1450 / 1450 1250 / 1250 2300 / 2300 900 / 900 Balance 350 / 350 830 / 830 2100 / 2100 1120 / 1120 Weight 62.8 kg 62.8 kg 62.8 kg Narrative: GENERAL: This is a well-nourished, well-developed patient, in no apparent distress lying in bed just completing swallow evaluation. CARDIOVASCULAR: Regular rate and rhythm RESPIRATORY: Diminished breath sounds over the right base with chest tube in place. GASTROINTESTINAL: Abdomen soft, non-tender, nondistended. Normal active bowel sounds MUSCULOSKELETAL: Extremities without clubbing, cyanosis, trace edema NEURO: Seems to be alert and oriented to person and place, did not move bilateral lower legs and arms with generalized weakness Urinary Catheter Management Indwelling Urethral Catheter: Cath placed during this visit: yes, but has since been removed by the nurse Insertion date: 05/08/18 Insertion time: 21:38 Removal date: 05/13/18 Removal time: 17:00 Results Labs CBC & Chem 7: 05/25/18 06:21 05/25/18 06:21 Labs: Microbiology 05/23/18 14:30 Fluid - Pleural fluid Gram Stain - Final 05/23/18 14:30 Fluid - Pleural fluid Body Fluid Culture - Preliminary No growth in 48 hours Procedures Procedures: 05/23 * PROCEDURE: CT guided right thoracentesis with chest tube placement. . Assessment and Plan Plan 82-year-old male who was admitted with acute encephalopathy and found to have a right lower lobe infiltrate with abscess. 1. Acute sepsis encephalopathy likely secondary to underlying dementia and sepsis -still has periods of confusion but has improved since admission. 2. Severe sepsis secondary to right lower lobe pneumonia with loculated right lung effusion and empyema status post right-sided chest tube placement and drainage. 3. Left lower lobe 13 mm pulmonary nodule -will need to follow-up as an outpatient for further workup. 4. Urinary tract infection, Pseudomonas WBC BC is trending down on IV antibiotics. Continue cefepime and Flagyl as per infectious disease recommendations for a total 2-week course. Infectious disease, Dr. Martin following. Continue breathing treatments, patient support at 3 L nasal cannula Blood cultures are negative. Urine culture was positive for Pseudomonas. Patient has been on cefepime. Patient will need outpatient follow-up for his pulmonary nodules after discharge. 5. Dementia, chronic 6. Anxiety Patient takes sertraline and quetiapine at his facility. As per the nursing staff the patient gets agitated at night. Will be started back on lorazepam 0.5 mg qHS as nursing staff report patient gets agitated at night. DVT prophylaxisLovenox Progress Note: Quality VTE Deep Vein Thrombosis/Pulmonary Embolism Present on Admission: No
[2018-05-26] MEDS: Dextrose 5%/NaCl 0.9% Inj 1,000 ML IV.CONT SCH ×3 (04:50→14:37)
--- NOTE | 2018-05-26 08:20 | CT ---
EXAM DATE: 05/25/2018 11:02 AM EST AGE/SEX: 83 years / Male INDICATIONS: Evaluate chest tube. CLINICAL DATA: This is the patient's subsequent encounter. Patient reports that signs and symptoms h ave been present for 2 days and indicates a pain score of Nonresponsive. MEDICAL/SURGICAL HISTORY: Alzheimer's disease. Hypertension. None. RADIATION DOSE: 11.69 CTDI (mGy) COMPARISON: [facility] – [place], [place] CHEST W/O CONTRAST, 05/18/2018. . TECHNIQUE: Multiple contiguous axial images were obtained through the chest without contrast. Image s were obtained in suspended respiration using multiple row detector helical technique. Using automa eboni exposure control and adjustment of the mA and/or kV according to patient size, radiation dose was kept as low as reasonably achievable to obtain optimal diagnostic quality images. DICOM format imag e data is available electronically for review and comparison. FINDINGS: Smallbore chest tube is in place on the right sitting in what appears to be a complex fluid collectio n with consolidation in the right base. Small amount of air is present in the pleural space as well. The left lung is hyperinflated but reasonably clear. There are severe coronary calcifications and LAD and circumflex. Degenerative changes are present in the thoracic spine. CONCLUSION: 1. Small bore chest tube in good position on the right with complex fluid in the right base and mode rate parenchymal changes right lower lobe. Findings have not changed significantly Electronically signed by: Mark Cuenca MD 05/25/2018 11:10 AM EST
[2018-05-26] MEDS: Megestrol Acetate Liq 400 MG/10 ML UDC PO SCH (09:29)
[2018-05-26] MEDS: Sertraline 100 MG Tablet PO SCH (09:29)
[2018-05-26] MEDS: Senna/Docusate Sodium 8.6/50 MG Tablet PO SCH ×2 (09:29→20:06)
[2018-05-26] MEDS: Enoxaparin Inj 40 MG/0.4 ML Syringe SQ SCH (09:29)
--- NOTE | 2018-05-26 14:54 | P.PNIM ---
Subjective Interval history: Patient reports that he is feeling much better with the chest tube out. No shortness of breath or chest pain. Breathing okay. Physical Exam Vital signs: Last Vital Signs Temp 98.3 F 05/26/18 08:00 Pulse 80 05/26/18 08:00 Resp 18 05/26/18 08:00 BP 138/99 H 05/26/18 08:00 Pulse Ox 96 05/26/18 09:16 Intake & Output 05/24/18 05/25/18 05/26/18 05/27/18 06:59 06:59 06:59 06:59 Intake Total 2080 / 2080 4400 / 4400 2460 / 2460 1200 / 1200 Output Total 1250 / 1250 2300 / 2300 900 / 900 Balance 830 / 830 2100 / 2100 1560 / 1560 1200 / 1200 Weight 62.8 kg 62.8 kg 63.5 kg Narrative: GENERAL: This is a well-nourished, well-developed patient, in no apparent distress lying in bed just completing swallow evaluation. CARDIOVASCULAR: Regular rate and rhythm RESPIRATORY: Diminished breath sounds over the right base GASTROINTESTINAL: Abdomen soft, non-tender, nondistended. Normal active bowel sounds MUSCULOSKELETAL: Extremities without clubbing, cyanosis, trace edema NEURO: Seems to be alert and oriented to person and place, did not move bilateral lower legs and arms with generalized weakness Urinary Catheter Management Indwelling Urethral Catheter: Cath placed during this visit: yes, but has since been removed by the nurse Insertion date: 05/08/18 Insertion time: 21:38 Removal date: 05/13/18 Removal time: 17:00 Results Labs CBC & Chem 7: 05/25/18 06:21 05/25/18 06:21 Labs: Microbiology 05/23/18 14:30 Fluid - Pleural fluid Gram Stain - Final 05/23/18 14:30 Fluid - Pleural fluid Body Fluid Culture - Final No growth in 72 hours (aerobically and anaerobically ) Imaging Imaging: Impressions Chest CT 05/25/18 00:00 CONCLUSION: 1. Small bore chest tube in good position on the right with complex fluid in the right base and moderate parenchymal changes right lower lobe. Findings have not changed significantly Procedures Procedures: 05/23 * PROCEDURE: CT guided right thoracentesis with chest tube placement. . Assessment and Plan Plan 82-year-old male who was admitted with acute encephalopathy and found to have a right lower lobe infiltrate with abscess. 1. Acute sepsis encephalopathy likely secondary to underlying dementia and sepsis -still has periods of confusion but has improved since admission and likely at baseline. 2. Severe sepsis secondary to right lower lobe pneumonia with loculated right lung effusion and empyema status post right-sided chest tube placement and drainage and now removed. 3. Left lower lobe 13 mm pulmonary nodule -will need to follow-up as an outpatient for further workup. 4. Urinary tract infection, Pseudomonas WBC BC is trending down on IV antibiotics. Continue cefepime and Flagyl as per infectious disease recommendations for a total 2-week course, possibly able to discontinue in a box in the morning blood cultures remain negative. Infectious disease, Dr. Martin following. Continue breathing treatments, patient now satting at 96% on room air Blood cultures are negative. Urine culture was positive for Pseudomonas. Patient has been on cefepime. Patient will need outpatient follow-up for his pulmonary nodules after discharge. 5. Dementia, chronic 6. Anxiety Patient takes sertraline and quetiapine at his facility. As per the nursing staff the patient gets agitated at night. Will be started back on lorazepam 0.5 mg qHS as nursing staff report patient gets agitated at night. DVT prophylaxisLovenox Possible discharge to snf in the morning. Progress Note: Quality VTE Deep Vein Thrombosis/Pulmonary Embolism Present on Admission: No
[2018-05-26] MEDS: Montelukast 10 MG Tablet PO SCH (18:30)
[2018-05-27] MEDS: Dextrose 5%/NaCl 0.9% Inj 1,000 ML IV.CONT SCH (02:43)
[2018-05-27] MEDS: Enoxaparin Inj 40 MG/0.4 ML Syringe SQ SCH (08:48)
[2018-05-27] MEDS: Senna/Docusate Sodium 8.6/50 MG Tablet PO SCH (08:49)
[2018-05-27] MEDS: Sertraline 100 MG Tablet PO SCH (08:49)
[2018-05-27] MEDS: Megestrol Acetate Liq 400 MG/10 ML UDC PO SCH (08:50)
[2018-05-27 08:58] VITALS: O2SAT 96
[2018-05-27] MEDS ORDERED: amLODIPine 10 MG Tablet PO SCH (09:00)
[2018-05-27 11:09] VITALS: BP 171/82; RESP 18; TEMP 98.3
[2018-05-27 11:21] VITALS: PULSE 77
--- NOTE | 2018-05-27 11:32 | P.DS ---
DS: Providers Date of admission: 05/08/18 22:12 Primary care physician: Az Alfredo MD Consults: 05/08/18 22:33 HUB Only Consult Order Routine Consulting Provider: Ticket Hoy,Insurance 05/10/18 09:34 Consult to Infectious Diseases Routine Consulting Provider: Salud Martin Reason for Consultation: severe sepsis, persistent Notified:: Service Spoke with:: JOLIE Date Notified:: 05/10/18 Time Notified:: 10:22 Ordering Provider: PUSHPA 05/10/18 14:07 HUB Only Consult Order [facility] 05/13/18 06:35 Consult to Cardiology Routine Consulting Provider: Fausto Soriano Does the patient have a Supervisor [employer] who follows them?: No 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 Pt unable to provide any history due to mental status. Granddaughter at bedside providing most of history, states pt has underlying dementia w/ confusion, however today was noted to be increasingly more confused and lethargic. On arrival, BP 100/57, HR 81, O2 sat 94% on 2L NC, Temp 101.0. WBC 28.2. Chemistry essentially unremarkable. UA positive for UTI. CXR with infiltrate medial right lung and right lower lung. CT Head with no acute findings. S/p Vanc/Zosyn in ER. Of note....pt is Alternative Code... COMPRESSIONS/SHOCK ONLY. NO INTUBATION OR ACLS. DS: Diagnosis Discharge Diagnosis (1) Septic encephalopathy: Status: Resolved Diagnosis: Principal (2) Acute kidney injury: Status: Resolved Diagnosis: Secondary (3) Pseudomonas urinary tract infection: Status: Acute Diagnosis: Principal (4) PNA (pneumonia): Status: Resolved DS: Summary 82-year-old white male was admitted with acute sepsis encephalopathy and found to have a right lower lobe infiltrate along with urinary tract infection. His encephalopathy with underlying dementia has improved during the hospitalization after treatment with antibiotics. Infectious disease physician, Dr. Salud Martin was consulted his hospitalization and recommended cefepime and Flagyl and completed a 2-week course of the hospitalization. He was found to have a Pseudomonas urinary tract infection along with a right loculated lung empyema which was drained with chest tube placement and now has been removed. He has been weaned off completely off of oxygen and is satting well on room air. He was also incidentally found to have a left lower lobe 13 mm pulmonary nodule which will need to be follow-up as an outpatient for further evaluation and workup. Patient will be transitioned to [facility] as he has now gained maximum benefit from hospitalization. Time Spent with Patient Total time spent providing and/or coordinating discharge services: Less than 30 minutes Quality: VTE Deep Vein Thrombosis/Pulmonary Embolism Present on Admission: No Exam Narrative Exam Narrative: GENERAL: This is a well-nourished, well-developed patient, in no apparent distress. CARDIOVASCULAR: Regular rate and rhythm RESPIRATORY: Diminished breath sounds in the bases GASTROINTESTINAL: Abdomen soft, non-tender, nondistended. Normal active bowel sounds MUSCULOSKELETAL: Extremities without clubbing, cyanosis, or edema. NEURO: Alert & Oriented x2 to person, place, with mild confusion, moves all ext x4 and follows directions. Results Procedures completed during hospitalization: 05/23 * PROCEDURE: CT guided right thoracentesis with chest tube placement. . Impressions ITS Impressions Head CT 05/08/18 20:25 CONCLUSION: 1. No acute findings in the brain. 2. Moderately severe central and cortical atrophy. . Abdomen/Pelvis CT 05/11/18 00:00 CONCLUSION: 1. Right lower lobe infiltrate with a couple a tiny suspected intraparenchymal abscesses and loculated right effusion. This is new from the prior study. 2. Unchanged 13 mm left lower lobe pulmonary nodule. 3. Right inguinal hernia containing small bowel. 4. Colonic diverticulosis. Chest Tube Insertion 05/23/18 00:00 CONCLUSION: 1. Uncomplicated CT-guided placement of 8 Macedonian right-sided chest tube in small loculated right pleural effusion. Chest X-Ray 05/24/18 14:37 CONCLUSION: 1. Near interval resolution of loculated right pleural effusion following right -sided chest tube placement. 2. Persistent patchy airspace disease throughout the right mid to lower lung zones. Chest CT 05/25/18 00:00 CONCLUSION: 1. Small bore chest tube in good position on the right with complex fluid in the right base and moderate parenchymal changes right lower lobe. Findings have not changed significantly Discharge Plan Discharge Disposition Patient Disposition: 03 Discharge to SNF Discharge Condition Condition: Fair Discharge Order Discharge Orders: Discharge Order (Routine); Ordered 05/27/18 Ordered By: Eleanor Joy Physicians Team Primary Care Provider: Az Alfredo Attending Provider: Eleanor Joy Other Providers: Ticket Hoy,Insurance ; Salud Martin ; [employer] ,[place] ; [employer]Fausto ; [facility],Agency ; [facility],[place] Rxs /Orders / Referrals /Forms Prescriptions: New lorazepam 0.5 mg tablet 0.5 mg PO HS Qty: 7 RF: 0 Continue quetiapine 25 mg Tablet 25 mg PO BID RF: 0 atorvastatin 20 mg Tablet 20 mg PO DAILY RF: 0 polyethylene glycol 3350 17 gram Powder In Packet 17 g PO DAILY PRN (Reason: Constipation) RF: 0 donepezil 10 mg Tablet 10 mg PO BID RF: 0 sertraline 100 mg Tablet 100 mg PO DAILY RF: 0 tamsulosin 0.4 mg Capsule 0.4 mg PO DAILY RF: 0 montelukast 10 mg Tablet 10 mg PO QPM RF: 0 amlodipine [Norvasc] 10 mg Tablet 10 mg PO DAILY Qty: 30 RF: 0 Discontinued loperamide [Anti-Diarrheal (loperamide)] 2 mg Capsule 2 mg PO TID RF: 0 lorazepam 0.5 mg Tablet 0.5 mg PO BID RF: 0 quinapril 20 mg Tablet 20 mg PO BID RF: 0 potassium chloride 20 mEq Tablet Extended Release 20 meq PO DAILY RF: 0 furosemide 40 mg Tablet 20 mg PO DAILY Qty: 30 RF: 0 Referrals: Az Alfredo MD [Primary Care Provider] - See Instructions ( Follow-up with PCP within 72 hours) Post Discharge Care Plan Care Plan Goals: Your Health Problems: UTI, pneumonia, sepsis Goals to Promote Your Health: * To prevent worsening of your condition * To maintain your health at the optimal level Directions to Meet Your Goals: * Take your medications as prescribed * Follow your dietary instruction * Follow activity as directed * Keep your appointments as scheduled * Take your immunizations and boosters as scheduled * If your symptoms worsen call your PCP * If no PCP go to Urgent Care or Emergency Room Smoking is dangerous to your health. Avoid second hand smoke. You may reach the 24-hour crisis hotline for domestic abuse at . Status ED Status: Left Department
== END 2018-05-27 13:48 ==
LOC: NEPC 19:59 → NEDA 22:12 → N07 23:15
PROVIDERS: ADMIT Family Medicine; ATTEND Family Medicine